=== PATIENT | female | born 1970 | race African-American/Black ===

== ENCOUNTER 2017-06-16 12:21 | Inpatient (IN) | payer BC, OTHER ==
[2017-06-16 12:31] VITALS: BMI 35.4
[2017-06-16] MEDS ORDERED: ALBUTEROL SO4 2.5/IPRATROPIUM 0.5 INH SOL 3 ML VIAL.NEB. NEB ONE ×4 (12:36→15:18)
[2017-06-16] MEDS ORDERED: ALBUTEROL SO4 0.083% IH SOL 2.5 MG/3 ML VIAL.NEB. NEB ONE (12:45)
--- NOTE | 2017-06-16 12:54 | PDOC ---
Attending Attestation - Resident Resident Name: Smooth Jurado - HPI HPI: 06/16/17 13:26 Pt presents to the ED complaining of severe shortness of breath for two weeks that has become acutely worse over the past week. On arrival patient was acutely short of breath and speaking in 1 word sentences. She was not tachycardic and was only moderately tachypneic. Patient improved after extensive verbal reassurance and duonebs. Seen in Dr. Nuno's office, given solumedrol IM and sent for CXR which reportedly showed RLL PNA. Sent to ED for further evaluation. - Physicial Exam PE: 06/16/17 13:36 Pt was tachypneic on my initial exam. Lungs have diffuse wheezing, but with good air entry. + drooling without stridor. + minimal uvular swelling on ENT exam. - Medical Decision Making 06/16/17 13:41 Pt presents to the ED complaining of wheezing and shortness of breath that have been persistent for two weeks but became acutely worse today. initially tachypneic, now is speaking in 3-4 word sentences after duonebs. Will treat for PNA with rocephin, check labs and CXR and likely admit to medicine for PNA.
[2017-06-16 13:43] LABS: BASO % 0.4 % (0-2.0); EOS % 6.1 % (0-4.5); HEMATOCRIT 42.7 % (32.4-45.2); HEMOGLOBIN 14.4 GM/dL (10.7-15.3); LYMPH % 26.4 % (8-40); MCH 29.6 pg (25.7-33.7); MCHC 33.8 g/dl (32.0-36.0); MEAN CELL VOLUME 87.6 fl (80-96); MEAN PLT VOLUME 8.4 fl (7.5-11.1); MONO % 3.2 % (3.8-10.2); NEUT % 63.9 % (42.8-82.8); PLATELET COUNT 305 K/MM3 (134-434); RBC 4.88 M/mm3 (3.60-5.2); RDW 12.9 % (11.6-15.6)
--- NOTE | 2017-06-16 13:59 | PDOC ---
History of Present Illness - General Chief Complaint: Shortness of Breath Stated Complaint: CHEST PAIN, RESPIRATORY Time Seen by Provider: 06/16/17 12:53 History Source: Patient Exam Limitations: No Limitations - History of Present Illness Initial Comments: 06/16/17 13:57 The patient is a 47F with a PMH of seizures who presents to the ER with cough, fever, sore throat, and shortness of breath. History is limited by clinical presentation. The patient came with a note from clinic. The patient states that she's been sick for 2 weeks and it has been worsening over the past week. She states that she had a fever last night and has been losing her voice. She cannot provide any other history. Past History - Past Medical History Allergies/Adverse Reactions: Allergies Allergy/AdvReac Type Severity Reaction Status Date / Time prednisone Allergy Verified 06/16/17 12:25 Home Medications: Ambulatory Orders NK [No Known Home Medication] 07/13/15 COPD: No Seizures: Yes - Surgical History Appendectomy: Yes - Suicide/Smoking/Psychosocial Hx Smoking History: Never smoked Have you smoked in the past 12 months: No Information on smoking cessation initiated: No Hx Alcohol Use: No Drug/Substance Use Hx: No Substance Use Type: None Hx Substance Use Treatment: No Review of Systems - Review of Systems Able to Perform ROS?: No (Clinical condition) Is the patient limited Bhutanese proficient: No *Physical Exam - Vital Signs Last Vital Signs Temp Pulse Resp BP Pulse Ox 98 F 89 20 135/90 98 06/16/17 13:45 06/16/17 12:26 06/16/17 12:26 06/16/17 12:26 06/16/17 13:37 - Physical Exam Comments: 06/16/17 14:01 GENERAL: Well developed, well nourished. Awake and alert. No acute distress. HEENT: Normocephalic, atraumatic. Hearing grossly normal. Moist mucous membranes. PERRLA, EOMI. No conjunctival pallor. Sclera are non-icteric. Oropharynx is erythematous without exudates. Pt is drooling profusely. NECK: Supple, but tender to palpation. Full ROM. No JVD. No lymphadenopathy. CARDIOVASCULAR: Regular rate and rhythm. No murmurs, rubs, or gallops. Distal pulses are 2+ and symmetric. PULMONARY: Diffuse end expiratory wheezing without stridor. No intercostal or abdominal retractions noted. ABDOMINAL: Soft. Non-tender. Non-distended. No rebound or guarding. No organomegaly. Normoactive bowel sounds. MUSCULOSKELETAL: Normal range of motion at all joints. No bony deformities or tenderness. EXTREMITIES: No cyanosis. No clubbing. No edema. No calf tenderness. SKIN: Warm and dry. Normal capillary refill. No rashes. No jaundice. NEUROLOGICAL: Alert, awake, appropriate. Cranial nerves 2-12 intact. PSYCHIATRIC: Cooperative. Good eye contact. Appropriate mood and affect. ED Treatment Course - LABORATORY CBC & Chemistry Diagram: 06/16/17 13:30 06/16/17 13:30 - ADDITIONAL ORDERS Additional order review: 06/16/17 13:30 RBC 4.88 MCV 87.6 MCHC 33.8 RDW 12.9 MPV 8.4 Neutrophils % 63.9 Lymphocytes % 26.4 Monocytes % 3.2 L Eosinophils % 6.1 H Basophils % 0.4 - RADIOLOGY Radiology Studies Ordered: Category Date Time Status CHEST X-RAY PORTABLE* [RAD] Stat Radiology 06/16/17 13:24 Ordered - Medications Given in the ED: ED Medications Discontinued Medications Generic Name Dose Route Start Last Admin Trade Name Freq PRN Reason Stop Dose Admin Albuterol/Ipratropium 1 amp 06/16/17 12:36 06/16/17 12:36 Duoneb - NEB 06/16/17 12:37 1 amp NOW ONE Administration Medical Decision Making - Medical Decision Making 06/16/17 14:02 The patient is a 47F with a PMH of seizures, not taking daily medications, who presents to the ER from a clinic in respiratory distress. The patient was not able to provide much history or ROS. Pt is afebrile, moving adequate air, and has end expiratory wheezing. Her paperwork from the clinic noted a RLL PNA where she was given albuterol, solumedrol, and 1g rocephin. CBC shows no white count. Pending other labs. 06/16/17 15:17 I have endorsed the patient to Dr. Chacko for obs admission. *DC/Admit/Observation/Transfer Diagnosis at time of Disposition: Pneumonia Qualifiers: Pneumonia type: due to unspecified organism Laterality: right Lung location: lower lobe of lung Qualified Code(s): J18.1 - Lobar pneumonia, unspecified organism - Discharge Dispostion Disposition: HOME Condition at time of disposition: Stable Decision to Admit order: Yes - Referrals Referrals: Wood Orantes MD [Primary Care Provider] - - Patient Instructions - Post Discharge Activity
[2017-06-16 14:07] LABS: CHLORIDE 105 mmol/L (98-107); POTASSIUM 4.6 mmol/L (3.5-5.1); SODIUM 138 mmol/L (136-145)
[2017-06-16 14:18] LABS: ALBUMIN 3.9 g/dl (3.4-5.0); ALK PHOS 130 U/L (45-117); ANION GAP 9 (8-16); BILIRUBIN,TOTAL 0.4 mg/dL (0.2-1.0); BLOOD UREA NITROGEN 11 mg/dL (7-18); CALCIUM 9.5 mg/dL (8.5-10.1); CO2 24 mmol/L (21-32); CREATININE 0.7 mg/dL (0.55-1.02); GLUCOSE,RANDOM 94 mg/dL (74-106); SGOT/AST 19 U/L (15-37); SGPT/ALT 22 U/L (12-78); TOT PROT 8.7 g/dl (6.4-8.2)
[2017-06-16] MEDS ORDERED: ONDANSETRON 4 MG/2 ML VIAL ONE (14:48)
[2017-06-16] MEDS ORDERED: ONDANSETRON 4 MG/2 ML VIAL IVPUSH ONE (14:48)
--- NOTE | 2017-06-16 14:56 | EKG ---
Test Reason : Blood Pressure : / mmHG Vent. Rate : 075 BPM Atrial Rate : 075 BPM P-R Int : 158 ms QRS Dur : 074 ms QT Int : 388 ms P-R-T Axes : 054 025 010 degrees QTc Int : 433 ms NORMAL SINUS RHYTHM SEPTAL INFARCT (CITED ON OR BEFORE 13-JUL-2015) ABNORMAL ECG WHEN COMPARED WITH ECG OF 13-JUL-2015 15:57, NO SIGNIFICANT CHANGE WAS FOUND Confirmed by MD Marimar, Alan ([id number]) on 06/16/2017 2:55:40 PM Referred By: Confirmed By:Alan Minaya MD
[2017-06-16] MEDS ORDERED: AZITHROMYCIN 500 MG TABLET PO ONE (15:15)
[2017-06-16] MEDS ORDERED: AZITHROMYCIN 250 MG TABLET ONE (15:21)
[2017-06-16] MEDS ORDERED: ACETAMINOPHEN 1000 MG/100 ML VIAL (NON FORMULARY) IVPB ONE (16:17)
[2017-06-16] MEDS ORDERED: ACETAMINOPHEN INJECTION 100 ML IVPB ONE (16:21)
[2017-06-16] MEDS ORDERED: KETOROLAC TROMETHAMINE 30 MG/1 ML VIAL IVPUSH ONE (21:45)
[2017-06-16] MEDS: DEXTROSE 5%-0.45% SALINE 1,000 ML IV SCH (23:42)
[2017-06-17] MEDS: ALBUTEROL SO4 2.5/IPRATROPIUM 0.5 INH SOL 3 ML VIAL.NEB. NEB PRN ×3 (00:05→15:09)
--- NOTE | 2017-06-17 08:46 | CON.CARD ---
Cardiology Consult (text) - Consultation Consultation Note: Full Consult Dictated IMP: Probable URI triggered bronchospasm with pleurisy R/o Pericardial effusion, pericarditis Doubt pulmonary embolism or ACS-- low clinical suspicion REC: 1. Empiric Rx for PNA started, defer to Pulmonary 2. Nebs/ NSAIDS 3. Echo and D-dimer Will follow
[2017-06-17 09:00] LABS: BASO % 0.1 % (0-2.0); HEMATOCRIT 35.9 % (32.4-45.2); HEMOGLOBIN 12.2 GM/dL (10.7-15.3); LYMPH % 13.3 % (8-40); MCH 29.7 pg (25.7-33.7); MCHC 34.1 g/dl (32.0-36.0); MEAN CELL VOLUME 87.3 fl (80-96); MEAN PLT VOLUME 8.6 fl (7.5-11.1); MONO % 3.9 % (3.8-10.2); NEUT % 82.7 % (42.8-82.8); PLATELET COUNT 275 K/MM3 (134-434); RBC 4.11 M/mm3 (3.60-5.2); RDW 12.4 % (11.6-15.6); WHITE BLOOD COUNT 10.6 K/mm3 (4.0-10.0)
[2017-06-17] MEDS ORDERED: cefTRIAXone SODIUM 1 GM VIAL ONE (09:59)
[2017-06-17] MEDS ORDERED: DEXTROSE 5%-WATER - 50 ML IVPB ONE (09:59)
--- NOTE | 2017-06-17 10:15 | CONS ---
CARDIOLOGY CONSULTATION DATE OF CONSULTATION: 06/17/2017 The consultation was requested by Akilah Chacko MD, for shortness of breath. HISTORY OF PRESENT ILLNESS: The patient is a 47-year-old female with past medical history of seizure disorder who was admitted for evaluation of approximately 2 weeks of cough, mostly nonproductive associated with dyspnea and pleuritic-type chest discomfort. She describes the chest discomfort as sharp, across the entire precordium and worse with coughing and with positional change. She has felt intermittent chills and fevers at home, although here has been afebrile. Presented to her PMD's office yesterday, where she was noted to be wheezing, and sent to the ER for further evaluation. In the ER, it is documented that she was wheezing and was treated for empiric pneumonia with ceftriaxone after blood cultures were drawn. The patient denies any travel history. No sick contacts. She denies any lower extremity edema, palpitations. The chest pain she describes is described as sharp and occasional heaviness, worse when lying flat, worse with coughing, worse with positional change. Through her course here, she has not been tachycardic, oxygen saturation has been between 97% and 100% on room air. Her past medical history is as above. SHE HAS ALLERGIES TO PREDNISONE. MEDICATIONS: Her current medications include Tylenol p.r.n., albuterol nebulizers, azithromycin, ceftriaxone, subcutaneous heparin for DVT prophylaxis. FAMILY HISTORY: Noncontributory to this presentation. SOCIAL HISTORY: Denies alcohol, tobacco or illicit drugs. She lives alone. PHYSICAL EXAMINATION: Vital Signs: Afebrile, temperature 98.7, pulse 83, regular, blood pressure 106/60, O2 saturation 98 on room air. Eyes: She is anicteric. Neck: There is no JVD. Heart: Regular with no rubs. Chest: Clear. No active wheezing now. Abdomen: Obese. Nontender. Extremities: With no edema. EKG showed normal sinus rhythm; cannot rule out septal-infarct pattern, although this may be due to her body habitus. Blood cultures are pending. White count was 9, hematocrit 43, platelets 305. Sodium 138, potassium 4.6, creatinine was normal. LFTs were normal. CK and troponin negative x2 sets. Total protein was elevated at 8.7. Albumin was normal. test was negative. D-dimer is pending. Telemetry has shown normal sinus rhythm, thus far. IMPRESSION: 1. Probable upper respiratory infection, viral, triggering bronchospasm with pleurisy. 2. Rule out pericarditis/pericardial effusion. 3. Low clinical suspicion for pulmonary embolism or acute coronary syndrome. RECOMMENDATIONS: 1. Empiric treatment for pneumonia has been started. Will defer to Pulmonary as to the need to continue. Follow up blood cultures. 2. Continue nebulizers. Would give trial of NSAIDs. 3. Echo and D-dimer are pending. Thank you for the consultation. RENITA CAMACHO M.D. [id number]
[2017-06-17] MEDS: HEPARIN NA (PORCINE) 5,000 UNITS/ML 1ML VIAL SQ SCH ×2 (10:47→21:36)
[2017-06-17] MEDS: CEFTRIAXONE 1 GM in DEXTROSE 5%-WATER - 50 ML IVPB SCH (10:47)
[2017-06-17] MEDS: ACETAMINOPHEN 325 MG TABLET (FP) PO PRN (10:48)
[2017-06-17] MEDS: AZITHROMYCIN IVPB 250 MG in DEXTROSE 5%-WATER - 250 ML IVPB SCH (10:48)
[2017-06-17 11:16] LABS: CHLORIDE 107 mmol/L (98-107); POTASSIUM 4.2 mmol/L (3.5-5.1); SODIUM 139 mmol/L (136-145)
--- NOTE | 2017-06-17 11:26 | PN ---
Progress Note (short form) - Note Progress Note: PULMONARY CONSULTATION DICTATED 06/17/17 IMP ASTHMATIC BRONCHITIS CP LIKELY PLEURISY,? PERCARDITIS,?PE SEIZURE DISORDER MENINGIOMA PLAN CHEST CTA INHALED BRONCHODILATORS SOLUMEDROL ESR ECHO DR FOLEY Problem List - Problems (1) Chest pain Code(s): R07.9 - CHEST PAIN, UNSPECIFIED (2) Meningioma Code(s): D32.9 - BENIGN NEOPLASM OF MENINGES, UNSPECIFIED (3) Pleurisy Code(s): R09.1 - PLEURISY (4) Seizure Code(s): R56.9 - UNSPECIFIED CONVULSIONS (5) Asthmatic bronchitis Code(s): J45.909 - UNSPECIFIED ASTHMA, UNCOMPLICATED
[2017-06-17] MEDS: methylPREDNISolone NA SUCC 40 MG/1 ML VIAL IVPUSH SCH ×3 (11:30→21:37)
--- NOTE | 2017-06-17 12:08 | CONS ---
PULMONARY CONSULTATION DATE OF CONSULTATION: 06/17/2017 REFERRING PHYSICIAN: Mo Frank MD HISTORY OF PRESENT ILLNESS: The patient is a 47-year-old white female. Past medical history of seizure disorder and meningioma. Nonsmoker. Admitted to [facility] with a complaint of a 2-week history of increasing shortness of breath and intermittent pleuritic chest pain. The patient states that a couple of weeks ago, she started developing symptoms of chest pain associated with shortness of breath. Denied any fevers or chills. Denied any nausea, vomiting, or diaphoresis. Initially did not have fevers or chills. Eventually, she started developing a cough, intermittent fever, sore throat and shortness of breath. She apparently went to her PMD yesterday with the above complaints and was noted to be in moderate respiratory distress. She was started on inhaled bronchodilators, as well as given steroids, and Solu-Medrol, and transferred to the emergency room for further management. Apparently, she had a chest x-ray performed which revealed a right lower lobe infiltrate in primary MD's office. In the ER, she was treated with inhaled bronchodilators and supplemental O2. She was transferred up to medical-telemetry unit for further management. She was evaluated by Dr. Frank for Cardiology consultation who felt the patient was likely having a possible viral infection, possible pericarditis. Patient, as stated, is a nonsmoker. She denies any history of COPD or asthma. There is no history of DVT or PE in the past. There is no history of recent travel or a sedentary lifestyle. She denies any oral contraceptive use. She is currently employed in a [employer]. Denies any occupational exposures. She states that she has never had an episode similar to this. PAST MEDICAL HISTORY: Again includes history of seizure disorder, as well as meningioma. SOCIAL HISTORY: Nonsmoker. No occupational exposures. REVIEW OF SYSTEMS: Positive shortness of breath. Positive pleuritic chest pain. Positive intermittent cough. No chills, no hemoptysis at this time. No abdominal pain, lower extremity edema. CURRENT MEDICATIONS: Include Tylenol, Zithromax, ceftriaxone, heparin, DuoNeb, and D5-1/2 normal. PHYSICAL EXAMINATION: General: The patient is a well-developed, well-nourished female, awake, alert, in no acute distress. Vital signs: She is afebrile, blood pressure is 106/57, respiratory rate is 20, O2 saturation is 98% on room air. HEENT: Exam is normocephalic, atraumatic. Neck: Supple. Heart: Regular S1 and S2. Chest: Clear. Abdomen: Soft. Bowel sounds are positive. Extremities: No cyanosis, edema. LABORATORY: WBC is 10.6, hemoglobin 12.2, hematocrit 35.9 with a platelet count of 275,000. INR D-dimer is 571. BUN 11, creatinine 0.6. ESR is pending. Chest x-ray: No infiltrates and no effusions. IMPRESSION: 1. Chest pain syndrome. Possible new onset of viral pleuritis. Possible pericarditis. Cannot exclude possible pulmonary emboli with elevated D-dimer, although patient without any significant tachycardia or hypoxemia. 2. History of seizure disorder. 3. History of meningioma. PLAN: IV steroids. Inhaled bronchodilators. Chest CTA. Obtain sedimentation rate. Echocardiogram. GOPAL FOLEY M.D. [id number]
[2017-06-17 12:31] LABS: ALBUMIN 3.3 g/dl (3.4-5.0); ALK PHOS 99 U/L (45-117); ANION GAP 12 (8-16); BILIRUBIN,TOTAL 0.3 mg/dL (0.2-1.0); BLOOD UREA NITROGEN 16 mg/dL (7-18); CALCIUM 8.6 mg/dL (8.5-10.1); CO2 20 mmol/L (21-32); CREATININE 0.7 mg/dL (0.55-1.02); GLUCOSE,RANDOM 105 mg/dL (74-106); SGOT/AST 13 U/L (15-37); SGPT/ALT 15 U/L (12-78); TOT PROT 7.1 g/dl (6.4-8.2)
--- NOTE | 2017-06-17 13:23 | HP ---
Admitting History and Physical - Admission History of Present Illness: Pt is a 47y/o female with a PMH significant for seizuredz and meningioma. Pt had been having 2 weeks of intermittent cough wc is dry and nonproductive. However she has developed shortness of breath and chest pain. The chest pain is pleuritic at times and mostly left sided. Pt denies any palpitations. Pt also described fever/chills but was afebrile in the ER. In the ER pt had CXR wc was normal along w/ a normal WBC. Pt was given nebulizer treatments in the ER wc did help improve symptoms. 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, Other (Meningioma) ...: No - Smoking History Smoking history: Never smoked Have you smoked in the past 12 months: No - Alcohol/Substance Use Hx Alcohol Use: No Home Medications - Allergies Allergies/Adverse Reactions: Allergies Allergy/AdvReac Type Severity Reaction Status Date / Time prednisone Allergy Verified 06/16/17 12:25 - Home Medications Home Medications: Ambulatory Orders NK [No Known Home Medication] 07/13/15 Family Disease History - Family Disease History Family History: Unremarkable Review of Systems - Review of Systems Constitutional: reports: Chills, Fever, Malaise, Weakness Eyes: reports: No Symptoms HENT: reports: No Symptoms Neck: reports: No Symptoms Cardiovascular: reports: Chest Pain, Shortness of Breath Respiratory: reports: Cough, SOB Gastrointestinal: reports: No Symptoms Genitourinary: reports: No Symptoms Physical Examination Vital Signs: Vital Signs Temperature 98.7 F 06/17/17 05:39 Pulse Rate 83 06/17/17 05:39 Respiratory Rate 20 06/17/17 05:39 Blood Pressure 106/57 06/17/17 05:39 O2 Sat by Pulse Oximetry (%) 98 06/17/17 09:00 Constitutional: Yes: Well Nourished Eyes: Yes: WNL HENT: Yes: WNL Neck: Yes: WNL, Supple Cardiovascular: Yes: WNL, Regular Rate and Rhythm Respiratory: Yes: WNL, Regular, CTA Bilaterally Gastrointestinal: Yes: WNL, Normal Bowel Sounds, Soft, Abdomen, Obese Musculoskeletal: Yes: WNL Extremities: Yes: WNL Edema: No Neurological: Yes: WNL, Alert ...Motor Strength: WNL Labs: CBC, BMP 06/17/17 06:30 05/09/18 06:30 Problem List - Problems (1) Chest pain Assessment/Plan: Muscular skeletal in origin CPK/troponin remain negative ?Pleurisy Await echo Probable dc planning in am on NSAID Code(s): R07.9 - CHEST PAIN, UNSPECIFIED (2) Asthmatic bronchitis Assessment/Plan: Cont IV antibxs/nebulizers ?Change to po in am Code(s): J45.909 - UNSPECIFIED ASTHMA, UNCOMPLICATED (3) Pleurisy Assessment/Plan: Cont NSAID Code(s): R09.1 - PLEURISY (4) Seizure Code(s): R56.9 - UNSPECIFIED CONVULSIONS
[2017-06-17] MEDS ORDERED: KETOROLAC TROMETHAMINE 15 MG/ML VIAL IVPUSH PRN (16:44)
[2017-06-17] MEDS: DEXTROSE 5%-0.45% SALINE 1,000 ML IV SCH (21:37)
[2017-06-17] MEDS: MELATONIN 5 MG TABLETS PO PRN (23:04)
[2017-06-18] MEDS: methylPREDNISolone NA SUCC 40 MG/1 ML VIAL IVPUSH SCH ×4 (03:00→22:42)
[2017-06-18] MEDS ORDERED: DEXTROSE 5%-WATER - 50 ML IVPB ONE (08:56)
[2017-06-18] MEDS ORDERED: cefTRIAXone SODIUM 1 GM VIAL ONE (08:56)
[2017-06-18] MEDS ORDERED: PT OWN MED DRAWER 7, Y5N ONE ×3 (08:56→22:51)
[2017-06-18] MEDS: ACETAMINOPHEN 325 MG TABLET (FP) PO PRN (08:59)
--- NOTE | 2017-06-18 09:13 | PN ---
Progress Note, Physician Chief Complaint: CTA neg PE or PNA Echo normal TELE WNL - Current Medication List Current Medications: Active Medications Acetaminophen (Tylenol -) 650 mg PO Q4H PRN PRN Reason: PAIN LEVEL 1-3 Last Admin: 06/18/17 08:59 Dose: 650 mg Albuterol/Ipratropium (Duoneb -) 1 amp NEB Q6H PRN PRN Reason: SHORTNESS OF BREATH Last Admin: 06/17/17 15:09 Dose: 1 amp Heparin Sodium (Porcine) (Heparin -) 5,000 unit SQ BID ANKIT Last Admin: 06/17/17 21:36 Dose: 5,000 unit Azithromycin 250 mg/ Dextrose 250 mls @ 250 mls/hr IVPB DAILY [facility] Last Admin: 06/17/17 10:48 Dose: 250 mls/hr Ceftriaxone Sodium 1 gm/ (Dextrose) 50 mls @ 200 mls/hr IVPB DAILY ANKIT PRN Reason: Protocol Last Admin: 06/17/17 10:47 Dose: 200 mls/hr Dextrose/Sodium Chloride (D5-1/2ns -) 1,000 mls @ 75 mls/hr IV ASDIR ANK[facility] Last Admin: 06/17/17 21:37 Dose: 75 mls/hr Melatonin (Melatonin) 5 mg PO HS PRN PRN Reason: INSOMNIA Last Admin: 06/17/17 23:04 Dose: 5 mg Methylprednisolone Sodium Succinate (Solu-Medrol -) 40 mg IVPUSH Q6H-IV ANK[facility] Last Admin: 06/18/17 03:00 Dose: 40 mg Naproxen (Naprosyn -) 500 mg PO BID ANKIT Pantoprazole Sodium (Protonix -) 40 mg PO DAILY [facility] - Objective Vital Signs: Vital Signs Temperature 98.3 F 06/17/17 20:03 Pulse Rate 86 06/17/17 20:03 Respiratory Rate 20 06/17/17 20:03 Blood Pressure 99/55 06/17/17 20:03 O2 Sat by Pulse Oximetry (%) 98 06/17/17 20:01 Constitutional: Yes: No Distress Cardiovascular: Yes: Regular Rate and Rhythm Respiratory: Yes: CTA Bilaterally Gastrointestinal: Yes: Soft, Abdomen, Obese Edema: No Neurological: Yes: Alert, Oriented ...Motor Strength: WNL Labs: CBC, BMP 06/17/17 06:30 06/17/17 06:30 - ....Imaging Cat Scan: Report Reviewed EKG: Image Reviewed Assessment/Plan IMP: Probable URI triggered bronchospasm with pleurisy REC: Course of NSAIDS REst as per pulmonary No further CV work up planned. D/C tele
[2017-06-18] MEDS: NAPROXEN 500 MG TABLET (FP) PO SCH ×2 (09:53→22:42)
[2017-06-18] MEDS: AZITHROMYCIN IVPB 250 MG in DEXTROSE 5%-WATER - 250 ML IVPB SCH (09:53)
[2017-06-18] MEDS: HEPARIN NA (PORCINE) 5,000 UNITS/ML 1ML VIAL SQ SCH ×2 (09:54→22:42)
[2017-06-18] MEDS: CEFTRIAXONE 1 GM in DEXTROSE 5%-WATER - 50 ML IVPB SCH (09:54)
[2017-06-18] MEDS: PANTOPRAZOLE 40 MG TABLET (FP) PO SCH (09:54)
[2017-06-18] MEDS: ALBUTEROL SO4 2.5/IPRATROPIUM 0.5 INH SOL 3 ML VIAL.NEB. NEB PRN (10:50)
[2017-06-18] MEDS ORDERED: ALBUTEROL SO4 0.083% IH SOL 2.5 MG/3 ML VIAL.NEB. NEB PRN (11:15)
--- NOTE | 2017-06-18 11:15 | PN ---
Progress Note (short form) - Note Progress Note: PULMONARY Still with chest pain especially with deep inspiration and coughing. CTA negative for PE, echocardiogram unremarkable. Last Vital Signs Temp Pulse Resp BP Pulse Ox 98 F 78 18 106/60 98 06/18/17 10:00 06/18/17 10:00 06/18/17 10:00 06/18/17 10:00 06/17/17 20:01 Gen: tachypneic at rest Heart: RRR Lung: poor air movement Abd: soft, nontender Ext: no edema CBC, BMP 06/17/17 06:30 06/17/17 06:30 Active Medications Acetaminophen (Tylenol -) 650 mg PO Q4H PRN PRN Reason: PAIN LEVEL 1-3 Last Admin: 06/18/17 08:59 Dose: 650 mg Albuterol/Ipratropium (Duoneb -) 1 amp NEB Q6H PRN PRN Reason: SHORTNESS OF BREATH Last Admin: 06/17/17 15:09 Dose: 1 amp Heparin Sodium (Porcine) (Heparin -) 5,000 unit SQ BID [facility] Last Admin: 06/18/17 09:54 Dose: 5,000 unit Azithromycin 250 mg/ Dextrose 250 mls @ 250 mls/hr IVPB DAILY [facility] Last Admin: 06/18/17 09:53 Dose: 250 mls/hr Ceftriaxone Sodium 1 gm/ (Dextrose) 50 mls @ 200 mls/hr IVPB DAILY ANKIT PRN Reason: Protocol Last Admin: 06/18/17 09:54 Dose: 200 mls/hr Dextrose/Sodium Chloride (D5-1/2ns -) 1,000 mls @ 75 mls/hr IV ASDIR [facility] Last Admin: 06/17/17 21:37 Dose: 75 mls/hr Melatonin (Melatonin) 5 mg PO HS PRN PRN Reason: INSOMNIA Last Admin: 06/17/17 23:04 Dose: 5 mg Methylprednisolone Sodium Succinate (Solu-Medrol -) 40 mg IVPUSH Q6H-IV [facility] Last Admin: 06/18/17 09:54 Dose: 40 mg Naproxen (Naprosyn -) 500 mg PO BID [facility] Last Admin: 06/18/17 09:53 Dose: 500 mg Pantoprazole Sodium (Protonix -) 40 mg PO DAILY [facility] Last Admin: 06/18/17 09:54 Dose: 40 mg A/P Acute Asthma Exacerbation Seizure Disorder Meningioma - continue medrol at current dose - inhaled bronchodilators standing and PRN - cough suppressant - DVT prophylaxis
[2017-06-18] MEDS ORDERED: ALBUTEROL SO4 2.5/IPRATROPIUM 0.5 INH SOL 3 ML VIAL.NEB. NEB SCH (14:00)
[2017-06-18] MEDS: guaiFENesin/CODEINE 10 ML UNIT-DOSE CUPS PO PRN ×2 (14:55→22:43)
[2017-06-18] MEDS: DEXTROSE 5%-0.45% SALINE 1,000 ML IV SCH (16:12)
[2017-06-18] MEDS: ALBUTEROL SO4 2.5/IPRATROPIUM 0.5 INH SOL 3 ML VIAL.NEB. NEB SCH (20:00)
--- NOTE | 2017-06-18 22:17 | PN ---
Progress Note, Physician History of Present Illness: Chest pain improved but pt still feels SOB - Current Medication List Current Medications: Active Medications Acetaminophen (Tylenol -) 650 mg PO Q4H PRN PRN Reason: PAIN LEVEL 1-3 Last Admin: 06/18/17 08:59 Dose: 650 mg Albuterol Sulfate (Ventolin 0.083% Nebulizer Soln -) 1 amp NEB Q4H PRN PRN Reason: SHORT OF BREATH/WHEEZING Albuterol/Ipratropium (Duoneb -) 1 amp NEB QIDR [facility] Last Admin: 06/18/17 14:15 Dose: 1 amp Guaifenesin/Codeine Phosphate (Robitussin Ac -) 10 ml PO Q8H PRN PRN Reason: COUGH Last Admin: 06/18/17 14:55 Dose: 10 ml Heparin Sodium (Porcine) (Heparin -) 5,000 unit SQ BID [facility] Last Admin: 06/18/17 09:54 Dose: 5,000 unit Azithromycin 250 mg/ Dextrose 250 mls @ 250 mls/hr IVPB DAILY [facility] Last Admin: 06/18/17 09:53 Dose: 250 mls/hr Ceftriaxone Sodium 1 gm/ (Dextrose) 50 mls @ 200 mls/hr IVPB DAILY ANK[facility] PRN Reason: Protocol Last Admin: 06/18/17 09:54 Dose: 200 mls/hr Dextrose/Sodium Chloride (D5-1/2ns -) 1,000 mls @ 75 mls/hr IV ASDIR [facility] Last Admin: 06/18/17 16:12 Dose: Not Given Melatonin (Melatonin) 5 mg PO HS PRN PRN Reason: INSOMNIA Last Admin: 06/17/17 23:04 Dose: 5 mg Methylprednisolone Sodium Succinate (Solu-Medrol -) 40 mg IVPUSH Q6H-IV [facility] Last Admin: 06/18/17 14:49 Dose: 40 mg Naproxen (Naprosyn -) 500 mg PO BID [facility] Last Admin: 06/18/17 09:53 Dose: 500 mg Pantoprazole Sodium (Protonix -) 40 mg PO DAILY [facility] Last Admin: 06/18/17 09:54 Dose: 40 mg - Objective Vital Signs: Vital Signs Temperature 98.5 F 06/18/17 20:59 Pulse Rate 73 06/18/17 20:59 Respiratory Rate 18 06/18/17 20:59 Blood Pressure 100/65 06/18/17 20:59 O2 Sat by Pulse Oximetry (%) 96 06/18/17 20:59 Constitutional: Yes: Well Nourished Neck: Yes: WNL, Supple Cardiovascular: Yes: WNL, Regular Rate and Rhythm Respiratory: Yes: Wheezes Gastrointestinal: Yes: WNL, Normal Bowel Sounds, Soft Labs: CBC, BMP 06/17/17 06:30 06/17/17 06:30 Problem List - Problems (1) Asthmatic bronchitis Assessment/Plan: Pt still w/ bronchospasm and wheezing Cont IV streoids As per pulmonary Cont IV antibxs/nebulizers Code(s): J45.909 - UNSPECIFIED ASTHMA, UNCOMPLICATED (2) Chest pain Assessment/Plan: Muscular skeletal in origin CPK/troponin remain negative ?Pleurisy Cont naprosyn Code(s): R07.9 - CHEST PAIN, UNSPECIFIED (3) Pleurisy Assessment/Plan: Cont NSAID Code(s): R09.1 - PLEURISY (4) Seizure Code(s): R56.9 - UNSPECIFIED CONVULSIONS
[2017-06-18] MEDS: MELATONIN 5 MG TABLETS PO PRN (23:00)
[2017-06-19] MEDS: methylPREDNISolone NA SUCC 40 MG/1 ML VIAL IVPUSH SCH ×4 (03:16→21:30)
[2017-06-19] MEDS: DEXTROSE 5%-0.45% SALINE 1,000 ML IV SCH ×2 (06:08→23:00)
[2017-06-19] MEDS: ALBUTEROL SO4 2.5/IPRATROPIUM 0.5 INH SOL 3 ML VIAL.NEB. NEB SCH ×4 (07:25→20:45)
[2017-06-19] MEDS ORDERED: cefTRIAXone SODIUM 1 GM VIAL ONE (09:55)
[2017-06-19] MEDS ORDERED: DEXTROSE 5%-WATER - 50 ML IVPB ONE (09:56)
[2017-06-19] MEDS: HEPARIN NA (PORCINE) 5,000 UNITS/ML 1ML VIAL SQ SCH ×2 (10:10→21:30)
[2017-06-19] MEDS: NAPROXEN 500 MG TABLET (FP) PO SCH (10:10)
[2017-06-19] MEDS: PANTOPRAZOLE 40 MG TABLET (FP) PO SCH (10:10)
[2017-06-19] MEDS: CEFTRIAXONE 1 GM in DEXTROSE 5%-WATER - 50 ML IVPB SCH (10:15)
[2017-06-19] MEDS: AZITHROMYCIN IVPB 250 MG in DEXTROSE 5%-WATER - 250 ML IVPB SCH (11:00)
[2017-06-19] MEDS ORDERED: morphine CARPU-JECT 2 MG/1 ML DISP.SYRIN IVPUSH ONE (12:25)
[2017-06-19] MEDS ORDERED: KETOROLAC TROMETHAMINE 15 MG/ML VIAL IVPUSH ONE (12:29)
--- NOTE | 2017-06-19 12:29 | RAPID ---
Physical Examination Vital Signs: Vital Signs Temperature 98.0 F 06/19/17 05:58 Pulse Rate 63 06/19/17 05:58 Respiratory Rate 18 06/19/17 05:58 Blood Pressure 104/50 06/19/17 05:58 O2 Sat by Pulse Oximetry (%) 96 06/18/17 20:59 Findings/Remarks: UPDATE: Pt back in bed with no more episodes of vomiting. Pt feels better, but still complaining with pain with deep inspiration and coughing. Pt much more calm and breathing with a regular rhythm. Pt also notes this is her first time with pneumonia and experiencing pleurisy. Rapid response called overhead for patient. Upon entrance, pt being attended to by nursing staff. Reported that pt started to vomit nb/nb emesis and developed L anterior chest pain with pt hyperventilating. Pt is admitted for CAPna and has had pain with deep inspiration and coughing. CTA was performed 48hours ago which rule out any PE. Pt suffers from some anxiety. Denies any radiation of pain, diaphoresis, jaw claudication. Encounter VS and PE: BP: 137/88, Pulse 105bpm, SpO2 98% on 2L, Temp 99.7 oral Gen: Mild distress, hyperventilating, clear sputum/emesis HEENT: NC/AT, EOMI, MILLY, moist mucosa Neck: No JVD Lungs: CTA bilaterally, no wheezes rhonchi rales CHEST: Reproducible L anterior chest pain CARDIAC: Tachycardic with regular rhythm, no murmurs appreciated ABD: Soft, NT/ND, normoactive BS EXT: No edema noted, warm, 2+ DP pulses A/P Costochondritis Anxiety attack vs. hyperventilation Will r/o event even though low on differential --Toradol 15mg IVPush once --Discontinued naproxen due to contrast risk? --CXR portable stat --EKG stat --Revealed NSR @84bpm, normal axis, normal R wave progression, No ST abnormalities to suggest ischemia, TWI in noncontiguous Lead III noted, NV 150ms , QTc 423, UNCHANGED from previous EKG on 06/16/17 --Cardiac profile ==Will attempt to contact primary Case discussed with Dr. Joiner and Dr. Hinojosa. Jerad Diana, DO - PGY-1 Labs: CBC, BMP 06/17/17 06:30 06/17/17 06:30
--- NOTE | 2017-06-19 15:45 | CON.GI ---
Consult Consult Specialty:: GI Reason for Consultation:: atypical chest pain - History of Present Illness History of Present Illness: Chart review. Events noted. As per initial intake: Pt is a 47y/o female with a PMH significant for seizuredz and meningioma. Pt had been having 2 weeks of intermittent cough wc is dry and nonproductive. However she has developed shortness of breath and chest pain. The chest pain is pleuritic at times and mostly left sided. Pt denies any palpitations. Pt also described fever/chills but was afebrile in the ER. In the ER pt had CXR wc was normal along w/ a normal WBC. Pt was given nebulizer treatments in the ER wc did help improve symptoms. GI was asked to evaluate for atypical chest pain. At the time of this encounter the patient appears comfortable. Pain-free. Reports upper URI symptoms with onset 3 weeks ago progressing to bouts of cough and pleuritic chest pain that is mostly on the left side. CT/angiogram of the chest reveals no acute, or significant abnormalities. PE and cardiovascular etiologies ruled out. Patient reports no prior history of chronic GERD, peptic ulcerative disease, dyspepsia, reflux-like symptoms, or GI related issues in general. Has never been on chronic antiacid regimen. Denies dysphagia, odynophagia, nausea, vomiting, jaundice, chronic low-grade fever, chills. Reports no changes in bowel habits. Denies significant weight loss. 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) ...: No - Alcohol/Substance Use Hx Alcohol Use: No - Smoking History Smoking history: Never smoked Have you smoked in the past 12 months: No Home Medications - Allergies Allergies/Adverse Reactions: Allergies Allergy/AdvReac Type Severity Reaction Status Date / Time prednisone Allergy Verified 06/16/17 12:25 - Home Medications Home Medications: Ambulatory Orders NK [No Known Home Medication] 07/13/15 Family Disease History - Family Disease History Family History: Unremarkable (Noncontributory) Review of Systems Findings/Remarks: as per H&P and HPI Physical Exam-GI Vital Signs: Vital Signs Temperature 97.6 F 06/19/17 14:14 Pulse Rate 75 06/19/17 14:14 Respiratory Rate 20 06/19/17 14:14 Blood Pressure 125/73 06/19/17 14:14 O2 Sat by Pulse Oximetry (%) 97 06/19/17 09:00 Constitutional: Yes: Well Nourished, No Distress, Calm Eyes: Yes: Conjunctiva Clear HENT: Yes: Atraumatic Neck: Yes: Supple Cardiovascular: Yes: Regular Rate and Rhythm Respiratory: Yes: Regular Gastrointestinal Inspection: No: Ascites, Distention ...Auscultate: Yes: Normoactive Bowel Sounds ...Palpate: Yes: Soft. No: Tenderness, Tenderness, Epigastium, Tenderness, Rebound Neurological: Yes: Alert, Oriented Labs: CBC, BMP 06/17/17 06:30 06/17/17 06:30 Laboratory Last Values WBC 10.6 K/mm3 (4.0-10.0) H 06/17/17 06:30 RBC 4.11 M/mm3 (3.60-5.2) 06/17/17 06:30 Hgb 12.2 GM/dL (10.7-15.3) D 06/17/17 06:30 Hct 35.9 % (32.4-45.2) D 06/17/17 06:30 MCV 87.3 fl (80-96) 06/17/17 06:30 MCH 29.7 pg (25.7-33.7) 06/17/17 06:30 MCHC 34.1 g/dl (32.0-36.0) 06/17/17 06:30 RDW 12.4 % (11.6-15.6) 06/17/17 06:30 Plt Count 275 K/MM3 (134-434) 06/17/17 06:30 MPV 8.6 fl (7.5-11.1) 06/17/17 06:30 Neutrophils % 82.7 % (42.8-82.8) D 06/17/17 06:30 Lymphocytes % 13.3 % (8-40) D 06/17/17 06:30 Monocytes % 3.9 % (3.8-10.2) 06/17/17 06:30 Eosinophils % 0.0 % (0-4.5) D 06/17/17 06:30 Basophils % 0.1 % (0-2.0) 06/17/17 06:30 ESR 32 mm/hr (0-20) H 06/17/17 06:30 D-Dimer 571 ng/ml (0-500) H 06/17/17 09:40 Sodium 139 mmol/L (136-145) 06/17/17 06:30 Potassium 4.2 mmol/L (3.5-5.1) 06/17/17 06:30 Chloride 107 mmol/L (98-107) 06/17/17 06:30 Carbon Dioxide 20 mmol/L (21-32) L 06/17/17 06:30 Anion Gap 12 (8-16) 06/17/17 06:30 BUN 16 mg/dL (7-18) 06/17/17 06:30 Creatinine 0.7 mg/dL (0.55-1.02) 06/17/17 06:30 Creat Clearance w eGFR > 60 (>60) 06/17/17 06:30 POC Glucometer 170 UNITS (80-120) 06/19/17 12:22 Random Glucose 105 mg/dL (74-106) 06/17/17 06:30 Lactic Acid 1.2 mmol/L (0.0-2.0) 06/16/17 13:30 Calcium 8.6 mg/dL (8.5-10.1) 06/17/17 06:30 Total Bilirubin 0.3 mg/dL (0.2-1.0) D 06/17/17 06:30 AST 13 U/L (15-37) L 06/17/17 06:30 ALT 15 U/L (12-78) 06/17/17 06:30 Alkaline Phosphatase 99 U/L (45-117) 06/17/17 06:30 Creatine Kinase 31 IU/L (26-192) 06/19/17 13:10 Troponin I < 0.02 ng/ml (0.00-0.05) 06/19/17 13:10 Total Protein 7.1 g/dl (6.4-8.2) 06/17/17 06:30 Albumin 3.3 g/dl (3.4-5.0) L 06/17/17 06:30 Serum , Qual Negative 06/16/17 13:30 Imaging - Results Cat Scan: Report Reviewed Problem List - Problems (1) Pleuritic chest pain Code(s): R07.81 - PLEURODYNIA Assessment/Plan A 47-year-old female with no prior history of gastrointestinal issues admitted with pleuritic-type chest pain in settings of acute onset, persistent cough. Doubt the reflux/GI related chest pain at this time. Treat respiratory symptoms as her primary care/pulmonary team. Follow-up with GI as outpatient in 1-2 weeks if the chest pain does not improve with resolution of pulmonary symptoms. We will monitor patient while she is hospitalized.
--- NOTE | 2017-06-19 15:53 | PN ---
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
[2017-06-19] MEDS: ACETAMINOPHEN 325 MG TABLET (FP) PO PRN (21:29)
[2017-06-19] MEDS ORDERED: PT OWN MED DRAWER 7, Y5N ONE (21:29)
[2017-06-19] MEDS: MELATONIN 5 MG TABLETS PO PRN (21:30)
--- NOTE | 2017-06-19 23:52 | PN ---
Progress Note, Physician - Current Medication List Current Medications: Active Medications Acetaminophen (Tylenol -) 650 mg PO Q4H PRN PRN Reason: PAIN LEVEL 1-3 Last Admin: 06/19/17 21:29 Dose: 650 mg Albuterol Sulfate (Ventolin 0.083% Nebulizer Soln -) 1 amp NEB Q4H PRN PRN Reason: SHORT OF BREATH/WHEEZING Albuterol/Ipratropium (Duoneb -) 1 amp NEB RQID [facility] Last Admin: 06/19/17 20:45 Dose: 1 amp Guaifenesin/Codeine Phosphate (Robitussin Ac -) 10 ml PO Q8H PRN PRN Reason: COUGH Last Admin: 06/18/17 22:43 Dose: 10 ml Heparin Sodium (Porcine) (Heparin -) 5,000 unit SQ BID [facility] Last Admin: 06/19/17 21:30 Dose: 5,000 unit Azithromycin 250 mg/ Dextrose 250 mls @ 250 mls/hr IVPB DAILY [facility] Last Admin: 06/19/17 11:00 Dose: 250 mls/hr Ceftriaxone Sodium 1 gm/ (Dextrose) 50 mls @ 200 mls/hr IVPB DAILY [facility] PRN Reason: Protocol Last Admin: 06/19/17 10:15 Dose: 200 mls/hr Dextrose/Sodium Chloride (D5-1/2ns -) 1,000 mls @ 75 mls/hr IV ASDIR [facility] Last Admin: 06/19/17 06:08 Dose: 75 mls/hr Melatonin (Melatonin) 5 mg PO HS PRN PRN Reason: INSOMNIA Last Admin: 06/19/17 21:30 Dose: 5 mg Methylprednisolone Sodium Succinate (Solu-Medrol -) 40 mg IVPUSH Q6H-IV [facility] Last Admin: 06/19/17 21:30 Dose: 40 mg Pantoprazole Sodium (Protonix -) 40 mg PO DAILY [facility] Last Admin: 06/19/17 10:10 Dose: 40 mg - Objective Vital Signs: Vital Signs Temperature 98.1 F 06/19/17 18:33 Pulse Rate 80 06/19/17 18:33 Respiratory Rate 18 06/19/17 18:33 Blood Pressure 104/64 06/19/17 18:33 O2 Sat by Pulse Oximetry (%) 97 06/19/17 09:00 Constitutional: Yes: No Distress Cardiovascular: Yes: Regular Rate and Rhythm Respiratory: Yes: Diminished Gastrointestinal: Yes: Normal Bowel Sounds, Soft Labs: CBC, BMP 06/17/17 06:30 06/17/17 06:30 Problem List - Problems (1) Asthmatic bronchitis Code(s): J45.909 - UNSPECIFIED ASTHMA, UNCOMPLICATED (2) Chest pain Code(s): R07.9 - CHEST PAIN, UNSPECIFIED (3) Pleurisy Code(s): R09.1 - PLEURISY (4) Seizure Code(s): R56.9 - UNSPECIFIED CONVULSIONS Assessment/Plan (1) Asthmatic bronchitis/ Pleurisy -URI induced -cont meds/steroids/inh/abx
[2017-06-20] MEDS: methylPREDNISolone NA SUCC 40 MG/1 ML VIAL IVPUSH SCH ×2 (03:12→10:19)
[2017-06-20] MEDS: ALBUTEROL SO4 2.5/IPRATROPIUM 0.5 INH SOL 3 ML VIAL.NEB. NEB SCH ×3 (07:30→16:24)
--- NOTE | 2017-06-20 08:21 | EKG ---
Test Reason : Blood Pressure : / mmHG Vent. Rate : 084 BPM Atrial Rate : 084 BPM P-R Int : 150 ms QRS Dur : 088 ms QT Int : 358 ms P-R-T Axes : -08 043 023 degrees QTc Int : 423 ms NORMAL SINUS RHYTHM NORMAL ECG WHEN COMPARED WITH ECG OF 16-JUN-2017 13:20, NO SIGNIFICANT CHANGE WAS FOUND Confirmed by ROSEMARY ARREDONDO MD ([id number]) on 06/20/2017 8:20:41 AM Referred By: Confirmed By:ROSEMARY ARREDONDO MD
--- NOTE | 2017-06-20 09:03 | PN ---
Progress Note, Physician - Current Medication List Current Medications: Active Medications Acetaminophen (Tylenol -) 650 mg PO Q4H PRN PRN Reason: PAIN LEVEL 1-3 Last Admin: 06/19/17 21:29 Dose: 650 mg Albuterol Sulfate (Ventolin 0.083% Nebulizer Soln -) 1 amp NEB Q4H PRN PRN Reason: SHORT OF BREATH/WHEEZING Albuterol/Ipratropium (Duoneb -) 1 amp NEB RQID [facility] Last Admin: 06/19/17 20:45 Dose: 1 amp Guaifenesin/Codeine Phosphate (Robitussin Ac -) 10 ml PO Q8H PRN PRN Reason: COUGH Last Admin: 06/18/17 22:43 Dose: 10 ml Heparin Sodium (Porcine) (Heparin -) 5,000 unit SQ BID [facility] Last Admin: 06/19/17 21:30 Dose: 5,000 unit Azithromycin 250 mg/ Dextrose 250 mls @ 250 mls/hr IVPB DAILY [facility] Last Admin: 06/19/17 11:00 Dose: 250 mls/hr Ceftriaxone Sodium 1 gm/ (Dextrose) 50 mls @ 200 mls/hr IVPB DAILY [facility] PRN Reason: Protocol Last Admin: 06/19/17 10:15 Dose: 200 mls/hr Dextrose/Sodium Chloride (D5-1/2ns -) 1,000 mls @ 75 mls/hr IV ASDIR [facility] Last Admin: 06/19/17 23:00 Dose: Not Given Melatonin (Melatonin) 5 mg PO HS PRN PRN Reason: INSOMNIA Last Admin: 06/19/17 21:30 Dose: 5 mg Methylprednisolone Sodium Succinate (Solu-Medrol -) 40 mg IVPUSH Q6H-IV [facility] Last Admin: 06/20/17 03:12 Dose: 40 mg Pantoprazole Sodium (Protonix -) 40 mg PO DAILY [facility] Last Admin: 06/19/17 10:10 Dose: 40 mg - Objective Vital Signs: Vital Signs Temperature 98.0 F 06/20/17 07:00 Pulse Rate 63 06/20/17 07:00 Respiratory Rate 20 06/20/17 07:00 Blood Pressure 114/52 06/20/17 07:00 O2 Sat by Pulse Oximetry (%) 95 06/19/17 21:00 Eyes: Yes: WNL, Conjunctiva Clear, EOM Intact HENT: Yes: WNL, Atraumatic, Normocephalic Neck: Yes: WNL, Supple, Trachea Midline Cardiovascular: Yes: WNL, Regular Rate and Rhythm Respiratory: Yes: WNL, Regular, CTA Bilaterally Gastrointestinal: Yes: WNL, Normal Bowel Sounds Genitourinary: Yes: WNL Musculoskeletal: Yes: WNL Extremities: Yes: WNL Edema: No Integumentary: Yes: WNL Neurological: Yes: WNL, Alert, Oriented ...Motor Strength: WNL Psychiatric: Yes: WNL Labs: CBC, BMP 06/17/17 06:30 06/17/17 06:30 Assessment/Plan IMP: Probable URI triggered bronchospasm with pleurisy REC: Course of NSAIDS REst as per pulmonary No further CV work up planned. cardiac hair stable coverage for dr. Frank
[2017-06-20] MEDS ORDERED: DEXTROSE 5%-WATER - 50 ML IVPB ONE (10:05)
[2017-06-20] MEDS ORDERED: cefTRIAXone SODIUM 1 GM VIAL ONE (10:05)
[2017-06-20] MEDS ORDERED: PT OWN MED DRAWER 7, Y5N ONE (10:05)
[2017-06-20] MEDS: CEFTRIAXONE 1 GM in DEXTROSE 5%-WATER - 50 ML IVPB SCH (10:17)
[2017-06-20] MEDS: AZITHROMYCIN IVPB 250 MG in DEXTROSE 5%-WATER - 250 ML IVPB SCH (10:17)
[2017-06-20] MEDS: HEPARIN NA (PORCINE) 5,000 UNITS/ML 1ML VIAL SQ SCH (10:19)
[2017-06-20] MEDS: PANTOPRAZOLE 40 MG TABLET (FP) PO SCH (10:19)
[2017-06-20] MEDS: guaiFENesin/CODEINE 10 ML UNIT-DOSE CUPS PO PRN (10:30)
--- NOTE | 2017-06-20 11:33 | PN ---
Progress Note (short form) - Note Progress Note: In the atrium off O2 and comfortable. Left CP is better. Breathing feels overall better. CTA: received, no PE/infiltrates Intake & Output 06/17/17 06/18/17 06/19/17 06/20/17 23:59 23:59 23:59 23:59 Intake Total 2225 525 3850 525 Balance 2225 525 3850 525 Weight 240 lb Last Vital Signs Temp Pulse Resp BP Pulse Ox 98 F 78 18 123/87 95 06/20/17 10:32 06/20/17 10:32 06/20/17 10:32 06/20/17 10:32 06/19/17 21:00 Active Medications Acetaminophen (Tylenol -) 650 mg PO Q4H PRN PRN Reason: PAIN LEVEL 1-3 Last Admin: 06/19/17 21:29 Dose: 650 mg Albuterol Sulfate (Ventolin 0.083% Nebulizer Soln -) 1 amp NEB Q4H PRN PRN Reason: SHORT OF BREATH/WHEEZING Albuterol/Ipratropium (Duoneb -) 1 amp NEB RQID [facility] Last Admin: 06/20/17 10:30 Dose: 1 amp Guaifenesin/Codeine Phosphate (Robitussin Ac -) 10 ml PO Q8H PRN PRN Reason: COUGH Last Admin: 06/20/17 10:30 Dose: 10 ml Heparin Sodium (Porcine) (Heparin -) 5,000 unit SQ BID [facility] Last Admin: 06/20/17 10:19 Dose: 5,000 unit Azithromycin 250 mg/ Dextrose 250 mls @ 250 mls/hr IVPB DAILY [facility] Last Admin: 06/20/17 10:17 Dose: 250 mls/hr Ceftriaxone Sodium 1 gm/ (Dextrose) 50 mls @ 200 mls/hr IVPB DAILY [facility] PRN Reason: Protocol Last Admin: 06/20/17 10:17 Dose: 200 mls/hr Dextrose/Sodium Chloride (D5-1/2ns -) 1,000 mls @ 75 mls/hr IV ASDIR [facility] Last Admin: 06/19/17 23:00 Dose: Not Given Melatonin (Melatonin) 5 mg PO HS PRN PRN Reason: INSOMNIA Last Admin: 06/19/17 21:30 Dose: 5 mg Methylprednisolone Sodium Succinate (Solu-Medrol -) 40 mg IVPUSH Q6H-IV [facility] Last Admin: 06/20/17 10:19 Dose: 40 mg Pantoprazole Sodium (Protonix -) 40 mg PO DAILY [facility] Last Admin: 06/20/17 10:19 Dose: 40 mg Gen: NAD Heart: RRR Lung: Clear, no wheezing Abd: soft, nontender Ext: no edema A/P Acute Asthma Exacerbation: resolved No PE No radiographic evidence of PNA Seizure Disorder Meningioma No Pulmonary contraindication for D/C home Change to Prednisone 40mg OD x 5 days then D/C D/C ABX and no need for additional ABX after D/C Can D/C home on Symbicort (or equivalent) 160/4.5: 2 inhalations BID and ProAir [id number] Singh
[2017-06-20] MEDS: ACETAMINOPHEN 325 MG TABLET (FP) PO PRN (15:33)
[2017-06-20 18:17] VITALS: BP 114/64; PULSE 72; TEMP 98
== END 2017-06-20 18:20 | disposition home or self-care (01) | DRG 202 ==
LOC: JER 12:21 → JERBED 15:22 → J4W 21:05 → OBSVTOIN 06-18 12:27 → J7W 06-18 16:09
PROVIDERS: ADMIT Internal Medicine; ATTEND Internal Medicine
DX: J45.901 Unspecified asthma with (acute) exacerbation (principal); G40.89 Other seizures; D32.9 Benign neoplasm of meninges, unspecified; R09.1 Pleurisy; E66.9 Obesity, unspecified; Z68.35 Body mass index [BMI] 35.0-35.9, adult; M94.0 Chondrocostal junction syndrome [Tietze]
CPT/HCPCS: 36415; 71045-TC-FY; 71275-TC; 80053; 82550; 82962; 83605; 84484; 84703; 85025; 85379; 85651; 87040; 93005; 93010; 93306-TC; 94640; 99284-25; G0378; J0131; J1644; J7620

== ENCOUNTER 2018-07-05 22:22 | Inpatient (IN) | payer OTHER ==
[2018-07-05] MEDS ORDERED: ALBUTEROL SO4 2.5/IPRATROPIUM 0.5 INH SOL 3 ML VIAL.NEB. NEB ONE (22:52)
[2018-07-05] MEDS ORDERED: SODIUM CHLORIDE 1,000 ML IV STA (22:53)
--- NOTE | 2018-07-05 22:56 | PDOC ---
History of Present Illness - General Chief Complaint: Tachycardia Stated Complaint: VOMITING/NAUSEA/PAIN Time Seen by Provider: 07/05/18 22:53 History Source: Patient Exam Limitations: No Limitations - History of Present Illness Initial Comments: 07/05/18 22:54 [id number] with h/o seizures, meningioma, and prior report of heart arrhythmia ( states resolved in a prior ED visit after she was given a medication that made her feel very sick for several seconds, but cannot remember the diagnosis or the medication given) who p/w rapid palpitations and sharp fleeting left chest pain for the past day, intermittently. She additionally notes increased SOB. This is all in the setting of recent PNA, diagnosed on 06/18/18, for which she was treated with antibiotics and albuterol nebs, and which has been accompanied by cough and SOB intermittently for the past two weeks. She tried her albuterol neb at home just [employer] but only had taken two treatments. She additionally notes diaphoresis, f/c/n/v (NBNB and only today). Denies long trips, immobilization, extremity pain/swelling, hormone use, OCPs, clotting disorders, etc. She has had this exact same thing happen before per her own report, last year around this time. She was admitted here and per [facility] records she had d-dimer at that time which was slightly above range and thus she needed chest CTA which was negative for PE. She says this feels the same. Past History - Past Medical History Allergies/Adverse Reactions: Allergies Allergy/AdvReac Type Severity Reaction Status Date / Time prednisone Allergy Verified 06/16/17 12:25 Home Medications: Ambulatory Orders Albuterol Sulfate Inhaler - [Ventolin Hfa Inhaler -] 1 puff IH Q6H PRN 07/06/18 Anemia: No Asthma: No COPD: No Seizures: Yes (NO MEDS) - Surgical History Appendectomy: Yes - Suicide/Smoking/Psychosocial Hx Smoking History: Never smoked Have you smoked in the past 12 months: No Information on smoking cessation initiated: No Hx Alcohol Use: No Drug/Substance Use Hx: No Substance Use Type: None Hx Substance Use Treatment: No Review of Systems - Review of Systems Able to Perform ROS?: Yes Comments:: 07/05/18 23:46 GEN: fever, chills, malaise, generalized weakness, or weight change HEENT: no ear pain, sore throat, vision change, or eye pain CV: chest pain, palpitations, lightheadedness, syncope, or edema RESP: cough, wheezing, SOB GI: nausea, vomiting, no abdominal pain, diarrhea, constipation, or white/black/ bloody stool : no dysuria, hematuria, incontinence, retention, bleeding, or discharge MSK: back pain, left calf pain, no neck pain, muscle weakness/pain, or joint swelling/pain NEURO: no headache, seizure, vertigo, numbness, tingling, or focal weakness PSYCH: no substance use, no behavior change SKIN: no jaundice, no rash ROS otherwise negative except as noted in HPI *Physical Exam - Vital Signs Last Vital Signs Temp Pulse Resp BP Pulse Ox 102.1 F H 149 H 22 H 148/86 99 07/05/18 23:58 07/05/18 23:25 07/05/18 22:45 07/05/18 23:25 07/05/18 23:25 - Physical Exam Comments: 07/05/18 23:52 GENERAL: a bit ill and uncomfortable-appearing, a bit diaphoretic, A/Ox4, mild- moderate distress, answers questions appropriately, significant other at bedside , obese HEENT: PERRLA, EOMI, moist mucous membranes NECK/BACK: no midline ttp, no spinal stepoff or deformity, no hematoma, full ROM , neck supple CARDIOVASCULAR: rapid regular rate, normal S1S2, no MGR, strong peripheral pulses, capillary refill <2 seconds, extremities wwp, no edema CHEST WALL: no tenderness to compression, no rash LUNGS/RESPIRATORY: b/l expiratory wheezes and rhonchi, occasional cough, no diminished breath sounds GI/ABDOMEN: symmetric [id number], normoactive BS, soft, no ttp, no midline pulsatile masses : no CVA tenderness EXTREMITIES: no calf tenderness or swelling or palpable cord, no muscle atrophy , no acute deformity SKIN: diaphoretic, warm, no pallor, no jaundice, no rash, no bruising, no skin breakdown, no cuts, no lesions NEUROLOGICAL: GCS 15, CN II-XII grossly intact, 5/5 strength proximally and distally, no facial droop ED Treatment Course - LABORATORY CBC & Chemistry Diagram: 07/05/18 23:45 07/05/18 23:45 - ADDITIONAL ORDERS Additional order review: Laboratory Results 07/06/18 07/05/18 07/05/18 01:42 23:45 23:45 PT with INR INR VBG pH 7.39 POC VBG pCO2 36.8 L POC VBG pO2 39.1 VBG HCO3 22.0 L VBG O2 Sat (Jed) 70.0 VBG Base Excess -1.9 Sodium Potassium Chloride Carbon Dioxide Anion Gap BUN Creatinine Est GFR (CKD-EPI)AfAm Est GFR (CKD-EPI)NonAf Random Glucose Lactic Acid Calcium Magnesium Total Bilirubin AST ALT Alkaline Phosphatase Creatine Kinase Troponin I B-Natriuretic Peptide 42.7 Total Protein Albumin Serum , Qual Urine Color Yellow Urine Appearance Clear Urine pH 6.5 Ur Specific [place] 1.011 Urine Protein Negative Urine Glucose (UA) Negative Urine Ketones Negative Urine Blood Negative Urine Nitrite Negative Urine Bilirubin Negative Urine Urobilinogen 0.2 Ur Leukocyte Esterase Negative 07/05/18 07/05/18 07/05/18 23:45 23:45 23:45 PT with INR 12.60 INR 1.07 VBG pH POC VBG pCO2 POC VBG pO2 VBG HCO3 VBG O2 Sat (Jed) VBG Base Excess Sodium 138 Potassium 3.8 Chloride 108 H Carbon Dioxide 22 Anion Gap 8 BUN 8 Creatinine 0.8 Est GFR (CKD-EPI)AfAm 102.47 Est GFR (CKD-EPI)NonAf 88.41 Random Glucose 139 H Lactic Acid Calcium 9.1 Magnesium 2.1 Total Bilirubin 0.2 AST 15 ALT 18 Alkaline Phosphatase 121 H Creatine Kinase 67 Troponin I < 0.02 B-Natriuretic Peptide Total Protein 8.1 Albumin 3.8 Serum , Qual Negative Urine Color Urine Appearance Urine pH Ur Specific [place] Urine Protein Urine Glucose (UA) Urine Ketones Urine Blood Urine Nitrite Urine Bilirubin Urine Urobilinogen Ur Leukocyte Esterase 07/05/18 23:35 PT with INR INR VBG pH POC VBG pCO2 POC VBG pO2 VBG HCO3 VBG O2 Sat (Jed) VBG Base Excess Sodium Potassium Chloride Carbon Dioxide Anion Gap BUN Creatinine Est GFR (CKD-EPI)AfAm Est GFR (CKD-EPI)NonAf Random Glucose Lactic Acid 2.7 H* Calcium Magnesium Total Bilirubin AST ALT Alkaline Phosphatase Creatine Kinase Troponin I B-Natriuretic Peptide Total Protein Albumin Serum , Qual Urine Color Urine Appearance Urine pH Ur Specific [place] Urine Protein Urine Glucose (UA) Urine Ketones Urine Blood Urine Nitrite Urine Bilirubin Urine Urobilinogen Ur Leukocyte Esterase 07/05/18 23:45 RBC 4.63 MCV 88.3 MCHC 32.5 RDW 13.1 MPV 8.2 Neutrophils % 90.0 H Lymphocytes % 5.3 L D Monocytes % 4.1 Eosinophils % 0.4 D Basophils % 0.2 - RADIOLOGY Radiology Studies Ordered: Category Date Time Status CHEST CT LOW DOSE [CT] Stat CT Scan 07/06/18 00:30 Taken - Medications Given in the ED: ED Medications Discontinued Medications Generic Name Dose Route Start Last Admin Trade Name Freq PRN Reason Stop Dose Admin Acetaminophen 1,000 mg 07/05/18 23:05 07/05/18 23:42 Ofirmev Injection - IVPB 07/05/18 23:06 1,000 mg ONCE ONE Administration Aspirin 324 mg 07/05/18 23:57 07/06/18 00:05 Asa - PO 07/05/18 23:58 324 mg ONCE ONE Administration Sodium Chloride 1,000 mls @ 1,000 mls/hr 07/05/18 22:53 07/05/18 23:42 Normal Saline - IV 07/05/18 23:52 1,000 mls/hr ASDIR STA Administration Piperacillin Sod/Tazobactam 100 mls @ 200 mls/hr 07/06/18 00:24 07/06/18 02: 03 Sod 4.5 gm/ Dextrose IVPB 07/06/18 00:53 200 mls/hr ONCE ONE Administration Protocol Vancomycin HCl 1,500 mg/ 500 mls @ 250 mls/hr 07/06/18 00:25 07/06/18 02:40 Dextrose IVPB 07/06/18 02:24 250 mls/hr ONCE ONE Administration Ibuprofen 800 mg 07/06/18 01:29 07/06/18 02:56 Motrin - PO 07/06/18 01:30 800 mg ONCE ONE Administration Methylprednisolone Sodium Succinate 125 mg 07/06/18 00:06 07/06/18 00:20 Solu-Medrol - IVPB 07/06/18 00:07 125 mg ONCE ONE Administration Morphine Sulfate 4 mg 07/06/18 00:06 07/06/18 00:20 Morphine Injection - IVPUSH 07/06/18 00:07 4 mg ONCE ONE Administration Sodium Chloride 1,000 ml 07/06/18 00:09 07/06/18 02:03 Normal Saline - IV 07/06/18 00:10 1,000 ml ONCE ONE Administration Medical Decision Making - Medical Decision Making 07/05/18 23:56 Adult female Pt p/w tachycardia in the setting of PNA, also has left chest pain , SOB, cough. Initial Vital Signs Temp Pulse Resp BP Pulse Ox 99.2 F 145 H 22 H 144/61 94 L 07/05/18 22:45 07/05/18 22:45 07/05/18 22:45 07/05/18 22:45 07/05/18 22:45 Exam: As noted in Physical Exam section. DDX IBNLT: sepsis/shock (e.g. PNA, less likely UTI or cellulitis, etc), PE (darleen given left calf pain), ischemia (ACS), tachyarrhythmia (e.g. VT, pSVT, re- entrant tachycardia, AF w/ RVR, AFL, MAT, VF), less likely anxiety/panic, hypoxia, hemorrhage/anemia (e.g. ectopic, heavy menstruation, GIB, hematuria), tamponade, etc. W/U ordered: EKG, CBCD CMP Mg Phos Trop CK CKMB BNP D-dimer UA UCx hCG CXR TX ordered: IV, O2, IVF, DuoNebs, Ofirmev, ASA, solumedrol The Pt is stable currently (no AMS, pulmonary edema, chest pain, or sBP<90). Therefore they do not require defibrillation or electrical cardioversion at this time. EKG: Reviewed; results as noted in ECG Review section. Rectal temperature measured at 102.1 just after [employer] finished running. Patient placed on RA and after 15 minutes was 91% so placed back on 2 LPM O2 which brought her to 94%. Then placed on 3 LPM and up to 96%. 07/06/18 00:25 Placed orders for vancomycin and Zosyn for presumed HCAP given sepsis picture. Chest CT low dose: Duplex LLE: Laboratory Tests 07/05/18 07/05/18 07/05/18 23:35 23:45 23:45 WBC 9.2 RBC 4.63 Hgb 13.3 Hct 40.9 MCV 88.3 MCH 28.7 MCHC 32.5 RDW 13.1 Plt Count 282 MPV 8.2 Absolute Neuts (auto) 8.3 H Neutrophils % 90.0 H Lymphocytes % 5.3 L D Monocytes % 4.1 Eosinophils % 0.4 D Basophils % 0.2 Nucleated RBC % 0 PT with INR 12.60 INR 1.07 VBG pH POC VBG pCO2 POC VBG pO2 VBG HCO3 VBG O2 Sat (Jed) VBG Base Excess Sodium Potassium Chloride Carbon Dioxide Anion Gap BUN Creatinine Est GFR (CKD-EPI)AfAm Est GFR (CKD-EPI)NonAf Random Glucose Lactic Acid 2.7 H* Calcium Magnesium Total Bilirubin AST ALT Alkaline Phosphatase Creatine Kinase Troponin I B-Natriuretic Peptide Total Protein Albumin Serum , Qual 07/05/18 07/05/18 07/05/18 23:45 23:45 23:45 WBC RBC Hgb Hct MCV MCH MCHC RDW Plt Count MPV Absolute Neuts (auto) Neutrophils % Lymphocytes % Monocytes % Eosinophils % Basophils % Nucleated RBC % PT with INR INR VBG pH POC VBG pCO2 POC VBG pO2 VBG HCO3 VBG O2 Sat (Jed) VBG Base Excess Sodium 138 Potassium 3.8 Chloride 108 H Carbon Dioxide 22 Anion Gap 8 BUN 8 Creatinine 0.8 Est GFR (CKD-EPI)AfAm 102.47 Est GFR (CKD-EPI)NonAf 88.41 Random Glucose 139 H Lactic Acid Calcium 9.1 Magnesium 2.1 Total Bilirubin 0.2 AST 15 ALT 18 Alkaline Phosphatase 121 H Creatine Kinase 67 Troponin I < 0.02 B-Natriuretic Peptide 42.7 Total Protein 8.1 Albumin 3.8 Serum , Qual Negative 07/05/18 23:45 WBC RBC Hgb Hct MCV MCH MCHC RDW Plt Count MPV Absolute Neuts (auto) Neutrophils % Lymphocytes % Monocytes % Eosinophils % Basophils % Nucleated RBC % PT with INR INR VBG pH 7.39 POC VBG pCO2 36.8 L POC VBG pO2 39.1 VBG HCO3 22.0 L VBG O2 Sat (Jed) 70.0 VBG Base Excess -1.9 Sodium Potassium Chloride Carbon Dioxide Anion Gap BUN Creatinine Est GFR (CKD-EPI)AfAm Est GFR (CKD-EPI)NonAf Random Glucose Lactic Acid Calcium Magnesium Total Bilirubin AST ALT Alkaline Phosphatase Creatine Kinase Troponin I B-Natriuretic Peptide Total Protein Albumin Serum , Qual Reassessment: Patient appears much better, SpO2 97% on 2 LPM, HR is 117, still feels warm, Motrin 800 mg ordered. PE suspicion is very low as tachycardia is now mild, likely can be explained by residual fever and Albuterol use. She is satting well on minimal O2, low risk on Well's PE score. Vital Signs Temperature 102.1 F H 07/05/18 23:58 Pulse Rate 149 H 07/05/18 23:25 Respiratory Rate 22 H 07/05/18 22:45 Blood Pressure 148/86 07/05/18 23:25 O2 Sat by Pulse Oximetry (%) 99 07/05/18 23:25 The Pt is unsafe for discharge at this time. She requires further hospital observation, workup, and treatment. Call placed to Dr. Chacko for admission, spoke with Dr. Chacko who agrees with plan for Tele. Decision to Admit order is placed per ED protocol. *DC/Admit/Observation/Transfer Diagnosis at time of Disposition: Prolonged QT interval, Bronchospasm URI (upper respiratory infection) Qualifiers: URI type: unspecified URI Qualified Code(s): J06.9 - Acute upper respiratory infection, unspecified Chest pain Qualifiers: Chest pain type: unspecified Qualified Code(s): R07.9 - Chest pain, unspecified - Discharge Dispostion Condition at time of disposition: Guarded Decision to Admit order: Yes - Referrals - Patient Instructions - Post Discharge Activity
[2018-07-05 22:57] VITALS: BMI 38.4
[2018-07-05] MEDS ORDERED: ACETAMINOPHEN 1000 MG/100 ML VIAL (NON FORMULARY) IVPB ONE (23:05)
--- NOTE | 2018-07-05 23:07 | PDOC ---
Attending Attestation - Resident Resident Name: Serene Santos - ED Attending Attestation I have performed the following: I have examined & evaluated the patient, The case was reviewed & discussed with the resident, I agree w/resident's findings & plan, Exceptions are as noted - HPI HPI: 07/05/18 23:06 48 Female brought in by ambulance for cough, shortness of breath and tachycardia. She was recently diagnosed with a pneumonia on June 18 and given antibiotics. She said she had not felt well since that time. She had taken her inhaler at home twice without improvement and received albuterol treatment en route by the paramedics.
[2018-07-05] MEDS ORDERED: ACETAMINOPHEN INJECTION 100 ML IVPB ONE (23:34)
[2018-07-05 23:56] LABS: VENOUS PC02 36.8 mmHg (41-51); VENOUS PH 7.39 (7.31-7.41); VENOUS PO2 39.1 mmHg (30-40)
[2018-07-05 23:57] LABS: BASO % 0.2 % (0-2.0); EOS % 0.4 % (0-4.5); HEMATOCRIT 40.9 % (32.4-45.2); HEMOGLOBIN 13.3 GM/dL (10.7-15.3); LYMPH % 5.3 % (8-40); MCH 28.7 pg (25.7-33.7); MCHC 32.5 g/dl (32.0-36.0); MEAN CELL VOLUME 88.3 fl (80-96); MEAN PLT VOLUME 8.2 fl (7.5-11.1); MONO % 4.1 % (3.8-10.2); PLATELET COUNT 282 K/MM3 (134-434); RBC 4.63 M/mm3 (3.60-5.2); RDW 13.1 % (11.6-15.6); WHITE BLOOD COUNT 9.2 K/mm3 (4.0-10.0)
[2018-07-05] MEDS ORDERED: ASPIRIN 81 MG CHEWABLE TABLETS PO ONE (23:57)
[2018-07-06] MEDS ORDERED: ASPIRIN 81 MG CHEWABLE TABLETS ONE (00:03)
[2018-07-06] MEDS ORDERED: morphine CARPU-JECT 4 MG/1 ML DISP.SYRIN IVPUSH ONE (00:06)
[2018-07-06] MEDS ORDERED: methylPREDNISolone NA SUCC 125 MG/2 ML VIAL IVPB ONE (00:06)
[2018-07-06 00:08] LABS: INR 1.07 (0.83-1.09); PROTHROMBIN TIME (PATIENT) 12.6 SEC (9.7-13.0)
[2018-07-06] MEDS ORDERED: SODIUM CHLORIDE 0.9% 500 ML INFUS.BAG IV ONE (00:09)
[2018-07-06] MEDS ORDERED: morphine SULFATE 4 MG/ML VIAL ONE (00:18)
[2018-07-06] MEDS ORDERED: methylPREDNISolone NA SUCC 125 MG/2 ML VIAL ONE (00:18)
[2018-07-06] MEDS ORDERED: PIPERACILLIN/TAZOB 4.5 GM 4.5 GM in DEXTROSE 5%-WATER 100 ML IVPB ONE (00:24)
[2018-07-06] MEDS ORDERED: VANCOMYCIN HCL 1,500 MG in DEXTROSE 5%-WATER - 500 ML IVPB ONE (00:25)
[2018-07-06] MEDS ORDERED: MAGNESIUM SULF 50% (8.12 MEQ/2 ML-1 GM VIAL) IVPB ONE (00:27)
[2018-07-06 00:28] LABS: ALBUMIN 3.8 g/dl (3.4-5.0); ALK PHOS 121 U/L (45-117); ANION GAP 8 MMOL/L (8-16); BILIRUBIN,TOTAL 0.2 mg/dL (0.2-1); BLOOD UREA NITROGEN 8 mg/dL (7-18); CALCIUM 9.1 mg/dL (8.5-10.1); CHLORIDE 108 mmol/L (98-107); CO2 22 mmol/L (21-32); CREATININE 0.8 mg/dL (0.55-1.3); GLUCOSE,RANDOM 139 mg/dL (74-106); MAGNESIUM 2.1 mg/dL (1.8-2.4); POTASSIUM 3.8 mmol/L (3.5-5.1); SGOT/AST 15 U/L (15-37); SGPT/ALT 18 U/L (13-61); SODIUM 138 mmol/L (136-145); TOT PROT 8.1 g/dl (6.4-8.2)
--- NOTE | 2018-07-06 00:58 | PDOC ---
Documentation entered by Navdeep Sheehan SCRIBE, acting as scribe for Gloria Mark MD. Gloria Mark MD: This documentation has been prepared by the Aguila stone Matthew, SCRIBE, under my direction and personally reviewed by me in its entirety. I confirm that the documentation accurately reflects all work, treatment, procedures, and medical decision making performed by me. Attending Attestation - Resident Resident Name: Serene Santos - ED Attending Attestation I have performed the following: I have examined & evaluated the patient, The case was reviewed & discussed with the resident, I agree w/resident's findings & plan, Exceptions are as noted - HPI HPI: 07/05/18 23:08 48-year-old female brought in by ambulance for cough and shortness of breath. She was diagnosed with pneumonia on June 18 and had been prescribed antibiotics but has not improved since that time. She did take her albuterol inhalers twice today but still had persistent cough. She arrives having an albuterol treatment that was started en route by the paramedics 07/05/18 23:26 Patient is a 48 year old female with a significant past medical history of seizures, meningioma, and prior report of heart arrhythmia who presents to the ED with complaints of chest pain that began earlier today. Patient reports experiencing sudden episode of chest pain with associated symptoms of chest palpitations, shortness of breath with non productive coughing and back pain secondary to coughing, prompting her to come into the ED for further evaluation. She reports taking her albuterol nebulizer while at home with minimal relief after two treatments. Crescencio nausea, vomiting. Denies contact with sick individuals, out of state travelling. Denies dysuria, hematuria. Denies dysuria, hematuria. Denies any other symptoms. Allergies: prednisone Social history: No smoking. No alcohol. No illicit drugs. Surgical history: None PMD: Dr. Wood payne - Physicial Exam PE: 07/05/18 23:09 48-year-old female presents with a heart rate of 146 and a persistent cough. 07/05/18 23:14 GENERAL: Well developed, well nourished. Awake and alert. In no acute distress. HEENT: Normocephalic, atraumatic. PERRLA, EOMI. No conjunctival pallor. Sclerae are non -icteric. Moist mucous membranes. Oropharynx is clear. NECK: Supple. Full ROM. No JVD. Carotid pulses 2+ and symmetric, without bruits. No thyromegaly. No lymphadenopathy. CARDIOVASCULAR: +tachycardic Regular rate and rhythm. No murmurs, rubs, or gallops. Distal pulses are 2+ and symmetric. PULMONARY: No evidence of respiratory distress. Lungs clear to auscultation bilaterally. No wheezing, rales or rhonchi. ABDOMINAL: Soft. Non-tender. Non-distended. No rebound or guarding. No organomegaly. Normoactive bowel sounds. MUSCULOSKELETAL Normal range of motion at all joints. No bony deformities or tenderness. No CVA tenderness. EXTREMITIES: +Left calf tenderness. No cyanosis. No clubbing. No edema. SKIN: Warm and dry. Normal capillary refill. No rashes. No jaundice. NEUROLOGICAL: Alert, awake, appropriate. Cranial nerves 2-12 intact. No deficits to light touch and temperature in face, upper extremities and lower extremities. No motor deficits in the in face, upper extremities and lower extremities. Normoreflexic in the upper and lower extremities. Normal speech. Toes are downgoing bilaterally. Gait is normal without ataxia. PSYCHIATRIC: Cooperative. Good eye contact. Appropriate mood and affect. - Medical Decision Making 07/05/18 23:27 Echo done in June of last year showed a normal LV function, normal ejection fraction. CT of the chest in June 2017. It was negative for any PE, infiltrates , effusions. She also had a GI consult on June 2017. Because of her atypical pleuritic type chest pain a Gi consult was obtained and that they felt was not related to reflux 07/06/18 00:00 Tonight this pt has a temperature of 102 and sepsis work up ordered. Diff diag included pneumonia,UTI,pe,URI,influenza 07/06/18 00:01 07/06/18 00:04 07/06/18 00:58 plan admit for IV antibiotics
[2018-07-06] MEDS ORDERED: IBUPROFEN 400 MG TABLET (FP) PO ONE ×2 (01:29→02:54)
[2018-07-06] MEDS ORDERED: PIPERACILLIN/TAZOB 4.5 GM 4.5 GM/100 ML BAG IVPB ONE (01:41)
[2018-07-06] MEDS ORDERED: MAGNESIUM 1GM/D5W - 2 GM/200 ML IVPB IVPB ONE (01:53)
[2018-07-06 02:00] LABS: PH,URINE 6.5 (5.0-8.0); URINE APPEARANCE CLEAR; URINE BILIRUBIN NEGATIVE (NEGATIVE); URINE COLOR YELLOW; URINE GLUCOSE (UA) NEGATIVE (NEGATIVE); URINE KETONE NEGATIVE (NEGATIVE); URINE LEUK ESTERASE NEGATIVE (NEGATIVE); URINE NITRITE NEGATIVE (NEGATIVE); URINE PROTEIN NEGATIVE (NEGATIVE); URINE UROBILINOGEN 0.2 mg/dL (0.2-1.0)
[2018-07-06] MEDS ORDERED: ALBUTEROL SO4 2.5/IPRATROPIUM 0.5 INH SOL 3 ML VIAL.NEB. NEB PRN (03:41)
[2018-07-06 06:53] LABS: BASO % 0.1 % (0-2.0); HEMATOCRIT 35.5 % (32.4-45.2); HEMOGLOBIN 11.9 GM/dL (10.7-15.3); LYMPH % 2.8 % (8-40); MCH 29.2 pg (25.7-33.7); MCHC 33.6 g/dl (32.0-36.0); MEAN CELL VOLUME 86.9 fl (80-96); MEAN PLT VOLUME 7.9 fl (7.5-11.1); NEUT % 96.1 % (42.8-82.8); PLATELET COUNT 266 K/MM3 (134-434); RBC 4.08 M/mm3 (3.60-5.2); RDW 13.5 % (11.6-15.6); WHITE BLOOD COUNT 7.2 K/mm3 (4.0-10.0)
[2018-07-06] MEDS ORDERED: ALBUTEROL SO4 2.5/IPRATROPIUM 0.5 INH SOL 3 ML VIAL.NEB. NEB ONE ×3 (07:16→19:44)
[2018-07-06 07:23] LABS: ALBUMIN 3.4 g/dl (3.4-5.0); BILIRUBIN,TOTAL 0.2 mg/dL (0.2-1); CALCIUM 8.7 mg/dL (8.5-10.1); CREATININE 0.8 mg/dL (0.55-1.3); POTASSIUM 4.2 mmol/L (3.5-5.1); TOT PROT 7.1 g/dl (6.4-8.2)
[2018-07-06] MEDS ORDERED: HEPARIN NA (PORCINE) 5,000 UNITS/ML 1ML VIAL ONE (08:39)
[2018-07-06] MEDS ORDERED: PIPERACILLIN/TAZOB 3.375 GM 3.375 GM in DEXTROSE 5%-WATER - 50 ML IVPB ONE (08:59)
[2018-07-06] MEDS ORDERED: SODIUM CHLORIDE 1,000 ML IV STA (09:00)
[2018-07-06] MEDS ORDERED: PIPERACILLIN/TAZOB 3.375 GM 3.375 GM/50 ML BAG IVPB ONE (09:15)
[2018-07-06] MEDS: HEPARIN NA (PORCINE) 5,000 UNITS/ML 1ML VIAL SQ SCH ×2 (10:24→23:01)
[2018-07-06 10:37] LABS: ANISOCYTOSIS 2+; MACROCYTOSIS 0; OVALOCYTE 1+; PLATELET ESTIMATE NORMAL; TEAR DROP CELLS 1+
--- NOTE | 2018-07-06 11:27 | EKG ---
Test Reason : Blood Pressure : / mmHG Vent. Rate : 116 BPM Atrial Rate : 116 BPM P-R Int : 154 ms QRS Dur : 068 ms QT Int : 316 ms P-R-T Axes : 070 059 015 degrees QTc Int : 439 ms SINUS TACHYCARDIA POSSIBLE LEFT ATRIAL ENLARGEMENT SEPTAL INFARCT (CITED ON OR BEFORE 05-JUL-2018) ABNORMAL ECG Confirmed by Ramsey Sharma MD ([id number]) on 07/06/2018 11:26:49 AM Referred By: Confirmed By:Ramsey Sharma MD
--- NOTE | 2018-07-06 11:27 | EKG ---
Test Reason : Blood Pressure : / mmHG Vent. Rate : 151 BPM Atrial Rate : 151 BPM P-R Int : 134 ms QRS Dur : 066 ms QT Int : 324 ms P-R-T Axes : 074 052 052 degrees QTc Int : 513 ms SINUS TACHYCARDIA SEPTAL INFARCT , AGE UNDETERMINED ABNORMAL ECG WHEN COMPARED WITH ECG OF 19-JUN-2017 12:32, VENT. RATE HAS INCREASED BY 67 BPM NONSPECIFIC T WAVE ABNORMALITY NOW EVIDENT IN LATERAL LEADS Confirmed by Ramsey Sharma MD ([id number]) on 07/06/2018 11:27:37 AM Referred By: Confirmed By:Ramsey Sharma MD
[2018-07-06] MEDS ORDERED: traMADol HCL 50 MG TABLET PO ONE (12:45)
[2018-07-06] MEDS ORDERED: traMADol HCL 50 MG TABLET ONE (12:58)
--- NOTE | 2018-07-06 14:10 | EKG ---
Test Reason : Blood Pressure : / mmHG Vent. Rate : 114 BPM Atrial Rate : 114 BPM P-R Int : 154 ms QRS Dur : 070 ms QT Int : 328 ms P-R-T Axes : 066 042 021 degrees QTc Int : 452 ms SINUS TACHYCARDIA SEPTAL INFARCT (CITED ON OR BEFORE 05-JUL-2018) ABNORMAL ECG WHEN COMPARED WITH ECG OF 06-JUL-2018 01:33, NO SIGNIFICANT CHANGE WAS FOUND Confirmed by Ramsey Sharma MD ([id number]) on 07/06/2018 2:09:49 PM Referred By: Confirmed By:Ramsey Sharma MD
--- NOTE | 2018-07-06 14:12 | CON.PULM ---
Consult Consult Specialty:: PULM/CCM Referred by:: THEODORA Reason for Consultation:: SOB - History of Present Illness Chief Complaint: SOB & CP History of Present Illness: 48 F, with a significant past medical history of seizures, meningioma, "heart arrhythmia." No specific history of asthma. Denies smoking history. Admitted via the ER due to Shortness of Breath and chest pain that has worsened since Thursday. She reports that she was shopping at [employer] in and may have come in to contact with "sick people". No travel history. No specific history of fever or chills. No hemoptysis or night sweats. She does report some mild improvement in her symptoms from BD TX given here in the ER. 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 No: Asthma, COPD, O2 Dependent, Pneumonia, Previously Intubated, Pulmonary Embolus, Pulmonary Fibrosis, Sleep Apnea - Alcohol/Substance Use Hx Alcohol Use: No - Smoking History Smoking history: Never smoked Have you smoked in the past 12 months: No Home Medications - Allergies Allergies/Adverse Reactions: Allergies Allergy/AdvReac Type Severity Reaction Status Date / Time prednisone Allergy Verified 06/16/17 12:25 - Home Medications Home Medications: Ambulatory Orders Albuterol Sulfate Inhaler - [Ventolin Hfa Inhaler -] 1 puff IH Q6H PRN 07/06/18 Review of Systems - Review of Systems Constitutional: reports: Lethargy, Malaise. denies: Chills, Fever, Night Sweats , Unintentional Wgt. Loss Eyes: reports: No Symptoms HENT: reports: No Symptoms Neck: reports: No Symptoms Cardiovascular: reports: Chest Pain, Edema, Shortness of Breath. denies: Palpitations Respiratory: reports: Cough, Snoring, SOB, SOB on Exertion, Wheezing. denies: Hemoptysis, Orthopnea Gastrointestinal: reports: No Symptoms Genitourinary: reports: No Symptoms Breasts: reports: No Symptoms Reported Musculoskeletal: reports: No Symptoms Integumentary: reports: No Symptoms Neurological: reports: No Symptoms Endocrine: reports: No Symptoms Hematology/Lymphatic: reports: No Symptoms Psychiatric: reports: No Symptoms Physical Exam Vital Sings: Vital Signs Temperature 97.5 F L 07/06/18 06:01 Pulse Rate 95 H 07/06/18 06:01 Respiratory Rate 22 H 07/06/18 06:01 Blood Pressure 112/69 07/06/18 06:01 O2 Sat by Pulse Oximetry (%) 95 07/06/18 06:01 Constitutional: Yes: No Distress, Anxious, Obese Eyes: Yes: Conjunctiva Clear, EOM Intact HENT: Yes: Atraumatic, Normocephalic Neck: Yes: Supple, Trachea Midline Cardiovascular: Yes: Regular Rate and Rhythm Respiratory: Yes: Cough, Diminished, On Nasal O2, Rhonchi, SOB, SOB on Exertion , Wheezes. No: Accessory Muscle Use, Rales, Stridor, Tachypnea ...Inspection: Yes: WNL ...Clubbing: No Gastrointestinal: Yes: Normal Bowel Sounds, Soft, Abdomen, Obese Renal/: Yes: WNL Musculoskeletal: Yes: WNL Extremities: Yes: WNL Edema: Yes Edema: LLE: Trace, RLE: Trace Peripheral Pulses WNL: Yes Integumentary: Yes: WNL Neurological: Yes: WNL, Alert, Oriented ...Motor Strength: WNL Psychiatric: Yes: WNL, Alert, Oriented Labs: CBC, BMP 07/06/18 06:20 07/06/18 06:20 Imaging - Results Chest X-ray: Report Reviewed, Image Reviewed Cat Scan: Report Reviewed, Image Reviewed Problem List - Problems (1) Bronchospasm Code(s): J98.01 - ACUTE BRONCHOSPASM (2) Chest pain Code(s): R07.9 - CHEST PAIN, UNSPECIFIED Qualifiers: Chest pain type: unspecified Qualified Code(s): R07.9 - Chest pain, unspecified (3) URI (upper respiratory infection) Code(s): J06.9 - ACUTE UPPER RESPIRATORY INFECTION, UNSPECIFIED Qualifiers: URI type: unspecified URI Qualified Code(s): J06.9 - Acute upper respiratory infection, unspecified (4) Pleuritic chest pain Code(s): R07.81 - PLEURODYNIA (5) Seizure Code(s): R56.9 - UNSPECIFIED CONVULSIONS Assessment/Plan Do not suspect PNA. Minimal atalectatic areas in the LLL on CT imaging Medrol BD TX O2 as needed Would monitor off ABX for now IVF No smoking PFTs once stable after discharge VTE prophylaxis Will follow Thank you. Dr Singh
[2018-07-06] MEDS: SODIUM CHLORIDE 1,000 ML IV SCH (14:42)
--- NOTE | 2018-07-06 17:51 | CON.CARD ---
Consult Consult Specialty:: cardiology Reason for Consultation:: shortness of breath; chest discomfort; EKG changes - History of Present Illness History of Present Illness: Patient is a 48 year old black female with a significant past medical history of seizures, meningioma, prior report of heart arrhythmia, HTN (?not on medication), obesity, who presents to the ED with complaints of chest pain that began earlier today. Patient reports experiencing sudden episode of chest pain with associated symptoms of chest palpitations, shortness of breath with non productive coughing and back pain secondary to coughing, prompting her to come into the ED for further evaluation. The dyspnea and chest discomfort began two days ago, with frequent forceful cough now with whitish phlegm. She reports taking her albuterol nebulizer while at home with minimal relief after two treatments. She had an episode of vomiting, and says she had high fever ("102 F ") last night. Denies contact with sick individuals, out of state travelling. Denies dysuria, hematuria. Denies dysuria, hematuria. Denies any other symptoms. Pt required 5 days hospitalization for a similar episode of bronchitis/URI a year ago. 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 Allergies: prednisone Social history: No smoking. No alcohol. No illicit drugs. Surgical history: None PMD: Dr. 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 No: Asthma, COPD, O2 Dependent, Pneumonia, Previously Intubated, Pulmonary Embolus, Pulmonary Fibrosis, Sleep Apnea Reproductive: Yes: Other (regular menses) Heme/Onc: No: Anemia Psych: Yes: Anxiety - Alcohol/Substance Use Hx Alcohol Use: No - Smoking History Smoking history: Never smoked Have you smoked in the past 12 months: No Home Medications - Allergies Allergies/Adverse Reactions: Allergies Allergy/AdvReac Type Severity Reaction Status Date / Time prednisone Allergy Verified 06/16/17 12:25 - Home Medications Home Medications: Ambulatory Orders Albuterol Sulfate Inhaler - [Ventolin Hfa Inhaler -] 1 puff IH Q6H PRN 07/06/18 Family Disease History - Family Disease History Family History: Denies Family Disease History: Heart Disease: Grandparent (heart disease in 60s; in her 80s) Review of Systems - Review of Systems Constitutional: reports: Fever Eyes: reports: No Symptoms HENT: reports: No Symptoms Neck: reports: No Symptoms Cardiovascular: reports: Chest Pain (atypical; related to forceful cough) Gastrointestinal: reports: No Symptoms Genitourinary: reports: No Symptoms - Risk Factors Known Risk Factors: Yes: Age, Hypertension, Physical Inactivity, Race Vital Signs: Vital Signs Temperature 97.5 F L 07/06/18 06:01 Pulse Rate 95 H 07/06/18 06:01 Respiratory Rate 22 H 07/06/18 06:01 Blood Pressure 112/69 07/06/18 06:01 O2 Sat by Pulse Oximetry (%) 95 07/06/18 06:01 Constitutional: Yes: Anxious, Moderate Distress, Obese Eyes: Yes: WNL HENT: Yes: WNL Neck: Yes: WNL Respiratory: Yes: SOB, Tachypnea Gastrointestinal: Yes: WNL Renal/: No: Anuria Cardiovascular: Yes: Tachycardia JVD: No Carotid Bruit: No PMI: Non-Displaced Heart Sounds: Yes: S1, S2 Murmur: Yes: Systolic Murmur, Grade 1 Musculoskeletal: Yes: WNL Extremities: Yes: Cool Edema: Yes Edema: LLE: Trace, RLE: Trace Peripheral Pulses WNL: Yes Integumentary: Yes: WNL Neurological: Yes: WNL Psychiatric: Yes: WNL - Other Data Labs, Other Data: CBC, BMP 07/06/18 06:20 07/06/18 06:20 INR, PTT INR 1.07 (0.83-1.09) 07/05/18 23:45 Troponin, BNP 07/05/18 07/05/18 07/06/18 23:45 23:45 04:36 Troponin I < 0.02 < 0.02 B-Natriuretic Peptide 42.7 Troponin, BNP 07/05/18 07/05/18 07/06/18 23:45 23:45 04:36 Troponin I < 0.02 < 0.02 B-Natriuretic Peptide 42.7 Abnormal Lab Results 07/05/18 07/05/18 07/05/18 23:35 23:45 23:45 Absolute Neuts (auto) 8.3 H Neutrophils % 90.0 H Neutrophils % (Manual) Lymphocytes % 5.3 L D Lymphocytes % (Manual) Monocytes % Monocytes % (Manual) POC VBG pCO2 VBG HCO3 Chloride 108 H Random Glucose 139 H Lactic Acid 2.7 H* AST Alkaline Phosphatase 121 H 07/05/18 07/06/18 07/06/18 23:45 03:28 06:20 Absolute Neuts (auto) Neutrophils % 96.1 H Neutrophils % (Manual) 96.0 H Lymphocytes % 2.8 L D Lymphocytes % (Manual) 4.0 L Monocytes % 1.0 L Monocytes % (Manual) 0 L POC VBG pCO2 36.8 L VBG HCO3 22.0 L Chloride Random Glucose Lactic Acid 3.0 H* AST Alkaline Phosphatase 07/06/18 07/06/18 06:20 08:02 Absolute Neuts (auto) Neutrophils % Neutrophils % (Manual) Lymphocytes % Lymphocytes % (Manual) Monocytes % Monocytes % (Manual) POC VBG pCO2 VBG HCO3 Chloride 110 H Random Glucose 151 H Lactic Acid 3.2 H* AST 11 L Alkaline Phosphatase Imaging - Results Chest X-ray: Image Reviewed EKG: Image Reviewed (sinus tachycardia) Problem List - Problems (1) HTN (hypertension) Assessment/Plan: f/u seerial BPs; ?not on medication. F/u ECHO for LVEF, wall thickness and motion. Code(s): I10 - ESSENTIAL (PRIMARY) HYPERTENSION (2) Obesity Assessment/Plan: Pt [id number] a nutrition consult; she does not eat meat, but tends to "drink" her protein in the form of shakes, and craves sugary foods. She weighed 180 llbs at 27 yrs old; now 260 lbs. Code(s): E66.9 - OBESITY, UNSPECIFIED (3) Sinus tachycardia Assessment/Plan: Multiple contributing factors, incluidng fever, dehydration, anxiety, pain. TNI < 0.02 x 3. Maintain hydration (for IVF; encourage PO intake). Antipyretics. Pain management (pt's primary concern in ER is for relief of splinting chest pain each time she tries to take a breath). Pt today has much less pleuritic pain; HR now WNL. F/u Free T4 and T3 (mildly decreased TSH). Code(s): R00.0 - TACHYCARDIA, UNSPECIFIED (4) Bronchospasm Code(s): J98.01 - ACUTE BRONCHOSPASM (5) Meningioma Code(s): D32.9 - BENIGN NEOPLASM OF MENINGES, UNSPECIFIED (6) Seizure Code(s): R56.9 - UNSPECIFIED CONVULSIONS (7) Atypical chest pain Assessment/Plan: TNI < 0.02 x 2. EKG: sinus tachycardia; no acute ST-T changes. No hx crdiac disease. F/u ECHO for LVEF, wall motion Pt says she had a stres tet within the past year at PMDs office that was normal. Code(s): R07.89 - OTHER CHEST PAIN (8) Bronchitis Assessment/Plan: Steriods, O2, bronchodilators per cheese cutter. Off antibiotics; now afebrile. Code(s): J40 - BRONCHITIS, NOT SPECIFIED ACUTE OR CHRONIC (9) Sleep apnea Assessment/Plan: r/o with sleep studies per cheese cutter. Code(s): G47.30 - SLEEP APNEA, UNSPECIFIED (10) Hypothyroid Assessment/Plan: low TSH; f/u free T4 and T3. Code(s): E03.9 - HYPOTHYROIDISM, UNSPECIFIED
[2018-07-06] MEDS ORDERED: ALBUTEROL SO4 0.083% IH SOL 2.5 MG/3 ML VIAL.NEB. NEB ONE (18:40)
[2018-07-06] MEDS: methylPREDNISolone NA SUCC 40 MG/1 ML VIAL IVPUSH SCH (18:50)
[2018-07-06] MEDS ORDERED: ALBUTEROL SO4 0.083% IH SOL 2.5 MG/3 ML VIAL.NEB. NEB SCH (20:00)
--- NOTE | 2018-07-06 21:40 | HP ---
Admitting History and Physical - Admission History of Present Illness: Pt is a 48 y/o female w/ PMH significant for seizures, meningioma, and prior report of heart arrhythmia (states resolved in a prior ED visit after she was given a medication that made her feel very sick for several seconds, but cannot remember the diagnosis or the medication given). Pt states that she was recently treated for a pneumonia w/ antibiotics/nebulizers. Pt now presents to the ER bc of palpitations and sharp fleeting left chest pain for the past day. She additionally notes increased SOB and productive cough. 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 In the ER pt had CT scan chest wc did not show an infiltrate. 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, Other (Meningioma) Pulmonary: Yes: Bronchitis ...LMP: 06/15/18 ...: No - Past Surgical History Past Surgical History: Yes: None - Smoking History Smoking history: Never smoked Have you smoked in the past 12 months: No - Alcohol/Substance Use Hx Alcohol Use: No Home Medications - Allergies Allergies/Adverse Reactions: Allergies Allergy/AdvReac Type Severity Reaction Status Date / Time prednisone Allergy Verified 06/16/17 12:25 - Home Medications Home Medications: Ambulatory Orders Albuterol Sulfate Inhaler - [Ventolin Hfa Inhaler -] 1 puff IH Q6H PRN 07/06/18 Family Disease History - Family Disease History Family History: Unremarkable Review of Systems - Review of Systems Constitutional: reports: Loss of Appetite, Weakness Eyes: reports: No Symptoms HENT: reports: No Symptoms Neck: reports: No Symptoms Cardiovascular: reports: Palpitations, Shortness of Breath Respiratory: reports: Cough, SOB Gastrointestinal: reports: No Symptoms Genitourinary: reports: No Symptoms Physical Examination Vital Signs: Vital Signs Temperature 99.7 F H 07/06/18 20:30 Pulse Rate 92 H 07/06/18 20:30 Respiratory Rate 20 07/06/18 20:30 Blood Pressure 128/73 07/06/18 20:30 O2 Sat by Pulse Oximetry (%) 98 07/06/18 19:30 Constitutional: Yes: Well Nourished, Obese HENT: Yes: WNL Neck: Yes: WNL, Supple Cardiovascular: Yes: Tachycardia Respiratory: Yes: Diminished Gastrointestinal: Yes: WNL, Normal Bowel Sounds, Soft, Abdomen, Obese Extremities: Yes: WNL Edema: No Neurological: Yes: WNL, Alert, Oriented ...Motor Strength: WNL Labs: CBC, BMP 07/06/18 06:20 07/06/18 06:20 Problem List - Problems (1) Tachycardia Code(s): R00.0 - TACHYCARDIA, UNSPECIFIED
[2018-07-06] MEDS: ACETAMINOPHEN 325 MG TABLET (FP) PO PRN (22:58)
[2018-07-06] MEDS: MELATONIN 5 MG TABLETS PO SCH (23:00)
[2018-07-07] MEDS: methylPREDNISolone NA SUCC 40 MG/1 ML VIAL IVPUSH SCH ×3 (03:20→17:06)
--- NOTE | 2018-07-07 09:39 | PN ---
Progress Note, Physician Chief Complaint: Pt A&Ox3; feeling substantially better than yesterday; able to take a deep breath without severe splinting pain. History of Present Illness: Patient is a 48 year old black female with a significant past medical history of seizures, meningioma, prior report of heart arrhythmia, HTN (?not on medication), obesity, who presents to the ED with complaints of chest pain that began earlier today. Patient reports experiencing sudden episode of chest pain with associated symptoms of chest palpitations, shortness of breath with non productive coughing and back pain secondary to coughing, prompting her to come into the ED for further evaluation. The dyspnea and chest discomfort began two days ago, with frequent forceful cough now with whitish phlegm. She reports taking her albuterol nebulizer while at home with minimal relief after two treatments. She had an episode of vomiting, and says she had high fever ("102 F ") last night. Denies contact with sick individuals, out of state travelling. Denies dysuria, hematuria. Denies dysuria, hematuria. Denies any other symptoms. Pt required 5 days hospitalization for a similar episode of bronchitis/URI a year ago. 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 Allergies: prednisone Social history: No smoking. No alcohol. No illicit drugs. Surgical history: None PMD: Dr. Wood Orantes - Current Medication List Current Medications: Active Medications Acetaminophen (Tylenol -) 650 mg PO Q6H PRN PRN Reason: FEVER Last Admin: 07/06/18 22:58 Dose: 650 mg Albuterol Sulfate (Ventolin 0.083% Nebulizer Soln -) 1 amp NEB RTID [facility] Heparin Sodium (Porcine) (Heparin -) 5,000 unit SQ BID [facility] Last Admin: 07/06/18 23:01 Dose: 5,000 unit Sodium Chloride (Normal Saline -) 1,000 mls @ 75 mls/hr IV ASDIR [facility] Last Admin: 07/06/18 14:42 Dose: 75 mls/hr Melatonin (Melatonin) 10 mg PO HS [facility] Last Admin: 07/06/18 23:00 Dose: 10 mg Methylprednisolone Sodium Succinate (Solu-Medrol -) 40 mg IVPUSH Q8H-IV [facility] Last Admin: 07/07/18 03:20 Dose: 40 mg - Objective Vital Signs: Vital Signs Temperature 97.9 F 07/07/18 06:00 Pulse Rate 68 07/07/18 06:00 Respiratory Rate 20 07/07/18 06:00 Blood Pressure 128/76 07/07/18 06:00 O2 Sat by Pulse Oximetry (%) 97 07/06/18 20:30 Constitutional: Yes: Obese Eyes: Yes: WNL HENT: Yes: WNL Neck: Yes: WNL Cardiovascular: Yes: S1, S2 Respiratory: Yes: Regular, Wheezes (less diffuse than on initial presentation in ER) Gastrointestinal: Yes: Soft, Abdomen, Obese ...Rectal Exam: Yes: Deferred Genitourinary: No: Anuria Breast(s): Yes: WNL Musculoskeletal: Yes: WNL Extremities: Yes: WNL Edema: No Peripheral Pulses WNL: Yes Integumentary: Yes: WNL Neurological: Yes: WNL ...Motor Strength: WNL Psychiatric: Yes: WNL Labs: CBC, BMP 07/06/18 06:20 07/06/18 06:20 INR, PTT INR 1.07 (0.83-1.09) 07/05/18 23:45 Abnormal Lab Results 07/06/18 07/06/18 06:20 06:20 Neutrophils % (Manual) 96.0 H Lymphocytes % (Manual) 4.0 L Monocytes % (Manual) 0 L Chloride 110 H Random Glucose 151 H AST 11 L TSH 0.29 L - ....Imaging Other: Image Reviewed (telemetry: NSR) Problem List - Problems (1) HTN (hypertension) Assessment/Plan: Initialy elevated (when pt is great pain and respiratory distress); now low to normal. F/u ECHO for LVEF, wall thickness and motion. Code(s): I10 - ESSENTIAL (PRIMARY) HYPERTENSION (2) Obesity Assessment/Plan: Pt [id number] a nutrition consult; she does not eat meat, but tends to "drink" her protein in the form of shakes, and craves sugary foods. She weighed 180 llbs at 27 yrs old; now 260 lbs. Code(s): E66.9 - OBESITY, UNSPECIFIED (3) Sinus tachycardia Assessment/Plan: Multiple contributing factors, incluidng fever, dehydration, anxiety, pain. TNI < 0.02 x 3.(Pt gives hx of stress test as outpt n the past year that was normal). Maintain hydration (for IVF; encourage PO intake). Antipyretics. Pain management (pt's primary concern in ER is for relief of splinting chest pain each time she tries to take a breath). Pt today has much less pleuritic pain; HR now WNL. F/u Free T4 and T3 (mildly decreased TSH). Code(s): R00.0 - TACHYCARDIA, UNSPECIFIED (4) Bronchospasm Code(s): J98.01 - ACUTE BRONCHOSPASM (5) Meningioma Code(s): D32.9 - BENIGN NEOPLASM OF MENINGES, UNSPECIFIED (6) Seizure Code(s): R56.9 - UNSPECIFIED CONVULSIONS (7) Atypical chest pain Assessment/Plan: TNI < 0.02 x 2. EKG: sinus tachycardia; no acute ST-T changes. No hx crdiac disease. F/u ECHO for LVEF, wall motion Pt says she had a stres tet within the past year at PMDs office that was normal. Code(s): R07.89 - OTHER CHEST PAIN (8) Bronchitis Assessment/Plan: Steriods, O2, bronchodilators per branch customer service representative. Off antibiotics; now afebrile. Pt has had several episodes of respiratory distress in the past 12 months; she has agreed to f/u with branch customer service representative as outpatient. Code(s): J40 - BRONCHITIS, NOT SPECIFIED ACUTE OR CHRONIC (9) Sleep apnea Assessment/Plan: r/o with sleep studies per branch customer service representative. Code(s): G47.30 - SLEEP APNEA, UNSPECIFIED (10) Hypothyroid Assessment/Plan: low TSH; f/u free T4 and T3. Code(s): E03.9 - HYPOTHYROIDISM, UNSPECIFIED
[2018-07-07] MEDS: HEPARIN NA (PORCINE) 5,000 UNITS/ML 1ML VIAL SQ SCH ×2 (10:11→21:10)
[2018-07-07] MEDS: ACETAMINOPHEN 325 MG TABLET (FP) PO PRN (10:12)
--- NOTE | 2018-07-07 11:42 | PN ---
Progress Note, Physician History of Present Illness: PULMONARY ALERT,LESS CONGESTED ,LESS DYSPNEIC - Current Medication List Current Medications: Active Medications Acetaminophen (Tylenol -) 650 mg PO Q6H PRN PRN Reason: FEVER Last Admin: 07/07/18 10:12 Dose: 650 mg Albuterol Sulfate (Ventolin 0.083% Nebulizer Soln -) 1 amp NEB RTID [facility] Last Admin: 07/07/18 08:00 Dose: 1 amp Heparin Sodium (Porcine) (Heparin -) 5,000 unit SQ BID [facility] Last Admin: 07/07/18 10:11 Dose: 5,000 unit Sodium Chloride (Normal Saline -) 1,000 mls @ 75 mls/hr IV ASDIR [facility] Last Admin: 07/06/18 14:42 Dose: 75 mls/hr Melatonin (Melatonin) 10 mg PO HS [facility] Last Admin: 07/06/18 23:00 Dose: 10 mg Methylprednisolone Sodium Succinate (Solu-Medrol -) 40 mg IVPUSH Q8H-IV [facility] Last Admin: 07/07/18 10:10 Dose: 40 mg - Objective Vital Signs: Vital Signs Temperature 97.9 F 07/07/18 06:00 Pulse Rate 68 07/07/18 06:00 Respiratory Rate 20 07/07/18 06:00 Blood Pressure 128/76 07/07/18 06:00 O2 Sat by Pulse Oximetry (%) 97 07/06/18 20:30 Constitutional: Yes: Well Nourished, Calm Eyes: Yes: WNL HENT: Yes: WNL Neck: Yes: WNL Cardiovascular: Yes: Regular Rate and Rhythm, S1, S2 Respiratory: Yes: Wheezes (BILATERAL WHEEZES) Gastrointestinal: Yes: Normal Bowel Sounds, Soft Extremities: Yes: WNL Edema: No Labs: CBC, BMP Assessment/Plan Problem List - Problems (1) Bronchospasm Code(s): J98.01 - ACUTE BRONCHOSPASM (2) Chest pain Code(s): R07.9 - CHEST PAIN, UNSPECIFIED Qualifiers: Chest pain type: unspecified Qualified Code(s): R07.9 - Chest pain, unspecified (3) URI (upper respiratory infection) Code(s): J06.9 - ACUTE UPPER RESPIRATORY INFECTION, UNSPECIFIED Qualifiers: URI type: unspecified URI Qualified Code(s): J06.9 - Acute upper respiratory infection, unspecified (4) Pleuritic chest pain Code(s): R07.81 - PLEURODYNIA (5) Seizure Code(s): R56.9 - UNSPECIFIED CONVULSIONS Assessment/Plan Do not suspect PNA. Minimal atalectatic areas in the LLL on CT imaging Medrol same dose Symbicort 160/4.5 BD TX O2 as needed PFTs once stable after discharge VTE prophylaxis DR FOLEY
--- NOTE | 2018-07-07 12:18 | ECHO ---
Name: ANDI WYATT Exam:Adult Echocardiogram Study Date: 07/07/2018 09:55 AM Age: 48 yrs Reason For Study: Tachycardia Height: 69 in Weight: 260 lb BSA: 2.3 m2 MMode/2D Measurements & Calculations RVDd: 2.8 cm Ao root diam: 2.9 cm IVSd: 0.65 cm LA dimension: 3.4 cm LVIDd: 4.8 cm ACS: 1.6 cm LVIDs: 2.7 cm LVPWd: 0.80 cm IVSs: 1.0 cm LVPWs: 1.3 cm EDV(Teich): 107.7 ml ESV(Teich): 26.6 ml Doppler Measurements & Calculations MV E max senthil: 122.2 cm/sec Ao V2 max: 134.4 cm/sec MV A max senthil: 71.2 cm/sec Ao max P.2 mmHg MV E/A: 1.7 Ao V2 mean: 93.8 cm/sec Ao mean P.9 mmHg Ao V2 VTI: 23.8 cm PI end-d senthil: 109.9 cm/sec Med Peak E' Senthil: 9.1 cm/sec Med E/e': 13.4 Lat Peak E' Senthil: 10.5 cm/sec Lat E/e': 11.6 Left Ventricle The left ventricular size, thickness and function are normal. Ejection Fraction = 60%. Left Ventricul ar Filling pattern is normal for age. The left ventricular wall motion is normal. Right Ventricle The right ventricular systolic function is grossly normal. Atria Normal left and right atrial size and function. Mitral Valve There is mild mitral annular calcification. There is trace mitral regurgitation. Aortic Valve There is trivial aortic valve thickening. Pulmonic Valve There is mild pulmonic valve thickening. Trace to mild pulmonic valvular regurgitation. Great Vessels The aortic root is normal size. Pericardium/Pleura Trivial pericardial effusion not hemodynamically significant. Interpretation Summary The left ventricular size, thickness and function are normal Ejection Fraction = 60%. The left ventricular wall motion is normal. The right ventricular systolic function is grossly normal. Normal left and right atrial size and function. There is mild mitral annular calcification. There is trace mitral regurgitation. There is trivial aortic valve thickening. There is mild pulmonic valve thickening. Trace to mild pulmonic valvular regurgitation. The aortic root is normal size. Trivial pericardial effusion not hemodynamically significant Marshall Sharif MD 07/07/2018 12:18 PM
[2018-07-07] MEDS: BUDESONIDE/FORMETEROL FUMARATE 160/4.5 mcg INHALER IH SCH ×2 (13:00→21:13)
[2018-07-07] MEDS: SODIUM CHLORIDE 1,000 ML IV SCH (14:00)
[2018-07-07] MEDS: ONDANSETRON 4 MG/2 ML VIAL IVPUSH PRN (17:06)
[2018-07-07] MEDS: ALBUTEROL SO4 2.5/IPRATROPIUM 0.5 INH SOL 3 ML VIAL.NEB. NEB PRN (20:15)
[2018-07-07] MEDS: guaiFENesin 200 MG/10 ML 10 ML UNIT-DOSE CUPS PO PRN (20:40)
[2018-07-07] MEDS: MELATONIN 5 MG TABLETS PO SCH (21:10)
--- NOTE | 2018-07-07 21:51 | PN ---
Progress Note, Physician - Current Medication List Current Medications: Active Medications Acetaminophen (Tylenol -) 650 mg PO Q6H PRN PRN Reason: FEVER Last Admin: 07/07/18 10:12 Dose: 650 mg Albuterol/Ipratropium (Duoneb -) 1 amp NEB Q4H PRN PRN Reason: SHORTNESS OF BREATH Last Admin: 07/07/18 20:15 Dose: 1 amp Budesonide/Formoterol Fumarate (Symbicort 160/4.5mcg -) 2 puff IH BID [facility] Last Admin: 07/07/18 21:13 Dose: 2 puff Guaifenesin (Robitussin -) 5 ml PO Q6H PRN PRN Reason: COUGH Last Admin: 07/07/18 20:40 Dose: 5 ml Heparin Sodium (Porcine) (Heparin -) 5,000 unit SQ BID [facility] Last Admin: 07/07/18 21:10 Dose: 5,000 unit Sodium Chloride (Normal Saline -) 1,000 mls @ 75 mls/hr IV ASDIR [facility] Last Admin: 07/07/18 14:00 Dose: 75 mls/hr Melatonin (Melatonin) 10 mg PO HS [facility] Last Admin: 07/07/18 21:10 Dose: 10 mg Methylprednisolone Sodium Succinate (Solu-Medrol -) 40 mg IVPUSH Q8H-IV [facility] Last Admin: 07/07/18 17:06 Dose: 40 mg Ondansetron HCl (Zofran Injection) 4 mg IVPUSH Q6H PRN PRN Reason: NAUSEA AND/OR VOMITING Last Admin: 07/07/18 17:06 Dose: 4 mg - Objective Vital Signs: Vital Signs Temperature 98.8 F 07/07/18 18:45 Pulse Rate 84 07/07/18 18:45 Respiratory Rate 20 07/07/18 18:45 Blood Pressure 107/49 L 07/07/18 18:45 O2 Sat by Pulse Oximetry (%) 100 07/07/18 10:00 Constitutional: Yes: Well Nourished Cardiovascular: Yes: WNL, Regular Rate and Rhythm Respiratory: Yes: Wheezes Gastrointestinal: Yes: WNL, Normal Bowel Sounds, Soft, Abdomen, Obese Edema: No Labs: CBC, BMP 07/06/18 06:20 07/06/18 06:20 INR, PTT INR 1.07 (0.83-1.09) 05/27/19 23:45 Problem List - Problems (1) Elevated lactic acid level Assessment/Plan: Repeat lactic acid levels WBC is normal ID consult Cont IVF Code(s): R79.89 - OTHER SPECIFIED ABNORMAL FINDINGS OF BLOOD CHEMISTRY (2) Bronchospasm Assessment/Plan: Cont IV steroids Cont nebulizers Code(s): J98.01 - ACUTE BRONCHOSPASM (3) Tachycardia Code(s): R00.0 - TACHYCARDIA, UNSPECIFIED (4) HTN (hypertension) Assessment/Plan: BP stable Not on any meds Code(s): I10 - ESSENTIAL (PRIMARY) HYPERTENSION (5) Hypothyroid Assessment/Plan: TSH is elevated ?Hyperthyroidism Endo consult Code(s): E03.9 - HYPOTHYROIDISM, UNSPECIFIED (6) Obesity Code(s): E66.9 - OBESITY, UNSPECIFIED (7) Pleuritic chest pain Assessment/Plan: Due to atelectasis Code(s): R07.81 - PLEURODYNIA
[2018-07-08] MEDS: methylPREDNISolone NA SUCC 40 MG/1 ML VIAL IVPUSH SCH ×3 (01:15→21:21)
[2018-07-08] MEDS: guaiFENesin 200 MG/10 ML 10 ML UNIT-DOSE CUPS PO PRN ×5 (03:26→21:40)
[2018-07-08 07:30] LABS: HEMATOCRIT 34.8 % (32.4-45.2); HEMOGLOBIN 11.6 GM/dL (10.7-15.3); LYMPH % 12.2 % (8-40); MCH 29.2 pg (25.7-33.7); MCHC 33.2 g/dl (32.0-36.0); MEAN CELL VOLUME 87.8 fl (80-96); MEAN PLT VOLUME 7.9 fl (7.5-11.1); MONO % 2.5 % (3.8-10.2); NEUT % 85.3 % (42.8-82.8); PLATELET COUNT 272 K/MM3 (134-434); RBC 3.96 M/mm3 (3.60-5.2); RDW 13.5 % (11.6-15.6); WHITE BLOOD COUNT 8.5 K/mm3 (4.0-10.0)
[2018-07-08] MEDS: ALBUTEROL SO4 2.5/IPRATROPIUM 0.5 INH SOL 3 ML VIAL.NEB. NEB PRN ×3 (07:35→20:53)
[2018-07-08 08:30] LABS: ALBUMIN 3.2 g/dl (3.4-5.0); ALK PHOS 91 U/L (45-117); ANION GAP 9 MMOL/L (8-16); BILIRUBIN,TOTAL 0.1 mg/dL (0.2-1); BLOOD UREA NITROGEN 10 mg/dL (7-18); CALCIUM 8.9 mg/dL (8.5-10.1); CHLORIDE 109 mmol/L (98-107); CO2 22 mmol/L (21-32); CREATININE 0.7 mg/dL (0.55-1.3); GLUCOSE,RANDOM 112 mg/dL (74-106); POTASSIUM 4.5 mmol/L (3.5-5.1); SGOT/AST 21 U/L (15-37); SGPT/ALT 27 U/L (13-61); SODIUM 140 mmol/L (136-145)
[2018-07-08] MEDS: BUDESONIDE/FORMETEROL FUMARATE 160/4.5 mcg INHALER IH SCH ×2 (10:28→21:23)
[2018-07-08] MEDS: HEPARIN NA (PORCINE) 5,000 UNITS/ML 1ML VIAL SQ SCH ×2 (10:28→21:22)
--- NOTE | 2018-07-08 12:18 | CON.ID ---
Consult Consult Specialty:: infectious diseases Referred by:: Reason for Consultation:: fever,cough,weakness,r/o pneumonia - History of Present Illness Chief Complaint: fever,cough History of Present Illness: 48 y/o female w/ PMH significant for seizures, meningioma, and prior report of heart arrhythmia (states resolved in a prior ED visit after she was given a medication that made her feel very sick for several seconds, but cannot remember the diagnosis or the medication given). Pt states that she was recently treated for a pneumonia w/ antibiotics/nebulizers. Pt now admitted because of palpitations and sharp fleeting left chest pain for the past day. She additionally notes increased SOB and productive cough. She tried her albuterol neb at home just [employer] but only had taken two treatments. In the ER pt had CT scan chest wc did not show an infiltrate. currently she still has a raspy voice and says now she has started to produce whitish sputum breathing a bit better - History Source History Provided By: Patient Limitations to Obtaining History: No Limitations - Past Medical History [employer]: Yes: Seizure, Other (Meningioma) Cardio/Vascular: Yes: HTN Pulmonary: Yes: Bronchitis. No: Asthma, COPD, O2 Dependent, Pneumonia, Previously Intubated, Pulmonary Embolus, Pulmonary Fibrosis, Sleep Apnea ...LMP: 06/15/18 ...: No Psych: Yes: Anxiety - Past Surgical History Past Surgical History: Yes: None - Alcohol/Substance Use Hx Alcohol Use: No - Smoking History Smoking history: Never smoked Have you smoked in the past 12 months: No Home Medications - Allergies Allergies/Adverse Reactions: Allergies Allergy/AdvReac Type Severity Reaction Status Date / Time prednisone Allergy Verified 06/16/17 12:25 - Home Medications Home Medications: Ambulatory Orders Albuterol Sulfate Inhaler - [Ventolin Hfa Inhaler -] 1 puff IH Q6H PRN 07/06/18 Family Disease History - Family Disease History Family Disease History: Heart Disease: Grandparent (heart disease in 60s; in her 80s) Review of Systems - Review of Systems Constitutional: reports: Fever Eyes: reports: No Symptoms HENT: reports: No Symptoms Neck: reports: No Symptoms Cardiovascular: reports: No Symptoms Respiratory: reports: Cough, SOB, Other Gastrointestinal: reports: No Symptoms Genitourinary: reports: No Symptoms Musculoskeletal: reports: No Symptoms Integumentary: reports: No Symptoms Neurological: reports: No Symptoms Endocrine: reports: No Symptoms Hematology/Lymphatic: reports: No Symptoms Psychiatric: reports: No Symptoms Physical Exam Vital Signs: Vital Signs Temperature 98.4 F 07/08/18 09:00 Pulse Rate 100 H 07/08/18 09:00 Respiratory Rate 20 07/08/18 09:00 Blood Pressure 130/66 07/08/18 09:00 O2 Sat by Pulse Oximetry (%) 100 07/08/18 10:00 Constitutional: Yes: Well Nourished, Calm, Mild Distress Cardiovascular: Yes: Regular Rate and Rhythm Respiratory: Yes: Regular, On Nasal O2, Poor Air Entry, Rhonchi Gastrointestinal: Yes: Normal Bowel Sounds, Soft Musculoskeletal: Yes: WNL Extremities: Yes: WNL Neurological: Yes: Alert, Oriented Psychiatric: Yes: Alert, Oriented Labs: CBC, BMP 07/08/18 06:50 07/08/18 06:50 Assessment/Plan Problem List - Problems (1) Bronchospasm Code(s): J98.01 - ACUTE BRONCHOSPASM (2) Chest pain Code(s): R07.9 - CHEST PAIN, UNSPECIFIED Qualifiers: Chest pain type: unspecified Qualified Code(s): R07.9 - Chest pain, unspecified (3) URI (upper respiratory infection) Code(s): J06.9 - ACUTE UPPER RESPIRATORY INFECTION, UNSPECIFIED Qualifiers: URI type: unspecified URI Qualified Code(s): J06.9 - Acute upper respiratory infection, unspecified (4) Pleuritic chest pain Code(s): R07.81 - PLEURODYNIA (5) Seizure Code(s): R56.9 - UNSPECIFIED CONVULSIONS patient has not had fever since thursday imaging studies and labs looked at will not start any abx monitor her sputum incentive carmela rest as per the tem will see if patient spikes any fever
--- NOTE | 2018-07-08 12:55 | PN ---
Progress Note (short form) - Note Progress Note: Breathing feels better. Less congested cough and SOB. No CP. Intake & Output 07/05/18 07/06/18 07/07/18 07/08/18 23:59 23:59 23:59 23:59 Intake Total 4150 765 1140 Output Total 375 1350 Balance 3775 -585 1140 Weight 260 lb 260 lb 3.2 oz Last Vital Signs Temp Pulse Resp BP Pulse Ox 98.4 F 100 H 20 130/66 100 07/08/18 09:00 07/08/18 09:00 07/08/18 09:00 07/08/18 09:00 07/08/18 10:00 Active Medications Acetaminophen (Tylenol -) 650 mg PO Q6H PRN PRN Reason: FEVER Last Admin: 07/07/18 10:12 Dose: 650 mg Albuterol/Ipratropium (Duoneb -) 1 amp NEB Q4H PRN PRN Reason: SHORTNESS OF BREATH Last Admin: 07/08/18 07:35 Dose: 1 amp Budesonide/Formoterol Fumarate (Symbicort 160/4.5mcg -) 2 puff IH BID [facility] Last Admin: 07/08/18 10:28 Dose: 2 puff Docusate Sodium (Colace -) 100 mg PO TID [facility] Guaifenesin (Robitussin -) 5 ml PO Q6H PRN PRN Reason: COUGH Last Admin: 07/08/18 10:28 Dose: 5 ml Heparin Sodium (Porcine) (Heparin -) 5,000 unit SQ BID [facility] Last Admin: 07/08/18 10:28 Dose: 5,000 unit Melatonin (Melatonin) 10 mg PO HS [facility] Last Admin: 07/07/18 21:10 Dose: 10 mg Methylprednisolone Sodium Succinate (Solu-Medrol -) 30 mg IVPUSH Q12H [facility] Ondansetron HCl (Zofran Injection) 4 mg IVPUSH Q6H PRN PRN Reason: NAUSEA AND/OR VOMITING Last Admin: 07/07/18 17:06 Dose: 4 mg Polyethylene Glycol (Miralax (For Daily Use) -) 17 gm PO DAILY [facility] Constitutional: Yes: NAD Eyes: Yes: WNL HENT: Yes: WNL Neck: Yes: WNL Cardiovascular: Yes: Regular Rate and Rhythm, S1, S2 Respiratory: Yes: Bilateral scattered rhonchi, No wheezes appreciated Gastrointestinal: Yes: Normal Bowel Sounds, Soft Extremities: Yes: WNL Edema: No Labs: Laboratory Results - last 24 hr 07/07/18 07/07/18 07/08/18 06:39 06:39 06:50 WBC 8.5 RBC 3.96 Hgb 11.6 Hct 34.8 MCV 87.8 MCH 29.2 MCHC 33.2 RDW 13.5 Plt Count 272 MPV 7.9 Absolute Neuts (auto) 7.2 Neutrophils % 85.3 H Lymphocytes % 12.2 D Monocytes % 2.5 L D Eosinophils % 0.0 Basophils % 0.0 Nucleated RBC % 0 Sodium Potassium Chloride Carbon Dioxide Anion Gap BUN Creatinine Est GFR (CKD-EPI)AfAm Est GFR (CKD-EPI)NonAf Random Glucose Hemoglobin A1c % 5.4 Lactic Acid Calcium Total Bilirubin AST ALT Alkaline Phosphatase Creatine Kinase Troponin I Total Protein Albumin Free T4 0.82 07/08/18 07/08/18 06:50 06:50 WBC RBC Hgb Hct MCV MCH MCHC RDW Plt Count MPV Absolute Neuts (auto) Neutrophils % Lymphocytes % Monocytes % Eosinophils % Basophils % Nucleated RBC % Sodium 140 Potassium 4.5 Chloride 109 H Carbon Dioxide 22 Anion Gap 9 BUN 10 Creatinine 0.7 Est GFR (CKD-EPI)AfAm 120.43 Est GFR (CKD-EPI)NonAf 103.90 Random Glucose 112 H Hemoglobin A1c % Lactic Acid 1.4 Calcium 8.9 Total Bilirubin 0.1 L AST 21 ALT 27 Alkaline Phosphatase 91 Creatine Kinase 54 Troponin I < 0.02 Total Protein 7.0 Albumin 3.2 L Free T4 Assessment/Plan Problem List - Problems (1) Bronchospasm Code(s): J98.01 - ACUTE BRONCHOSPASM (2) Chest pain Code(s): R07.9 - CHEST PAIN, UNSPECIFIED Qualifiers: Chest pain type: unspecified Qualified Code(s): R07.9 - Chest pain, unspecified (3) URI (upper respiratory infection) Code(s): J06.9 - ACUTE UPPER RESPIRATORY INFECTION, UNSPECIFIED Qualifiers: URI type: unspecified URI Qualified Code(s): J06.9 - Acute upper respiratory infection, unspecified (4) Pleuritic chest pain Code(s): R07.81 - PLEURODYNIA (5) Seizure Code(s): R56.9 - UNSPECIFIED CONVULSIONS Assessment/Plan Do not suspect PNA. Minimal atalectatic areas in the LLL on CT imaging Wean Medrol Symbicort 160/4.5 BD TX O2 as needed PFTs once stable after discharge VTE prophylaxis No smoking Dr Singh Problem List - Problems (1) Bronchospasm Code(s): J98.01 - ACUTE BRONCHOSPASM (2) Chest pain Code(s): R07.9 - CHEST PAIN, UNSPECIFIED Qualifiers: Chest pain type: unspecified Qualified Code(s): R07.9 - Chest pain, unspecified (3) URI (upper respiratory infection) Code(s): J06.9 - ACUTE UPPER RESPIRATORY INFECTION, UNSPECIFIED Qualifiers: URI type: unspecified URI Qualified Code(s): J06.9 - Acute upper respiratory infection, unspecified (4) Pleuritic chest pain Code(s): R07.81 - PLEURODYNIA (5) Seizure Code(s): R56.9 - UNSPECIFIED CONVULSIONS
[2018-07-08] MEDS: POLYETHYLENE GLYCOL 3350 119 GM BTL PO SCH (12:57)
[2018-07-08] MEDS: DOCUSATE SODIUM 100 MG CAPSULE (FP) PO SCH ×3 (12:57→21:22)
[2018-07-08] MEDS: ONDANSETRON 4 MG/2 ML VIAL IVPUSH PRN (19:41)
--- NOTE | 2018-07-08 20:27 | PN ---
Progress Note, Physician History of Present Illness: No new complaint - Current Medication List Current Medications: Active Medications Acetaminophen (Tylenol -) 650 mg PO Q6H PRN PRN Reason: FEVER Last Admin: 07/07/18 10:12 Dose: 650 mg Albuterol/Ipratropium (Duoneb -) 1 amp NEB Q4H PRN PRN Reason: SHORTNESS OF BREATH Last Admin: 07/08/18 07:35 Dose: 1 amp Budesonide/Formoterol Fumarate (Symbicort 160/4.5mcg -) 2 puff IH BID [facility] Last Admin: 07/08/18 10:28 Dose: 2 puff Docusate Sodium (Colace -) 100 mg PO TID [facility] Last Admin: 07/08/18 14:09 Dose: Not Given Guaifenesin (Robitussin -) 5 ml PO Q6H PRN PRN Reason: COUGH Last Admin: 07/08/18 16:39 Dose: 5 ml Heparin Sodium (Porcine) (Heparin -) 5,000 unit SQ BID [facility] Last Admin: 07/08/18 10:28 Dose: 5,000 unit Melatonin (Melatonin) 10 mg PO HS [facility] Last Admin: 07/07/18 21:10 Dose: 10 mg Methylprednisolone Sodium Succinate (Solu-Medrol -) 30 mg IVPUSH BID [facility] Ondansetron HCl (Zofran Injection) 4 mg IVPUSH Q6H PRN PRN Reason: NAUSEA AND/OR VOMITING Last Admin: 07/08/18 19:41 Dose: 4 mg Polyethylene Glycol (Miralax (For Daily Use) -) 17 gm PO DAILY [facility] Last Admin: 07/08/18 12:57 Dose: 17 gm - Objective Vital Signs: Vital Signs Temperature 99.1 F 07/08/18 18:48 Pulse Rate 72 07/08/18 18:48 Respiratory Rate 20 07/08/18 18:48 Blood Pressure 122/63 07/08/18 18:48 O2 Sat by Pulse Oximetry (%) 100 07/08/18 10:00 Constitutional: Yes: Obese Neck: Yes: WNL, Supple Cardiovascular: Yes: WNL, Regular Rate and Rhythm Respiratory: Yes: Wheezes Gastrointestinal: Yes: WNL, Normal Bowel Sounds, Soft, Abdomen, Obese Edema: No Labs: CBC, BMP 07/08/18 06:50 07/08/18 06:50 INR, PTT INR 1.07 (0.83-1.09) 07/05/18 23:45 Problem List - Problems (1) Elevated lactic acid level Assessment/Plan: Repeat lactic acid now normal DC IVF Code(s): R79.89 - OTHER SPECIFIED ABNORMAL FINDINGS OF BLOOD CHEMISTRY (2) Bronchospasm Assessment/Plan: Cont IV steroids Cont nebulizers Code(s): J98.01 - ACUTE BRONCHOSPASM (3) Tachycardia Code(s): R00.0 - TACHYCARDIA, UNSPECIFIED (4) HTN (hypertension) Assessment/Plan: BP stable Not on any meds Code(s): I10 - ESSENTIAL (PRIMARY) HYPERTENSION (5) Hypothyroid Assessment/Plan: TSH is elevated ?Hyperthyroidism Endo consult Code(s): E03.9 - HYPOTHYROIDISM, UNSPECIFIED (6) Obesity Code(s): E66.9 - OBESITY, UNSPECIFIED (7) Pleuritic chest pain Assessment/Plan: Due to atelectasis Code(s): R07.81 - PLEURODYNIA
[2018-07-08] MEDS: MELATONIN 5 MG TABLETS PO SCH (21:22)
[2018-07-09] MEDS: ALBUTEROL SO4 2.5/IPRATROPIUM 0.5 INH SOL 3 ML VIAL.NEB. NEB PRN ×2 (06:20→20:55)
[2018-07-09] MEDS: guaiFENesin 200 MG/10 ML 10 ML UNIT-DOSE CUPS PO PRN (06:28)
[2018-07-09] MEDS: DOCUSATE SODIUM 100 MG CAPSULE (FP) PO SCH ×3 (06:29→22:00)
--- NOTE | 2018-07-09 09:26 | PN ---
Progress Note, Physician Chief Complaint: Pt A&Ox3; still with cough, occasional phlegm; less chest pain. History of Present Illness: Patient is a 48 year old black female with a significant past medical history of seizures, meningioma, prior report of heart arrhythmia, HTN (?not on medication), obesity, who presents to the ED with complaints of chest pain that began earlier today. Patient reports experiencing sudden episode of chest pain with associated symptoms of chest palpitations, shortness of breath with non productive coughing and back pain secondary to coughing, prompting her to come into the ED for further evaluation. The dyspnea and chest discomfort began two days ago, with frequent forceful cough now with whitish phlegm. She reports taking her albuterol nebulizer while at home with minimal relief after two treatments. She had an episode of vomiting, and says she had high fever ("102 F ") last night. Denies contact with sick individuals, out of state travelling. Denies dysuria, hematuria. Denies dysuria, hematuria. Denies any other symptoms. Pt required 5 days hospitalization for a similar episode of bronchitis/URI a year ago. 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 Allergies: prednisone Social history: No smoking. No alcohol. No illicit drugs. Surgical history: None PMD: Dr. Wood Orantes - Current Medication List Current Medications: Active Medications Acetaminophen (Tylenol -) 650 mg PO Q6H PRN PRN Reason: FEVER Last Admin: 07/07/18 10:12 Dose: 650 mg Albuterol/Ipratropium (Duoneb -) 1 amp NEB Q4H PRN PRN Reason: SHORTNESS OF BREATH Last Admin: 07/09/18 06:20 Dose: 1 amp Budesonide/Formoterol Fumarate (Symbicort 160/4.5mcg -) 2 puff IH BID [facility] Last Admin: 07/08/18 21:23 Dose: 2 puff Docusate Sodium (Colace -) 100 mg PO TID [facility] Last Admin: 07/09/18 06:29 Dose: 100 mg Guaifenesin (Robitussin -) 5 ml PO Q6H PRN PRN Reason: COUGH Last Admin: 07/09/18 06:28 Dose: 5 ml Heparin Sodium (Porcine) (Heparin -) 5,000 unit SQ BID [facility] Last Admin: 07/08/18 21:22 Dose: 5,000 unit Melatonin (Melatonin) 10 mg PO HS [facility] Last Admin: 07/08/18 21:22 Dose: 10 mg Methylprednisolone Sodium Succinate (Solu-Medrol -) 30 mg IVPUSH BID [facility] Last Admin: 07/08/18 21:21 Dose: 30 mg Ondansetron HCl (Zofran Injection) 4 mg IVPUSH Q6H PRN PRN Reason: NAUSEA AND/OR VOMITING Last Admin: 07/08/18 19:41 Dose: 4 mg Polyethylene Glycol (Miralax (For Daily Use) -) 17 gm PO DAILY [facility] Last Admin: 07/08/18 12:57 Dose: 17 gm - Objective Vital Signs: Vital Signs Temperature 98.8 F 07/09/18 01:00 Pulse Rate 68 07/09/18 01:00 Respiratory Rate 20 07/09/18 01:00 Blood Pressure 106/65 07/09/18 01:00 O2 Sat by Pulse Oximetry (%) 100 07/08/18 21:00 Constitutional: Yes: Calm, Obese Eyes: Yes: WNL HENT: Yes: WNL Neck: Yes: WNL Cardiovascular: Yes: Regular Rate and Rhythm Respiratory: Yes: WNL Gastrointestinal: Yes: Soft ...Rectal Exam: Yes: Deferred Genitourinary: No: Anuria Breast(s): Yes: WNL Musculoskeletal: Yes: WNL Extremities: Yes: WNL Edema: No Peripheral Pulses WNL: Yes Integumentary: Yes: WNL Neurological: Yes: WNL Psychiatric: Yes: WNL Labs: CBC, BMP 07/08/18 06:50 07/08/18 06:50 INR, PTT INR 1.07 (0.83-1.09) 07/05/18 23:45 - ....Imaging Other: Image Reviewed (telemetry: NSR; no arrhythmias) Problem List - Problems (1) HTN (hypertension) Assessment/Plan: Initialy elevated (when pt is great pain and respiratory distress); now low to normal. ECHO: normal LVEF; no significant pulmonary HTN noted. Code(s): I10 - ESSENTIAL (PRIMARY) HYPERTENSION (2) Obesity Assessment/Plan: Pt seen by cutter tender; pt is trying to understand what changes she will have to make to reach her goal of losing a substantial amount of weight. Code(s): E66.9 - OBESITY, UNSPECIFIED (3) Sinus tachycardia Assessment/Plan: Heart rate has now improved substantially. Multiple contributing factors, including fever, dehydration, anxiety, pain. TNI < 0.02 x 3.(Pt gives hx of stress test as outpt in the past year that was normal). Maintain hydration (for IVF; encourage PO intake). Antipyretics. Pain management (pt's primary concern in ER was for relief of splinting chest pain each time she tries to take a breath). Pt today has much less pleuritic pain; HR now WNL. Normal Free T4. Code(s): R00.0 - TACHYCARDIA, UNSPECIFIED (4) Bronchospasm Code(s): J98.01 - ACUTE BRONCHOSPASM (5) Meningioma Code(s): D32.9 - BENIGN NEOPLASM OF MENINGES, UNSPECIFIED (6) Seizure Code(s): R56.9 - UNSPECIFIED CONVULSIONS (7) Atypical chest pain Assessment/Plan: TNI < 0.02 x 2. EKG: sinus tachycardia; no acute ST-T changes. No hx cardiac disease. ECHO: normal LVEF; no regional wall motion abnormalities mentioned. Pt says she had a stress tet within the past year at PMDs office that was normal. Code(s): R07.89 - OTHER CHEST PAIN (8) Bronchitis Assessment/Plan: Steriods, O2, bronchodilators per forestry crew chief. Off antibiotics; now afebrile. Pt has had several episodes of respiratory distress in the past 12 months; she has agreed to f/u with forestry crew chief as outpatient. Code(s): J40 - BRONCHITIS, NOT SPECIFIED ACUTE OR CHRONIC (9) Sleep apnea Assessment/Plan: r/o with sleep studies per forestry crew chief. Code(s): G47.30 - SLEEP APNEA, UNSPECIFIED (10) Hypothyroid Assessment/Plan: low TSH; normal Free T4. Code(s): E03.9 - HYPOTHYROIDISM, UNSPECIFIED
[2018-07-09] MEDS: POLYETHYLENE GLYCOL 3350 119 GM BTL PO SCH (11:00)
[2018-07-09] MEDS: HEPARIN NA (PORCINE) 5,000 UNITS/ML 1ML VIAL SQ SCH ×2 (11:00→21:52)
[2018-07-09] MEDS: methylPREDNISolone NA SUCC 40 MG/1 ML VIAL IVPUSH SCH ×2 (11:03→21:52)
[2018-07-09] MEDS: BUDESONIDE/FORMETEROL FUMARATE 160/4.5 mcg INHALER IH SCH ×2 (11:03→21:51)
--- NOTE | 2018-07-09 11:10 | PN ---
Progress Note, Physician History of Present Illness: pulmonary alert,feeling better,less dyspneic,+ cough - Current Medication List Current Medications: Active Medications Acetaminophen (Tylenol -) 650 mg PO Q6H PRN PRN Reason: FEVER Last Admin: 07/07/18 10:12 Dose: 650 mg Albuterol/Ipratropium (Duoneb -) 1 amp NEB Q4H PRN PRN Reason: SHORTNESS OF BREATH Last Admin: 07/09/18 06:20 Dose: 1 amp Budesonide/Formoterol Fumarate (Symbicort 160/4.5mcg -) 2 puff IH BID [facility] Last Admin: 07/09/18 11:03 Dose: 2 puff Docusate Sodium (Colace -) 100 mg PO TID [facility] Last Admin: 07/09/18 06:29 Dose: 100 mg Guaifenesin (Robitussin -) 5 ml PO Q6H PRN PRN Reason: COUGH Last Admin: 07/09/18 06:28 Dose: 5 ml Heparin Sodium (Porcine) (Heparin -) 5,000 unit SQ BID [facility] Last Admin: 07/08/18 21:22 Dose: 5,000 unit Melatonin (Melatonin) 10 mg PO HS [facility] Last Admin: 07/08/18 21:22 Dose: 10 mg Methylprednisolone Sodium Succinate (Solu-Medrol -) 30 mg IVPUSH BID [facility] Last Admin: 07/09/18 11:03 Dose: 30 mg Ondansetron HCl (Zofran Injection) 4 mg IVPUSH Q6H PRN PRN Reason: NAUSEA AND/OR VOMITING Last Admin: 07/08/18 19:41 Dose: 4 mg Polyethylene Glycol (Miralax (For Daily Use) -) 17 gm PO DAILY [facility] Last Admin: 07/08/18 12:57 Dose: 17 gm - Objective Vital Signs: Vital Signs Temperature 98.8 F 07/09/18 01:00 Pulse Rate 68 07/09/18 01:00 Respiratory Rate 20 07/09/18 01:00 Blood Pressure 106/65 07/09/18 01:00 O2 Sat by Pulse Oximetry (%) 100 07/08/18 21:00 Constitutional: Yes: Well Nourished, Calm Eyes: Yes: WNL HENT: Yes: WNL Neck: Yes: WNL Cardiovascular: Yes: Regular Rate and Rhythm, S1, S2 Respiratory: Yes: Wheezes (few scattered wheezes) Gastrointestinal: Yes: Normal Bowel Sounds, Soft Extremities: Yes: WNL Edema: No Labs: CBC, BMP 07/08/18 06:50 Assessment/Plan Problem List - Problems (1) Bronchospasm Code(s): J98.01 - ACUTE BRONCHOSPASM (2) Chest pain Code(s): R07.9 - CHEST PAIN, UNSPECIFIED Qualifiers: Chest pain type: unspecified Qualified Code(s): R07.9 - Chest pain, unspecified (3) URI (upper respiratory infection) Code(s): J06.9 - ACUTE UPPER RESPIRATORY INFECTION, UNSPECIFIED Qualifiers: URI type: unspecified URI Qualified Code(s): J06.9 - Acute upper respiratory infection, unspecified (4) Pleuritic chest pain Code(s): R07.81 - PLEURODYNIA (5) Seizure Code(s): R56.9 - UNSPECIFIED CONVULSIONS Assessment/Plan Do not suspect PNA. Minimal atalectatic areas in the LLL on CT imaging Medrol same dose Symbicort 160/4.5 BD TX O2 as needed PFTs after discharge VTE prophylaxis DR FOLEY
[2018-07-09] MEDS ORDERED: guaiFENesin 600 MG TABLET.ER (FP) PO SCH (11:30)
--- NOTE | 2018-07-09 20:36 | PN ---
Progress Note, Physician History of Present Illness: No new complaint - Current Medication List Current Medications: Active Medications Acetaminophen (Tylenol -) 650 mg PO Q6H PRN PRN Reason: FEVER Last Admin: 07/07/18 10:12 Dose: 650 mg Albuterol/Ipratropium (Duoneb -) 1 amp NEB Q4H PRN PRN Reason: SHORTNESS OF BREATH Last Admin: 07/09/18 06:20 Dose: 1 amp Budesonide/Formoterol Fumarate (Symbicort 160/4.5mcg -) 2 puff IH BID [facility] Last Admin: 07/09/18 11:03 Dose: 2 puff Docusate Sodium (Colace -) 100 mg PO TID [facility] Last Admin: 07/09/18 13:35 Dose: Not Given Guaifenesin (Mucinex -) 1,200 mg PO BID [facility] Last Admin: 07/09/18 12:12 Dose: 1,200 mg Heparin Sodium (Porcine) (Heparin -) 5,000 unit SQ BID [facility] Last Admin: 07/09/18 11:00 Dose: Not Given Melatonin (Melatonin) 10 mg PO HS [facility] Last Admin: 07/08/18 21:22 Dose: 10 mg Methylprednisolone Sodium Succinate (Solu-Medrol -) 30 mg IVPUSH BID [facility] Last Admin: 07/09/18 11:03 Dose: 30 mg Ondansetron HCl (Zofran Injection) 4 mg IVPUSH Q6H PRN PRN Reason: NAUSEA AND/OR VOMITING Last Admin: 07/08/18 19:41 Dose: 4 mg Polyethylene Glycol (Miralax (For Daily Use) -) 17 gm PO DAILY [facility] Last Admin: 07/09/18 11:00 Dose: Not Given - Objective Vital Signs: Vital Signs Temperature 99.0 F 07/09/18 18:13 Pulse Rate 72 07/09/18 18:13 Respiratory Rate 20 07/09/18 18:13 Blood Pressure 108/64 07/09/18 18:13 O2 Sat by Pulse Oximetry (%) 97 07/09/18 09:00 Constitutional: Yes: Well Nourished, Obese Neck: Yes: WNL Cardiovascular: Yes: WNL, Regular Rate and Rhythm Respiratory: Yes: Wheezes Gastrointestinal: Yes: WNL, Normal Bowel Sounds, Soft, Abdomen, Obese Edema: No Labs: CBC, BMP 07/08/18 06:50 07/08/18 06:50 INR, PTT INR 1.07 (0.83-1.09) 07/05/18 23:45 Problem List - Problems (1) Elevated lactic acid level Assessment/Plan: Repeat lactic acid now normal DC IVF Code(s): R79.89 - OTHER SPECIFIED ABNORMAL FINDINGS OF BLOOD CHEMISTRY (2) Bronchospasm Assessment/Plan: Cont IV steroids Cont nebulizers Code(s): J98.01 - ACUTE BRONCHOSPASM (3) Tachycardia Code(s): R00.0 - TACHYCARDIA, UNSPECIFIED (4) HTN (hypertension) Assessment/Plan: BP stable Not on any meds Code(s): I10 - ESSENTIAL (PRIMARY) HYPERTENSION (5) Hypothyroid Assessment/Plan: TSH is elevated ?Hyperthyroidism Endo consult Code(s): E03.9 - HYPOTHYROIDISM, UNSPECIFIED (6) Obesity Code(s): E66.9 - OBESITY, UNSPECIFIED (7) Pleuritic chest pain Assessment/Plan: Due to atelectasis Code(s): R07.81 - PLEURODYNIA
[2018-07-09] MEDS: MELATONIN 5 MG TABLETS PO SCH (21:52)
--- NOTE | 2018-07-10 02:17 | PN ---
Progress Note, Physician Chief Complaint: Pt A&Ox3; coughing less often; it still causes chest pain. History of Present Illness: Patient is a 48 year old black female with a significant past medical history of seizures, meningioma, prior report of "heart arrhythmia", HTN (?not on medication), obesity, who presents to the ED with complaints of chest pain that began earlier today. Patient reports experiencing sudden episode of chest pain with associated symptoms of chest palpitations, shortness of breath with non productive coughing and back pain secondary to coughing, prompting her to come into the ED for further evaluation. The dyspnea and chest discomfort began two days ago, with frequent forceful cough now with whitish phlegm. She reports taking her albuterol nebulizer while at home with minimal relief after two treatments. She had an episode of vomiting, and says she had high fever ("102 F ") last night. Denies contact with sick individuals, out of state travelling. Denies dysuria, hematuria. Denies dysuria, hematuria. Denies any other symptoms. Pt required 5 days hospitalization for a similar episode of bronchitis/URI a year ago. 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 Allergies: prednisone Social history: No smoking. No alcohol. No illicit drugs. Surgical history: None PMD: Dr. Wood Orantes - Current Medication List Current Medications: Active Medications Acetaminophen (Tylenol -) 650 mg PO Q6H PRN PRN Reason: FEVER Last Admin: 07/07/18 10:12 Dose: 650 mg Albuterol/Ipratropium (Duoneb -) 1 amp NEB Q4H PRN PRN Reason: SHORTNESS OF BREATH Last Admin: 07/09/18 20:55 Dose: 1 amp Budesonide/Formoterol Fumarate (Symbicort 160/4.5mcg -) 2 puff IH BID [facility] Last Admin: 07/09/18 21:51 Dose: 2 puff Docusate Sodium (Colace -) 100 mg PO TID [facility] Last Admin: 07/09/18 22:00 Dose: Not Given Guaifenesin (Mucinex -) 1,200 mg PO BID [facility] Last Admin: 07/09/18 12:12 Dose: 1,200 mg Heparin Sodium (Porcine) (Heparin -) 5,000 unit SQ BID [facility] Last Admin: 07/09/18 21:52 Dose: Not Given Melatonin (Melatonin) 10 mg PO HS [facility] Last Admin: 07/09/18 21:52 Dose: 10 mg Methylprednisolone Sodium Succinate (Solu-Medrol -) 30 mg IVPUSH BID [facility] Last Admin: 07/09/18 21:52 Dose: 30 mg Ondansetron HCl (Zofran Injection) 4 mg IVPUSH Q6H PRN PRN Reason: NAUSEA AND/OR VOMITING Last Admin: 07/08/18 19:41 Dose: 4 mg Polyethylene Glycol (Miralax (For Daily Use) -) 17 gm PO DAILY [facility] Last Admin: 07/09/18 11:00 Dose: Not Given - Objective Vital Signs: Vital Signs Temperature 99.0 F 07/09/18 18:13 Pulse Rate 72 07/09/18 18:13 Respiratory Rate 20 07/09/18 18:13 Blood Pressure 108/64 07/09/18 18:13 O2 Sat by Pulse Oximetry (%) 97 07/09/18 20:44 Constitutional: Yes: No Distress Eyes: Yes: WNL HENT: Yes: WNL Neck: Yes: WNL Cardiovascular: Yes: Regular Rate and Rhythm, S1, S2 Respiratory: Yes: Regular, Wheezes (expiratory; audible without using stethoscope) Gastrointestinal: Yes: Soft, Abdomen, Obese ...Rectal Exam: Yes: Deferred Genitourinary: No: Anuria Breast(s): Yes: WNL Musculoskeletal: Yes: WNL Extremities: Yes: WNL Edema: No Peripheral Pulses WNL: Yes Integumentary: Yes: WNL Neurological: Yes: WNL Psychiatric: Yes: WNL Labs: CBC, BMP 07/08/18 06:50 07/08/18 06:50 INR, PTT INR 1.07 (0.83-1.09) 07/05/18 23:45 Problem List - Problems (1) HTN (hypertension) Assessment/Plan: Initially elevated (when pt is great pain and respiratory distress); now low to normal. ECHO: normal LVEF; no significant pulmonary HTN noted. Code(s): I10 - ESSENTIAL (PRIMARY) HYPERTENSION (2) Obesity Assessment/Plan: Pt seen by litigation attorney associate; pt is trying to understand what changes she will have to make to reach her goal of losing a substantial amount of weight. Code(s): E66.9 - OBESITY, UNSPECIFIED (3) Sinus tachycardia Assessment/Plan: Heart rate has now improved substantially. Multiple contributing factors, including fever, dehydration, anxiety, pain. TNI < 0.02 x 3.(Pt gives hx of stress test as outpt in the past year that was normal). Maintain hydration (for IVF; encourage PO intake). Antipyretics. Pain management (pt's primary concern in ER was for relief of splinting chest pain each time she tries to take a breath). Pt has much less pleuritic pain; HR now WNL. Still with audible wheezing. Normal Free T4. Code(s): R00.0 - TACHYCARDIA, UNSPECIFIED (4) Bronchospasm Code(s): J98.01 - ACUTE BRONCHOSPASM (5) Meningioma Code(s): D32.9 - BENIGN NEOPLASM OF MENINGES, UNSPECIFIED (6) Seizure Code(s): R56.9 - UNSPECIFIED CONVULSIONS (7) Atypical chest pain Assessment/Plan: TNI < 0.02 x 2. EKG: sinus tachycardia; no acute ST-T changes. No hx cardiac disease. ECHO: normal LVEF; no regional wall motion abnormalities mentioned. Pt says she had a stress test within the past year at PMDs office that was normal; f/u results. Code(s): R07.89 - OTHER CHEST PAIN (8) Bronchitis Assessment/Plan: Steriods, O2, bronchodilators per nursing unit coordinator. Off antibiotics; now afebrile. Pt has had several episodes of respiratory distress in the past 12 months; she has agreed to f/u with nursing unit coordinator as outpatient. Code(s): J40 - BRONCHITIS, NOT SPECIFIED ACUTE OR CHRONIC (9) Sleep apnea Code(s): G47.30 - SLEEP APNEA, UNSPECIFIED (10) Hypothyroid Code(s): E03.9 - HYPOTHYROIDISM, UNSPECIFIED
[2018-07-10] MEDS: DOCUSATE SODIUM 100 MG CAPSULE (FP) PO SCH ×3 (05:21→21:51)
[2018-07-10] MEDS: ALBUTEROL SO4 2.5/IPRATROPIUM 0.5 INH SOL 3 ML VIAL.NEB. NEB PRN ×3 (07:15→16:02)
[2018-07-10] MEDS ORDERED: guaiFENesin/CODEINE 10 ML UNIT-DOSE CUPS PO PRN (08:31)
--- NOTE | 2018-07-10 08:31 | PN ---
Progress Note, Physician History of Present Illness: pulmonary alert,still c/o cough,congestion - Current Medication List Current Medications: Active Medications Acetaminophen (Tylenol -) 650 mg PO Q6H PRN PRN Reason: FEVER Last Admin: 07/07/18 10:12 Dose: 650 mg Albuterol/Ipratropium (Duoneb -) 1 amp NEB Q4H PRN PRN Reason: SHORTNESS OF BREATH Last Admin: 07/10/18 07:15 Dose: 1 amp Budesonide/Formoterol Fumarate (Symbicort 160/4.5mcg -) 2 puff IH BID [facility] Last Admin: 07/09/18 21:51 Dose: 2 puff Docusate Sodium (Colace -) 100 mg PO TID [facility] Last Admin: 07/10/18 05:21 Dose: Not Given Guaifenesin (Mucinex -) 1,200 mg PO BID [facility] Last Admin: 07/09/18 12:12 Dose: 1,200 mg Heparin Sodium (Porcine) (Heparin -) 5,000 unit SQ BID [facility] Last Admin: 07/09/18 21:52 Dose: Not Given Melatonin (Melatonin) 10 mg PO HS [facility] Last Admin: 07/09/18 21:52 Dose: 10 mg Methylprednisolone Sodium Succinate (Solu-Medrol -) 30 mg IVPUSH BID [facility] Last Admin: 07/09/18 21:52 Dose: 30 mg Ondansetron HCl (Zofran Injection) 4 mg IVPUSH Q6H PRN PRN Reason: NAUSEA AND/OR VOMITING Last Admin: 07/08/18 19:41 Dose: 4 mg Polyethylene Glycol (Miralax (For Daily Use) -) 17 gm PO DAILY [facility] Last Admin: 07/09/18 11:00 Dose: Not Given - Objective Vital Signs: Vital Signs Temperature 99.0 F 07/09/18 18:13 Pulse Rate 72 07/09/18 18:13 Respiratory Rate 20 07/09/18 18:13 Blood Pressure 108/64 07/09/18 18:13 O2 Sat by Pulse Oximetry (%) 97 07/09/18 20:44 Constitutional: Yes: Well Nourished, Calm Eyes: Yes: WNL HENT: Yes: WNL Neck: Yes: WNL Cardiovascular: Yes: Regular Rate and Rhythm, S1, S2 Respiratory: Yes: Wheezes (increased terese wheezes) Gastrointestinal: Yes: Normal Bowel Sounds, Soft Extremities: Yes: WNL Edema: No Labs: CBC, BMP 07/08/18 06:50 Assessment/Plan Problem List - Problems (1) Bronchospasm Code(s): J98.01 - ACUTE BRONCHOSPASM (2) Chest pain Code(s): R07.9 - CHEST PAIN, UNSPECIFIED Qualifiers: Chest pain type: unspecified Qualified Code(s): R07.9 - Chest pain, unspecified (3) URI (upper respiratory infection) Code(s): J06.9 - ACUTE UPPER RESPIRATORY INFECTION, UNSPECIFIED Qualifiers: URI type: unspecified URI Qualified Code(s): J06.9 - Acute upper respiratory infection, unspecified (4) Pleuritic chest pain Code(s): R07.81 - PLEURODYNIA (5) Seizure Code(s): R56.9 - UNSPECIFIED CONVULSIONS Assessment/Plan Do not suspect PNA. Minimal atalectatic areas in the LLL on CT imaging Increase Medrol 40 q8 Symbicort 160/4.5 BD TX O2 as needed PFTs after discharge VTE prophylaxis DR FOLEY
[2018-07-10] MEDS: HEPARIN NA (PORCINE) 5,000 UNITS/ML 1ML VIAL SQ SCH ×3 (09:09→21:51)
[2018-07-10] MEDS: POLYETHYLENE GLYCOL 3350 119 GM BTL PO SCH (09:09)
[2018-07-10] MEDS: BUDESONIDE/FORMETEROL FUMARATE 160/4.5 mcg INHALER IH SCH ×2 (09:09→21:50)
[2018-07-10] MEDS: methylPREDNISolone NA SUCC 40 MG/1 ML VIAL IVPUSH SCH ×2 (09:09→18:07)
[2018-07-10] MEDS: guaiFENesin/CODEINE 5 ML UNIT-DOSE CUPS PO PRN ×2 (09:10→22:38)
--- NOTE | 2018-07-10 09:56 | PN ---
Progress Note, Physician History of Present Illness: sob all cx noted needs oxygen still desating - Current Medication List Current Medications: Active Medications Acetaminophen (Tylenol -) 650 mg PO Q6H PRN PRN Reason: FEVER Last Admin: 07/07/18 10:12 Dose: 650 mg Albuterol/Ipratropium (Duoneb -) 1 amp NEB Q4H PRN PRN Reason: SHORTNESS OF BREATH Last Admin: 07/10/18 07:15 Dose: 1 amp Budesonide/Formoterol Fumarate (Symbicort 160/4.5mcg -) 2 puff IH BID [facility] Last Admin: 07/10/18 09:09 Dose: 2 puff Docusate Sodium (Colace -) 100 mg PO TID [facility] Last Admin: 07/10/18 05:21 Dose: Not Given Guaifenesin/Codeine Phosphate (Robitussin Ac -) 10 ml PO Q8H PRN PRN Reason: COUGH Last Admin: 07/10/18 09:10 Dose: 10 ml Heparin Sodium (Porcine) (Heparin -) 5,000 unit SQ BID [facility] Last Admin: 07/10/18 09:24 Dose: Not Given Melatonin (Melatonin) 10 mg PO HS [facility] Last Admin: 07/09/18 21:52 Dose: 10 mg Methylprednisolone Sodium Succinate (Solu-Medrol -) 40 mg IVPUSH Q8H-IV [facility] Last Admin: 07/10/18 09:09 Dose: 40 mg Ondansetron HCl (Zofran Injection) 4 mg IVPUSH Q6H PRN PRN Reason: NAUSEA AND/OR VOMITING Last Admin: 07/08/18 19:41 Dose: 4 mg Polyethylene Glycol (Miralax (For Daily Use) -) 17 gm PO DAILY [facility] Last Admin: 07/10/18 09:09 Dose: 17 gm - Objective Vital Signs: Vital Signs Temperature 99.0 F 07/09/18 18:13 Pulse Rate 72 07/09/18 18:13 Respiratory Rate 20 07/09/18 18:13 Blood Pressure 108/64 07/09/18 18:13 O2 Sat by Pulse Oximetry (%) 97 07/09/18 20:44 Constitutional: Yes: Calm, Mild Distress Cardiovascular: Yes: Regular Rate and Rhythm Respiratory: Yes: Regular, On Nasal O2, Poor Air Entry Gastrointestinal: Yes: Normal Bowel Sounds, Soft Musculoskeletal: Yes: WNL Extremities: Yes: WNL Neurological: Yes: Alert, Oriented Psychiatric: Yes: Alert, Oriented Labs: CBC, BMP 07/08/18 06:50 07/08/18 06:50 INR, PTT INR 1.07 (0.83-1.09) 07/05/18 23:45 Assessment/Plan Problem List - Problems (1) Bronchospasm Code(s): J98.01 - ACUTE BRONCHOSPASM (2) Chest pain Code(s): R07.9 - CHEST PAIN, UNSPECIFIED Qualifiers: Chest pain type: unspecified Qualified Code(s): R07.9 - Chest pain, unspecified (3) URI (upper respiratory infection) Code(s): J06.9 - ACUTE UPPER RESPIRATORY INFECTION, UNSPECIFIED Qualifiers: URI type: unspecified URI Qualified Code(s): J06.9 - Acute upper respiratory infection, unspecified (4) Pleuritic chest pain Code(s): R07.81 - PLEURODYNIA (5) Seizure Code(s): R56.9 - UNSPECIFIED CONVULSIONS plan continue current mgmt resp support pul on board rest as per the team
--- NOTE | 2018-07-10 13:15 | PN ---
Physical Exam: SUBJECTIVE: Patient seen and examined at bedside. Has not slept well. Feels more SOB today. OBJECTIVE: Vital Signs Period Temp Pulse Resp BP Sys/Krishnamurthy Pulse Ox Last 24 Hr 98 F-99.0 F 72-95 20-20 108-119/58-75 95-97 GENERAL: The patient is awake, alert, and fully oriented, in no acute distress. LUNGS: Trachael breath sounds, no stridor, no adventitious bronchovesicular sounds HEART: Regular rate and rhythm, S1, S2 ABDOMEN: Soft, nontender, nondistended EXTREMITIES: 2+ pulses, warm, well-perfused, no edema. NEUROLOGICAL: Cranial nerves II through XII grossly intact. Normal speech, steady gait Active Medications Generic Name Dose Route Start Last Admin Trade Name Freq PRN Reason Stop Dose Admin Acetaminophen 650 mg 07/06/18 22:30 07/07/18 10:12 Tylenol - PO 650 mg Q6H PRN Administration FEVER Albuterol/Ipratropium 1 amp 07/07/18 11:47 07/10/18 11:52 Duoneb - NEB 1 amp Q4H PRN Administration SHORTNESS OF BREATH Budesonide/Formoterol Fumarate 2 puff 07/07/18 12:00 07/10/18 09:09 Symbicort 160/4.5mcg - IH 2 puff BID [facility] Administration Docusate Sodium 100 mg 07/08/18 14:00 07/10/18 05:21 Colace - PO Not Given TID [facility] Guaifenesin/Codeine Phosphate 10 ml 07/10/18 08:36 07/10/18 09:10 Robitussin Ac - PO 10 ml Q8H PRN Administration COUGH Heparin Sodium (Porcine) 5,000 unit 07/06/18 10:00 07/10/18 09:24 Heparin - SQ Not Given BID [facility] Melatonin 10 mg 07/06/18 22:30 07/09/18 21:52 Melatonin PO 10 mg HS [facility] Administration Methylprednisolone Sodium Succinate 40 mg 07/10/18 10:00 07/10/18 09:09 Solu-Medrol - IVPUSH 40 mg Q8H-IV [facility] Administration Ondansetron HCl 4 mg 07/07/18 16:58 07/08/18 19:41 Zofran Injection IVPUSH 4 mg Q6H PRN Administration NAUSEA AND/OR VOMITING Polyethylene Glycol 17 gm 07/09/18 10:00 07/10/18 09:09 Miralax (For Daily Use) - PO 17 gm DAILY [facility] Administration ASSESSMENT/PLAN 48 year-old female with a PMH significant for HTN, meningioma, seizure disorder , and recent pneumonia. Admitted for chest pain. Bronchitis --CT: minimal atelectasis LLL --no bronchovesicular wheezing on today's exam --febrile on admission, defervesced on 07/06 --no leukocytosis during hospitalization --continue Symbicort, solumedrol, duonebs --continue to observe off antibiotics --pre post for discharge Lactic acidosis --resolved Chest pain --troponins negative x 3 --Echo: LV normal, EF 60%; RV normal; trace MR; trace to mild PI; trivial pericardial effusion --Serial ECGs without signs of acute ischemic event --stress test in past year reportedly normal Sinus tachycardia --initial ECG rate @ 151 probably multifactorial: fever, dehydration, pain --has improved substantially as clinical symptoms have improved Hypertension --BP stable --not on anti-hypertensives Meningioma --stable Seizure disorder --not on anti-seizure meds FEN Fluids: PO intake adequate Electrolytes: replete as indicated Nutrition: regular diet DVT prophylaxis: subq heparin Dispo: continues to require inpatient care. Full code. Visit type - Emergency Visit Emergency Visit: Yes ED Registration Date: 07/06/18 Care time: The patient presented to the Emergency Department on the above date and was hospitalized for further evaluation of their emergent condition. - New Patient This patient is new to me today: Yes Date on this admission: 07/10/18 - Critical Care Critical Care patient: No
[2018-07-10] MEDS: ONDANSETRON 4 MG/2 ML VIAL IVPUSH PRN (16:04)
[2018-07-10] MEDS ORDERED: methylPREDNISolone NA SUCC 40 MG/1 ML VIAL IVPUSH ONE (16:23)
[2018-07-10] MEDS ORDERED: BUDESONIDE 0.5 MG/2 ML INH SUSP VIAL NEB ONE (16:23)
[2018-07-10] MEDS ORDERED: ALBUTEROL SO4 2.5/IPRATROPIUM 0.5 INH SOL 3 ML VIAL.NEB. NEB ONE (16:23)
--- NOTE | 2018-07-10 16:26 | RAPID ---
Physical Examination Vital Signs: Vital Signs Temperature 98.5 F 07/10/18 10:00 Pulse Rate 141 H 07/10/18 16:00 Respiratory Rate 20 07/10/18 10:00 Blood Pressure 119/75 07/10/18 10:00 O2 Sat by Pulse Oximetry (%) 98 07/10/18 16:00 Labs: CBC, BMP 07/08/18 06:50 07/08/18 06:50 Rapid Response - Rapid Response Assessment: rapid response called overhead pt was sob nausea and tachycardic sinus tach 130s on monitor while ambulating now pt feel better. denies cp, fever AOX3 RRR wheezing b/l solumedrol 40 budesonide neb and duoneb x1 cbc cmp mg phosph ekg cxr
--- NOTE | 2018-07-10 16:34 | HP ---
CHIEF COMPLAINT: PCP: HISTORY OF PRESENT ILLNESS: ER course was notable for: (1) (2) (3) Recent Travel: PAST MEDICAL HISTORY: PAST SURGICAL HISTORY: Social History: Smoking: Alcohol: Drugs: Family History: Allergies prednisone Allergy (Verified 06/16/17 12:25) HOME MEDICATIONS: Home Medications Medication Instructions Recorded Albuterol Sulfate Inhaler - 1 puff IH Q6H PRN 07/06/18 [Ventolin Hfa Inhaler -] REVIEW OF SYSTEMS CONSTITUTIONAL: Absent: fever, chills, diaphoresis, generalized weakness, malaise, loss of appetite, weight change HEENT: Absent: rhinorrhea, nasal congestion, throat pain, throat swelling, difficulty swallowing, mouth swelling, ear pain, eye pain, visual changes CARDIOVASCULAR: Absent: chest pain, syncope, palpitations, irregular heart rate, lightheadedness , peripheral edema RESPIRATORY: Absent: cough, shortness of breath, dyspnea with exertion, orthopnea, wheezing, stridor, hemoptysis GASTROINTESTINAL: Absent: abdominal pain, abdominal distension, nausea, vomiting, diarrhea, constipation, melena, hematochezia GENITOURINARY: Absent: dysuria, frequency, urgency, hesitancy, hematuria, flank pain, genital pain MUSCULOSKELETAL: Absent: myalgia, arthralgia, joint swelling, back pain, neck pain SKIN: Absent: rash, itching, pallor HEMATOLOGIC/IMMUNOLOGIC: Absent: easy bleeding, easy bruising, lymphadenopathy, frequent infections ENDOCRINE: Absent: unexplained weight gain, unexplained weight loss, heat intolerance, cold intolerance NEUROLOGIC: Absent: headache, focal weakness or paresthesias, dizziness, unsteady gait, seizure, mental status changes, bladder or bowel incontinence PSYCHIATRIC: Absent: anxiety, depression, suicidal or homicidal ideation, hallucinations. PHYSICAL EXAMINATION Vital Signs - 24 hr 07/09/18 07/09/18 07/10/18 18:13 20:44 09:00 Temperature 99.0 F Pulse Rate 72 Respiratory 20 Rate Blood Pressure 108/64 O2 Sat by Pulse 97 95 Oximetry (%) 07/10/18 07/10/18 10:00 16:00 Temperature 98.5 F Pulse Rate 81 141 H Respiratory 20 Rate Blood Pressure 119/75 O2 Sat by Pulse 98 Oximetry (%) GENERAL: Awake, alert, and fully oriented, in no acute distress. HEAD: Normal with no signs of trauma. EYES: Pupils equal, round and reactive to light, extraocular movements intact, sclera anicteric, conjunctiva clear. No lid lag. EARS, NOSE, THROAT: Ears normal, nares patent, oropharynx clear without exudates. Moist mucous membranes. NECK: Normal range of motion, supple without lymphadenopathy, JVD, or masses. LUNGS: Breath sounds equal, clear to auscultation bilaterally. No wheezes, and no crackles. No accessory muscle use. HEART: Regular rate and rhythm, normal S1 and S2 without murmur, rub or gallop. ABDOMEN: Soft, nontender, not distended, normoactive bowel sounds, no guarding, no rebound, no masses. No hepatomegaly or splenomegaly. MUSCULOSKELETAL: Normal range of motion at all joints. No bony deformities or tenderness. No CVA tenderness. UPPER EXTREMITIES: 2+ pulses, warm, well-perfused. No cyanosis. No clubbing. No peripheral edema. LOWER EXTREMITIES: 2+ pulses, warm, well-perfused. No calf tenderness. No peripheral edema. NEUROLOGICAL: Cranial nerves II-XII intact. Normal speech. Normal gait. PSYCHIATRIC: Cooperative. Good eye contact. Appropriate mood and affect. SKIN: Warm, dry, normal turgor, no rashes or lesions noted, normal capillary refill. ASSESSMENT/PLAN:
--- NOTE | 2018-07-10 16:37 | RAPID ---
Addendum entered and electronically signed by Terry Roy RESIDENT 07/10/18 18:23: re- evaluation pt feels better pr decreased to 104 ekg sinus tachy labs pending Original Note: <Terry Roy - Last Filed: 07/10/18 18:22> Physical Examination Vital Signs: Rapid response was call by RN. Pt was walking and felt light hedaed and after trhat she vomited. pt seen and examined sitting comfortably in bed, denies chest pain, palpitations, dizziness or lightheadedness. reports wheezing. Pt reports she was felt lightheade while she walking and vomited once she sat in bed. BP 147/80 IN 130 RR 20 on exam pt anxious chest b/l air entry present, b/l wheezing, no crackels, no acessory muscle use cvs s1s normal, tachy abd: soft Plan likely have bronchospasm from cough. Iv steroid solumedrol 40mg push duoneb neb stat and standing cbc, cmp, mg, phos, cxr , ekg budesonide neb monitor vitals monitior saturation o2 to keep spo2> 90 Labs: TEJAS MULLIGAN 07/08/18 06:50 07/08/18 06:50 <Filomena Steel - Last Filed: 07/13/18 19:15> Physical Examination Vital Signs: Labs: TEJAS MULLIGAN 07/11/18 05:30 07/11/18 05:30 Critical Care Total Critical Care Time (in minutes): 30 Critical Care Statement: The care of this patient involved high complexity decision making to prevent further life threatening deterioration of the patient 's condition and/or to evaluate & treat vital organ system(s) failure or risk of failure.
[2018-07-10] MEDS: ALBUTEROL SO4 2.5/IPRATROPIUM 0.5 INH SOL 3 ML VIAL.NEB. NEB SCH ×2 (17:00→19:56)
--- NOTE | 2018-07-10 18:32 | CONSULT ---
Consult Consult Specialty:: endocrine Referred by:: dr.elizabeth zavala Reason for Consultation:: hyperthyroid - History of Present Illness Chief Complaint: weakness and shortness of breath History of Present Illness: Pt is a 48 y/o female w/ PMH significant for seizures, meningioma, Pt states that she was recent admission for pneumonia, treated with antibiotics, yet still feeling weak and short of breath.she denies weight loss,palpitation,chest pain,difficulty swallowing.recent blood work shows abnormal thyroid function. - Past Medical History OB SCRUB TECH: Yes: Seizure, Other (Meningioma) Cardio/Vascular: Yes: HTN Pulmonary: Yes: Bronchitis. No: Asthma, COPD, O2 Dependent, Pneumonia, Previously Intubated, Pulmonary Embolus, Pulmonary Fibrosis, Sleep Apnea ...LMP: 06/15/18 ...: No Psych: Yes: Anxiety - Past Surgical History Past Surgical History: Yes: None - Alcohol/Substance Use Hx Alcohol Use: No - Smoking History Smoking history: Never smoked Have you smoked in the past 12 months: No Home Medications - Allergies Allergies/Adverse Reactions: Allergies Allergy/AdvReac Type Severity Reaction Status Date / Time prednisone Allergy Verified 06/16/17 12:25 - Home Medications Home Medications: Ambulatory Orders Albuterol Sulfate Inhaler - [Ventolin Hfa Inhaler -] 1 puff IH Q6H PRN 07/06/18 Family Disease History - Family Disease History Family Disease History: Heart Disease: Grandparent (heart disease in 60s; in her 80s) Review of Systems - Review of Systems Constitutional: reports: Loss of Appetite, Weakness Eyes: reports: No Symptoms HENT: reports: No Symptoms Neck: reports: No Symptoms Cardiovascular: reports: Shortness of Breath Respiratory: reports: Exercise Intolerance, SOB, SOB on Exertion Gastrointestinal: reports: Constipation Genitourinary: reports: No Symptoms Breasts: reports: No Symptoms Reported Musculoskeletal: reports: Joint Swelling, Muscle Weakness Endocrine: reports: No Symptoms Hematology/Lymphatic: reports: No Symptoms Physical Exam Vital Signs: Vital Signs Temperature 98.5 F 07/10/18 10:00 Pulse Rate 141 H 07/10/18 16:00 Respiratory Rate 20 07/10/18 10:00 Blood Pressure 119/75 07/10/18 10:00 O2 Sat by Pulse Oximetry (%) 98 07/10/18 16:00 Constitutional: Yes: Calm Eyes: Yes: EOM Intact HENT: Yes: Normocephalic Neck: Yes: Trachea Midline Cardiovascular: Yes: Tachycardia Respiratory: Yes: CTA Bilaterally Gastrointestinal: Yes: Normal Bowel Sounds ...Rectal Exam: Yes: Deferred Renal/: Yes: WNL Musculoskeletal: Yes: WNL Extremities: Yes: WNL Edema: No Neurological: Yes: Alert, Oriented Labs: CBC, BMP 07/08/18 06:50 07/08/18 06:50 Problem List - Problems (1) Bronchitis Code(s): J40 - BRONCHITIS, NOT SPECIFIED ACUTE OR CHRONIC (2) Bronchospasm Code(s): J98.01 - ACUTE BRONCHOSPASM (3) HTN (hypertension) Code(s): I10 - ESSENTIAL (PRIMARY) HYPERTENSION Assessment/Plan Current Active Problems euthyroid sick syndrome Atypical chest pain (Acute) Bronchitis (Acute) Bronchospasm (Acute) Chest pain (Acute) Elevated lactic acid level (Acute) HTN (hypertension) (Acute) Obesity (Acute) Prolonged QT interval (Acute) Sinus tachycardia (Acute) Sleep apnea (Acute) Tachycardia (Acute) URI (upper respiratory infection) (Acute) Laboratory Tests 07/06/18 07/07/18 06:20 06:39 TSH 0.29 L Free T4 0.82 plan: neurology consult repeat tsh free t4 free t3
[2018-07-10 18:37] LABS: BASO % 0.3 % (0-2.0); HEMATOCRIT 38.5 % (32.4-45.2); HEMOGLOBIN 12.4 GM/dL (10.7-15.3); LYMPH % 10.1 % (8-40); MCH 28.7 pg (25.7-33.7); MCHC 32.3 g/dl (32.0-36.0); MEAN CELL VOLUME 88.8 fl (80-96); MONO % 4.1 % (3.8-10.2); NEUT % 85.5 % (42.8-82.8); PLATELET COUNT 249 K/MM3 (134-434); RBC 4.33 M/mm3 (3.60-5.2); RDW 13.6 % (11.6-15.6); WHITE BLOOD COUNT 10.3 K/mm3 (4.0-10.0)
[2018-07-10 19:04] LABS: ALBUMIN 3.4 g/dl (3.4-5.0); ALK PHOS 102 U/L (45-117); ANION GAP 10 MMOL/L (8-16); BILIRUBIN,TOTAL 0.1 mg/dL (0.2-1); BLOOD UREA NITROGEN 15 mg/dL (7-18); CHLORIDE 107 mmol/L (98-107); CO2 23 mmol/L (21-32); CREATININE 0.7 mg/dL (0.55-1.3); GLUCOSE,RANDOM 140 mg/dL (74-106); MAGNESIUM 2.4 mg/dL (1.8-2.4); PHOSPHOROUS 3.3 mg/dL (2.5-4.9); SGOT/AST 38 U/L (15-37); SGPT/ALT 82 U/L (13-61); SODIUM 140 mmol/L (136-145); TOT PROT 7.3 g/dl (6.4-8.2)
[2018-07-10] MEDS: MELATONIN 5 MG TABLETS PO SCH (21:51)
[2018-07-11] MEDS: methylPREDNISolone NA SUCC 40 MG/1 ML VIAL IVPUSH SCH ×3 (01:05→18:15)
[2018-07-11 06:21] LABS: BASO % 0.2 % (0-2.0); HEMOGLOBIN 12.2 GM/dL (10.7-15.3); LYMPH % 10.7 % (8-40); MCH 28.9 pg (25.7-33.7); MEAN CELL VOLUME 87.6 fl (80-96); MEAN PLT VOLUME 7.8 fl (7.5-11.1); MONO % 3.8 % (3.8-10.2); NEUT % 85.3 % (42.8-82.8); PLATELET COUNT 281 K/MM3 (134-434); RBC 4.23 M/mm3 (3.60-5.2); RDW 13.1 % (11.6-15.6)
[2018-07-11] MEDS: DOCUSATE SODIUM 100 MG CAPSULE (FP) PO SCH ×3 (06:38→21:20)
[2018-07-11] MEDS: guaiFENesin/CODEINE 5 ML UNIT-DOSE CUPS PO PRN ×3 (06:53→22:52)
[2018-07-11 08:16] LABS: CREATININE 0.7 mg/dL (0.55-1.3); POTASSIUM 4.3 mmol/L (3.5-5.1)
[2018-07-11 08:17] LABS: ALBUMIN 3.2 g/dl (3.4-5.0); BILIRUBIN,TOTAL 0.2 mg/dL (0.2-1); MAGNESIUM 2.1 mg/dL (1.8-2.4); TOT PROT 7.2 g/dl (6.4-8.2)
[2018-07-11] MEDS: ALBUTEROL SO4 2.5/IPRATROPIUM 0.5 INH SOL 3 ML VIAL.NEB. NEB SCH ×4 (08:55→20:35)
[2018-07-11] MEDS: POLYETHYLENE GLYCOL 3350 119 GM BTL PO SCH (09:57)
[2018-07-11] MEDS: HEPARIN NA (PORCINE) 5,000 UNITS/ML 1ML VIAL SQ SCH ×3 (09:57→21:21)
[2018-07-11] MEDS: BUDESONIDE/FORMETEROL FUMARATE 160/4.5 mcg INHALER IH SCH ×2 (09:57→21:23)
--- NOTE | 2018-07-11 10:27 | PN ---
Progress Note, Physician History of Present Illness: pulmonary alert,feeling better,less congested,slept better last night - Current Medication List Current Medications: Active Medications Acetaminophen (Tylenol -) 650 mg PO Q6H PRN PRN Reason: FEVER Last Admin: 07/07/18 10:12 Dose: 650 mg Albuterol Sulfate (Ventolin 0.083% Nebulizer Soln -) 1 amp NEB Q4H PRN PRN Reason: SHORT OF BREATH/WHEEZING Albuterol/Ipratropium (Duoneb -) 1 amp NEB RQID [facility] Last Admin: 07/11/18 08:55 Dose: 1 amp Budesonide/Formoterol Fumarate (Symbicort 160/4.5mcg -) 2 puff IH BID [facility] Last Admin: 07/11/18 09:57 Dose: 2 puff Docusate Sodium (Colace -) 100 mg PO TID [facility] Last Admin: 07/11/18 06:38 Dose: 100 mg Guaifenesin/Codeine Phosphate (Robitussin Ac -) 10 ml PO Q8H PRN PRN Reason: COUGH Last Admin: 07/11/18 06:53 Dose: 10 ml Heparin Sodium (Porcine) (Heparin -) 5,000 unit SQ BID [facility] Last Admin: 07/11/18 10:17 Dose: Not Given Melatonin (Melatonin) 10 mg PO HS [facility] Last Admin: 07/10/18 21:51 Dose: 10 mg Methylprednisolone Sodium Succinate (Solu-Medrol -) 40 mg IVPUSH Q8H-IV [facility] Last Admin: 07/11/18 09:57 Dose: 40 mg Ondansetron HCl (Zofran Injection) 4 mg IVPUSH Q6H PRN PRN Reason: NAUSEA AND/OR VOMITING Last Admin: 07/10/18 16:04 Dose: 4 mg Polyethylene Glycol (Miralax (For Daily Use) -) 17 gm PO DAILY [facility] Last Admin: 07/11/18 09:57 Dose: 17 gm - Objective Vital Signs: Vital Signs Temperature 98 F 07/11/18 09:00 Pulse Rate 82 07/11/18 09:00 Respiratory Rate 20 07/11/18 09:00 Blood Pressure 126/78 07/11/18 09:00 O2 Sat by Pulse Oximetry (%) 98 07/11/18 09:00 Constitutional: Yes: Well Nourished, Calm Eyes: Yes: WNL HENT: Yes: WNL Neck: Yes: WNL Cardiovascular: Yes: Regular Rate and Rhythm, S1, S2 Respiratory: Yes: Wheezes (few scattered wheezes) Gastrointestinal: Yes: Normal Bowel Sounds, Soft Extremities: Yes: WNL Edema: No Labs: CBC, BMP 07/11/18 05:30 07/11/18 05:30 INR, PTT INR 1.07 (0.83-1.09) 07/05/18 23:45 - ....Imaging Chest X-ray: Report Reviewed, Image Reviewed Assessment/Plan Problem List - Problems (1) Bronchospasm Code(s): J98.01 - ACUTE BRONCHOSPASM (2) Chest pain Code(s): R07.9 - CHEST PAIN, UNSPECIFIED Qualifiers: Chest pain type: unspecified Qualified Code(s): R07.9 - Chest pain, unspecified (3) URI (upper respiratory infection) Code(s): J06.9 - ACUTE UPPER RESPIRATORY INFECTION, UNSPECIFIED Qualifiers: URI type: unspecified URI Qualified Code(s): J06.9 - Acute upper respiratory infection, unspecified (4) Pleuritic chest pain Code(s): R07.81 - PLEURODYNIA (5) Seizure Code(s): R56.9 - UNSPECIFIED CONVULSIONS Assessment/Plan Do not suspect PNA. Minimal atalectatic areas in the LLL on CT imaging Increase Medrol 40 q8 Symbicort 160/4.5 BD TX O2 as needed PFTs after discharge VTE prophylaxis ABX SPUTUM C+S DR FOLEY
--- NOTE | 2018-07-11 12:49 | EKG ---
Test Reason : Blood Pressure : / mmHG Vent. Rate : 112 BPM Atrial Rate : 112 BPM P-R Int : 148 ms QRS Dur : 074 ms QT Int : 332 ms P-R-T Axes : 060 031 007 degrees QTc Int : 453 ms POOR DATA QUALITY, INTERPRETATION MAY BE ADVERSELY AFFECTED SINUS TACHYCARDIA SEPTAL INFARCT (CITED ON OR BEFORE 05-JUL-2018) ABNORMAL ECG WHEN COMPARED WITH ECG OF 06-JUL-2018 08:28, NO SIGNIFICANT CHANGE WAS FOUND Confirmed by PRETTY MIRANDA MD ([id number]) on 07/11/2018 12:49:09 PM Referred By: Confirmed By:PRETTY MIRANDA MD
[2018-07-11] MEDS: CEFUROXIME AXETIL 500 MG TABLET PO SCH ×2 (13:11→21:20)
--- NOTE | 2018-07-11 14:35 | PN ---
Progress Note, Physician History of Present Illness: still with sob needing oxygen - Current Medication List Current Medications: Active Medications Acetaminophen (Tylenol -) 650 mg PO Q6H PRN PRN Reason: FEVER Last Admin: 07/07/18 10:12 Dose: 650 mg Albuterol Sulfate (Ventolin 0.083% Nebulizer Soln -) 1 amp NEB Q4H PRN PRN Reason: SHORT OF BREATH/WHEEZING Albuterol/Ipratropium (Duoneb -) 1 amp NEB RQID [facility] Last Admin: 07/11/18 11:27 Dose: 1 amp Budesonide/Formoterol Fumarate (Symbicort 160/4.5mcg -) 2 puff IH BID [facility] Last Admin: 07/11/18 09:57 Dose: 2 puff Cefuroxime Axetil (Ceftin -) 500 mg PO BID [facility] Last Admin: 07/11/18 13:11 Dose: 500 mg Docusate Sodium (Colace -) 100 mg PO TID [facility] Last Admin: 07/11/18 13:11 Dose: 100 mg Guaifenesin/Codeine Phosphate (Robitussin Ac -) 10 ml PO Q8H PRN PRN Reason: COUGH Last Admin: 07/11/18 14:19 Dose: 10 ml Heparin Sodium (Porcine) (Heparin -) 5,000 unit SQ BID [facility] Last Admin: 07/11/18 10:17 Dose: Not Given Melatonin (Melatonin) 10 mg PO HS [facility] Last Admin: 07/10/18 21:51 Dose: 10 mg Methylprednisolone Sodium Succinate (Solu-Medrol -) 40 mg IVPUSH Q8H-IV [facility] Last Admin: 07/11/18 09:57 Dose: 40 mg Ondansetron HCl (Zofran Injection) 4 mg IVPUSH Q6H PRN PRN Reason: NAUSEA AND/OR VOMITING Last Admin: 07/10/18 16:04 Dose: 4 mg Polyethylene Glycol (Miralax (For Daily Use) -) 17 gm PO DAILY [facility] Last Admin: 07/11/18 09:57 Dose: 17 gm - Objective Vital Signs: Vital Signs Temperature 98 F 07/11/18 09:00 Pulse Rate 82 07/11/18 09:00 Respiratory Rate 20 07/11/18 09:00 Blood Pressure 126/78 07/11/18 09:00 O2 Sat by Pulse Oximetry (%) 98 07/11/18 09:00 Constitutional: Yes: Calm, Mild Distress Cardiovascular: Yes: Regular Rate and Rhythm Respiratory: Yes: Regular, On Nasal O2, Poor Air Entry Gastrointestinal: Yes: Normal Bowel Sounds, Soft Musculoskeletal: Yes: WNL Extremities: Yes: WNL Neurological: Yes: Alert, Oriented Psychiatric: Yes: Alert, Oriented Labs: CBC, BMP 07/11/18 05:30 07/11/18 05:30 INR, PTT INR 1.07 (0.83-1.09) 07/05/18 23:45 Assessment/Plan Problem List - Problems (1) Bronchospasm Code(s): J98.01 - ACUTE BRONCHOSPASM (2) Chest pain Code(s): R07.9 - CHEST PAIN, UNSPECIFIED Qualifiers: Chest pain type: unspecified Qualified Code(s): R07.9 - Chest pain, unspecified (3) URI (upper respiratory infection) Code(s): J06.9 - ACUTE UPPER RESPIRATORY INFECTION, UNSPECIFIED Qualifiers: URI type: unspecified URI Qualified Code(s): J06.9 - Acute upper respiratory infection, unspecified (4) Pleuritic chest pain Code(s): R07.81 - PLEURODYNIA (5) Seizure Code(s): R56.9 - UNSPECIFIED CONVULSIONS plan continue current mgmt patient not getting better should send sputim rest as per the team
--- NOTE | 2018-07-11 15:13 | EKG ---
Test Reason : Blood Pressure : / mmHG Vent. Rate : 096 BPM Atrial Rate : 096 BPM P-R Int : 144 ms QRS Dur : 074 ms QT Int : 354 ms P-R-T Axes : 062 048 020 degrees QTc Int : 447 ms NORMAL SINUS RHYTHM NORMAL ECG WHEN COMPARED WITH ECG OF 10-JUL-2018 16:41, NO SIGNIFICANT CHANGE WAS FOUND Confirmed by PRETTY MIRANDA MD ([id number]) on 07/11/2018 3:13:15 PM Referred By: Catherine ARITA Confirmed By:PRETTY MIRANDA MD
--- NOTE | 2018-07-11 22:45 | PN ---
Progress Note, Physician History of Present Illness: Pt complains of SOB w/ ambulating Pt also states that she has not had a BM in 14 days? - Current Medication List Current Medications: Active Medications Acetaminophen (Tylenol -) 650 mg PO Q6H PRN PRN Reason: FEVER Last Admin: 07/07/18 10:12 Dose: 650 mg Albuterol Sulfate (Ventolin 0.083% Nebulizer Soln -) 1 amp NEB Q4H PRN PRN Reason: SHORT OF BREATH/WHEEZING Albuterol/Ipratropium (Duoneb -) 1 amp NEB RQID [facility] Last Admin: 07/11/18 20:35 Dose: 1 amp Budesonide/Formoterol Fumarate (Symbicort 160/4.5mcg -) 2 puff IH BID [facility] Last Admin: 07/11/18 21:23 Dose: 2 puff Cefuroxime Axetil (Ceftin -) 500 mg PO BID [facility] Last Admin: 07/11/18 21:20 Dose: 500 mg Docusate Sodium (Colace -) 100 mg PO TID [facility] Last Admin: 07/11/18 21:20 Dose: 100 mg Guaifenesin/Codeine Phosphate (Robitussin Ac -) 10 ml PO Q8H PRN PRN Reason: COUGH Last Admin: 07/11/18 14:19 Dose: 10 ml Heparin Sodium (Porcine) (Heparin -) 5,000 unit SQ BID [facility] Last Admin: 07/11/18 21:21 Dose: Not Given Melatonin (Melatonin) 10 mg PO HS [facility] Last Admin: 07/10/18 21:51 Dose: 10 mg Methylprednisolone Sodium Succinate (Solu-Medrol -) 40 mg IVPUSH Q8H-IV [facility] Last Admin: 07/11/18 18:15 Dose: 40 mg Ondansetron HCl (Zofran Injection) 4 mg IVPUSH Q6H PRN PRN Reason: NAUSEA AND/OR VOMITING Last Admin: 07/10/18 16:04 Dose: 4 mg Polyethylene Glycol (Miralax (For Daily Use) -) 17 gm PO DAILY [facility] Last Admin: 07/11/18 09:57 Dose: 17 gm - Objective Vital Signs: Vital Signs Temperature 98.3 F 07/11/18 18:00 Pulse Rate 89 07/11/18 18:00 Respiratory Rate 20 07/11/18 18:00 Blood Pressure 122/75 06/02/19 18:00 O2 Sat by Pulse Oximetry (%) 98 07/11/18 09:00 Constitutional: Yes: Well Nourished Neck: Yes: WNL, Supple Cardiovascular: Yes: WNL, Regular Rate and Rhythm, Bradycardia Respiratory: Yes: Wheezes Gastrointestinal: Yes: WNL, Normal Bowel Sounds, Soft Labs: CBC, BMP 07/11/18 05:30 07/11/18 05:30 INR, PTT INR 1.07 (0.83-1.09) 07/05/18 23:45 Problem List - Problems (1) Constipation Assessment/Plan: Check abdominal XRAY Cont colace/miralax Code(s): K59.00 - CONSTIPATION, UNSPECIFIED (2) Bronchospasm Assessment/Plan: Cont IV steroids Cont nebulizers Pt on antibxs Code(s): J98.01 - ACUTE BRONCHOSPASM (3) Tachycardia Code(s): R00.0 - TACHYCARDIA, UNSPECIFIED (4) HTN (hypertension) Assessment/Plan: BP stable Not on any meds Code(s): I10 - ESSENTIAL (PRIMARY) HYPERTENSION (5) Hypothyroid Assessment/Plan: TSH is elevated ?Hyperthyroidism Endo consult Code(s): E03.9 - HYPOTHYROIDISM, UNSPECIFIED (6) Obesity Code(s): E66.9 - OBESITY, UNSPECIFIED (7) Pleuritic chest pain Assessment/Plan: Due to atelectasis Code(s): R07.81 - PLEURODYNIA (8) Elevated lactic acid level Assessment/Plan: Repeat lactic acid now normal DC IVF Code(s): R79.89 - OTHER SPECIFIED ABNORMAL FINDINGS OF BLOOD CHEMISTRY
[2018-07-11] MEDS: MELATONIN 5 MG TABLETS PO SCH (22:52)
[2018-07-12] MEDS: methylPREDNISolone NA SUCC 40 MG/1 ML VIAL IVPUSH SCH ×3 (01:37→18:29)
[2018-07-12] MEDS: DOCUSATE SODIUM 100 MG CAPSULE (FP) PO SCH ×3 (06:55→22:02)
[2018-07-12] MEDS: ALBUTEROL SO4 2.5/IPRATROPIUM 0.5 INH SOL 3 ML VIAL.NEB. NEB SCH ×4 (07:15→21:05)
--- NOTE | 2018-07-12 09:53 | PN ---
Progress Note, Physician History of Present Illness: PULMONARY AWAKE HYPOXIC ON RA SATS70%,MILDLY DYSPNEIC - Current Medication List Current Medications: Active Medications Acetaminophen (Tylenol -) 650 mg PO Q6H PRN PRN Reason: FEVER Last Admin: 07/07/18 10:12 Dose: 650 mg Albuterol Sulfate (Ventolin 0.083% Nebulizer Soln -) 1 amp NEB Q4H PRN PRN Reason: SHORT OF BREATH/WHEEZING Albuterol/Ipratropium (Duoneb -) 1 amp NEB RQID [facility] Last Admin: 07/12/18 07:15 Dose: 1 amp Budesonide/Formoterol Fumarate (Symbicort 160/4.5mcg -) 2 puff IH BID [facility] Last Admin: 07/11/18 21:23 Dose: 2 puff Cefuroxime Axetil (Ceftin -) 500 mg PO BID [facility] Last Admin: 07/11/18 21:20 Dose: 500 mg Docusate Sodium (Colace -) 100 mg PO TID [facility] Last Admin: 07/12/18 06:55 Dose: 100 mg Guaifenesin/Codeine Phosphate (Robitussin Ac -) 10 ml PO Q8H PRN PRN Reason: COUGH Last Admin: 07/11/18 22:52 Dose: 10 ml Heparin Sodium (Porcine) (Heparin -) 5,000 unit SQ BID [facility] Last Admin: 07/11/18 21:21 Dose: Not Given Melatonin (Melatonin) 10 mg PO HS [facility] Last Admin: 07/11/18 22:52 Dose: 10 mg Methylprednisolone Sodium Succinate (Solu-Medrol -) 40 mg IVPUSH Q8H-IV [facility] Last Admin: 07/12/18 01:37 Dose: 40 mg Ondansetron HCl (Zofran Injection) 4 mg IVPUSH Q6H PRN PRN Reason: NAUSEA AND/OR VOMITING Last Admin: 07/10/18 16:04 Dose: 4 mg Polyethylene Glycol (Miralax (For Daily Use) -) 17 gm PO DAILY [facility] Last Admin: 07/11/18 09:57 Dose: 17 gm - Objective Vital Signs: Vital Signs Temperature 98.7 F 07/12/18 06:00 Pulse Rate 78 07/12/18 06:00 Respiratory Rate 20 07/12/18 06:00 Blood Pressure 113/66 07/12/18 06:00 O2 Sat by Pulse Oximetry (%) 98 07/11/18 21:00 Constitutional: Yes: Well Nourished, Calm Eyes: Yes: WNL HENT: Yes: WNL Neck: Yes: WNL Cardiovascular: Yes: Regular Rate and Rhythm, S1, S2 Respiratory: Yes: Rhonchi (FEW SCTTERED RHONCHI) Gastrointestinal: Yes: Normal Bowel Sounds, Soft Extremities: Yes: WNL Edema: Yes Labs: CBC, BMP Assessment/Plan Problem List - Problems (1) Bronchospasm Code(s): J98.01 - ACUTE BRONCHOSPASM (2) Chest pain Code(s): R07.9 - CHEST PAIN, UNSPECIFIED Qualifiers: Chest pain type: unspecified Qualified Code(s): R07.9 - Chest pain, unspecified (3) URI (upper respiratory infection) Code(s): J06.9 - ACUTE UPPER RESPIRATORY INFECTION, UNSPECIFIED Qualifiers: URI type: unspecified URI Qualified Code(s): J06.9 - Acute upper respiratory infection, unspecified (4) Pleuritic chest pain Code(s): R07.81 - PLEURODYNIA (5) Seizure Code(s): R56.9 - UNSPECIFIED CONVULSIONS Assessment/Plan Do not suspect PNA. Minimal atalectatic areas in the LLL on CT imaging Increase Medrol 40 q8 Symbicort 160/4.5 BD TX O2 as needed PFTs after discharge VTE prophylaxis ABX SPUTUM C+S CHEST X-RAY ABG DR FOLEY
[2018-07-12] MEDS: HEPARIN NA (PORCINE) 5,000 UNITS/ML 1ML VIAL SQ SCH ×2 (10:28→22:03)
[2018-07-12] MEDS: CEFUROXIME AXETIL 500 MG TABLET PO SCH ×2 (10:30→22:02)
[2018-07-12] MEDS: POLYETHYLENE GLYCOL 3350 119 GM BTL PO SCH (10:30)
[2018-07-12] MEDS: BUDESONIDE/FORMETEROL FUMARATE 160/4.5 mcg INHALER IH SCH ×2 (10:30→22:03)
--- NOTE | 2018-07-12 11:08 | PN ---
Progress Note, Physician History of Present Illness: stable still not maintaining oxygen on room air - Current Medication List Current Medications: Active Medications Acetaminophen (Tylenol -) 650 mg PO Q6H PRN PRN Reason: FEVER Last Admin: 07/07/18 10:12 Dose: 650 mg Albuterol Sulfate (Ventolin 0.083% Nebulizer Soln -) 1 amp NEB Q4H PRN PRN Reason: SHORT OF BREATH/WHEEZING Albuterol/Ipratropium (Duoneb -) 1 amp NEB RQID [facility] Last Admin: 07/12/18 07:15 Dose: 1 amp Budesonide/Formoterol Fumarate (Symbicort 160/4.5mcg -) 2 puff IH BID [facility] Last Admin: 07/12/18 10:30 Dose: 2 puff Cefuroxime Axetil (Ceftin -) 500 mg PO BID [facility] Last Admin: 07/12/18 10:30 Dose: 500 mg Docusate Sodium (Colace -) 100 mg PO TID [facility] Last Admin: 07/12/18 06:55 Dose: 100 mg Guaifenesin/Codeine Phosphate (Robitussin Ac -) 10 ml PO Q8H PRN PRN Reason: COUGH Last Admin: 07/11/18 22:52 Dose: 10 ml Heparin Sodium (Porcine) (Heparin -) 5,000 unit SQ BID [facility] Last Admin: 07/12/18 10:28 Dose: Not Given Melatonin (Melatonin) 10 mg PO HS [facility] Last Admin: 07/11/18 22:52 Dose: 10 mg Methylprednisolone Sodium Succinate (Solu-Medrol -) 40 mg IVPUSH Q8H-IV [facility] Last Admin: 07/12/18 10:33 Dose: 40 mg Ondansetron HCl (Zofran Injection) 4 mg IVPUSH Q6H PRN PRN Reason: NAUSEA AND/OR VOMITING Last Admin: 07/10/18 16:04 Dose: 4 mg Polyethylene Glycol (Miralax (For Daily Use) -) 17 gm PO DAILY [facility] Last Admin: 07/12/18 10:30 Dose: 17 gm - Objective Vital Signs: Vital Signs Temperature 98.7 F 07/12/18 06:00 Pulse Rate 78 07/12/18 06:00 Respiratory Rate 20 07/12/18 06:00 Blood Pressure 113/66 07/12/18 06:00 O2 Sat by Pulse Oximetry (%) 98 07/11/18 21:00 Constitutional: Yes: Calm, Mild Distress Cardiovascular: Yes: Regular Rate and Rhythm Respiratory: Yes: Regular, On Nasal O2, Poor Air Entry Gastrointestinal: Yes: Normal Bowel Sounds, Soft Musculoskeletal: Yes: WNL Extremities: Yes: WNL Neurological: Yes: Alert, Oriented Psychiatric: Yes: Alert, Oriented Labs: CBC, BMP 07/11/18 05:30 07/11/18 05:30 INR, PTT INR 1.07 (0.83-1.09) 07/05/18 23:45 Assessment/Plan Problem List - Problems (1) Bronchospasm Code(s): J98.01 - ACUTE BRONCHOSPASM (2) Chest pain Code(s): R07.9 - CHEST PAIN, UNSPECIFIED Qualifiers: Chest pain type: unspecified Qualified Code(s): R07.9 - Chest pain, unspecified (3) URI (upper respiratory infection) Code(s): J06.9 - ACUTE UPPER RESPIRATORY INFECTION, UNSPECIFIED Qualifiers: URI type: unspecified URI Qualified Code(s): J06.9 - Acute upper respiratory infection, unspecified (4) Pleuritic chest pain Code(s): R07.81 - PLEURODYNIA (5) Seizure Code(s): R56.9 - UNSPECIFIED CONVULSIONS patient has not had fever since thursday imaging studies and labs looked at continue current mgmt patient still needing resp support
[2018-07-12] MEDS ORDERED: SODIUM PHOSPHATE/NA BIPHOS 133 ML ENEMA RC ONE (12:30)
[2018-07-12 12:46] LABS: ARTERIAL BLD GAS O2 SATURATION 98.7 % (95-98); ARTERIAL BLOOD GAS BASE EXCESS 0.9 meq/l (-2-2); ARTERIAL BLOOD GAS PCO2 36.7 mmHg (35-45); ARTERIAL BLOOD GAS PO2 117 mmHg (80-105); ARTERIAL BLOOD GAS pH 7.44 (7.35-7.45)
[2018-07-12 12:48] LABS: ALLENS TEST POSITIVE
--- NOTE | 2018-07-12 12:51 | PN ---
Progress Note, Physician History of Present Illness: Patient is a 48 year old black female with a significant past medical history of seizures, meningioma, prior report of heart arrhythmia, HTN (?not on medication), obesity, who presents to the ED with complaints of chest pain that began earlier today. Patient reports experiencing sudden episode of chest pain with associated symptoms of chest palpitations, shortness of breath with non productive coughing and back pain secondary to coughing, prompting her to come into the ED for further evaluation. The dyspnea and chest discomfort began two days ago, with frequent forceful cough now with whitish phlegm. She reports taking her albuterol nebulizer while at home with minimal relief after two treatments. She had an episode of vomiting, and says she had high fever ("102 F ") last night. Denies contact with sick individuals, out of state travelling. Denies dysuria, hematuria. Denies dysuria, hematuria. Denies any other symptoms. Pt required 5 days hospitalization for a similar episode of bronchitis/URI a year ago. 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 Allergies: prednisone Social history: No smoking. No alcohol. No illicit drugs. Surgical history: None PMD: Dr. Wood Orantes - Current Medication List Current Medications: Active Medications Acetaminophen (Tylenol -) 650 mg PO Q6H PRN PRN Reason: FEVER Last Admin: 07/07/18 10:12 Dose: 650 mg Albuterol Sulfate (Ventolin 0.083% Nebulizer Soln -) 1 amp NEB Q4H PRN PRN Reason: SHORT OF BREATH/WHEEZING Albuterol/Ipratropium (Duoneb -) 1 amp NEB RQID [facility] Last Admin: 07/12/18 11:16 Dose: 1 amp Budesonide/Formoterol Fumarate (Symbicort 160/4.5mcg -) 2 puff IH BID [facility] Last Admin: 07/12/18 10:30 Dose: 2 puff Cefuroxime Axetil (Ceftin -) 500 mg PO BID [facility] Last Admin: 07/12/18 10:30 Dose: 500 mg Docusate Sodium (Colace -) 100 mg PO TID [facility] Last Admin: 07/12/18 06:55 Dose: 100 mg Guaifenesin/Codeine Phosphate (Robitussin Ac -) 10 ml PO Q8H PRN PRN Reason: COUGH Last Admin: 07/11/18 22:52 Dose: 10 ml Heparin Sodium (Porcine) (Heparin -) 5,000 unit SQ BID [facility] Last Admin: 07/12/18 10:28 Dose: Not Given Melatonin (Melatonin) 10 mg PO HS [facility] Last Admin: 07/11/18 22:52 Dose: 10 mg Methylprednisolone Sodium Succinate (Solu-Medrol -) 40 mg IVPUSH Q8H-IV [facility] Last Admin: 07/12/18 10:33 Dose: 40 mg Ondansetron HCl (Zofran Injection) 4 mg IVPUSH Q6H PRN PRN Reason: NAUSEA AND/OR VOMITING Last Admin: 07/10/18 16:04 Dose: 4 mg Polyethylene Glycol (Miralax (For Daily Use) -) 17 gm PO DAILY [facility] Last Admin: 07/12/18 10:30 Dose: 17 gm - Objective Vital Signs: Vital Signs Temperature 98.7 F 07/12/18 06:00 Pulse Rate 78 07/12/18 06:00 Respiratory Rate 20 07/12/18 06:00 Blood Pressure 113/66 07/12/18 06:00 O2 Sat by Pulse Oximetry (%) 95 07/12/18 09:00 Labs: CBC, BMP 07/11/18 05:30 07/11/18 05:30 INR, PTT INR 1.07 (0.83-1.09) 07/05/18 23:45 Assessment/Plan - Problems (1) HTN (hypertension) Assessment/Plan: Initially elevated (when pt is great pain and respiratory distress); now low to normal. ECHO: normal LVEF; no significant pulmonary HTN noted. Code(s): I10 - ESSENTIAL (PRIMARY) HYPERTENSION (2) Obesity Assessment/Plan: Pt seen by funeral director/embalmer; pt is trying to understand what changes she will have to make to reach her goal of losing a substantial amount of weight. Code(s): E66.9 - OBESITY, UNSPECIFIED (3) Sinus tachycardia Assessment/Plan: Heart rate has now improved substantially. Multiple contributing factors, including fever, dehydration, anxiety, pain. TNI < 0.02 x 3.(Pt gives hx of stress test as outpt in the past year that was normal). Maintain hydration (for IVF; encourage PO intake). Antipyretics. Pain management (pt's primary concern in ER was for relief of splinting chest pain each time she tries to take a breath). Pt has much less pleuritic pain; HR now WNL. Still with audible wheezing. Normal Free T4. Code(s): R00.0 - TACHYCARDIA, UNSPECIFIED (4) Bronchospasm Code(s): J98.01 - ACUTE BRONCHOSPASM (5) Meningioma Code(s): D32.9 - BENIGN NEOPLASM OF MENINGES, UNSPECIFIED (6) Seizure Code(s): R56.9 - UNSPECIFIED CONVULSIONS (7) Atypical chest pain Assessment/Plan: TNI < 0.02 x 2. EKG: sinus tachycardia; no acute ST-T changes. No hx cardiac disease. ECHO: normal LVEF; no regional wall motion abnormalities mentioned. Pt says she had a stress test within the past year at Ds office that was normal; f/u results. Will d/c telemetry. Code(s): R07.89 - OTHER CHEST PAIN (8) Bronchitis Assessment/Plan: Steriods, O2, bronchodilators per conservation scientist. Off antibiotics; now afebrile. Pt has had several episodes of respiratory distress in the past 12 months; she has agreed to f/u with conservation scientist as outpatient. Code(s): J40 - BRONCHITIS, NOT SPECIFIED ACUTE OR CHRONIC (9) Sleep apnea Code(s): G47.30 - SLEEP APNEA, UNSPECIFIED (10) Hypothyroid Code(s): E03.9 - HYPOTHYROIDISM, UNSPECIFIED
[2018-07-12] MEDS: guaiFENesin/CODEINE 5 ML UNIT-DOSE CUPS PO PRN ×2 (13:30→23:08)
[2018-07-12] MEDS ORDERED: PT OWN MED DRAWER 7, Y5N ONE (21:47)
[2018-07-12] MEDS: MELATONIN 5 MG TABLETS PO SCH (22:02)
[2018-07-12] MEDS: diphenhydrAMINE HCL 25 MG CAPSULE (FP) PO PRN (23:08)
--- NOTE | 2018-07-12 23:41 | PN ---
Progress Note, Physician History of Present Illness: No new complaints - Current Medication List Current Medications: Active Medications Acetaminophen (Tylenol -) 650 mg PO Q6H PRN PRN Reason: FEVER Last Admin: 07/07/18 10:12 Dose: 650 mg Albuterol Sulfate (Ventolin 0.083% Nebulizer Soln -) 1 amp NEB Q4H PRN PRN Reason: SHORT OF BREATH/WHEEZING Albuterol/Ipratropium (Duoneb -) 1 amp NEB RQID [facility] Last Admin: 07/12/18 21:05 Dose: 1 amp Budesonide/Formoterol Fumarate (Symbicort 160/4.5mcg -) 2 puff IH BID [facility] Last Admin: 07/12/18 22:03 Dose: 2 puff Cefuroxime Axetil (Ceftin -) 500 mg PO BID [facility] Last Admin: 07/12/18 22:02 Dose: 500 mg Diphenhydramine HCl (Benadryl -) 25 mg PO HS PRN PRN Reason: INSOMNIA Last Admin: 07/12/18 23:08 Dose: 25 mg Docusate Sodium (Colace -) 100 mg PO TID [facility] Last Admin: 07/12/18 22:02 Dose: 100 mg Guaifenesin/Codeine Phosphate (Robitussin Ac -) 10 ml PO Q8H PRN PRN Reason: COUGH Last Admin: 07/12/18 23:08 Dose: 10 ml Heparin Sodium (Porcine) (Heparin -) 5,000 unit SQ BID [facility] Last Admin: 07/12/18 22:03 Dose: Not Given Melatonin (Melatonin) 10 mg PO HS [facility] Last Admin: 07/12/18 22:02 Dose: 10 mg Methylprednisolone Sodium Succinate (Solu-Medrol -) 40 mg IVPUSH Q8H-IV [facility] Last Admin: 07/12/18 18:29 Dose: 40 mg Ondansetron HCl (Zofran Injection) 4 mg IVPUSH Q6H PRN PRN Reason: NAUSEA AND/OR VOMITING Last Admin: 07/10/18 16:04 Dose: 4 mg Polyethylene Glycol (Miralax (For Daily Use) -) 17 gm PO DAILY [facility] Last Admin: 07/12/18 10:30 Dose: 17 gm - Objective Vital Signs: Vital Signs Temperature 97.8 F 07/12/18 17:00 Pulse Rate 103 H 07/12/18 17:00 Respiratory Rate 20 07/12/18 17:00 Blood Pressure 122/56 L 07/12/18 17:00 O2 Sat by Pulse Oximetry (%) 95 07/12/18 09:00 Constitutional: Yes: Well Nourished, Obese Neck: Yes: WNL, Supple Cardiovascular: Yes: WNL, Regular Rate and Rhythm Respiratory: Yes: Wheezes Gastrointestinal: Yes: WNL, Normal Bowel Sounds, Soft, Abdomen, Obese Edema: No Labs: CBC, BMP 07/11/18 05:30 07/11/18 05:30 INR, PTT INR 1.07 (0.83-1.09) 07/05/18 23:45 Problem List - Problems (1) Constipation Assessment/Plan: Xray showed retained stool Cont colace/miralax Code(s): K59.00 - CONSTIPATION, UNSPECIFIED (2) Bronchospasm Assessment/Plan: Cont IV steroids/po ceftin Cont nebulizers Repeat CXR showed new atelectatic changes Code(s): J98.01 - ACUTE BRONCHOSPASM (3) Tachycardia Code(s): R00.0 - TACHYCARDIA, UNSPECIFIED (4) HTN (hypertension) Assessment/Plan: BP stable Not on any meds Code(s): I10 - ESSENTIAL (PRIMARY) HYPERTENSION (5) Hypothyroid Assessment/Plan: TSH is elevated ?Hyperthyroidism Endo consult Code(s): E03.9 - HYPOTHYROIDISM, UNSPECIFIED (6) Obesity Code(s): E66.9 - OBESITY, UNSPECIFIED (7) Pleuritic chest pain Assessment/Plan: Due to atelectasis Code(s): R07.81 - PLEURODYNIA (8) Elevated lactic acid level Assessment/Plan: Repeat lactic acid now normal DC IVF Code(s): R79.89 - OTHER SPECIFIED ABNORMAL FINDINGS OF BLOOD CHEMISTRY
[2018-07-13] MEDS: methylPREDNISolone NA SUCC 40 MG/1 ML VIAL IVPUSH SCH ×3 (02:49→17:52)
[2018-07-13] MEDS: DOCUSATE SODIUM 100 MG CAPSULE (FP) PO SCH ×3 (05:55→21:33)
[2018-07-13] MEDS: ALBUTEROL SO4 2.5/IPRATROPIUM 0.5 INH SOL 3 ML VIAL.NEB. NEB SCH (07:41)
--- NOTE | 2018-07-13 10:12 | PN ---
Progress Note, Physician History of Present Illness: pulmonary alert,less dyspneic,+cough - Current Medication List Current Medications: Active Medications Acetaminophen (Tylenol -) 650 mg PO Q6H PRN PRN Reason: FEVER Last Admin: 07/07/18 10:12 Dose: 650 mg Albuterol Sulfate (Ventolin 0.083% Nebulizer Soln -) 1 amp NEB Q4H PRN PRN Reason: SHORT OF BREATH/WHEEZING Albuterol/Ipratropium (Duoneb -) 1 amp NEB RQID [facility] Last Admin: 07/13/18 07:41 Dose: 1 amp Budesonide/Formoterol Fumarate (Symbicort 160/4.5mcg -) 2 puff IH BID [facility] Last Admin: 07/12/18 22:03 Dose: 2 puff Cefuroxime Axetil (Ceftin -) 500 mg PO BID [facility] Last Admin: 07/12/18 22:02 Dose: 500 mg Diphenhydramine HCl (Benadryl -) 25 mg PO HS PRN PRN Reason: INSOMNIA Last Admin: 07/12/18 23:08 Dose: 25 mg Docusate Sodium (Colace -) 100 mg PO TID [facility] Last Admin: 07/13/18 05:55 Dose: Not Given Melatonin (Melatonin) 10 mg PO HS [facility] Last Admin: 07/12/18 22:02 Dose: 10 mg Methylprednisolone Sodium Succinate (Solu-Medrol -) 40 mg IVPUSH Q8H-IV [facility] Last Admin: 07/13/18 02:49 Dose: 40 mg Ondansetron HCl (Zofran Injection) 4 mg IVPUSH Q6H PRN PRN Reason: NAUSEA AND/OR VOMITING Last Admin: 07/10/18 16:04 Dose: 4 mg Polyethylene Glycol (Miralax (For Daily Use) -) 17 gm PO DAILY [facility] Last Admin: 07/12/18 10:30 Dose: 17 gm - Objective Vital Signs: Vital Signs Temperature 98.5 F 07/13/18 06:00 Pulse Rate 74 07/13/18 06:00 Respiratory Rate 20 07/13/18 06:00 Blood Pressure 132/62 07/13/18 06:00 O2 Sat by Pulse Oximetry (%) 96 07/13/18 08:50 Constitutional: Yes: Well Nourished, Calm Eyes: Yes: WNL HENT: Yes: WNL Neck: Yes: WNL Cardiovascular: Yes: Regular Rate and Rhythm, S1, S2 Respiratory: Yes: Wheezes (scattered terese wheezes) Gastrointestinal: Yes: Normal Bowel Sounds, Soft Extremities: Yes: WNL Edema: No Labs: Assessment/Plan Problem List - Problems (1) Bronchospasm Code(s): J98.01 - ACUTE BRONCHOSPASM (2) Chest pain Code(s): R07.9 - CHEST PAIN, UNSPECIFIED Qualifiers: Chest pain type: unspecified Qualified Code(s): R07.9 - Chest pain, unspecified (3) URI (upper respiratory infection) Code(s): J06.9 - ACUTE UPPER RESPIRATORY INFECTION, UNSPECIFIED Qualifiers: URI type: unspecified URI Qualified Code(s): J06.9 - Acute upper respiratory infection, unspecified (4) Pleuritic chest pain Code(s): R07.81 - PLEURODYNIA (5) Seizure Code(s): R56.9 - UNSPECIFIED CONVULSIONS Assessment/Plan Do not suspect PNA. Minimal atalectatic areas in the LLL on CT imaging Medrol 40 q8 Symbicort 160/4.5 BD TX O2 as needed PFTs after discharge VTE prophylaxis FLAKITO FOLEY
[2018-07-13] MEDS ORDERED: PT OWN MED DRAWER 7, Y5N ONE ×2 (10:41→21:30)
[2018-07-13] MEDS: CEFUROXIME AXETIL 500 MG TABLET PO SCH ×2 (10:44→21:34)
[2018-07-13] MEDS: POLYETHYLENE GLYCOL 3350 119 GM BTL PO SCH (10:44)
[2018-07-13] MEDS: BUDESONIDE/FORMETEROL FUMARATE 160/4.5 mcg INHALER IH SCH ×2 (10:46→21:38)
[2018-07-13] MEDS: ALBUTEROL SO4 0.083% IH SOL 2.5 MG/3 ML VIAL.NEB. NEB PRN ×3 (11:29→19:35)
[2018-07-13] MEDS: TIOTROPIUM BROMIDE 2.5 MCG (SPIRIVA) RESPIMAT INHALER IH SCH (11:39)
--- NOTE | 2018-07-13 11:59 | PN ---
Progress Note, Physician History of Present Illness: stable still sob - Current Medication List Current Medications: Active Medications Acetaminophen (Tylenol -) 650 mg PO Q6H PRN PRN Reason: FEVER Last Admin: 07/07/18 10:12 Dose: 650 mg Albuterol Sulfate (Ventolin 0.083% Nebulizer Soln -) 1 amp NEB Q4H PRN PRN Reason: SHORT OF BREATH/WHEEZING Last Admin: 07/13/18 11:29 Dose: 1 amp Budesonide/Formoterol Fumarate (Symbicort 160/4.5mcg -) 2 puff IH BID [facility] Last Admin: 07/13/18 10:46 Dose: 2 puff Cefuroxime Axetil (Ceftin -) 500 mg PO BID [facility] Last Admin: 07/13/18 10:44 Dose: 500 mg Diphenhydramine HCl (Benadryl -) 25 mg PO HS PRN PRN Reason: INSOMNIA Last Admin: 07/12/18 23:08 Dose: 25 mg Docusate Sodium (Colace -) 100 mg PO TID [facility] Last Admin: 07/13/18 05:55 Dose: Not Given Melatonin (Melatonin) 10 mg PO HS [facility] Last Admin: 07/12/18 22:02 Dose: 10 mg Methylprednisolone Sodium Succinate (Solu-Medrol -) 40 mg IVPUSH Q8H-IV [facility] Last Admin: 07/13/18 11:39 Dose: 40 mg Ondansetron HCl (Zofran Injection) 4 mg IVPUSH Q6H PRN PRN Reason: NAUSEA AND/OR VOMITING Last Admin: 07/10/18 16:04 Dose: 4 mg Polyethylene Glycol (Miralax (For Daily Use) -) 17 gm PO DAILY [facility] Last Admin: 07/13/18 10:44 Dose: 17 gm Tiotropium [place] (Spiriva Respimat) 2 puff IH DAILY [facility] Last Admin: 07/13/18 11:39 Dose: 2 puff - Objective Vital Signs: Vital Signs Temperature 98.5 F 07/13/18 06:00 Pulse Rate 74 07/13/18 06:00 Respiratory Rate 20 07/13/18 06:00 Blood Pressure 132/62 07/13/18 06:00 O2 Sat by Pulse Oximetry (%) 96 07/13/18 08:50 Constitutional: Yes: No Distress, Calm Respiratory: Yes: Regular, On Nasal O2, Poor Air Entry Gastrointestinal: Yes: Normal Bowel Sounds, Soft Musculoskeletal: Yes: WNL Extremities: Yes: WNL Neurological: Yes: Alert, Oriented Psychiatric: Yes: Alert, Oriented Labs: CBC, BMP 07/11/18 05:30 07/11/18 05:30 INR, PTT INR 1.07 (0.83-1.09) 07/05/18 23:45 Assessment/Plan Problem List - Problems (1) Bronchospasm Code(s): J98.01 - ACUTE BRONCHOSPASM (2) Chest pain Code(s): R07.9 - CHEST PAIN, UNSPECIFIED Qualifiers: Chest pain type: unspecified Qualified Code(s): R07.9 - Chest pain, unspecified (3) URI (upper respiratory infection) Code(s): J06.9 - ACUTE UPPER RESPIRATORY INFECTION, UNSPECIFIED Qualifiers: URI type: unspecified URI Qualified Code(s): J06.9 - Acute upper respiratory infection, unspecified (4) Pleuritic chest pain Code(s): R07.81 - PLEURODYNIA (5) Seizure Code(s): R56.9 - UNSPECIFIED CONVULSIONS 6 mrsa pneumonia plan will start patient on vanco continue current mgmt sensitivities awaited rest as per the team
--- NOTE | 2018-07-13 13:10 | PN ---
Progress Note, Physician Chief Complaint: Pt A&Ox3; had episode of "feeling woozy" after standing for about 5 minutes in bathroom and washing herself (says this is by far the longest she had been standing since admission). History of Present Illness: Patient is a 48 year old black female with a significant past medical history of seizures, meningioma, prior report of "heart arrhythmia", HTN (?not on medication), obesity, who presents to the ED with complaints of chest pain that began earlier today. Patient reports experiencing sudden episode of chest pain with associated symptoms of chest palpitations, shortness of breath with non productive coughing and back pain secondary to coughing, prompting her to come into the ED for further evaluation. The dyspnea and chest discomfort began two days ago, with frequent forceful cough now with whitish phlegm. She reports taking her albuterol nebulizer while at home with minimal relief after two treatments. She had an episode of vomiting, and says she had high fever ("102 F ") last night. Denies contact with sick individuals, out of state travelling. Denies dysuria, hematuria. Denies dysuria, hematuria. Denies any other symptoms. Pt required 5 days hospitalization for a similar episode of bronchitis/URI a year ago. 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 Allergies: prednisone Social history: No smoking. No alcohol. No illicit drugs. Surgical history: None PMD: Dr. Wood Orantes - Current Medication List Current Medications: Active Medications Acetaminophen (Tylenol -) 650 mg PO Q6H PRN PRN Reason: FEVER Last Admin: 07/07/18 10:12 Dose: 650 mg Albuterol Sulfate (Ventolin 0.083% Nebulizer Soln -) 1 amp NEB Q4H PRN PRN Reason: SHORT OF BREATH/WHEEZING Last Admin: 07/13/18 11:29 Dose: 1 amp Budesonide/Formoterol Fumarate (Symbicort 160/4.5mcg -) 2 puff IH BID [facility] Last Admin: 07/13/18 10:46 Dose: 2 puff Cefuroxime Axetil (Ceftin -) 500 mg PO BID [facility] Last Admin: 07/13/18 10:44 Dose: 500 mg Diphenhydramine HCl (Benadryl -) 25 mg PO HS PRN PRN Reason: INSOMNIA Last Admin: 07/12/18 23:08 Dose: 25 mg Docusate Sodium (Colace -) 100 mg PO TID [facility] Last Admin: 07/13/18 05:55 Dose: Not Given Melatonin (Melatonin) 10 mg PO HS [facility] Last Admin: 07/12/18 22:02 Dose: 10 mg Methylprednisolone Sodium Succinate (Solu-Medrol -) 40 mg IVPUSH Q8H-IV [facility] Last Admin: 07/13/18 11:39 Dose: 40 mg Ondansetron HCl (Zofran Injection) 4 mg IVPUSH Q6H PRN PRN Reason: NAUSEA AND/OR VOMITING Last Admin: 07/10/18 16:04 Dose: 4 mg Polyethylene Glycol (Miralax (For Daily Use) -) 17 gm PO DAILY [facility] Last Admin: 07/13/18 10:44 Dose: 17 gm Tiotropium [place] (Spiriva Respimat) 2 puff IH DAILY [facility] Last Admin: 07/13/18 11:39 Dose: 2 puff - Objective Vital Signs: Vital Signs Temperature 98.5 F 07/13/18 06:00 Pulse Rate 74 07/13/18 06:00 Respiratory Rate 20 07/13/18 06:00 Blood Pressure 132/62 07/13/18 06:00 O2 Sat by Pulse Oximetry (%) 96 07/13/18 08:50 Constitutional: Yes: Obese Eyes: Yes: WNL HENT: Yes: WNL Neck: Yes: WNL Cardiovascular: Yes: S1, S2, S4 Respiratory: Yes: Regular, Wheezes (only when has prolonged cough; lungs clear; audible wheezes URTract) Gastrointestinal: Yes: Soft, Abdomen, Obese ...Rectal Exam: Yes: Deferred Genitourinary: No: Anuria Breast(s): Yes: WNL Musculoskeletal: Yes: Muscle Weakness Extremities: Yes: WNL Edema: No Peripheral Pulses WNL: Yes Integumentary: Yes: WNL Neurological: Yes: WNL Psychiatric: Yes: Other (anxiety/?Panic/?depression) Labs: CBC, BMP 07/11/18 05:30 07/11/18 05:30 INR, PTT INR 1.07 (0.83-1.09) 07/05/18 23:45 Problem List - Problems (1) HTN (hypertension) Assessment/Plan: Initially elevated (when pt is great pain and respiratory distress); now low to normal. ECHO: normal LVEF; no significant pulmonary HTN noted. Code(s): I10 - ESSENTIAL (PRIMARY) HYPERTENSION (2) Obesity Assessment/Plan: Pt seen by mayonnaise mixer; pt is trying to understand what changes she will have to make to reach her goal of losing a substantial amount of weight. Code(s): E66.9 - OBESITY, UNSPECIFIED (3) Sinus tachycardia Assessment/Plan: Heart rate has now improved substantially. Multiple contributing factors, including fever, dehydration, anxiety, pain. TNI < 0.02 x 3.(Pt gives hx of stress test as outpt in the past year that was normal). Maintain hydration (for IVF; encourage PO intake). Antipyretics. Pain management (pt's primary concern in ER was for relief of splinting chest pain each time she tries to take a breath). Pt has much less pleuritic pain; HR now WNL. Still with audible wheezing. Normal Free T4. Code(s): R00.0 - TACHYCARDIA, UNSPECIFIED (4) Bronchospasm Assessment/Plan: Pt with episode of repeated forceful coughing while be wlaked across the room for physical therapy; she then felt weak, was seated, and vomited partially digested food. Sinus tachycardia. Discussed with Dr. Hennessy: peak flow and incentive spirometry ordeed. Continue steroids and bronchodilators. Pt becomes highly anxious just prior to and during episodes. Code(s): J98.01 - ACUTE BRONCHOSPASM (5) Meningioma Code(s): D32.9 - BENIGN NEOPLASM OF MENINGES, UNSPECIFIED (6) Seizure Code(s): R56.9 - UNSPECIFIED CONVULSIONS (7) Atypical chest pain Assessment/Plan: TNI < 0.02 x 2. EKG: sinus tachycardia; no acute ST-T changes. No hx cardiac disease. ECHO: normal LVEF; no regional wall motion abnormalities mentioned. Pt says she had a stress test within the past year at PMDs office that was normal; f/u results. Code(s): R07.89 - OTHER CHEST PAIN (8) Bronchitis Assessment/Plan: Steriods, O2, bronchodilators per advertising intern. Off antibiotics; now afebrile. Pt has had several episodes of respiratory distress in the past 12 months; she has agreed to f/u with advertising intern as outpatient. ?psychological component to repeated bouts of prolonged cough, resulting at times in vagal reaction. Code(s): J40 - BRONCHITIS, NOT SPECIFIED ACUTE OR CHRONIC (9) Sleep apnea Assessment/Plan: r/o with sleep studies per advertising intern. Code(s): G47.30 - SLEEP APNEA, UNSPECIFIED (10) Hypothyroid Assessment/Plan: low TSH; normal Free T4. Code(s): E03.9 - HYPOTHYROIDISM, UNSPECIFIED (11) Dizziness Assessment/Plan: episode today likely related to orthstatic dysfunction (pt has not had pysical therapy or been up much for the past 2 weeks). O2 sat WNL dueing episode; BP, initially hypotensive, returned to normal quickely. F?u orthostatic VS. Encourage PO fluids. Restart telemetry. Physical rehabilitaion. Code(s): R42 - DIZZINESS AND GIDDINESS (12) Anxiety about health Assessment/Plan: r/o depression (pt says "I don't have time for depression"; however nted with periods of sad facies, reluctance to converse). Code(s): F41.8 - OTHER SPECIFIED ANXIETY DISORDERS
[2018-07-13] MEDS: guaiFENesin/CODEINE 5 ML UNIT-DOSE CUPS PO PRN ×2 (18:12→21:33)
[2018-07-13] MEDS: diphenhydrAMINE HCL 25 MG CAPSULE (FP) PO PRN (21:33)
[2018-07-13] MEDS: MELATONIN 5 MG TABLETS PO SCH (21:34)
--- NOTE | 2018-07-13 22:29 | PN ---
Progress Note, Physician History of Present Illness: No new complaints - Current Medication List Current Medications: Active Medications Acetaminophen (Tylenol -) 650 mg PO Q6H PRN PRN Reason: FEVER Last Admin: 07/07/18 10:12 Dose: 650 mg Albuterol Sulfate (Ventolin 0.083% Nebulizer Soln -) 1 amp NEB Q4H PRN PRN Reason: SHORT OF BREATH/WHEEZING Last Admin: 07/13/18 19:35 Dose: 1 amp Budesonide/Formoterol Fumarate (Symbicort 160/4.5mcg -) 2 puff IH BID [facility] Last Admin: 07/13/18 21:38 Dose: 2 puff Cefuroxime Axetil (Ceftin -) 500 mg PO BID [facility] Last Admin: 07/13/18 21:34 Dose: 500 mg Diphenhydramine HCl (Benadryl -) 25 mg PO HS PRN PRN Reason: INSOMNIA Last Admin: 07/13/18 21:33 Dose: 25 mg Docusate Sodium (Colace -) 100 mg PO TID [facility] Last Admin: 07/13/18 21:33 Dose: 100 mg Guaifenesin/Codeine Phosphate (Robitussin Ac -) 10 ml PO Q8H PRN PRN Reason: COUGH Last Admin: 07/13/18 21:33 Dose: 10 ml Melatonin (Melatonin) 10 mg PO HS [facility] Last Admin: 07/13/18 21:34 Dose: 10 mg Methylprednisolone Sodium Succinate (Solu-Medrol -) 40 mg IVPUSH Q8H-IV [facility] Last Admin: 07/13/18 17:52 Dose: 40 mg Ondansetron HCl (Zofran Injection) 4 mg IVPUSH Q6H PRN PRN Reason: NAUSEA AND/OR VOMITING Last Admin: 07/10/18 16:04 Dose: 4 mg Polyethylene Glycol (Miralax (For Daily Use) -) 17 gm PO DAILY [facility] Last Admin: 07/13/18 10:44 Dose: 17 gm Tiotropium [place] (Spiriva Respimat) 2 puff IH DAILY [facility] Last Admin: 07/13/18 11:39 Dose: 2 puff - Objective Vital Signs: Vital Signs Temperature 98.6 F 07/13/18 17:00 Pulse Rate 90 07/13/18 17:00 Respiratory Rate 20 07/13/18 17:00 Blood Pressure 131/81 07/13/18 17:00 O2 Sat by Pulse Oximetry (%) 96 07/13/18 08:50 Cardiovascular: Yes: WNL, Regular Rate and Rhythm Respiratory: Yes: Wheezes Gastrointestinal: Yes: WNL, Normal Bowel Sounds, Soft, Abdomen, Obese Labs: CBC, BMP 07/11/18 05:30 07/11/18 05:30 INR, PTT INR 1.07 (0.83-1.09) 07/05/18 23:45 Problem List - Problems (1) Constipation Assessment/Plan: Xray showed retained stool Cont colace/miralax Pt given fleets enema with not much improvement Code(s): K59.00 - CONSTIPATION, UNSPECIFIED (2) Bronchospasm Assessment/Plan: Cont IV steroids/po ceftin Cont nebulizers Repeat CXR showed new atelectatic changes Code(s): J98.01 - ACUTE BRONCHOSPASM (3) Tachycardia Code(s): R00.0 - TACHYCARDIA, UNSPECIFIED (4) HTN (hypertension) Assessment/Plan: BP stable Not on any meds Code(s): I10 - ESSENTIAL (PRIMARY) HYPERTENSION (5) Hypothyroid Assessment/Plan: TSH is elevated ?Hyperthyroidism Endo consult Code(s): E03.9 - HYPOTHYROIDISM, UNSPECIFIED (6) Obesity Code(s): E66.9 - OBESITY, UNSPECIFIED (7) Pleuritic chest pain Assessment/Plan: Due to atelectasis Code(s): R07.81 - PLEURODYNIA (8) Elevated lactic acid level Assessment/Plan: Repeat lactic acid now normal DC IVF Code(s): R79.89 - OTHER SPECIFIED ABNORMAL FINDINGS OF BLOOD CHEMISTRY
[2018-07-14] MEDS: SENNOSIDES 8.6MG TABLET (FP) PO SCH ×3 (00:51→22:00)
[2018-07-14] MEDS: methylPREDNISolone NA SUCC 40 MG/1 ML VIAL IVPUSH SCH ×3 (02:06→17:44)
[2018-07-14] MEDS: DOCUSATE SODIUM 100 MG CAPSULE (FP) PO SCH ×3 (05:40→22:00)
[2018-07-14] MEDS: guaiFENesin/CODEINE 5 ML UNIT-DOSE CUPS PO PRN (05:40)
[2018-07-14] MEDS: CEFUROXIME AXETIL 500 MG TABLET PO SCH (10:05)
[2018-07-14] MEDS: POLYETHYLENE GLYCOL 3350 119 GM BTL PO SCH (10:06)
[2018-07-14] MEDS: TIOTROPIUM BROMIDE 2.5 MCG (SPIRIVA) RESPIMAT INHALER IH SCH (10:07)
[2018-07-14] MEDS: BUDESONIDE/FORMETEROL FUMARATE 160/4.5 mcg INHALER IH SCH ×2 (10:08→22:02)
--- NOTE | 2018-07-14 10:45 | PN ---
Progress Note, Physician History of Present Illness: PULMONARY ALERT COMFORTABLE AT REST C/O INCREASED COUGH WHEN AMBULATING - Current Medication List Current Medications: Active Medications Acetaminophen (Tylenol -) 650 mg PO Q6H PRN PRN Reason: FEVER Last Admin: 07/07/18 10:12 Dose: 650 mg Albuterol Sulfate (Ventolin 0.083% Nebulizer Soln -) 1 amp NEB Q4H PRN PRN Reason: SHORT OF BREATH/WHEEZING Last Admin: 07/13/18 19:35 Dose: 1 amp Budesonide/Formoterol Fumarate (Symbicort 160/4.5mcg -) 2 puff IH BID [facility] Last Admin: 07/14/18 10:08 Dose: 2 puff Cefuroxime Axetil (Ceftin -) 500 mg PO BID [facility] Last Admin: 07/14/18 10:05 Dose: 500 mg Diphenhydramine HCl (Benadryl -) 25 mg PO HS PRN PRN Reason: INSOMNIA Last Admin: 07/13/18 21:33 Dose: 25 mg Docusate Sodium (Colace -) 100 mg PO TID [facility] Last Admin: 07/14/18 05:40 Dose: 100 mg Guaifenesin/Codeine Phosphate (Robitussin Ac -) 10 ml PO Q8H PRN PRN Reason: COUGH Last Admin: 07/14/18 05:40 Dose: 10 ml Melatonin (Melatonin) 10 mg PO HS [facility] Last Admin: 07/13/18 21:34 Dose: 10 mg Methylprednisolone Sodium Succinate (Solu-Medrol -) 40 mg IVPUSH Q8H-IV [facility] Last Admin: 07/14/18 10:07 Dose: 40 mg Ondansetron HCl (Zofran Injection) 4 mg IVPUSH Q6H PRN PRN Reason: NAUSEA AND/OR VOMITING Last Admin: 07/10/18 16:04 Dose: 4 mg Polyethylene Glycol (Miralax (For Daily Use) -) 17 gm PO DAILY [facility] Last Admin: 07/14/18 10:06 Dose: Not Given Senna (Senna -) 1 tab PO BID [facility] Last Admin: 07/14/18 10:06 Dose: 1 tab Tiotropium [place] (Spiriva Respimat) 2 puff IH DAILY [facility] Last Admin: 07/14/18 10:07 Dose: 2 puff - Objective Vital Signs: Vital Signs Temperature 98.4 F 07/14/18 06:00 Pulse Rate 66 07/14/18 06:00 Respiratory Rate 19 07/14/18 06:00 Blood Pressure 107/39 L 07/14/18 06:00 O2 Sat by Pulse Oximetry (%) 99 07/13/18 21:00 Constitutional: Yes: Well Nourished, Calm Eyes: Yes: WNL HENT: Yes: WNL Neck: Yes: WNL Cardiovascular: Yes: Regular Rate and Rhythm, S1, S2 Respiratory: Yes: Wheezes (SCATTERED STEPHANIE WHEEZES) Gastrointestinal: Yes: Normal Bowel Sounds, Soft Extremities: Yes: WNL Edema: No Labs: CBC, BMP Assessment/Plan Problem List - Problems (1) Bronchospasm Code(s): J98.01 - ACUTE BRONCHOSPASM (2) Chest pain Code(s): R07.9 - CHEST PAIN, UNSPECIFIED Qualifiers: Chest pain type: unspecified Qualified Code(s): R07.9 - Chest pain, unspecified (3) URI (upper respiratory infection) Code(s): J06.9 - ACUTE UPPER RESPIRATORY INFECTION, UNSPECIFIED Qualifiers: URI type: unspecified URI Qualified Code(s): J06.9 - Acute upper respiratory infection, unspecified (4) Pleuritic chest pain Code(s): R07.81 - PLEURODYNIA (5) Seizure Code(s): R56.9 - UNSPECIFIED CONVULSIONS Assessment/Plan Do not suspect PNA. Minimal atalectatic areas in the LLL on CT imaging continue Medrol 40 q8 Symbicort 160/4.5 BD TX O2 as needed PFTs after discharge VTE prophylaxis SPIRIVA ambulate DR FOLEY
--- NOTE | 2018-07-14 11:55 | PN ---
Progress Note, Physician History of Present Illness: Patient is a 48 year old black female with a significant past medical history of seizures, meningioma, prior report of heart arrhythmia, HTN (?not on medication), obesity, who presents to the ED with complaints of chest pain that began earlier today. Patient reports experiencing sudden episode of chest pain with associated symptoms of chest palpitations, shortness of breath with non productive coughing and back pain secondary to coughing, prompting her to come into the ED for further evaluation. The dyspnea and chest discomfort began two days ago, with frequent forceful cough now with whitish phlegm. She reports taking her albuterol nebulizer while at home with minimal relief after two treatments. She had an episode of vomiting, and says she had high fever ("102 F ") last night. Denies contact with sick individuals, out of state travelling. Denies dysuria, hematuria. Denies dysuria, hematuria. Denies any other symptoms. Pt required 5 days hospitalization for a similar episode of bronchitis/URI a year ago. 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 Allergies: prednisone Social history: No smoking. No alcohol. No illicit drugs. Surgical history: None PMD: Dr. Wood Orantes - Current Medication List Current Medications: Active Medications Acetaminophen (Tylenol -) 650 mg PO Q6H PRN PRN Reason: FEVER Last Admin: 07/07/18 10:12 Dose: 650 mg Albuterol Sulfate (Ventolin 0.083% Nebulizer Soln -) 1 amp NEB Q4H PRN PRN Reason: SHORT OF BREATH/WHEEZING Last Admin: 07/13/18 19:35 Dose: 1 amp Budesonide/Formoterol Fumarate (Symbicort 160/4.5mcg -) 2 puff IH BID [facility] Last Admin: 07/14/18 10:08 Dose: 2 puff Cefuroxime Axetil (Ceftin -) 500 mg PO BID [facility] Last Admin: 07/14/18 10:05 Dose: 500 mg Diphenhydramine HCl (Benadryl -) 25 mg PO HS PRN PRN Reason: INSOMNIA Last Admin: 07/13/18 21:33 Dose: 25 mg Docusate Sodium (Colace -) 100 mg PO TID [facility] Last Admin: 07/14/18 05:40 Dose: 100 mg Guaifenesin/Codeine Phosphate (Robitussin Ac -) 10 ml PO Q8H PRN PRN Reason: COUGH Last Admin: 07/14/18 05:40 Dose: 10 ml Melatonin (Melatonin) 10 mg PO HS [facility] Last Admin: 07/13/18 21:34 Dose: 10 mg Methylprednisolone Sodium Succinate (Solu-Medrol -) 40 mg IVPUSH Q8H-IV [facility] Last Admin: 07/14/18 10:07 Dose: 40 mg Ondansetron HCl (Zofran Injection) 4 mg IVPUSH Q6H PRN PRN Reason: NAUSEA AND/OR VOMITING Last Admin: 07/10/18 16:04 Dose: 4 mg Polyethylene Glycol (Miralax (For Daily Use) -) 17 gm PO DAILY [facility] Last Admin: 07/14/18 10:06 Dose: Not Given Senna (Senna -) 1 tab PO BID [facility] Last Admin: 07/14/18 10:06 Dose: 1 tab Tiotropium [place] (Spiriva Respimat) 2 puff IH DAILY [facility] Last Admin: 07/14/18 10:07 Dose: 2 puff - Objective Vital Signs: Vital Signs Temperature 98.4 F 07/14/18 06:00 Pulse Rate 66 07/14/18 06:00 Respiratory Rate 19 07/14/18 06:00 Blood Pressure 107/39 L 07/14/18 06:00 O2 Sat by Pulse Oximetry (%) 99 07/13/18 21:00 Eyes: Yes: WNL, Conjunctiva Clear, EOM Intact HENT: Yes: WNL, Atraumatic, Normocephalic Neck: Yes: WNL, Supple, Trachea Midline Cardiovascular: Yes: WNL, Regular Rate and Rhythm Respiratory: Yes: WNL, Regular, CTA Bilaterally Gastrointestinal: Yes: WNL, Normal Bowel Sounds Genitourinary: Yes: WNL Musculoskeletal: Yes: WNL Extremities: Yes: WNL Edema: No Integumentary: Yes: WNL Neurological: Yes: WNL, Alert, Oriented ...Motor Strength: WNL Psychiatric: Yes: WNL Labs: CBC, BMP 07/11/18 05:30 07/11/18 05:30 INR, PTT INR 1.07 (0.83-1.09) 07/05/18 23:45 Assessment/Plan - Problems (1) HTN (hypertension) Assessment/Plan: Initially elevated (when pt is great pain and respiratory distress); now low to normal. ECHO: normal LVEF; no significant pulmonary HTN noted. Code(s): I10 - ESSENTIAL (PRIMARY) HYPERTENSION (2) Obesity Assessment/Plan: Pt seen by boiler washer; pt is trying to understand what changes she will have to make to reach her goal of losing a substantial amount of weight. Code(s): E66.9 - OBESITY, UNSPECIFIED (3) Sinus tachycardia Assessment/Plan: Heart rate has now improved substantially. Multiple contributing factors, including fever, dehydration, anxiety, pain. TNI < 0.02 x 3.(Pt gives hx of stress test as outpt in the past year that was normal). Maintain hydration (for IVF; encourage PO intake). Antipyretics. Pain management (pt's primary concern in ER was for relief of splinting chest pain each time she tries to take a breath). Pt has much less pleuritic pain; HR now WNL. Still with audible wheezing. Normal Free T4. Code(s): R00.0 - TACHYCARDIA, UNSPECIFIED (4) Bronchospasm Assessment/Plan: Pt with episode of repeated forceful coughing while be wlaked across the room for physical therapy; she then felt weak, was seated, and vomited partially digested food. Sinus tachycardia. Discussed with Dr. Hennessy: peak flow and incentive spirometry ordeed. Continue steroids and bronchodilators. Pt becomes highly anxious just prior to and during episodes. Code(s): J98.01 - ACUTE BRONCHOSPASM (5) Meningioma Code(s): D32.9 - BENIGN NEOPLASM OF MENINGES, UNSPECIFIED (6) Seizure Code(s): R56.9 - UNSPECIFIED CONVULSIONS (7) Atypical chest pain Assessment/Plan: TNI < 0.02 x 2. EKG: sinus tachycardia; no acute ST-T changes. No hx cardiac disease. ECHO: normal LVEF; no regional wall motion abnormalities mentioned. Pt says she had a stress test within the past year at PMDs office that was normal; f/u results. Code(s): R07.89 - OTHER CHEST PAIN (8) Bronchitis Assessment/Plan: Steriods, O2, bronchodilators per design coordinator. Off antibiotics; now afebrile. Pt has had several episodes of respiratory distress in the past 12 months; she has agreed to f/u with design coordinator as outpatient. ?psychological component to repeated bouts of prolonged cough, resulting at times in vagal reaction. Code(s): J40 - BRONCHITIS, NOT SPECIFIED ACUTE OR CHRONIC (9) Sleep apnea Assessment/Plan: r/o with sleep studies per design coordinator. Code(s): G47.30 - SLEEP APNEA, UNSPECIFIED (10) Hypothyroid Assessment/Plan: low TSH; normal Free T4. Code(s): E03.9 - HYPOTHYROIDISM, UNSPECIFIED (11) Dizziness Assessment/Plan: episode today likely related to orthstatic dysfunction (pt has not had pysical therapy or been up much for the past 2 weeks). O2 sat WNL dueing episode; BP, initially hypotensive, returned to normal quickely. F?u orthostatic VS. Encourage PO fluids. Restart telemetry. Physical rehabilitaion. Code(s): R42 - DIZZINESS AND GIDDINESS (12) Anxiety about health Assessment/Plan: r/o depression (pt says "I don't have time for depression"; however nted with periods of sad facies, reluctance to converse). Code(s): F41.8 - OTHER SPECIFIED ANXIETY DISORDERS
--- NOTE | 2018-07-14 12:18 | PN ---
Progress Note, Physician History of Present Illness: continues to have increased cough stable - Current Medication List Current Medications: Active Medications Acetaminophen (Tylenol -) 650 mg PO Q6H PRN PRN Reason: FEVER Last Admin: 07/07/18 10:12 Dose: 650 mg Albuterol Sulfate (Ventolin 0.083% Nebulizer Soln -) 1 amp NEB Q4H PRN PRN Reason: SHORT OF BREATH/WHEEZING Last Admin: 07/13/18 19:35 Dose: 1 amp Budesonide/Formoterol Fumarate (Symbicort 160/4.5mcg -) 2 puff IH BID [facility] Last Admin: 07/14/18 10:08 Dose: 2 puff Diphenhydramine HCl (Benadryl -) 25 mg PO HS PRN PRN Reason: INSOMNIA Last Admin: 07/13/18 21:33 Dose: 25 mg Docusate Sodium (Colace -) 100 mg PO TID [facility] Last Admin: 07/14/18 05:40 Dose: 100 mg Guaifenesin/Codeine Phosphate (Robitussin Ac -) 10 ml PO Q8H PRN PRN Reason: COUGH Last Admin: 07/14/18 05:40 Dose: 10 ml Melatonin (Melatonin) 10 mg PO HS [facility] Last Admin: 07/13/18 21:34 Dose: 10 mg Methylprednisolone Sodium Succinate (Solu-Medrol -) 40 mg IVPUSH Q8H-IV [facility] Last Admin: 07/14/18 10:07 Dose: 40 mg Ondansetron HCl (Zofran Injection) 4 mg IVPUSH Q6H PRN PRN Reason: NAUSEA AND/OR VOMITING Last Admin: 07/10/18 16:04 Dose: 4 mg Polyethylene Glycol (Miralax (For Daily Use) -) 17 gm PO DAILY [facility] Last Admin: 07/14/18 10:06 Dose: Not Given Senna (Senna -) 1 tab PO BID [facility] Last Admin: 07/14/18 10:06 Dose: 1 tab Tiotropium [place] (Spiriva Respimat) 2 puff IH DAILY [facility] Last Admin: 07/14/18 10:07 Dose: 2 puff - Objective Vital Signs: Vital Signs Temperature 98.4 F 07/14/18 06:00 Pulse Rate 66 07/14/18 06:00 Respiratory Rate 19 07/14/18 06:00 Blood Pressure 107/39 L 07/14/18 06:00 O2 Sat by Pulse Oximetry (%) 99 07/13/18 21:00 Constitutional: Yes: No Distress, Calm Respiratory: Yes: Poor Air Entry Gastrointestinal: Yes: Normal Bowel Sounds, Soft Musculoskeletal: Yes: WNL Extremities: Yes: WNL Neurological: Yes: Alert, Oriented Labs: CBC, BMP 07/11/18 05:30 07/11/18 05:30 INR, PTT INR 1.07 (0.83-1.09) 07/05/18 23:45 Assessment/Plan Problem List - Problems (1) Bronchospasm Code(s): J98.01 - ACUTE BRONCHOSPASM (2) Chest pain Code(s): R07.9 - CHEST PAIN, UNSPECIFIED Qualifiers: Chest pain type: unspecified Qualified Code(s): R07.9 - Chest pain, unspecified (3) URI (upper respiratory infection) Code(s): J06.9 - ACUTE UPPER RESPIRATORY INFECTION, UNSPECIFIED Qualifiers: URI type: unspecified URI Qualified Code(s): J06.9 - Acute upper respiratory infection, unspecified (4) Pleuritic chest pain Code(s): R07.81 - PLEURODYNIA (5) Seizure Code(s): R56.9 - UNSPECIFIED CONVULSIONS 6 mrsa pneumonia plan will start on vanco await for cx to be back resp support rest as per the team
[2018-07-14] MEDS ORDERED: PT OWN MED DRAWER 7, Y5N ONE ×3 (13:11→16:32)
[2018-07-14] MEDS: VANCOMYCIN HCL 1,250 MG in DEXTROSE 5%-WATER - 250 ML IVPB SCH (14:27)
[2018-07-14] MEDS: ALBUTEROL SO4 0.083% IH SOL 2.5 MG/3 ML VIAL.NEB. NEB PRN (18:15)
[2018-07-14] MEDS: MELATONIN 5 MG TABLETS PO SCH (22:00)
[2018-07-14] MEDS: diphenhydrAMINE HCL 25 MG CAPSULE (FP) PO PRN (22:08)
--- NOTE | 2018-07-14 22:41 | PN ---
Progress Note, Physician - Current Medication List Current Medications: Active Medications Acetaminophen (Tylenol -) 650 mg PO Q6H PRN PRN Reason: FEVER Last Admin: 07/07/18 10:12 Dose: 650 mg Albuterol Sulfate (Ventolin 0.083% Nebulizer Soln -) 1 amp NEB Q4H PRN PRN Reason: SHORT OF BREATH/WHEEZING Last Admin: 07/14/18 18:15 Dose: 1 amp Budesonide/Formoterol Fumarate (Symbicort 160/4.5mcg -) 2 puff IH BID [facility] Last Admin: 07/14/18 22:02 Dose: 2 puff Diphenhydramine HCl (Benadryl -) 25 mg PO HS PRN PRN Reason: INSOMNIA Last Admin: 07/14/18 22:08 Dose: 25 mg Docusate Sodium (Colace -) 100 mg PO TID [facility] Last Admin: 07/14/18 22:00 Dose: 100 mg Guaifenesin/Codeine Phosphate (Robitussin Ac -) 10 ml PO Q8H PRN PRN Reason: COUGH Last Admin: 07/14/18 05:40 Dose: 10 ml Vancomycin HCl 1,250 mg/ (Dextrose) 250 mls @ 166.667 mls/hr IVPB Q12H [facility]; Protocol Last Admin: 07/14/18 14:27 Dose: 166.667 mls/hr Melatonin (Melatonin) 10 mg PO HS [facility] Last Admin: 07/14/18 22:00 Dose: 10 mg Methylprednisolone Sodium Succinate (Solu-Medrol -) 40 mg IVPUSH Q8H-IV [facility] Last Admin: 07/14/18 17:44 Dose: 40 mg Ondansetron HCl (Zofran Injection) 4 mg IVPUSH Q6H PRN PRN Reason: NAUSEA AND/OR VOMITING Last Admin: 07/10/18 16:04 Dose: 4 mg Polyethylene Glycol (Miralax (For Daily Use) -) 17 gm PO DAILY [facility] Last Admin: 07/14/18 10:06 Dose: Not Given Senna (Senna -) 1 tab PO BID [facility] Last Admin: 07/14/18 22:00 Dose: 1 tab Tiotropium [place] (Spiriva Respimat) 2 puff IH DAILY [facility] Last Admin: 07/14/18 10:07 Dose: 2 puff - Objective Vital Signs: Vital Signs Temperature 98.2 F 07/14/18 18:00 Pulse Rate 91 H 07/14/18 18:00 Respiratory Rate 18 07/14/18 18:00 Blood Pressure 120/73 07/14/18 18:00 O2 Sat by Pulse Oximetry (%) 96 07/14/18 20:58 Labs: CBC, BMP 07/11/18 05:30 07/11/18 05:30 INR, PTT INR 1.07 (0.83-1.09) 07/05/18 23:45 Problem List - Problems (1) Constipation Code(s): K59.00 - CONSTIPATION, UNSPECIFIED (2) Bronchospasm Code(s): J98.01 - ACUTE BRONCHOSPASM (3) Tachycardia Code(s): R00.0 - TACHYCARDIA, UNSPECIFIED (4) HTN (hypertension) Code(s): I10 - ESSENTIAL (PRIMARY) HYPERTENSION (5) Hypothyroid Code(s): E03.9 - HYPOTHYROIDISM, UNSPECIFIED (6) Obesity Code(s): E66.9 - OBESITY, UNSPECIFIED (7) Pleuritic chest pain Code(s): R07.81 - PLEURODYNIA (8) Elevated lactic acid level Code(s): R79.89 - OTHER SPECIFIED ABNORMAL FINDINGS OF BLOOD CHEMISTRY
[2018-07-15] MEDS ORDERED: PT OWN MED DRAWER 7, Y5N ONE ×2 (02:26→09:06)
[2018-07-15] MEDS: VANCOMYCIN HCL 1,250 MG in DEXTROSE 5%-WATER - 250 ML IVPB SCH ×2 (03:00→14:07)
[2018-07-15] MEDS: methylPREDNISolone NA SUCC 40 MG/1 ML VIAL IVPUSH SCH ×3 (03:00→17:32)
[2018-07-15] MEDS: DOCUSATE SODIUM 100 MG CAPSULE (FP) PO SCH ×3 (05:07→22:40)
[2018-07-15] MEDS: SENNOSIDES 8.6MG TABLET (FP) PO SCH ×2 (10:01→22:40)
[2018-07-15] MEDS: POLYETHYLENE GLYCOL 3350 119 GM BTL PO SCH (10:01)
[2018-07-15] MEDS: BUDESONIDE/FORMETEROL FUMARATE 160/4.5 mcg INHALER IH SCH ×2 (10:04→22:41)
[2018-07-15] MEDS: TIOTROPIUM BROMIDE 2.5 MCG (SPIRIVA) RESPIMAT INHALER IH SCH (10:04)
[2018-07-15] MEDS: ALBUTEROL SO4 0.083% IH SOL 2.5 MG/3 ML VIAL.NEB. NEB PRN (11:19)
--- NOTE | 2018-07-15 13:10 | PN ---
Progress Note (short form) - Note Progress Note: PULMONARY Still with some shortness of breath and chest tightness. Occasional wheezing. Vital Signs Period Temp Pulse Resp BP Sys/Krishnamurthy Pulse Ox Last 24 Hr 98.2 F-98.4 F 80-98 18-20 120-130/64-78 96-96 Gen: NAD at rest Heart: RRR Lung: decreased breath sounds at the bases, no wheezes Abd: soft, nontender Ext: no edema CBC, BMP 07/11/18 05:30 07/11/18 05:30 Active Medications Acetaminophen (Tylenol -) 650 mg PO Q6H PRN PRN Reason: FEVER Last Admin: 07/07/18 10:12 Dose: 650 mg Albuterol Sulfate (Ventolin 0.083% Nebulizer Soln -) 1 amp NEB Q4H PRN PRN Reason: SHORT OF BREATH/WHEEZING Last Admin: 07/15/18 11:19 Dose: 1 amp Budesonide/Formoterol Fumarate (Symbicort 160/4.5mcg -) 2 puff IH BID [facility] Last Admin: 07/15/18 10:04 Dose: 2 puff Diphenhydramine HCl (Benadryl -) 25 mg PO HS PRN PRN Reason: INSOMNIA Last Admin: 07/14/18 22:08 Dose: 25 mg Docusate Sodium (Colace -) 100 mg PO TID [facility] Last Admin: 07/15/18 05:07 Dose: 100 mg Guaifenesin/Codeine Phosphate (Robitussin Ac -) 10 ml PO Q8H PRN PRN Reason: COUGH Last Admin: 07/14/18 05:40 Dose: 10 ml Vancomycin HCl 1,250 mg/ (Dextrose) 250 mls @ 166.667 mls/hr IVPB Q12H [facility]; Protocol Last Admin: 07/15/18 03:00 Dose: 166.667 mls/hr Melatonin (Melatonin) 10 mg PO HS [facility] Last Admin: 07/14/18 22:00 Dose: 10 mg Methylprednisolone Sodium Succinate (Solu-Medrol -) 40 mg IVPUSH Q8H-IV [facility] Last Admin: 07/15/18 10:02 Dose: 40 mg Ondansetron HCl (Zofran Injection) 4 mg IVPUSH Q6H PRN PRN Reason: NAUSEA AND/OR VOMITING Last Admin: 07/10/18 16:04 Dose: 4 mg Polyethylene Glycol (Miralax (For Daily Use) -) 17 gm PO DAILY [facility] Last Admin: 07/15/18 10:01 Dose: 17 gm Senna (Senna -) 1 tab PO BID [facility] Last Admin: 07/15/18 10:01 Dose: 1 tab Tiotropium [place] (Spiriva Respimat) 2 puff IH DAILY [facility] Last Admin: 07/15/18 10:04 Dose: 2 puff A/P URI/Acute Bronchitis Acute Bronchospasm - continue medrol - can likely change steroids to PO prednisone 40mg daily and taper as outpt - inhaled bronchodilators - outpt PFTs - DVT prophylaxis - can d/c home from pulmonary standpoint
--- NOTE | 2018-07-15 13:13 | PN ---
Progress Note, Physician Chief Complaint: Pt A&Ox3; OOB in chair; wonders why she gets dyspneic so easily lately, when a short time ago she was constantly walking at her job tirelessly. History of Present Illness: Patient is a 48 year old black female with a significant past medical history of seizures, meningioma, prior report of "heart arrhythmia", HTN (?not on medication), obesity, who presents to the ED with complaints of chest pain that began earlier today. Patient reports experiencing sudden episode of chest pain with associated symptoms of chest palpitations, shortness of breath with non productive coughing and back pain secondary to coughing, prompting her to come into the ED for further evaluation. The dyspnea and chest discomfort began two days ago, with frequent forceful cough now with whitish phlegm. She reports taking her albuterol nebulizer while at home with minimal relief after two treatments. She had an episode of vomiting, and says she had high fever ("102 F ") last night. Denies contact with sick individuals, out of state travelling. Denies dysuria, hematuria. Denies dysuria, hematuria. Denies any other symptoms. Pt required 5 days hospitalization for a similar episode of bronchitis/URI a year ago. 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 Allergies: prednisone Social history: No smoking. No alcohol. No illicit drugs. Surgical history: None PMD: Dr. Wood Orantes - Current Medication List Current Medications: Active Medications Acetaminophen (Tylenol -) 650 mg PO Q6H PRN PRN Reason: FEVER Last Admin: 07/07/18 10:12 Dose: 650 mg Albuterol Sulfate (Ventolin 0.083% Nebulizer Soln -) 1 amp NEB Q4H PRN PRN Reason: SHORT OF BREATH/WHEEZING Last Admin: 07/15/18 11:19 Dose: 1 amp Albuterol Sulfate (Ventolin 0.083% Nebulizer Soln -) 1 amp NEB RQID [facility] Budesonide/Formoterol Fumarate (Symbicort 160/4.5mcg -) 2 puff IH BID [facility] Last Admin: 07/15/18 10:04 Dose: 2 puff Diphenhydramine HCl (Benadryl -) 25 mg PO HS PRN PRN Reason: INSOMNIA Last Admin: 07/14/18 22:08 Dose: 25 mg Docusate Sodium (Colace -) 100 mg PO TID [facility] Last Admin: 07/15/18 05:07 Dose: 100 mg Guaifenesin/Codeine Phosphate (Robitussin Ac -) 10 ml PO Q8H PRN PRN Reason: COUGH Last Admin: 07/14/18 05:40 Dose: 10 ml Vancomycin HCl 1,250 mg/ (Dextrose) 250 mls @ 166.667 mls/hr IVPB Q12H [facility]; Protocol Last Admin: 07/15/18 03:00 Dose: 166.667 mls/hr Melatonin (Melatonin) 10 mg PO HS [facility] Last Admin: 07/14/18 22:00 Dose: 10 mg Methylprednisolone Sodium Succinate (Solu-Medrol -) 40 mg IVPUSH Q8H-IV [facility] Last Admin: 07/15/18 10:02 Dose: 40 mg Ondansetron HCl (Zofran Injection) 4 mg IVPUSH Q6H PRN PRN Reason: NAUSEA AND/OR VOMITING Last Admin: 07/10/18 16:04 Dose: 4 mg Polyethylene Glycol (Miralax (For Daily Use) -) 17 gm PO DAILY [facility] Last Admin: 07/15/18 10:01 Dose: 17 gm Senna (Senna -) 1 tab PO BID [facility] Last Admin: 07/15/18 10:01 Dose: 1 tab Tiotropium [place] (Spiriva Respimat) 2 puff IH DAILY [facility] Last Admin: 07/15/18 10:04 Dose: 2 puff - Objective Vital Signs: Vital Signs Temperature 98.2 F 07/15/18 09:00 Pulse Rate 80 07/15/18 09:00 Respiratory Rate 20 07/15/18 09:00 Blood Pressure 123/78 07/15/18 09:00 O2 Sat by Pulse Oximetry (%) 96 07/15/18 09:00 Constitutional: Yes: Anxious, Obese Eyes: Yes: WNL HENT: Yes: WNL Neck: Yes: WNL Cardiovascular: Yes: Regular Rate and Rhythm, S1, S2 Respiratory: Yes: WNL Gastrointestinal: Yes: Soft, Abdomen, Obese ...Rectal Exam: Yes: Deferred Genitourinary: No: Anuria Breast(s): Yes: WNL Musculoskeletal: Yes: WNL Extremities: Yes: WNL Edema: No Peripheral Pulses WNL: Yes Integumentary: Yes: WNL Neurological: Yes: WNL Psychiatric: Yes: Other (anxiety/?panic) Labs: CBC, BMP 07/11/18 05:30 07/11/18 05:30 INR, PTT INR 1.07 (0.83-1.09) 07/05/18 23:45 - ....Imaging Other: Image Reviewed (telemtry: NSR; no arrhythmias) Problem List - Problems (1) HTN (hypertension) Assessment/Plan: Initially elevated (when pt is great pain and respiratory distress); now low to normal. ECHO: normal LVEF; no significant pulmonary HTN noted. Code(s): I10 - ESSENTIAL (PRIMARY) HYPERTENSION (2) Obesity Assessment/Plan: Pt seen by emergency response coordinator; pt is trying to understand what changes she will have to make to reach her goal of losing a substantial amount of weight. She is reportedly resistant to making the changes that would be needed to lose weight; e.g. she says she needs to eat sweets because the medications she takes leave a bad taste in her mouth. Code(s): E66.9 - OBESITY, UNSPECIFIED (3) Sinus tachycardia Assessment/Plan: Largely resolved. Code(s): R00.0 - TACHYCARDIA, UNSPECIFIED (4) Bronchospasm Assessment/Plan: Pt with episode of repeated forceful coughing while be walked across the room for physical therapy; she then felt weak, was seated, and vomited partially digested food. Sinus tachycardia. Discussed with Dr. Hennessy: peak flow and incentive spirometry ordeed. Continue steroids and bronchodilators. Pt becomes highly anxious just prior to and during episodes. Code(s): J98.01 - ACUTE BRONCHOSPASM (5) Meningioma Code(s): D32.9 - BENIGN NEOPLASM OF MENINGES, UNSPECIFIED (6) Seizure Code(s): R56.9 - UNSPECIFIED CONVULSIONS (7) Atypical chest pain Code(s): R07.89 - OTHER CHEST PAIN (8) Bronchitis Code(s): J40 - BRONCHITIS, NOT SPECIFIED ACUTE OR CHRONIC (9) Sleep apnea Assessment/Plan: r/o with sleep studies per research program intern. Code(s): G47.30 - SLEEP APNEA, UNSPECIFIED (10) Hypothyroid Assessment/Plan: low TSH; normal Free T4. Code(s): E03.9 - HYPOTHYROIDISM, UNSPECIFIED (11) Dizziness Code(s): R42 - DIZZINESS AND GIDDINESS (12) Anxiety about health Assessment/Plan: r/o depression (pt says "I don't have time for depression"; however noted with periods of sad facies, reluctance to converse). Code(s): F41.8 - OTHER SPECIFIED ANXIETY DISORDERS
--- NOTE | 2018-07-15 14:28 | PN ---
Progress Note, Physician History of Present Illness: stable no new issues - Current Medication List Current Medications: Active Medications Acetaminophen (Tylenol -) 650 mg PO Q6H PRN PRN Reason: FEVER Last Admin: 07/07/18 10:12 Dose: 650 mg Albuterol Sulfate (Ventolin 0.083% Nebulizer Soln -) 1 amp NEB Q4H PRN PRN Reason: SHORT OF BREATH/WHEEZING Last Admin: 07/15/18 11:19 Dose: 1 amp Albuterol Sulfate (Ventolin 0.083% Nebulizer Soln -) 1 amp NEB RQID [facility] Budesonide/Formoterol Fumarate (Symbicort 160/4.5mcg -) 2 puff IH BID [facility] Last Admin: 07/15/18 10:04 Dose: 2 puff Diphenhydramine HCl (Benadryl -) 25 mg PO HS PRN PRN Reason: INSOMNIA Last Admin: 07/14/18 22:08 Dose: 25 mg Docusate Sodium (Colace -) 100 mg PO TID [facility] Last Admin: 07/15/18 14:07 Dose: 100 mg Guaifenesin/Codeine Phosphate (Robitussin Ac -) 10 ml PO Q8H PRN PRN Reason: COUGH Last Admin: 07/14/18 05:40 Dose: 10 ml Vancomycin HCl 1,250 mg/ (Dextrose) 250 mls @ 166.667 mls/hr IVPB Q12H [facility]; Protocol Last Admin: 07/15/18 14:07 Dose: 166.667 mls/hr Melatonin (Melatonin) 10 mg PO HS [facility] Last Admin: 07/14/18 22:00 Dose: 10 mg Methylprednisolone Sodium Succinate (Solu-Medrol -) 40 mg IVPUSH Q8H-IV [facility] Last Admin: 07/15/18 10:02 Dose: 40 mg Ondansetron HCl (Zofran Injection) 4 mg IVPUSH Q6H PRN PRN Reason: NAUSEA AND/OR VOMITING Last Admin: 07/10/18 16:04 Dose: 4 mg Polyethylene Glycol (Miralax (For Daily Use) -) 17 gm PO DAILY [facility] Last Admin: 07/15/18 10:01 Dose: 17 gm Senna (Senna -) 1 tab PO BID [facility] Last Admin: 07/15/18 10:01 Dose: 1 tab Tiotropium [place] (Spiriva Respimat) 2 puff IH DAILY [facility] Last Admin: 07/15/18 10:04 Dose: 2 puff - Objective Vital Signs: Vital Signs Temperature 98.3 F 07/15/18 14:09 Pulse Rate 91 H 07/15/18 14:09 Respiratory Rate 20 07/15/18 14:09 Blood Pressure 112/56 L 07/15/18 14:09 O2 Sat by Pulse Oximetry (%) 96 07/15/18 09:00 Constitutional: Yes: No Distress, Calm Cardiovascular: Yes: Regular Rate and Rhythm Respiratory: Yes: Regular, CTA Bilaterally Gastrointestinal: Yes: Normal Bowel Sounds, Soft Musculoskeletal: Yes: WNL Extremities: Yes: WNL Neurological: Yes: Alert, Oriented Psychiatric: Yes: Alert, Oriented Labs: CBC, BMP 07/11/18 05:30 07/11/18 05:30 INR, PTT INR 1.07 (0.83-1.09) 07/05/18 23:45 Assessment/Plan Problem List - Problems (1) Bronchospasm Code(s): J98.01 - ACUTE BRONCHOSPASM (2) Chest pain Code(s): R07.9 - CHEST PAIN, UNSPECIFIED Qualifiers: Chest pain type: unspecified Qualified Code(s): R07.9 - Chest pain, unspecified (3) URI (upper respiratory infection) Code(s): J06.9 - ACUTE UPPER RESPIRATORY INFECTION, UNSPECIFIED Qualifiers: URI type: unspecified URI Qualified Code(s): J06.9 - Acute upper respiratory infection, unspecified (4) Pleuritic chest pain Code(s): R07.81 - PLEURODYNIA (5) Seizure Code(s): R56.9 - UNSPECIFIED CONVULSIONS 6 mrsa pneumonia plan continue vanco continue current mgmt doing well rest as per the team
[2018-07-15] MEDS: ALBUTEROL SO4 0.083% IH SOL 2.5 MG/3 ML VIAL.NEB. NEB SCH ×2 (15:34→20:33)
[2018-07-15] MEDS: MELATONIN 5 MG TABLETS PO SCH (22:40)
--- NOTE | 2018-07-15 23:47 | PN ---
Progress Note, Physician History of Present Illness: No new complaints - Current Medication List Current Medications: Active Medications Acetaminophen (Tylenol -) 650 mg PO Q6H PRN PRN Reason: FEVER Last Admin: 07/07/18 10:12 Dose: 650 mg Albuterol Sulfate (Ventolin 0.083% Nebulizer Soln -) 1 amp NEB Q4H PRN PRN Reason: SHORT OF BREATH/WHEEZING Last Admin: 07/15/18 11:19 Dose: 1 amp Albuterol Sulfate (Ventolin 0.083% Nebulizer Soln -) 1 amp NEB RQID [facility] Last Admin: 07/15/18 20:33 Dose: 1 amp Budesonide/Formoterol Fumarate (Symbicort 160/4.5mcg -) 2 puff IH BID [facility] Last Admin: 07/15/18 22:41 Dose: 2 puff Diphenhydramine HCl (Benadryl -) 25 mg PO HS PRN PRN Reason: INSOMNIA Last Admin: 07/14/18 22:08 Dose: 25 mg Docusate Sodium (Colace -) 100 mg PO TID [facility] Last Admin: 07/15/18 22:40 Dose: 100 mg Guaifenesin/Codeine Phosphate (Robitussin Ac -) 10 ml PO Q8H PRN PRN Reason: COUGH Last Admin: 07/14/18 05:40 Dose: 10 ml Vancomycin HCl 1,250 mg/ (Dextrose) 250 mls @ 166.667 mls/hr IVPB Q12H [facility]; Protocol Last Admin: 07/15/18 14:07 Dose: 166.667 mls/hr Melatonin (Melatonin) 10 mg PO HS [facility] Last Admin: 07/15/18 22:40 Dose: 10 mg Methylprednisolone Sodium Succinate (Solu-Medrol -) 40 mg IVPUSH Q8H-IV [facility] Last Admin: 07/15/18 17:32 Dose: 40 mg Ondansetron HCl (Zofran Injection) 4 mg IVPUSH Q6H PRN PRN Reason: NAUSEA AND/OR VOMITING Last Admin: 07/10/18 16:04 Dose: 4 mg Polyethylene Glycol (Miralax (For Daily Use) -) 17 gm PO DAILY [facility] Last Admin: 07/15/18 10:01 Dose: 17 gm Senna (Senna -) 1 tab PO BID [facility] Last Admin: 07/15/18 22:40 Dose: 1 tab Tiotropium [place] (Spiriva Respimat) 2 puff IH DAILY [facility] Last Admin: 07/15/18 10:04 Dose: 2 puff - Objective Vital Signs: Vital Signs Temperature 98.1 F 07/15/18 22:00 Pulse Rate 90 07/15/18 22:00 Respiratory Rate 20 07/15/18 22:00 Blood Pressure 124/57 L 07/15/18 22:00 O2 Sat by Pulse Oximetry (%) 96 07/15/18 21:00 Cardiovascular: Yes: WNL, Regular Rate and Rhythm Respiratory: Yes: Diminished Gastrointestinal: Yes: WNL, Normal Bowel Sounds, Soft Labs: CBC, BMP 07/11/18 05:30 07/11/18 05:30 INR, PTT INR 1.07 (0.83-1.09) 07/05/18 23:45 Problem List - Problems (1) Bronchospasm Assessment/Plan: Sputum (+) for MRSACont IV vanco as per ID Cont IV steroids Cont nebulizers Code(s): J98.01 - ACUTE BRONCHOSPASM (2) Tachycardia Code(s): R00.0 - TACHYCARDIA, UNSPECIFIED (3) HTN (hypertension) Assessment/Plan: BP stable Not on any meds Code(s): I10 - ESSENTIAL (PRIMARY) HYPERTENSION (4) Hypothyroid Assessment/Plan: TSH is elevated ?Hyperthyroidism Endo consult Code(s): E03.9 - HYPOTHYROIDISM, UNSPECIFIED (5) Obesity Code(s): E66.9 - OBESITY, UNSPECIFIED (6) Pleuritic chest pain Assessment/Plan: Due to atelectasis Code(s): R07.81 - PLEURODYNIA (7) Elevated lactic acid level Assessment/Plan: Repeat lactic acid now normal DC IVF Code(s): R79.89 - OTHER SPECIFIED ABNORMAL FINDINGS OF BLOOD CHEMISTRY (8) Constipation Assessment/Plan: Xray showed retained stool Cont colace/miralax Code(s): K59.00 - CONSTIPATION, UNSPECIFIED
[2018-07-16] MEDS ORDERED: PT OWN MED DRAWER 7, Y5N ONE ×3 (02:06→21:15)
[2018-07-16] MEDS: methylPREDNISolone NA SUCC 40 MG/1 ML VIAL IVPUSH SCH ×3 (02:17→17:43)
[2018-07-16] MEDS: VANCOMYCIN HCL 1,250 MG in DEXTROSE 5%-WATER - 250 ML IVPB SCH ×2 (02:17→13:57)
[2018-07-16] MEDS: DOCUSATE SODIUM 100 MG CAPSULE (FP) PO SCH ×3 (06:21→21:18)
[2018-07-16] MEDS: ALBUTEROL SO4 0.083% IH SOL 2.5 MG/3 ML VIAL.NEB. NEB SCH ×4 (07:30→20:48)
[2018-07-16] MEDS: POLYETHYLENE GLYCOL 3350 119 GM BTL PO SCH (09:23)
[2018-07-16] MEDS: SENNOSIDES 8.6MG TABLET (FP) PO SCH ×2 (09:23→21:18)
[2018-07-16] MEDS: BUDESONIDE/FORMETEROL FUMARATE 160/4.5 mcg INHALER IH SCH ×2 (09:24→21:17)
[2018-07-16] MEDS: TIOTROPIUM BROMIDE 2.5 MCG (SPIRIVA) RESPIMAT INHALER IH SCH (09:25)
--- NOTE | 2018-07-16 10:12 | PN ---
Progress Note, Physician History of Present Illness: patient stable no new issues - Current Medication List Current Medications: Active Medications Acetaminophen (Tylenol -) 650 mg PO Q6H PRN PRN Reason: FEVER Last Admin: 07/07/18 10:12 Dose: 650 mg Albuterol Sulfate (Ventolin 0.083% Nebulizer Soln -) 1 amp NEB Q4H PRN PRN Reason: SHORT OF BREATH/WHEEZING Last Admin: 07/15/18 11:19 Dose: 1 amp Albuterol Sulfate (Ventolin 0.083% Nebulizer Soln -) 1 amp NEB RQID [facility] Last Admin: 07/16/18 07:30 Dose: 1 amp Budesonide/Formoterol Fumarate (Symbicort 160/4.5mcg -) 2 puff IH BID [facility] Last Admin: 07/16/18 09:24 Dose: 2 puff Diphenhydramine HCl (Benadryl -) 25 mg PO HS PRN PRN Reason: INSOMNIA Last Admin: 07/14/18 22:08 Dose: 25 mg Docusate Sodium (Colace -) 100 mg PO TID [facility] Last Admin: 07/16/18 06:21 Dose: 100 mg Guaifenesin/Codeine Phosphate (Robitussin Ac -) 10 ml PO Q8H PRN PRN Reason: COUGH Last Admin: 07/14/18 05:40 Dose: 10 ml Vancomycin HCl 1,250 mg/ (Dextrose) 250 mls @ 166.667 mls/hr IVPB Q12H [facility]; Protocol Last Admin: 07/16/18 02:17 Dose: 166.667 mls/hr Melatonin (Melatonin) 10 mg PO HS [facility] Last Admin: 07/15/18 22:40 Dose: 10 mg Methylprednisolone Sodium Succinate (Solu-Medrol -) 40 mg IVPUSH Q8H-IV [facility] Last Admin: 07/16/18 02:17 Dose: 40 mg Ondansetron HCl (Zofran Injection) 4 mg IVPUSH Q6H PRN PRN Reason: NAUSEA AND/OR VOMITING Last Admin: 07/10/18 16:04 Dose: 4 mg Polyethylene Glycol (Miralax (For Daily Use) -) 17 gm PO DAILY [facility] Last Admin: 07/16/18 09:23 Dose: 17 gm Senna (Senna -) 1 tab PO BID [facility] Last Admin: 07/16/18 09:23 Dose: 1 tab Tiotropium [place] (Spiriva Respimat) 2 puff IH DAILY [facility] Last Admin: 07/16/18 09:25 Dose: 2 puff - Objective Vital Signs: Vital Signs Temperature 97.9 F 07/16/18 05:48 Pulse Rate 81 07/16/18 05:48 Respiratory Rate 16 07/16/18 05:48 Blood Pressure 111/58 L 07/16/18 05:48 O2 Sat by Pulse Oximetry (%) 96 07/15/18 21:00 Constitutional: Yes: No Distress, Calm Cardiovascular: Yes: Regular Rate and Rhythm Respiratory: Yes: Regular, CTA Bilaterally Gastrointestinal: Yes: Normal Bowel Sounds, Soft Musculoskeletal: Yes: WNL Extremities: Yes: WNL Neurological: Yes: Alert, Oriented Psychiatric: Yes: Alert, Oriented Labs: CBC, BMP 07/11/18 05:30 07/11/18 05:30 INR, PTT INR 1.07 (0.83-1.09) 07/05/18 23:45 Assessment/Plan Problem List - Problems (1) Bronchospasm Code(s): J98.01 - ACUTE BRONCHOSPASM (2) Chest pain Code(s): R07.9 - CHEST PAIN, UNSPECIFIED Qualifiers: Chest pain type: unspecified Qualified Code(s): R07.9 - Chest pain, unspecified (3) URI (upper respiratory infection) Code(s): J06.9 - ACUTE UPPER RESPIRATORY INFECTION, UNSPECIFIED Qualifiers: URI type: unspecified URI Qualified Code(s): J06.9 - Acute upper respiratory infection, unspecified (4) Pleuritic chest pain Code(s): R07.81 - PLEURODYNIA (5) Seizure Code(s): R56.9 - UNSPECIFIED CONVULSIONS 6 mrsa pneumonia plan continue current mgmt resp support pul on board rest as per the team continue abx will d/w the team
--- NOTE | 2018-07-16 13:57 | PN ---
Progress Note, Physician History of Present Illness: pulmonary alert,comfortable,-resp distress,less wheezes - Current Medication List Current Medications: Active Medications Acetaminophen (Tylenol -) 650 mg PO Q6H PRN PRN Reason: FEVER Last Admin: 07/07/18 10:12 Dose: 650 mg Albuterol Sulfate (Ventolin 0.083% Nebulizer Soln -) 1 amp NEB Q4H PRN PRN Reason: SHORT OF BREATH/WHEEZING Last Admin: 07/15/18 11:19 Dose: 1 amp Albuterol Sulfate (Ventolin 0.083% Nebulizer Soln -) 1 amp NEB RQID [facility] Last Admin: 07/16/18 11:02 Dose: 1 amp Budesonide/Formoterol Fumarate (Symbicort 160/4.5mcg -) 2 puff IH BID [facility] Last Admin: 07/16/18 09:24 Dose: 2 puff Diphenhydramine HCl (Benadryl -) 25 mg PO HS PRN PRN Reason: INSOMNIA Last Admin: 07/14/18 22:08 Dose: 25 mg Docusate Sodium (Colace -) 100 mg PO TID [facility] Last Admin: 07/16/18 06:21 Dose: 100 mg Guaifenesin/Codeine Phosphate (Robitussin Ac -) 10 ml PO Q8H PRN PRN Reason: COUGH Last Admin: 07/14/18 05:40 Dose: 10 ml Vancomycin HCl 1,250 mg/ (Dextrose) 250 mls @ 166.667 mls/hr IVPB Q12H [facility]; Protocol Last Admin: 07/16/18 02:17 Dose: 166.667 mls/hr Melatonin (Melatonin) 10 mg PO HS [facility] Last Admin: 07/15/18 22:40 Dose: 10 mg Methylprednisolone Sodium Succinate (Solu-Medrol -) 40 mg IVPUSH Q8H-IV [facility] Last Admin: 07/16/18 11:54 Dose: 40 mg Ondansetron HCl (Zofran Injection) 4 mg IVPUSH Q6H PRN PRN Reason: NAUSEA AND/OR VOMITING Last Admin: 07/10/18 16:04 Dose: 4 mg Polyethylene Glycol (Miralax (For Daily Use) -) 17 gm PO DAILY [facility] Last Admin: 07/16/18 09:23 Dose: 17 gm Senna (Senna -) 1 tab PO BID [facility] Last Admin: 07/16/18 09:23 Dose: 1 tab Tiotropium [place] (Spiriva Respimat) 2 puff IH DAILY [facility] Last Admin: 07/16/18 09:25 Dose: 2 puff - Objective Vital Signs: Vital Signs Temperature 97.9 F 07/16/18 05:48 Pulse Rate 81 07/16/18 05:48 Respiratory Rate 18 07/16/18 09:00 Blood Pressure 111/58 L 07/16/18 05:48 O2 Sat by Pulse Oximetry (%) 97 07/16/18 09:00 Constitutional: Yes: Well Nourished, Calm Eyes: Yes: WNL HENT: Yes: WNL Neck: Yes: WNL Cardiovascular: Yes: Regular Rate and Rhythm, S1, S2 Respiratory: Yes: CTA Bilaterally Gastrointestinal: Yes: Normal Bowel Sounds, Soft Extremities: Yes: WNL Edema: No Labs: Assessment/Plan Problem List - Problems (1) Bronchospasm Code(s): J98.01 - ACUTE BRONCHOSPASM (2) Chest pain Code(s): R07.9 - CHEST PAIN, UNSPECIFIED Qualifiers: Chest pain type: unspecified Qualified Code(s): R07.9 - Chest pain, unspecified (3) URI (upper respiratory infection) Code(s): J06.9 - ACUTE UPPER RESPIRATORY INFECTION, UNSPECIFIED Qualifiers: URI type: unspecified URI Qualified Code(s): J06.9 - Acute upper respiratory infection, unspecified (4) Pleuritic chest pain Code(s): R07.81 - PLEURODYNIA (5) Seizure Code(s): R56.9 - UNSPECIFIED CONVULSIONS Assessment/Plan Do not suspect PNA. Minimal atalectatic areas in the LLL on CT imaging steroid taper Symbicort 160/4.5 BD TX O2 as needed PFTs after discharge VTE prophylaxis SPIRIVA ambulate can change to 60mg prednisone in am DR FOLEY
[2018-07-16] MEDS: MELATONIN 5 MG TABLETS PO SCH (21:18)
[2018-07-16] MEDS: diphenhydrAMINE HCL 25 MG CAPSULE (FP) PO PRN (21:21)
--- NOTE | 2018-07-16 22:23 | PN ---
Progress Note, Physician History of Present Illness: No new complaints - Current Medication List Current Medications: Active Medications Acetaminophen (Tylenol -) 650 mg PO Q6H PRN PRN Reason: FEVER Last Admin: 07/07/18 10:12 Dose: 650 mg Albuterol Sulfate (Ventolin 0.083% Nebulizer Soln -) 1 amp NEB Q4H PRN PRN Reason: SHORT OF BREATH/WHEEZING Last Admin: 07/15/18 11:19 Dose: 1 amp Albuterol Sulfate (Ventolin 0.083% Nebulizer Soln -) 1 amp NEB RQID [facility] Last Admin: 07/16/18 20:48 Dose: 1 amp Budesonide/Formoterol Fumarate (Symbicort 160/4.5mcg -) 2 puff IH BID [facility] Last Admin: 07/16/18 21:17 Dose: 2 puff Diphenhydramine HCl (Benadryl -) 25 mg PO HS PRN PRN Reason: INSOMNIA Last Admin: 07/16/18 21:21 Dose: 25 mg Docusate Sodium (Colace -) 100 mg PO TID [facility] Last Admin: 07/16/18 21:18 Dose: 100 mg Guaifenesin/Codeine Phosphate (Robitussin Ac -) 10 ml PO Q8H PRN PRN Reason: COUGH Last Admin: 07/14/18 05:40 Dose: 10 ml Vancomycin HCl 1,250 mg/ (Dextrose) 250 mls @ 166.667 mls/hr IVPB Q12H [facility]; Protocol Last Admin: 07/16/18 13:57 Dose: 166.667 mls/hr Melatonin (Melatonin) 10 mg PO HS [facility] Last Admin: 07/16/18 21:18 Dose: 10 mg Methylprednisolone (Medrol -) 8 mg PO DAILY [facility] Methylprednisolone Sodium Succinate (Solu-Medrol -) 40 mg IVPUSH Q8H-IV [facility] Stop: 07/16/18 23:00 Last Admin: 07/16/18 17:43 Dose: 40 mg Ondansetron HCl (Zofran Injection) 4 mg IVPUSH Q6H PRN PRN Reason: NAUSEA AND/OR VOMITING Last Admin: 07/10/18 16:04 Dose: 4 mg Polyethylene Glycol (Miralax (For Daily Use) -) 17 gm PO DAILY [facility] Last Admin: 07/16/18 09:23 Dose: 17 gm Senna (Senna -) 1 tab PO BID [facility] Last Admin: 07/16/18 21:18 Dose: 1 tab Tiotropium [place] (Spiriva Respimat) 2 puff IH DAILY [facility] Last Admin: 07/16/18 09:25 Dose: 2 puff - Objective Vital Signs: Vital Signs Temperature 98.0 F 07/16/18 19:58 Pulse Rate 97 H 07/16/18 19:58 Respiratory Rate 20 07/16/18 19:58 Blood Pressure 115/64 07/16/18 19:58 O2 Sat by Pulse Oximetry (%) 97 07/16/18 09:00 Neck: Yes: WNL, Supple Cardiovascular: Yes: WNL, Regular Rate and Rhythm Respiratory: Yes: WNL, Regular, CTA Bilaterally Gastrointestinal: Yes: WNL, Normal Bowel Sounds, Soft Labs: CBC, BMP 07/11/18 05:30 07/11/18 05:30 INR, PTT INR 1.07 (0.83-1.09) 07/05/18 23:45 Problem List - Problems (1) Bronchospasm Assessment/Plan: Sputum (+) for MRSA Cont IV vanco as per ID Cont IV steroids renato being decreased Cont nebulizers Code(s): J98.01 - ACUTE BRONCHOSPASM (2) Tachycardia Code(s): R00.0 - TACHYCARDIA, UNSPECIFIED (3) HTN (hypertension) Assessment/Plan: BP stable Not on any meds Code(s): I10 - ESSENTIAL (PRIMARY) HYPERTENSION (4) Hypothyroid Assessment/Plan: TSH is elevated ?Hyperthyroidism Endo consult Code(s): E03.9 - HYPOTHYROIDISM, UNSPECIFIED (5) Obesity Code(s): E66.9 - OBESITY, UNSPECIFIED (6) Pleuritic chest pain Assessment/Plan: Due to atelectasis Code(s): R07.81 - PLEURODYNIA (7) Elevated lactic acid level Assessment/Plan: Repeat lactic acid now normal DC IVF Code(s): R79.89 - OTHER SPECIFIED ABNORMAL FINDINGS OF BLOOD CHEMISTRY (8) Constipation Assessment/Plan: Xray showed retained stool Cont colace/miralax Code(s): K59.00 - CONSTIPATION, UNSPECIFIED
[2018-07-17] MEDS ORDERED: PT OWN MED DRAWER 7, Y5N ONE ×3 (01:32→18:03)
[2018-07-17] MEDS: VANCOMYCIN HCL 1,250 MG in DEXTROSE 5%-WATER - 250 ML IVPB SCH (01:38)
[2018-07-17] MEDS: DOCUSATE SODIUM 100 MG CAPSULE (FP) PO SCH ×3 (05:00→21:02)
--- NOTE | 2018-07-17 07:04 | PN ---
Progress Note, Physician Chief Complaint: Pt A&Ox3; OOB in chair; feels better (periods without dyspnea; less coughing/ wheezing). History of Present Illness: Patient is a 48 year old black female with a significant past medical history of seizures, meningioma, prior report of "heart arrhythmia", HTN (?not on medication), obesity, who presents to the ED with complaints of chest pain that began earlier today. Patient reports experiencing sudden episode of chest pain with associated symptoms of chest palpitations, shortness of breath with non productive coughing and back pain secondary to coughing, prompting her to come into the ED for further evaluation. The dyspnea and chest discomfort began two days ago, with frequent forceful cough now with whitish phlegm. She reports taking her albuterol nebulizer while at home with minimal relief after two treatments. She had an episode of vomiting, and says she had high fever ("102 F ") last night. Denies contact with sick individuals, out of state travelling. Denies dysuria, hematuria. Denies dysuria, hematuria. Denies any other symptoms. Pt required 5 days hospitalization for a similar episode of bronchitis/URI a year ago. 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 Allergies: prednisone Social history: No smoking. No alcohol. No illicit drugs. Surgical history: None PMD: Dr. Wood Orantes - Current Medication List Current Medications: Active Medications Acetaminophen (Tylenol -) 650 mg PO Q6H PRN PRN Reason: FEVER Last Admin: 07/07/18 10:12 Dose: 650 mg Albuterol Sulfate (Ventolin 0.083% Nebulizer Soln -) 1 amp NEB Q4H PRN PRN Reason: SHORT OF BREATH/WHEEZING Last Admin: 07/15/18 11:19 Dose: 1 amp Albuterol Sulfate (Ventolin 0.083% Nebulizer Soln -) 1 amp NEB RQID [facility] Last Admin: 07/16/18 20:48 Dose: 1 amp Budesonide/Formoterol Fumarate (Symbicort 160/4.5mcg -) 2 puff IH BID [facility] Last Admin: 07/16/18 21:17 Dose: 2 puff Diphenhydramine HCl (Benadryl -) 25 mg PO HS PRN PRN Reason: INSOMNIA Last Admin: 07/16/18 21:21 Dose: 25 mg Docusate Sodium (Colace -) 100 mg PO TID [facility] Last Admin: 07/17/18 05:00 Dose: 100 mg Guaifenesin/Codeine Phosphate (Robitussin Ac -) 10 ml PO Q8H PRN PRN Reason: COUGH Last Admin: 07/14/18 05:40 Dose: 10 ml Vancomycin HCl 1,250 mg/ (Dextrose) 250 mls @ 166.667 mls/hr IVPB Q12H [facility]; Protocol Last Admin: 07/17/18 01:38 Dose: 166.667 mls/hr Melatonin (Melatonin) 10 mg PO HS [facility] Last Admin: 07/16/18 21:18 Dose: 10 mg Methylprednisolone (Medrol -) 8 mg PO DAILY [facility] Ondansetron HCl (Zofran Injection) 4 mg IVPUSH Q6H PRN PRN Reason: NAUSEA AND/OR VOMITING Last Admin: 07/10/18 16:04 Dose: 4 mg Polyethylene Glycol (Miralax (For Daily Use) -) 17 gm PO DAILY [facility] Last Admin: 07/16/18 09:23 Dose: 17 gm Senna (Senna -) 1 tab PO BID [facility] Last Admin: 07/16/18 21:18 Dose: 1 tab Tiotropium [place] (Spiriva Respimat) 2 puff IH DAILY [facility] Last Admin: 07/16/18 09:25 Dose: 2 puff - Objective Vital Signs: Vital Signs Temperature 98.0 F 07/16/18 19:58 Pulse Rate 97 H 07/16/18 19:58 Respiratory Rate 20 07/16/18 19:58 Blood Pressure 115/64 07/16/18 19:58 O2 Sat by Pulse Oximetry (%) 97 07/16/18 09:00 Constitutional: Yes: Calm Eyes: Yes: WNL HENT: Yes: WNL Neck: Yes: WNL Cardiovascular: Yes: Regular Rate and Rhythm, S1, S2 Respiratory: Yes: WNL Gastrointestinal: Yes: Soft, Abdomen, Obese ...Rectal Exam: Yes: Deferred Genitourinary: No: Anuria Breast(s): Yes: WNL Musculoskeletal: Yes: Muscle Weakness Extremities: Yes: WNL Edema: No Peripheral Pulses WNL: Yes Integumentary: Yes: WNL Neurological: Yes: WNL ...Motor Strength: WNL Psychiatric: Yes: Alert, Oriented, Other (anxiety) Labs: CBC, BMP 07/11/18 05:30 07/11/18 05:30 INR, PTT INR 1.07 (0.83-1.09) 07/05/18 23:45 - ....Imaging Chest X-ray: Image Reviewed EKG: Image Reviewed (NSR; normal study) Problem List - Problems (1) HTN (hypertension) Assessment/Plan: Initially elevated (when pt is great pain and respiratory distress); now low to normal. ECHO: normal LVEF; no significant pulmonary HTN noted. Code(s): I10 - ESSENTIAL (PRIMARY) HYPERTENSION (2) Obesity Assessment/Plan: Pt seen by oxide furnace tender; pt is trying to understand what changes she will have to make to reach her goal of losing a substantial amount of weight. She is reportedly resistant to making the changes that would be needed to lose weight; e.g. she says she needs to eat sweets because the medications she takes leave a bad taste in her mouth. She has ideas of why she is overweight that primarily focus on other issues than food (she feels she does not eat very much ; wants to change to higher protein diet). Code(s): E66.9 - OBESITY, UNSPECIFIED (3) Sinus tachycardia Assessment/Plan: Largely resolved. Code(s): R00.0 - TACHYCARDIA, UNSPECIFIED (4) Bronchospasm Assessment/Plan: Pt with episode of repeated forceful coughing a few days ago while be walked across the room for physical therapy; she then felt weak, was seated, and vomited partially digested food. Sinus tachycardia. Discussed with Dr. Hennessy at the time: peak flow and incentive spirometry ordered. Continue steroids and bronchodilators. Pt becomes highly anxious just prior to and during episodes. No further major episodes. Code(s): J98.01 - ACUTE BRONCHOSPASM (5) Meningioma Code(s): D32.9 - BENIGN NEOPLASM OF MENINGES, UNSPECIFIED (6) Seizure Code(s): R56.9 - UNSPECIFIED CONVULSIONS (7) Atypical chest pain Assessment/Plan: TNI < 0.02 x 2. EKG: sinus tachycardia; no acute ST-T changes. No hx cardiac disease. ECHO: normal LVEF; no regional wall motion abnormalities mentioned. Pt says she had a stress test within the past year at Ds office that was normal; f/u results. Code(s): R07.89 - OTHER CHEST PAIN (8) Bronchitis Assessment/Plan: Steriods, O2, bronchodilators per ct scan special procedures technologist. Off antibiotics; now afebrile. Pt has had several episodes of respiratory distress in the past 12 months; she has agreed to f/u with ct scan special procedures technologist as outpatient. ?psychological component to repeated bouts of prolonged cough, resulting at times in vagal reaction. Code(s): J40 - BRONCHITIS, NOT SPECIFIED ACUTE OR CHRONIC (9) Sleep apnea Assessment/Plan: r/o with sleep studies per ct scan special procedures technologist. Code(s): G47.30 - SLEEP APNEA, UNSPECIFIED (10) Hypothyroid Assessment/Plan: low TSH; normal Free T4. Code(s): E03.9 - HYPOTHYROIDISM, UNSPECIFIED (11) Dizziness Assessment/Plan: episode earlier this week likely related to orthostatic dysfunction (pt has not had physical therapy or been up much for the past 2 weeks). O2 sat WNL duerng episode; BP, initially hypotensive, returned to normal quickly. F/u orthostatic VS. Encourage PO fluids. Telemetry: NSR; few periods of sinus tachycardia. Physical rehabilitation. Code(s): R42 - DIZZINESS AND GIDDINESS (12) Anxiety about health Assessment/Plan: r/o depression (pt says "I don't have time for depression"; however noted with periods of sad facies, reluctance to converse). Code(s): F41.8 - OTHER SPECIFIED ANXIETY DISORDERS
[2018-07-17] MEDS: ALBUTEROL SO4 0.083% IH SOL 2.5 MG/3 ML VIAL.NEB. NEB SCH ×3 (07:40→20:14)
--- NOTE | 2018-07-17 08:56 | PN ---
Progress Note, Physician History of Present Illness: Patient is a 48 year old black female with a significant past medical history of seizures, meningioma, prior report of heart arrhythmia, HTN (?not on medication), obesity, who presents to the ED with complaints of chest pain that began earlier today. Patient reports experiencing sudden episode of chest pain with associated symptoms of chest palpitations, shortness of breath with non productive coughing and back pain secondary to coughing, prompting her to come into the ED for further evaluation. The dyspnea and chest discomfort began two days ago, with frequent forceful cough now with whitish phlegm. She reports taking her albuterol nebulizer while at home with minimal relief after two treatments. She had an episode of vomiting, and says she had high fever ("102 F ") last night. Denies contact with sick individuals, out of state travelling. Denies dysuria, hematuria. Denies dysuria, hematuria. Denies any other symptoms. Pt required 5 days hospitalization for a similar episode of bronchitis/URI a year ago. 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 Allergies: prednisone Social history: No smoking. No alcohol. No illicit drugs. Surgical history: None PMD: Dr. Wood Orantes - Current Medication List Current Medications: Active Medications Acetaminophen (Tylenol -) 650 mg PO Q6H PRN PRN Reason: FEVER Last Admin: 07/07/18 10:12 Dose: 650 mg Albuterol Sulfate (Ventolin 0.083% Nebulizer Soln -) 1 amp NEB Q4H PRN PRN Reason: SHORT OF BREATH/WHEEZING Last Admin: 07/15/18 11:19 Dose: 1 amp Albuterol Sulfate (Ventolin 0.083% Nebulizer Soln -) 1 amp NEB RQID [facility] Last Admin: 07/17/18 07:40 Dose: 1 amp Budesonide/Formoterol Fumarate (Symbicort 160/4.5mcg -) 2 puff IH BID [facility] Last Admin: 07/16/18 21:17 Dose: 2 puff Diphenhydramine HCl (Benadryl -) 25 mg PO HS PRN PRN Reason: INSOMNIA Last Admin: 07/16/18 21:21 Dose: 25 mg Docusate Sodium (Colace -) 100 mg PO TID [facility] Last Admin: 07/17/18 05:00 Dose: 100 mg Guaifenesin/Codeine Phosphate (Robitussin Ac -) 10 ml PO Q8H PRN PRN Reason: COUGH Last Admin: 07/14/18 05:40 Dose: 10 ml Vancomycin HCl 1,250 mg/ (Dextrose) 250 mls @ 166.667 mls/hr IVPB Q12H [facility]; Protocol Last Admin: 07/17/18 01:38 Dose: 166.667 mls/hr Melatonin (Melatonin) 10 mg PO HS [facility] Last Admin: 07/16/18 21:18 Dose: 10 mg Methylprednisolone (Medrol -) 8 mg PO DAILY [facility] Ondansetron HCl (Zofran Injection) 4 mg IVPUSH Q6H PRN PRN Reason: NAUSEA AND/OR VOMITING Last Admin: 07/10/18 16:04 Dose: 4 mg Polyethylene Glycol (Miralax (For Daily Use) -) 17 gm PO DAILY [facility] Last Admin: 07/16/18 09:23 Dose: 17 gm Senna (Senna -) 1 tab PO BID [facility] Last Admin: 07/16/18 21:18 Dose: 1 tab Tiotropium [place] (Spiriva Respimat) 2 puff IH DAILY [facility] Last Admin: 07/16/18 09:25 Dose: 2 puff - Objective Vital Signs: Vital Signs Temperature 97.9 F 07/17/18 06:00 Pulse Rate 73 07/17/18 06:00 Respiratory Rate 18 07/17/18 06:00 Blood Pressure 102/55 L 07/17/18 06:00 O2 Sat by Pulse Oximetry (%) 97 07/16/18 09:00 Eyes: Yes: WNL, Conjunctiva Clear, EOM Intact HENT: Yes: WNL, Atraumatic, Normocephalic Neck: Yes: WNL, Supple, Trachea Midline Cardiovascular: Yes: WNL, Regular Rate and Rhythm Respiratory: Yes: WNL, Regular, CTA Bilaterally Gastrointestinal: Yes: WNL, Normal Bowel Sounds Genitourinary: Yes: WNL Musculoskeletal: Yes: WNL Extremities: Yes: WNL Edema: No Integumentary: Yes: WNL Neurological: Yes: WNL, Alert, Oriented ...Motor Strength: WNL Psychiatric: Yes: WNL Labs: CBC, BMP 07/11/18 05:30 07/11/18 05:30 INR, PTT INR 1.07 (0.83-1.09) 07/05/18 23:45 Assessment/Plan - Problems (1) HTN (hypertension) Assessment/Plan: Initially elevated (when pt is great pain and respiratory distress); now low to normal. ECHO: normal LVEF; no significant pulmonary HTN noted. Code(s): I10 - ESSENTIAL (PRIMARY) HYPERTENSION (2) Obesity Assessment/Plan: Pt seen by live truck technician; pt is trying to understand what changes she will have to make to reach her goal of losing a substantial amount of weight. She is reportedly resistant to making the changes that would be needed to lose weight; e.g. she says she needs to eat sweets because the medications she takes leave a bad taste in her mouth. She has ideas of why she is overweight that primarily focus on other issues than food (she feels she does not eat very much ; wants to change to higher protein diet). Code(s): E66.9 - OBESITY, UNSPECIFIED (3) Sinus tachycardia Assessment/Plan: Largely resolved. Code(s): R00.0 - TACHYCARDIA, UNSPECIFIED (4) Bronchospasm Assessment/Plan: Pt with episode of repeated forceful coughing a few days ago while be walked across the room for physical therapy; she then felt weak, was seated, and vomited partially digested food. Sinus tachycardia. Discussed with Dr. Hennessy at the time: peak flow and incentive spirometry ordered. Continue steroids and bronchodilators. Pt becomes highly anxious just prior to and during episodes. No further major episodes. Code(s): J98.01 - ACUTE BRONCHOSPASM (5) Meningioma Code(s): D32.9 - BENIGN NEOPLASM OF MENINGES, UNSPECIFIED (6) Seizure Code(s): R56.9 - UNSPECIFIED CONVULSIONS (7) Atypical chest pain Assessment/Plan: TNI < 0.02 x 2. EKG: sinus tachycardia; no acute ST-T changes. No hx cardiac disease. ECHO: normal LVEF; no regional wall motion abnormalities mentioned. Pt says she had a stress test within the past year at Ds office that was normal; f/u results. Code(s): R07.89 - OTHER CHEST PAIN (8) Bronchitis Assessment/Plan: Steriods, O2, bronchodilators per hr internship. Off antibiotics; now afebrile. Pt has had several episodes of respiratory distress in the past 12 months; she has agreed to f/u with hr internship as outpatient. ?psychological component to repeated bouts of prolonged cough, resulting at times in vagal reaction. Code(s): J40 - BRONCHITIS, NOT SPECIFIED ACUTE OR CHRONIC (9) Sleep apnea Assessment/Plan: r/o with sleep studies per hr internship. Code(s): G47.30 - SLEEP APNEA, UNSPECIFIED (10) Hypothyroid Assessment/Plan: low TSH; normal Free T4. Code(s): E03.9 - HYPOTHYROIDISM, UNSPECIFIED (11) Dizziness Assessment/Plan: episode earlier this week likely related to orthostatic dysfunction (pt has not had physical therapy or been up much for the past 2 weeks). O2 sat WNL duerng episode; BP, initially hypotensive, returned to normal quickly. F/u orthostatic VS. Encourage PO fluids. Telemetry: NSR; few periods of sinus tachycardia. Physical rehabilitation. Code(s): R42 - DIZZINESS AND GIDDINESS (12) Anxiety about health Assessment/Plan: r/o depression (pt says "I don't have time for depression"; however noted with periods of sad facies, reluctance to converse). Code(s): F41.8 - OTHER SPECIFIED ANXIETY DISORDERS
[2018-07-17] MEDS ORDERED: predniSONE 20 MG TABLET (UD) PO SCH (10:00)
[2018-07-17] MEDS ORDERED: methylPREDNISolone 4 MG TABLET PO SCH (10:00)
[2018-07-17] MEDS: SENNOSIDES 8.6MG TABLET (FP) PO SCH ×2 (10:25→21:03)
[2018-07-17] MEDS: POLYETHYLENE GLYCOL 3350 119 GM BTL PO SCH (10:27)
[2018-07-17] MEDS: BUDESONIDE/FORMETEROL FUMARATE 160/4.5 mcg INHALER IH SCH ×2 (10:28→21:04)
[2018-07-17] MEDS: TIOTROPIUM BROMIDE 2.5 MCG (SPIRIVA) RESPIMAT INHALER IH SCH (10:28)
[2018-07-17] MEDS ORDERED: ACETAMINOPHEN 325 MG TABLET (FP) PO PRN (11:54)
[2018-07-17] MEDS ORDERED: ALBUTEROL SO4 0.083% IH SOL 2.5 MG/3 ML VIAL.NEB. NEB PRN ×2 (11:54→12:16)
[2018-07-17] MEDS ORDERED: ONDANSETRON 4 MG/2 ML VIAL IVPUSH PRN ×2 (11:54→12:16)
[2018-07-17] MEDS ORDERED: diphenhydrAMINE HCL 25 MG CAPSULE (FP) PO PRN (11:54)
[2018-07-17] MEDS ORDERED: guaiFENesin/CODEINE 5 ML UNIT-DOSE CUPS PO PRN ×2 (11:54→12:16)
--- NOTE | 2018-07-17 11:56 | PN ---
Progress Note (short form) - Note Progress Note: covering for Dr Ricco velasquez seen and examined in room sitting in chair - c/o palpitation and chest tightness similar event this am about 8am -- not associated with nebulizer treatment no diaphoresis / no nausea Vital Signs Period Temp Pulse Resp BP Sys/Krishnamurthy Pulse Ox Last 24 Hr 97.6 F-98.3 F 73-106 16-20 102-125/55-69 neck supple heart S1/2 tachy (116hr ) lungs cler bilat good air movement abd obese ext FROM CBC, BMP 07/11/18 05:30 07/11/18 05:30 Microbiology 07/12/18 10:30 Sputum - Expectorated Gram Stain - Final 07/12/18 10:30 Sputum - Expectorated Sputum Culture - Final S Aureus 07/05/18 23:45 Blood - Peripheral Venous Blood Culture - Final NO GROWTH AFTER 5 DAYS INCUBATION 07/05/18 23:40 Blood - Peripheral Venous Blood Culture - Final NO GROWTH AFTER 5 DAYS INCUBATION 07/06/18 01:42 Urine - Urine Clean Catch Urine Culture - Final Contaminated: Please Repeat Active Medications Acetaminophen (Tylenol -) 650 mg PO Q6H PRN PRN Reason: FEVER Last Admin: 07/07/18 10:12 Dose: 650 mg Albuterol Sulfate (Ventolin 0.083% Nebulizer Soln -) 1 amp NEB Q4H PRN PRN Reason: SHORT OF BREATH/WHEEZING Last Admin: 07/15/18 11:19 Dose: 1 amp Albuterol Sulfate (Ventolin 0.083% Nebulizer Soln -) 1 amp NEB RQID [facility] Last Admin: 07/17/18 07:40 Dose: 1 amp Budesonide/Formoterol Fumarate (Symbicort 160/4.5mcg -) 2 puff IH BID [facility] Last Admin: 07/17/18 10:28 Dose: 2 puff Diphenhydramine HCl (Benadryl -) 25 mg PO HS PRN PRN Reason: INSOMNIA Last Admin: 07/16/18 21:21 Dose: 25 mg Docusate Sodium (Colace -) 100 mg PO TID [facility] Last Admin: 07/17/18 05:00 Dose: 100 mg Guaifenesin/Codeine Phosphate (Robitussin Ac -) 10 ml PO Q8H PRN PRN Reason: COUGH Last Admin: 07/14/18 05:40 Dose: 10 ml Vancomycin HCl 1,250 mg/ (Dextrose) 250 mls @ 166.667 mls/hr IVPB Q12H [facility]; Protocol Last Admin: 07/17/18 01:38 Dose: 166.667 mls/hr Melatonin (Melatonin) 10 mg PO HS [facility] Last Admin: 07/16/18 21:18 Dose: 10 mg Methylprednisolone (Medrol -) 8 mg PO DAILY [facility] Last Admin: 07/17/18 10:27 Dose: 8 mg Ondansetron HCl (Zofran Injection) 4 mg IVPUSH Q6H PRN PRN Reason: NAUSEA AND/OR VOMITING Last Admin: 07/10/18 16:04 Dose: 4 mg Polyethylene Glycol (Miralax (For Daily Use) -) 17 gm PO DAILY [facility] Last Admin: 07/17/18 10:27 Dose: 17 gm Senna (Senna -) 1 tab PO BID [facility] Last Admin: 07/17/18 10:25 Dose: 1 tab Tiotropium [place] (Spiriva Respimat) 2 puff IH DAILY [facility] Last Admin: 07/17/18 10:28 Dose: 2 puff # Asthma exacerbation neb / inh steroids on tapering steroids # Tachycardia symptomatic hx of cardiac arrhythmia ? associated with neb tx ? will resume telemetry review med - # Obesity discussed weight loss # HTN improved control contiue to monitor Problem List - Problems (1) Tachycardia Code(s): R00.0 - TACHYCARDIA, UNSPECIFIED (2) Atypical chest pain Code(s): R07.89 - OTHER CHEST PAIN (3) Chest pain Code(s): R07.9 - CHEST PAIN, UNSPECIFIED Qualifiers: Chest pain type: unspecified Qualified Code(s): R07.9 - Chest pain, unspecified (4) Asthmatic bronchitis Code(s): J45.909 - UNSPECIFIED ASTHMA, UNCOMPLICATED (5) HTN (hypertension) Code(s): I10 - ESSENTIAL (PRIMARY) HYPERTENSION (6) Obesity Code(s): E66.9 - OBESITY, UNSPECIFIED (7) Sinus tachycardia Code(s): R00.0 - TACHYCARDIA, UNSPECIFIED (8) DVT prophylaxis Code(s): MDA0285 - (9) Meningioma Code(s): D32.9 - BENIGN NEOPLASM OF MENINGES, UNSPECIFIED
[2018-07-17] MEDS ORDERED: ALBUTEROL SO4 0.083% IH SOL 2.5 MG/3 ML VIAL.NEB. NEB SCH (12:00)
--- NOTE | 2018-07-17 13:39 | PN ---
Progress Note (short form) - Note Progress Note: PULMONARY Still with some shortness of breath and chest tightness. Occasional wheezing. Vital Signs Period Temp Pulse Resp BP Sys/Krishnamurthy Pulse Ox Last 24 Hr 97.6 F-98.3 F 73-106 16-20 102-125/55-69 96 Gen: NAD at rest Heart: RRR Lung: decreased breath sounds at the bases, no wheezes Abd: soft, nontender Ext: no edema CBC, BMP 07/11/18 05:30 07/11/18 05:30 Active Medications Acetaminophen (Tylenol -) 650 mg PO Q6H PRN PRN Reason: FEVER Albuterol Sulfate (Ventolin 0.083% Nebulizer Soln -) 1 amp NEB Q4H PRN PRN Reason: SHORT OF BREATH/WHEEZING Last Admin: 07/17/18 11:15 Dose: 1 amp Albuterol Sulfate (Ventolin 0.083% Nebulizer Soln -) 1 amp NEB RQID [facility] Budesonide/Formoterol Fumarate (Symbicort 160/4.5mcg -) 2 puff IH BID [facility] Diphenhydramine HCl (Benadryl -) 25 mg PO HS PRN PRN Reason: INSOMNIA Docusate Sodium (Colace -) 100 mg PO TID [facility] Guaifenesin/Codeine Phosphate (Robitussin Ac -) 10 ml PO Q8H PRN PRN Reason: COUGH Vancomycin HCl 1,250 mg/ (Dextrose) 250 mls @ 166.667 mls/hr IVPB Q12H [facility]; Protocol Melatonin (Melatonin) 10 mg PO HS [facility] Methylprednisolone (Medrol -) 8 mg PO DAILY [facility] Ondansetron HCl (Zofran Injection) 4 mg IVPUSH Q6H PRN PRN Reason: NAUSEA AND/OR VOMITING Polyethylene Glycol (Miralax (For Daily Use) -) 17 gm PO DAILY [facility] Senna (Senna -) 1 tab PO BID [facility] Tiotropium [place] (Spiriva Respimat) 2 puff IH DAILY [facility] A/P URI/Acute Bronchitis Acute Bronchospasm - medrol taper - inhaled bronchodilators - outpt PFTs - DVT prophylaxis - can d/c home from pulmonary standpoint
[2018-07-17] MEDS ORDERED: VANCOMYCIN HCL 1,250 MG in DEXTROSE 5%-WATER - 250 ML IVPB SCH (14:00)
[2018-07-17] MEDS ORDERED: DOCUSATE SODIUM 100 MG CAPSULE (FP) PO SCH (14:00)
[2018-07-17] MEDS: diphenhydrAMINE HCL 25 MG CAPSULE (FP) PO PRN ×2 (14:11→21:02)
--- NOTE | 2018-07-17 14:52 | PN ---
Progress Note, Physician History of Present Illness: Pt seen and examined, events noted, labs/imaging results reviewed. She states she still feels unable to take deep breaths, has cough with clear sputum production and feels overall uncomfortable. Remains afebrile. - Current Medication List Current Medications: Active Medications Acetaminophen (Tylenol -) 650 mg PO Q6H PRN PRN Reason: FEVER Albuterol Sulfate (Ventolin 0.083% Nebulizer Soln -) 1 amp NEB Q4H PRN PRN Reason: SHORT OF BREATH/WHEEZING Last Admin: 07/17/18 11:15 Dose: 1 amp Albuterol Sulfate (Ventolin 0.083% Nebulizer Soln -) 1 amp NEB RQID [facility] Budesonide/Formoterol Fumarate (Symbicort 160/4.5mcg -) 2 puff IH BID [facility] Diphenhydramine HCl (Benadryl -) 25 mg PO HS PRN PRN Reason: INSOMNIA Last Admin: 07/17/18 14:11 Dose: 25 mg Docusate Sodium (Colace -) 100 mg PO TID [facility] Last Admin: 07/17/18 13:53 Dose: 100 mg Guaifenesin/Codeine Phosphate (Robitussin Ac -) 10 ml PO Q8H PRN PRN Reason: COUGH Vancomycin HCl 1,250 mg/ (Dextrose) 250 mls @ 166.667 mls/hr IVPB Q12H [facility]; Protocol Last Admin: 07/17/18 14:02 Dose: 166.667 mls/hr Melatonin (Melatonin) 10 mg PO HS [facility] Methylprednisolone (Medrol -) 8 mg PO DAILY [facility] Ondansetron HCl (Zofran Injection) 4 mg IVPUSH Q6H PRN PRN Reason: NAUSEA AND/OR VOMITING Polyethylene Glycol (Miralax (For Daily Use) -) 17 gm PO DAILY [facility] Senna (Senna -) 1 tab PO BID [facility] Tiotropium [place] (Spiriva Respimat) 2 puff IH DAILY [facility] - Objective Vital Signs: Vital Signs Temperature 97.6 F 07/17/18 10:38 Pulse Rate 106 H 07/17/18 10:38 Respiratory Rate 07/17/18 10:38 Blood Pressure 118/69 07/17/18 10:38 O2 Sat by Pulse Oximetry (%) 96 07/17/18 09:00 Constitutional: Yes: No Distress, Calm Cardiovascular: Yes: Regular Rate and Rhythm Respiratory: Yes: Wheezes (expiratory wheeze) Gastrointestinal: Yes: Normal Bowel Sounds, Soft Genitourinary: Yes: WNL Integumentary: Yes: WNL Neurological: Yes: Alert, Oriented Labs: CBC, BMP 07/11/18 05:30 07/11/18 05:30 INR, PTT INR 1.07 (0.83-1.09) 07/05/18 23:45 - ....Imaging Chest X-ray: Report Reviewed Problem List - Problems (1) Bronchitis Code(s): J40 - BRONCHITIS, NOT SPECIFIED ACUTE OR CHRONIC (2) Bronchospasm Code(s): J98.01 - ACUTE BRONCHOSPASM (3) HTN (hypertension) Code(s): I10 - ESSENTIAL (PRIMARY) HYPERTENSION (4) Hypothyroid Code(s): E03.9 - HYPOTHYROIDISM, UNSPECIFIED (5) Obesity Code(s): E66.9 - OBESITY, UNSPECIFIED (6) Seizure Code(s): R56.9 - UNSPECIFIED CONVULSIONS Assessment/Plan d/c Vancomycin, switch to Doxycycline po for now Will re-assess need for antibiotics, sputum Cx +MRSA with slow clinical improvement On steroids, O2 Continue monitor
--- NOTE | 2018-07-17 17:02 | EKG ---
Test Reason : Blood Pressure : / mmHG Vent. Rate : 106 BPM Atrial Rate : 106 BPM P-R Int : 154 ms QRS Dur : 078 ms QT Int : 320 ms P-R-T Axes : 067 050 003 degrees QTc Int : 425 ms SINUS TACHYCARDIA NONSPECIFIC ST AND T WAVE ABNORMALITY ABNORMAL ECG WHEN COMPARED WITH ECG OF 11-JUL-2018 13:44, NO SIGNIFICANT CHANGE WAS FOUND Confirmed by MARIA ELENA HASKINS, ROSEMARY ([id number]) on 07/17/2018 5:02:31 PM Referred By: Catherine ARITA Confirmed By:ROSEMARY ARREDONDO MD
[2018-07-17] MEDS: DOXYCYCLINE HYCLATE 100 MG CAPSULE PO SCH (18:08)
[2018-07-17] MEDS: MELATONIN 5 MG TABLETS PO SCH (21:02)
[2018-07-17] MEDS ORDERED: MELATONIN 5 MG TABLETS PO SCH (22:00)
[2018-07-17] MEDS ORDERED: SENNOSIDES 8.6MG TABLET (FP) PO SCH (22:00)
[2018-07-17] MEDS ORDERED: BUDESONIDE/FORMETEROL FUMARATE 160/4.5 mcg INHALER IH SCH (22:00)
[2018-07-18] MEDS: ACETAMINOPHEN 325 MG TABLET (FP) PO PRN ×2 (00:41→10:51)
[2018-07-18] MEDS: DOCUSATE SODIUM 100 MG CAPSULE (FP) PO SCH ×3 (05:30→21:11)
[2018-07-18] MEDS: ALBUTEROL SO4 0.083% IH SOL 2.5 MG/3 ML VIAL.NEB. NEB SCH ×4 (07:45→21:10)
--- NOTE | 2018-07-18 08:45 | PN ---
Progress Note, Physician History of Present Illness: Patient is a 48 year old black female with a significant past medical history of seizures, meningioma, prior report of heart arrhythmia, HTN (?not on medication), obesity, who presents to the ED with complaints of chest pain that began earlier today. Patient reports experiencing sudden episode of chest pain with associated symptoms of chest palpitations, shortness of breath with non productive coughing and back pain secondary to coughing, prompting her to come into the ED for further evaluation. The dyspnea and chest discomfort began two days ago, with frequent forceful cough now with whitish phlegm. She reports taking her albuterol nebulizer while at home with minimal relief after two treatments. She had an episode of vomiting, and says she had high fever ("102 F ") last night. Denies contact with sick individuals, out of state travelling. Denies dysuria, hematuria. Denies dysuria, hematuria. Denies any other symptoms. Pt required 5 days hospitalization for a similar episode of bronchitis/URI a year ago. 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 Allergies: prednisone Social history: No smoking. No alcohol. No illicit drugs. Surgical history: None PMD: Dr. Wood Orantes - Current Medication List Current Medications: Active Medications Acetaminophen (Tylenol -) 650 mg PO Q6H PRN PRN Reason: FEVER Last Admin: 07/18/18 00:41 Dose: 650 mg Albuterol Sulfate (Ventolin 0.083% Nebulizer Soln -) 1 amp NEB Q4H PRN PRN Reason: SHORT OF BREATH/WHEEZING Last Admin: 07/17/18 11:15 Dose: 1 amp Albuterol Sulfate (Ventolin 0.083% Nebulizer Soln -) 1 amp NEB RQID [facility] Last Admin: 07/18/18 07:45 Dose: 1 amp Budesonide/Formoterol Fumarate (Symbicort 160/4.5mcg -) 2 puff IH BID [facility] Last Admin: 07/17/18 21:04 Dose: 2 puff Diphenhydramine HCl (Benadryl -) 25 mg PO HS PRN PRN Reason: INSOMNIA Last Admin: 07/17/18 21:02 Dose: 25 mg Docusate Sodium (Colace -) 100 mg PO TID [facility] Last Admin: 07/18/18 05:30 Dose: 100 mg Doxycycline Hyclate (Vibramycin -) 100 mg PO BID@1000,1800 [facility] Last Admin: 07/17/18 18:08 Dose: 100 mg Guaifenesin/Codeine Phosphate (Robitussin Ac -) 10 ml PO Q8H PRN PRN Reason: COUGH Melatonin (Melatonin) 10 mg PO HS [facility] Last Admin: 07/17/18 21:02 Dose: 10 mg Methylprednisolone (Medrol -) 8 mg PO DAILY [facility] Ondansetron HCl (Zofran Injection) 4 mg IVPUSH Q6H PRN PRN Reason: NAUSEA AND/OR VOMITING Polyethylene Glycol (Miralax (For Daily Use) -) 17 gm PO DAILY [facility] Senna (Senna -) 1 tab PO BID [facility] Last Admin: 07/17/18 21:03 Dose: 1 tab Tiotropium [place] (Spiriva Respimat) 2 puff IH DAILY [facility] - Objective Vital Signs: Vital Signs Temperature 98.3 F 07/18/18 06:58 Pulse Rate 91 H 07/18/18 06:58 Respiratory Rate 20 07/18/18 06:58 Blood Pressure 116/54 L 07/18/18 06:58 O2 Sat by Pulse Oximetry (%) 96 07/17/18 20:26 Eyes: Yes: WNL, Conjunctiva Clear, EOM Intact HENT: Yes: WNL, Atraumatic, Normocephalic Neck: Yes: WNL, Supple, Trachea Midline Cardiovascular: Yes: Regular Rate and Rhythm, Tachycardia Respiratory: Yes: WNL, Regular, CTA Bilaterally Gastrointestinal: Yes: WNL, Normal Bowel Sounds Genitourinary: Yes: WNL Musculoskeletal: Yes: WNL Extremities: Yes: WNL Edema: No Integumentary: Yes: WNL Neurological: Yes: WNL, Alert, Oriented ...Motor Strength: WNL Psychiatric: Yes: WNL Labs: CBC, BMP 07/11/18 05:30 07/11/18 05:30 INR, PTT INR 1.07 (0.83-1.09) 07/05/18 23:45 Assessment/Plan - Problems (1) HTN (hypertension) Assessment/Plan: Initially elevated (when pt is great pain and respiratory distress); now low to normal. ECHO: normal LVEF; no significant pulmonary HTN noted. Code(s): I10 - ESSENTIAL (PRIMARY) HYPERTENSION (2) Obesity Assessment/Plan: Pt seen by car usher; pt is trying to understand what changes she will have to make to reach her goal of losing a substantial amount of weight. She is reportedly resistant to making the changes that would be needed to lose weight; e.g. she says she needs to eat sweets because the medications she takes leave a bad taste in her mouth. She has ideas of why she is overweight that primarily focus on other issues than food (she feels she does not eat very much ; wants to change to higher protein diet). Code(s): E66.9 - OBESITY, UNSPECIFIED (3) Sinus tachycardia Assessment/Plan: Largely resolved. Code(s): R00.0 - TACHYCARDIA, UNSPECIFIED (4) Bronchospasm Assessment/Plan: Pt with episode of repeated forceful coughing a few days ago while be walked across the room for physical therapy; she then felt weak, was seated, and vomited partially digested food. Sinus tachycardia. Discussed with Dr. Hennessy at the time: peak flow and incentive spirometry ordered. Continue steroids and bronchodilators. Pt becomes highly anxious just prior to and during episodes. No further major episodes. Code(s): J98.01 - ACUTE BRONCHOSPASM (5) Meningioma Code(s): D32.9 - BENIGN NEOPLASM OF MENINGES, UNSPECIFIED (6) Seizure Code(s): R56.9 - UNSPECIFIED CONVULSIONS (7) Atypical chest pain Assessment/Plan: TNI < 0.02 x 2. EKG: sinus tachycardia; no acute ST-T changes. No hx cardiac disease. ECHO: normal LVEF; no regional wall motion abnormalities mentioned. Pt says she had a stress test within the past year at Ds office that was normal; f/u results. Code(s): R07.89 - OTHER CHEST PAIN (8) Bronchitis Assessment/Plan: Steriods, O2, bronchodilators per head kiln operator. Off antibiotics; now afebrile. Pt has had several episodes of respiratory distress in the past 12 months; she has agreed to f/u with head kiln operator as outpatient. ?psychological component to repeated bouts of prolonged cough, resulting at times in vagal reaction. Code(s): J40 - BRONCHITIS, NOT SPECIFIED ACUTE OR CHRONIC (9) Sleep apnea Assessment/Plan: r/o with sleep studies per head kiln operator. Code(s): G47.30 - SLEEP APNEA, UNSPECIFIED (10) Hypothyroid Assessment/Plan: low TSH; normal Free T4. Code(s): E03.9 - HYPOTHYROIDISM, UNSPECIFIED (11) Dizziness Assessment/Plan: episode earlier this week likely related to orthostatic dysfunction (pt has not had physical therapy or been up much for the past 2 weeks). O2 sat WNL duerng episode; BP, initially hypotensive, returned to normal quickly. F/u orthostatic VS. Encourage PO fluids. Telemetry: NSR; few periods of sinus tachycardia. Physical rehabilitation. Code(s): R42 - DIZZINESS AND GIDDINESS (12) Anxiety about health Assessment/Plan: r/o depression (pt says "I don't have time for depression"; however noted with periods of sad facies, reluctance to converse). Sinus Tachycardia-most likely due to infection/bronchitis - telemetry - Sinus tachy, up yto 120, 24 holter pending
[2018-07-18] MEDS ORDERED: TIOTROPIUM BROMIDE 2.5 MCG (SPIRIVA) RESPIMAT INHALER IH SCH (10:00)
[2018-07-18] MEDS ORDERED: methylPREDNISolone 4 MG TABLET PO SCH (10:00)
[2018-07-18] MEDS ORDERED: POLYETHYLENE GLYCOL 3350 119 GM BTL PO SCH (10:00)
[2018-07-18] MEDS ORDERED: PT OWN MED DRAWER 7, Y5N ONE ×2 (10:25→18:21)
[2018-07-18] MEDS: POLYETHYLENE GLYCOL 3350 119 GM BTL PO SCH (10:33)
[2018-07-18] MEDS: BUDESONIDE/FORMETEROL FUMARATE 160/4.5 mcg INHALER IH SCH ×2 (10:34→21:11)
[2018-07-18] MEDS: TIOTROPIUM BROMIDE 2.5 MCG (SPIRIVA) RESPIMAT INHALER IH SCH (10:35)
[2018-07-18] MEDS: SENNOSIDES 8.6MG TABLET (FP) PO SCH ×2 (10:36→21:11)
[2018-07-18] MEDS: DOXYCYCLINE HYCLATE 100 MG CAPSULE PO SCH ×2 (10:36→18:27)
[2018-07-18] MEDS: methylPREDNISolone 4 MG TABLET PO SCH (10:36)
--- NOTE | 2018-07-18 13:50 | PN ---
Progress Note (short form) - Note Progress Note: PULMONARY Still with some shortness of breath and chest tightness but improving. Occasional wheezing. Vital Signs Period Temp Pulse Resp BP Sys/Krishnamurthy Pulse Ox Last 24 Hr 97.8 F-98.3 F 89-110 20-20 99-116/53-60 96 Gen: NAD at rest Heart: RRR Lung: decreased breath sounds at the bases, no wheezes Abd: soft, nontender Ext: no edema CBC, BMP 07/11/18 05:30 07/11/18 05:30 Active Medications Acetaminophen (Tylenol -) 650 mg PO Q6H PRN PRN Reason: FEVER Last Admin: 07/18/18 10:51 Dose: 650 mg Albuterol Sulfate (Ventolin 0.083% Nebulizer Soln -) 1 amp NEB Q4H PRN PRN Reason: SHORT OF BREATH/WHEEZING Last Admin: 07/17/18 11:15 Dose: 1 amp Albuterol Sulfate (Ventolin 0.083% Nebulizer Soln -) 1 amp NEB RQID [facility] Last Admin: 07/18/18 07:45 Dose: 1 amp Budesonide/Formoterol Fumarate (Symbicort 160/4.5mcg -) 2 puff IH BID [facility] Last Admin: 07/18/18 10:34 Dose: 2 puff Diphenhydramine HCl (Benadryl -) 25 mg PO HS PRN PRN Reason: INSOMNIA Last Admin: 07/17/18 21:02 Dose: 25 mg Docusate Sodium (Colace -) 100 mg PO TID [facility] Last Admin: 07/18/18 05:30 Dose: 100 mg Doxycycline Hyclate (Vibramycin -) 100 mg PO BID@1000,1800 [facility] Last Admin: 07/18/18 10:36 Dose: 100 mg Guaifenesin/Codeine Phosphate (Robitussin Ac -) 10 ml PO Q8H PRN PRN Reason: COUGH Melatonin (Melatonin) 10 mg PO HS [facility] Last Admin: 07/17/18 21:02 Dose: 10 mg Methylprednisolone (Medrol -) 8 mg PO DAILY [facility] Last Admin: 07/18/18 10:36 Dose: 8 mg Ondansetron HCl (Zofran Injection) 4 mg IVPUSH Q6H PRN PRN Reason: NAUSEA AND/OR VOMITING Polyethylene Glycol (Miralax (For Daily Use) -) 17 gm PO DAILY [facility] Last Admin: 07/18/18 10:33 Dose: Not Given Senna (Senna -) 1 tab PO BID [facility] Last Admin: 07/18/18 10:36 Dose: Not Given Tiotropium [place] (Spiriva Respimat) 2 puff IH DAILY [facility] Last Admin: 07/18/18 10:35 Dose: 2 puff A/P URI/Acute Bronchitis Acute Bronchospasm - medrol taper - inhaled bronchodilators - outpt PFTs - DVT prophylaxis - can d/c home from pulmonary standpoint
--- NOTE | 2018-07-18 15:01 | PN ---
Progress Note, Physician History of Present Illness: Pt is alert, less SOB/cough, ambulating to the bathroom. States she feels pain in b/l LEs, nonspecific. - Current Medication List Current Medications: Active Medications Acetaminophen (Tylenol -) 650 mg PO Q6H PRN PRN Reason: FEVER Last Admin: 07/18/18 10:51 Dose: 650 mg Albuterol Sulfate (Ventolin 0.083% Nebulizer Soln -) 1 amp NEB Q4H PRN PRN Reason: SHORT OF BREATH/WHEEZING Last Admin: 07/17/18 11:15 Dose: 1 amp Albuterol Sulfate (Ventolin 0.083% Nebulizer Soln -) 1 amp NEB RQID [facility] Last Admin: 07/18/18 07:45 Dose: 1 amp Budesonide/Formoterol Fumarate (Symbicort 160/4.5mcg -) 2 puff IH BID [facility] Last Admin: 07/18/18 10:34 Dose: 2 puff Diphenhydramine HCl (Benadryl -) 25 mg PO HS PRN PRN Reason: INSOMNIA Last Admin: 07/17/18 21:02 Dose: 25 mg Docusate Sodium (Colace -) 100 mg PO TID [facility] Last Admin: 07/18/18 14:46 Dose: 100 mg Doxycycline Hyclate (Vibramycin -) 100 mg PO BID@1000,1800 [facility] Last Admin: 07/18/18 10:36 Dose: 100 mg Guaifenesin/Codeine Phosphate (Robitussin Ac -) 10 ml PO Q8H PRN PRN Reason: COUGH Melatonin (Melatonin) 10 mg PO HS [facility] Last Admin: 07/17/18 21:02 Dose: 10 mg Methylprednisolone (Medrol -) 8 mg PO DAILY [facility] Last Admin: 07/18/18 10:36 Dose: 8 mg Ondansetron HCl (Zofran Injection) 4 mg IVPUSH Q6H PRN PRN Reason: NAUSEA AND/OR VOMITING Polyethylene Glycol (Miralax (For Daily Use) -) 17 gm PO DAILY [facility] Last Admin: 07/18/18 10:33 Dose: Not Given Senna (Senna -) 1 tab PO BID [facility] Last Admin: 07/18/18 10:36 Dose: Not Given Tiotropium [place] (Spiriva Respimat) 2 puff IH DAILY [facility] Last Admin: 07/18/18 10:35 Dose: 2 puff - Objective Vital Signs: Vital Signs Temperature 97.8 F 07/18/18 13:20 Pulse Rate 110 H 07/18/18 13:20 Respiratory Rate 20 07/18/18 13:20 Blood Pressure 100/55 L 07/18/18 13:20 O2 Sat by Pulse Oximetry (%) 96 07/17/18 20:26 Constitutional: Yes: No Distress, Calm Cardiovascular: Yes: Regular Rate and Rhythm Respiratory: Yes: Wheezes (minimal expiratory wheeze, good air entry b/l) Gastrointestinal: Yes: Normal Bowel Sounds, Soft, Abdomen, Obese Extremities: Yes: WNL Integumentary: Yes: WNL Neurological: Yes: Alert, Oriented Labs: CBC, BMP 07/11/18 05:30 07/11/18 05:30 INR, PTT INR 1.07 (0.83-1.09) 07/05/18 23:45 Problem List - Problems (1) Bronchitis Code(s): J40 - BRONCHITIS, NOT SPECIFIED ACUTE OR CHRONIC (2) Bronchospasm Code(s): J98.01 - ACUTE BRONCHOSPASM (3) HTN (hypertension) Code(s): I10 - ESSENTIAL (PRIMARY) HYPERTENSION (4) Hypothyroid Code(s): E03.9 - HYPOTHYROIDISM, UNSPECIFIED (5) Obesity Code(s): E66.9 - OBESITY, UNSPECIFIED (6) Seizure Code(s): R56.9 - UNSPECIFIED CONVULSIONS Assessment/Plan - continue doxycycline for now - clinically improving respiratory status - remains afebrile Continue monitor
--- NOTE | 2018-07-18 20:39 | PN ---
Progress Note, Physician History of Present Illness: No new complaints - Current Medication List Current Medications: Active Medications Acetaminophen (Tylenol -) 650 mg PO Q6H PRN PRN Reason: FEVER Last Admin: 07/18/18 10:51 Dose: 650 mg Albuterol Sulfate (Ventolin 0.083% Nebulizer Soln -) 1 amp NEB Q4H PRN PRN Reason: SHORT OF BREATH/WHEEZING Last Admin: 07/17/18 11:15 Dose: 1 amp Albuterol Sulfate (Ventolin 0.083% Nebulizer Soln -) 1 amp NEB RQID [facility] Last Admin: 07/18/18 16:15 Dose: 1 amp Budesonide/Formoterol Fumarate (Symbicort 160/4.5mcg -) 2 puff IH BID [facility] Last Admin: 07/18/18 10:34 Dose: 2 puff Diphenhydramine HCl (Benadryl -) 25 mg PO HS PRN PRN Reason: INSOMNIA Last Admin: 07/17/18 21:02 Dose: 25 mg Docusate Sodium (Colace -) 100 mg PO TID [facility] Last Admin: 07/18/18 14:46 Dose: 100 mg Doxycycline Hyclate (Vibramycin -) 100 mg PO BID@1000,1800 [facility] Last Admin: 07/18/18 18:27 Dose: 100 mg Guaifenesin/Codeine Phosphate (Robitussin Ac -) 10 ml PO Q8H PRN PRN Reason: COUGH Melatonin (Melatonin) 10 mg PO HS [facility] Last Admin: 07/17/18 21:02 Dose: 10 mg Methylprednisolone (Medrol -) 8 mg PO DAILY [facility] Last Admin: 07/18/18 10:36 Dose: 8 mg Ondansetron HCl (Zofran Injection) 4 mg IVPUSH Q6H PRN PRN Reason: NAUSEA AND/OR VOMITING Polyethylene Glycol (Miralax (For Daily Use) -) 17 gm PO DAILY [facility] Last Admin: 07/18/18 10:33 Dose: Not Given Senna (Senna -) 1 tab PO BID [facility] Last Admin: 07/18/18 10:36 Dose: Not Given Tiotropium [place] (Spiriva Respimat) 2 puff IH DAILY [facility] Last Admin: 07/18/18 10:35 Dose: 2 puff - Objective Vital Signs: Vital Signs Temperature 98.2 F 07/18/18 20:20 Pulse Rate 102 H 07/18/18 20:20 Respiratory Rate 20 07/18/18 20:20 Blood Pressure 115/69 07/18/18 20:20 O2 Sat by Pulse Oximetry (%) 95 07/18/18 20:20 Constitutional: Yes: Obese Neck: Yes: WNL, Supple Cardiovascular: Yes: WNL, Regular Rate and Rhythm Respiratory: Yes: WNL, Regular, CTA Bilaterally Gastrointestinal: Yes: WNL, Normal Bowel Sounds, Soft, Abdomen, Obese Labs: CBC, BMP 07/11/18 05:30 07/11/18 05:30 INR, PTT INR 1.07 (0.83-1.09) 07/05/18 23:45 Problem List - Problems (1) Bronchospasm Assessment/Plan: Sputum (+) for MRSA Cont doxy/steroids' DC planning in am Cont nebulizers Code(s): J98.01 - ACUTE BRONCHOSPASM (2) Tachycardia Code(s): R00.0 - TACHYCARDIA, UNSPECIFIED (3) HTN (hypertension) Assessment/Plan: BP stable Not on any meds Code(s): I10 - ESSENTIAL (PRIMARY) HYPERTENSION (4) Hypothyroid Assessment/Plan: TSH is elevated ?Hyperthyroidism Endo consult Code(s): E03.9 - HYPOTHYROIDISM, UNSPECIFIED (5) Obesity Code(s): E66.9 - OBESITY, UNSPECIFIED (6) Pleuritic chest pain Assessment/Plan: Due to atelectasis Code(s): R07.81 - PLEURODYNIA (7) Elevated lactic acid level Assessment/Plan: Repeat lactic acid now normal DC IVF Code(s): R79.89 - OTHER SPECIFIED ABNORMAL FINDINGS OF BLOOD CHEMISTRY (8) Constipation Assessment/Plan: Xray showed retained stool Cont colace/miralax Code(s): K59.00 - CONSTIPATION, UNSPECIFIED
[2018-07-18] MEDS: diphenhydrAMINE HCL 25 MG CAPSULE (FP) PO PRN (21:11)
[2018-07-18] MEDS: MELATONIN 5 MG TABLETS PO SCH (21:11)
[2018-07-19] MEDS: ACETAMINOPHEN 325 MG TABLET (FP) PO PRN ×2 (01:00→07:03)
[2018-07-19] MEDS: DOCUSATE SODIUM 100 MG CAPSULE (FP) PO SCH ×2 (06:03→14:13)
[2018-07-19] MEDS: ALBUTEROL SO4 0.083% IH SOL 2.5 MG/3 ML VIAL.NEB. NEB SCH ×2 (07:46→11:22)
--- NOTE | 2018-07-19 09:00 | PN ---
Progress Note, Physician History of Present Illness: Patient is a 48 year old black female with a significant past medical history of seizures, meningioma, prior report of heart arrhythmia, HTN (?not on medication), obesity, who presents to the ED with complaints of chest pain that began earlier today. Patient reports experiencing sudden episode of chest pain with associated symptoms of chest palpitations, shortness of breath with non productive coughing and back pain secondary to coughing, prompting her to come into the ED for further evaluation. The dyspnea and chest discomfort began two days ago, with frequent forceful cough now with whitish phlegm. She reports taking her albuterol nebulizer while at home with minimal relief after two treatments. She had an episode of vomiting, and says she had high fever ("102 F ") last night. Denies contact with sick individuals, out of state travelling. Denies dysuria, hematuria. Denies dysuria, hematuria. Denies any other symptoms. Pt required 5 days hospitalization for a similar episode of bronchitis/URI a year ago. 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 Allergies: prednisone Social history: No smoking. No alcohol. No illicit drugs. Surgical history: None PMD: Dr. Wood Orantes - Current Medication List Current Medications: Active Medications Acetaminophen (Tylenol -) 650 mg PO Q6H PRN PRN Reason: FEVER Last Admin: 07/19/18 07:03 Dose: 650 mg Albuterol Sulfate (Ventolin 0.083% Nebulizer Soln -) 1 amp NEB Q4H PRN PRN Reason: SHORT OF BREATH/WHEEZING Last Admin: 07/17/18 11:15 Dose: 1 amp Albuterol Sulfate (Ventolin 0.083% Nebulizer Soln -) 1 amp NEB RQID [facility] Last Admin: 07/19/18 07:46 Dose: 1 amp Budesonide/Formoterol Fumarate (Symbicort 160/4.5mcg -) 2 puff IH BID [facility] Last Admin: 07/18/18 21:11 Dose: 2 puff Diphenhydramine HCl (Benadryl -) 25 mg PO HS PRN PRN Reason: INSOMNIA Last Admin: 07/18/18 21:11 Dose: 25 mg Docusate Sodium (Colace -) 100 mg PO TID [facility] Last Admin: 07/19/18 06:03 Dose: Not Given Doxycycline Hyclate (Vibramycin -) 100 mg PO BID@1000,1800 [facility] Last Admin: 07/18/18 18:27 Dose: 100 mg Guaifenesin/Codeine Phosphate (Robitussin Ac -) 10 ml PO Q8H PRN PRN Reason: COUGH Melatonin (Melatonin) 10 mg PO HS [facility] Last Admin: 07/18/18 21:11 Dose: 10 mg Methylprednisolone (Medrol -) 8 mg PO DAILY [facility] Last Admin: 07/18/18 10:36 Dose: 8 mg Ondansetron HCl (Zofran Injection) 4 mg IVPUSH Q6H PRN PRN Reason: NAUSEA AND/OR VOMITING Polyethylene Glycol (Miralax (For Daily Use) -) 17 gm PO DAILY [facility] Last Admin: 07/18/18 10:33 Dose: Not Given Senna (Senna -) 1 tab PO BID [facility] Last Admin: 07/18/18 21:11 Dose: Not Given Tiotropium [place] (Spiriva Respimat) 2 puff IH DAILY [facility] Last Admin: 07/18/18 10:35 Dose: 2 puff - Objective Vital Signs: Vital Signs Temperature 98.2 F 07/19/18 06:07 Pulse Rate 87 07/19/18 06:07 Respiratory Rate 20 07/19/18 06:07 Blood Pressure 104/58 L 07/19/18 06:07 O2 Sat by Pulse Oximetry (%) 95 07/18/18 20:20 Eyes: Yes: WNL, Conjunctiva Clear, EOM Intact HENT: Yes: WNL, Atraumatic, Normocephalic Neck: Yes: WNL, Supple, Trachea Midline Cardiovascular: Yes: WNL, Regular Rate and Rhythm Respiratory: Yes: WNL, Regular, CTA Bilaterally Gastrointestinal: Yes: WNL, Normal Bowel Sounds Genitourinary: Yes: WNL Musculoskeletal: Yes: WNL Extremities: Yes: WNL Edema: No Integumentary: Yes: WNL Neurological: Yes: WNL, Alert, Oriented ...Motor Strength: WNL Psychiatric: Yes: WNL Labs: CBC, BMP 07/11/18 05:30 07/11/18 05:30 INR, PTT INR 1.07 (0.83-1.09) 07/05/18 23:45 Assessment/Plan - Problems (1) HTN (hypertension) Assessment/Plan: Initially elevated (when pt is great pain and respiratory distress); now low to normal. ECHO: normal LVEF; no significant pulmonary HTN noted. Code(s): I10 - ESSENTIAL (PRIMARY) HYPERTENSION (2) Obesity Assessment/Plan: Pt seen by dermatology physician assistant; pt is trying to understand what changes she will have to make to reach her goal of losing a substantial amount of weight. She is reportedly resistant to making the changes that would be needed to lose weight; e.g. she says she needs to eat sweets because the medications she takes leave a bad taste in her mouth. She has ideas of why she is overweight that primarily focus on other issues than food (she feels she does not eat very much ; wants to change to higher protein diet). Code(s): E66.9 - OBESITY, UNSPECIFIED (3) Sinus tachycardia Assessment/Plan: Largely resolved. Code(s): R00.0 - TACHYCARDIA, UNSPECIFIED (4) Bronchospasm Assessment/Plan: Pt with episode of repeated forceful coughing a few days ago while be walked across the room for physical therapy; she then felt weak, was seated, and vomited partially digested food. Sinus tachycardia. Discussed with Dr. Hennessy at the time: peak flow and incentive spirometry ordered. Continue steroids and bronchodilators. Pt becomes highly anxious just prior to and during episodes. No further major episodes. Code(s): J98.01 - ACUTE BRONCHOSPASM (5) Meningioma Code(s): D32.9 - BENIGN NEOPLASM OF MENINGES, UNSPECIFIED (6) Seizure Code(s): R56.9 - UNSPECIFIED CONVULSIONS (7) Atypical chest pain Assessment/Plan: TNI < 0.02 x 2. EKG: sinus tachycardia; no acute ST-T changes. No hx cardiac disease. ECHO: normal LVEF; no regional wall motion abnormalities mentioned. Pt says she had a stress test within the past year at Ds office that was normal; f/u results. Code(s): R07.89 - OTHER CHEST PAIN (8) Bronchitis Assessment/Plan: Steriods, O2, bronchodilators per data warehousing specialist. Off antibiotics; now afebrile. Pt has had several episodes of respiratory distress in the past 12 months; she has agreed to f/u with data warehousing specialist as outpatient. ?psychological component to repeated bouts of prolonged cough, resulting at times in vagal reaction. Code(s): J40 - BRONCHITIS, NOT SPECIFIED ACUTE OR CHRONIC (9) Sleep apnea Assessment/Plan: r/o with sleep studies per data warehousing specialist. Code(s): G47.30 - SLEEP APNEA, UNSPECIFIED (10) Hypothyroid Assessment/Plan: low TSH; normal Free T4. Code(s): E03.9 - HYPOTHYROIDISM, UNSPECIFIED (11) Dizziness Assessment/Plan: episode earlier this week likely related to orthostatic dysfunction (pt has not had physical therapy or been up much for the past 2 weeks). O2 sat WNL duerng episode; BP, initially hypotensive, returned to normal quickly. F/u orthostatic VS. Encourage PO fluids. Telemetry: NSR; few periods of sinus tachycardia. Physical rehabilitation. Code(s): R42 - DIZZINESS AND GIDDINESS (12) Anxiety about health Assessment/Plan: r/o depression (pt says "I don't have time for depression"; however noted with periods of sad facies, reluctance to converse). Sinus Tachycardia-most likely due to infection/bronchitis - telemetry - Sinus tachy, up yto 120, 24 holter pending
[2018-07-19] MEDS ORDERED: PT OWN MED DRAWER 7, Y5N ONE (09:56)
[2018-07-19] MEDS: BUDESONIDE/FORMETEROL FUMARATE 160/4.5 mcg INHALER IH SCH (10:08)
[2018-07-19] MEDS: TIOTROPIUM BROMIDE 2.5 MCG (SPIRIVA) RESPIMAT INHALER IH SCH (10:08)
[2018-07-19] MEDS: POLYETHYLENE GLYCOL 3350 119 GM BTL PO SCH (10:09)
[2018-07-19] MEDS: SENNOSIDES 8.6MG TABLET (FP) PO SCH (10:09)
[2018-07-19] MEDS: DOXYCYCLINE HYCLATE 100 MG CAPSULE PO SCH (10:10)
[2018-07-19] MEDS: methylPREDNISolone 4 MG TABLET PO SCH (10:10)
[2018-07-19 10:15] VITALS: BP 100/54; PULSE 91; TEMP 97.9
--- NOTE | 2018-07-19 11:07 | PN ---
Progress Note, Physician History of Present Illness: pulmonary alert,comfortable,-sob,-cough - Current Medication List Current Medications: Active Medications Acetaminophen (Tylenol -) 650 mg PO Q6H PRN PRN Reason: FEVER Last Admin: 07/19/18 07:03 Dose: 650 mg Albuterol Sulfate (Ventolin 0.083% Nebulizer Soln -) 1 amp NEB Q4H PRN PRN Reason: SHORT OF BREATH/WHEEZING Last Admin: 07/17/18 11:15 Dose: 1 amp Albuterol Sulfate (Ventolin 0.083% Nebulizer Soln -) 1 amp NEB RQID [facility] Last Admin: 07/19/18 07:46 Dose: 1 amp Budesonide/Formoterol Fumarate (Symbicort 160/4.5mcg -) 2 puff IH BID [facility] Last Admin: 07/19/18 10:08 Dose: 2 puff Diphenhydramine HCl (Benadryl -) 25 mg PO HS PRN PRN Reason: INSOMNIA Last Admin: 07/18/18 21:11 Dose: 25 mg Docusate Sodium (Colace -) 100 mg PO TID [facility] Last Admin: 07/19/18 06:03 Dose: Not Given Doxycycline Hyclate (Vibramycin -) 100 mg PO BID@1000,1800 [facility] Last Admin: 07/19/18 10:10 Dose: 100 mg Guaifenesin/Codeine Phosphate (Robitussin Ac -) 10 ml PO Q8H PRN PRN Reason: COUGH Melatonin (Melatonin) 10 mg PO HS [facility] Last Admin: 07/18/18 21:11 Dose: 10 mg Methylprednisolone (Medrol -) 8 mg PO DAILY [facility] Last Admin: 07/19/18 10:10 Dose: 8 mg Ondansetron HCl (Zofran Injection) 4 mg IVPUSH Q6H PRN PRN Reason: NAUSEA AND/OR VOMITING Polyethylene Glycol (Miralax (For Daily Use) -) 17 gm PO DAILY [facility] Last Admin: 07/19/18 10:09 Dose: Not Given Senna (Senna -) 1 tab PO BID [facility] Last Admin: 07/19/18 10:09 Dose: Not Given Tiotropium [place] (Spiriva Respimat) 2 puff IH DAILY [facility] Last Admin: 07/19/18 10:08 Dose: 2 puff - Objective Vital Signs: Vital Signs Temperature 97.9 F 06/10/19 10:14 Pulse Rate 91 H 07/19/18 10:14 Respiratory Rate 18 07/19/18 10:14 Blood Pressure 100/54 L 07/19/18 10:14 O2 Sat by Pulse Oximetry (%) 95 07/18/18 20:20 Constitutional: Yes: Well Nourished, Calm Eyes: Yes: WNL HENT: Yes: WNL Neck: Yes: WNL Cardiovascular: Yes: Regular Rate and Rhythm, S1, S2 Respiratory: Yes: CTA Bilaterally Gastrointestinal: Yes: Normal Bowel Sounds, Soft Extremities: Yes: WNL Edema: No Labs: CBC, BMP 07/11/18 05:30 Assessment/Plan Problem List - Problems (1) Bronchospasm Code(s): J98.01 - ACUTE BRONCHOSPASM (2) Chest pain Code(s): R07.9 - CHEST PAIN, UNSPECIFIED Qualifiers: Chest pain type: unspecified Qualified Code(s): R07.9 - Chest pain, unspecified (3) URI (upper respiratory infection) Code(s): J06.9 - ACUTE UPPER RESPIRATORY INFECTION, UNSPECIFIED Qualifiers: URI type: unspecified URI Qualified Code(s): J06.9 - Acute upper respiratory infection, unspecified (4) Pleuritic chest pain Code(s): R07.81 - PLEURODYNIA (5) Seizure Code(s): R56.9 - UNSPECIFIED CONVULSIONS Assessment/Plan Do not suspect PNA. Minimal atalectatic areas in the LLL on CT imaging steroid taper Symbicort 160/4.5 BD TX O2 as needed PFTs after discharge VTE prophylaxis FLAKITO FOLEY
--- NOTE | 2018-07-19 11:55 | HOL ---
Hook-up date: 2018-07-17 13:54:00 Duration: 23:29:00 Test Indications: PALPITATIONS; HX OF ARRHYTHMIA Medications: 581014 QRS complexes 1 Ventricular ectopics which represent <1 % of total QRS comp. 5 Supraventricular ectopics which represent <1 % of total QRS comp. * Paced QRS complexs which represent % of total QRS comp. * % of Time Classified as Noise VENTRICULAR ECTOPY 1 Isolated 0 Bigeminal Cycles 0 Couplets 0 Runs 0 Beats in Runs * Beats LONGEST at * BPM at :: -- * Beats FASTEST at * BPM at :: -- SUPRAVENTRICULAR ECTOPY 5 Isolated 0 Couplets 0 Runs 0 Beats in Runs * Beats LONGEST at * BPM at :: -- * Beats FASTEST at * BPM at :: -- HEART RATES 73 MIN at 05:51:04 2018-07-18 98 AVG 131 MAX at 21:20:28 2018-07-17 LONGEST RR 0.848 secs at 01:16:32 2018-07-18 SCANNED BY: TAVIA 07/18/18 1, BASELINE RHYTHM IS SINUS RHYTHM WITH AVERAGE HR OF 98 BPM. RATES VARIED FROM 73 TO 131 BPM. 2. RARE VENTRICULAR ECTOPIES 3. RARE ATRIAL ECTOPIES 4. NO SIGNIFICANT ST-T WAVE VARIATIONS 5. DIARY WAS NOT SUBMITTED Confirmed by ALEXANDRA ROSADO MD ([id number]) on 07/19/2018 11:54:24 AM Referred By: Catherine ADHIKARI Overread By: ALEXANDRA ROSADO MD
--- NOTE | 2018-07-19 14:45 | PN ---
Progress Note, Physician History of Present Illness: patient stable no new issues - Current Medication List Current Medications: Active Medications Acetaminophen (Tylenol -) 650 mg PO Q6H PRN PRN Reason: FEVER Last Admin: 07/19/18 07:03 Dose: 650 mg Albuterol Sulfate (Ventolin 0.083% Nebulizer Soln -) 1 amp NEB Q4H PRN PRN Reason: SHORT OF BREATH/WHEEZING Last Admin: 07/17/18 11:15 Dose: 1 amp Albuterol Sulfate (Ventolin 0.083% Nebulizer Soln -) 1 amp NEB RQID [facility] Last Admin: 07/19/18 11:22 Dose: 1 amp Budesonide/Formoterol Fumarate (Symbicort 160/4.5mcg -) 2 puff IH BID [facility] Last Admin: 07/19/18 10:08 Dose: 2 puff Diphenhydramine HCl (Benadryl -) 25 mg PO HS PRN PRN Reason: INSOMNIA Last Admin: 07/18/18 21:11 Dose: 25 mg Docusate Sodium (Colace -) 100 mg PO TID [facility] Last Admin: 07/19/18 14:13 Dose: Not Given Doxycycline Hyclate (Vibramycin -) 100 mg PO BID@1000,1800 [facility] Last Admin: 07/19/18 10:10 Dose: 100 mg Guaifenesin/Codeine Phosphate (Robitussin Ac -) 10 ml PO Q8H PRN PRN Reason: COUGH Melatonin (Melatonin) 10 mg PO HS [facility] Last Admin: 07/18/18 21:11 Dose: 10 mg Methylprednisolone (Medrol -) 8 mg PO DAILY [facility] Last Admin: 07/19/18 10:10 Dose: 8 mg Ondansetron HCl (Zofran Injection) 4 mg IVPUSH Q6H PRN PRN Reason: NAUSEA AND/OR VOMITING Polyethylene Glycol (Miralax (For Daily Use) -) 17 gm PO DAILY [facility] Last Admin: 07/19/18 10:09 Dose: Not Given Senna (Senna -) 1 tab PO BID [facility] Last Admin: 07/19/18 10:09 Dose: Not Given Tiotropium [place] (Spiriva Respimat) 2 puff IH DAILY [facility] Last Admin: 07/19/18 10:08 Dose: 2 puff - Objective Vital Signs: Vital Signs Temperature 97.9 F 07/19/18 10:14 Pulse Rate 91 H 07/19/18 10:14 Respiratory Rate 18 07/19/18 10:14 Blood Pressure 100/54 L 07/19/18 10:14 O2 Sat by Pulse Oximetry (%) 98 07/19/18 09:00 Constitutional: Yes: No Distress, Calm Cardiovascular: Yes: Regular Rate and Rhythm Respiratory: Yes: Regular, CTA Bilaterally Gastrointestinal: Yes: Normal Bowel Sounds, Soft Musculoskeletal: Yes: WNL Extremities: Yes: WNL Neurological: Yes: Alert, Oriented Psychiatric: Yes: Alert, Oriented Labs: CBC, BMP 07/11/18 05:30 07/11/18 05:30 INR, PTT INR 1.07 (0.83-1.09) 07/05/18 23:45 Assessment/Plan Problem List - Problems (1) Bronchospasm Code(s): J98.01 - ACUTE BRONCHOSPASM (2) Chest pain Code(s): R07.9 - CHEST PAIN, UNSPECIFIED Qualifiers: Chest pain type: unspecified Qualified Code(s): R07.9 - Chest pain, unspecified (3) URI (upper respiratory infection) Code(s): J06.9 - ACUTE UPPER RESPIRATORY INFECTION, UNSPECIFIED Qualifiers: URI type: unspecified URI Qualified Code(s): J06.9 - Acute upper respiratory infection, unspecified (4) Pleuritic chest pain Code(s): R07.81 - PLEURODYNIA (5) Seizure Code(s): R56.9 - UNSPECIFIED CONVULSIONS 6 mrsa pneumonia plan continue current mgmt resp support pul on board rest as per the team continue abx will d/w the team
== END 2018-07-19 15:13 | disposition home or self-care (01) | DRG 202 ==
LOC: JER 22:22 → JERBED 07-06 02:28 → J4W 07-06 20:33 → J4S 07-14 17:15
PROVIDERS: ADMIT Internal Medicine; ATTEND Internal Medicine
DX: J98.01 Acute bronchospasm (principal); J15.212 Pneumonia due to Methicillin resistant Staphylococcus aureus; E87.2 Acidosis; J98.11 Atelectasis; I45.81 Long QT syndrome; E66.9 Obesity, unspecified; R00.0 Tachycardia, unspecified; E03.9 Hypothyroidism, unspecified; D32.9 Benign neoplasm of meninges, unspecified; J06.9 Acute upper respiratory infection, unspecified; Z68.38 Body mass index [BMI] 38.0-38.9, adult; G47.30 Sleep apnea, unspecified; G40.909 Epilepsy, unspecified, not intractable, without status epilepticus; K59.00 Constipation, unspecified; F41.9 Anxiety disorder, unspecified; R42 Dizziness and giddiness
CPT/HCPCS: 36415; 36600; 71045-TC-FY; 71250-TC; 74021-TC-FY; 80053; 80061; 81003; 82550; 82803; 83036; 83605; 83721; 83735; 83880; 84100; 84439; 84443; 84480; 84484; 84703; 85025; 85610; 87040; 87070; 87086; 87186; 87205; 93005; 93010; 93225; 93226; 93306-TC; 94010; 94150; 94640; 94761; 97116-GP; 97161-GP; 99285-25; J0131; J1644; J7030

== ENCOUNTER 2018-12-23 17:20 | Inpatient (IN) | payer OTHER ==
[2018-12-23] MEDS ORDERED: METOCLOPRAMIDE HCL INJECTION 10 MG/2 ML VIAL ONE (17:23)
[2018-12-23] MEDS ORDERED: methylPREDNISolone NA SUCC 125 MG/2 ML VIAL ONE (17:27)
[2018-12-23] MEDS ORDERED: SODIUM CHLORIDE 1,000 ML IV SCH (17:30)
[2018-12-23] MEDS ORDERED: METOCLOPRAMIDE HCL INJECTION 10 MG/2 ML VIAL IVPUSH ONE ×2 (17:32→22:34)
[2018-12-23] MEDS ORDERED: methylPREDNISolone NA SUCC 125 MG/2 ML VIAL IVPB ONE (17:32)
[2018-12-23] MEDS ORDERED: ALBUTEROL SO4 2.5/IPRATROPIUM 0.5 INH SOL 3 ML VIAL.NEB. NEB ONE (17:39)
[2018-12-23 17:44] VITALS: BMI 36.9
[2018-12-23] MEDS: ALBUTEROL SO4 2.5/IPRATROPIUM 0.5 INH SOL 3 ML VIAL.NEB. NEB SCH ×2 (17:50→18:25)
[2018-12-23] MEDS ORDERED: RAPID SEQUENCE INTUBATION KIT NR ONE ×2 (17:54→17:57)
[2018-12-23 18:15] LABS: BASO % 0.5 % (0-2.0); EOS % 5.8 % (0-4.5); HEMATOCRIT 39.2 % (32.4-45.2); HEMOGLOBIN 13.1 GM/dL (10.7-15.3); LYMPH % 39.2 % (8-40); MCH 28.8 pg (25.7-33.7); MCHC 33.3 g/dl (32.0-36.0); MEAN CELL VOLUME 86.4 fl (80-96); MEAN PLT VOLUME 8.6 fl (7.5-11.1); MONO % 7.5 % (3.8-10.2); PLATELET COUNT 318 K/MM3 (134-434); RBC 4.53 M/mm3 (3.60-5.2); RDW 13.5 % (11.6-15.6); WHITE BLOOD COUNT 9.5 K/mm3 (4.0-10.0)
[2018-12-23 18:23] LABS: VENOUS PH 7.33 (7.31-7.41)
[2018-12-23 18:23] LABS: INR 0.97 (0.83-1.09); PROTHROMBIN TIME (PATIENT) 11.4 SEC (9.7-13.0)
[2018-12-23 18:24] LABS: URINE APPEARANCE CLEAR; URINE BILIRUBIN NEGATIVE (NEGATIVE); URINE COLOR YELLOW; URINE GLUCOSE (UA) NEGATIVE (NEGATIVE); URINE KETONE NEGATIVE (NEGATIVE); URINE LEUK ESTERASE NEGATIVE (NEGATIVE); URINE NITRITE NEGATIVE (NEGATIVE); URINE PROTEIN NEGATIVE (NEGATIVE); URINE UROBILINOGEN 0.2 mg/dL (0.2-1.0); VENOUS PO2 < 49 mmHg (28-48)
[2018-12-23 18:26] LABS: ACTIVATED PTT 39.7 SECONDS (25.2-36.5)
[2018-12-23 18:38] LABS: CHOLESTEROL 198 mg/dL (50-200)
[2018-12-23 18:40] LABS: COCAINE, UR NEGATIVE ng/ml (CUTOFF=300); METHADONE, UR NEGATIVE ng/ml (CUTOFF=300); OPIATES, URI NEGATIVE ng/ml (CUTOFF=300); PHENCYCLIDINE,URINE NEGATIVE ng/ml (CUTOFF=25); URINE AMPHETAMINES NEGATIVE ng/ml (CUTOFF=500); URINE BARBITURATES NEGATIVE ng/ml (CUTOFF=200); URINE BENZODIAZEPINES NEGATIVE ng/ml (CUTOFF=200)
[2018-12-23] MEDS ORDERED: ACETAMINOPHEN 1000 MG/100 ML VIAL (NON FORMULARY) IVPB ONE (18:41)
[2018-12-23] MEDS ORDERED: ACETAMINOPHEN INJECTION 100 ML IVPB ONE (18:47)
[2018-12-23 19:09] LABS: BLOOD UREA NITROGEN 13.3 mg/dL (7-18); CALCIUM 9.5 mg/dL (8.5-10.1); CREATININE 0.7 mg/dL (0.55-1.3); POTASSIUM 4.5 mmol/L (3.5-5.1)
[2018-12-23 19:10] LABS: ALBUMIN 3.8 g/dl (3.4-5.0); BILIRUBIN,TOTAL 0.2 mg/dL (0.2-1); TOT PROT 7.8 g/dl (6.4-8.2)
--- NOTE | 2018-12-23 19:10 | PDOC ---
History of Present Illness - General Chief Complaint: Nausea/Vomiting Stated Complaint: SHORTNESS OF BREATH Time Seen by Provider: 12/23/18 17:51 History Source: Patient Exam Limitations: Clinical Condition - History of Present Illness Initial Comments: 12/23/18 19:26 48 yo F with a hx of asthma and migraines presents to the emergency department with headache, N/V, and left sided weakness. Per the patient, she had a sudden onset of headache on the left side with concurrent left sided weakness at 3:00 pm today. Per the patient, she felt acutely SOB. She presented to her PMD and was sent via ambulance to our ED because of left sided weakness with projectile vomiting and SOB. The patient initially was unable to give a history due to medical condition. Per the daughter, she states her mother was in her usual state of health throughout the day. The patient was not asleep prior to the onset of the headache. Allergies: prednisone tPA Exclusion checklist 3-4.5h - Time Elapsed Date last known well: 12/23/18 Time last known well: 15:00 Elaspsed time: Day(s) and 20 Hour(s) and 54 Minutes - Thrombolytic Therapy Candidate Is patient eligible for thrombolytic therapy: No - Exclusion Criteria 3-4.5 hr SBP greater than 185 or DBP greater than 110mmHg despite tx: No Recent IC/spinal surgery,head trauma or stroke<3mos.: No Hx IC hemorrhage, IC neoplasm, AV malformation or aneurysm: No Active internal bleeding: No Blding diathesis(low plt ct, inc PTT,INR>1.7 or use of NOAC): No Symptoms suggest subarachnoid hemorrhage: Yes CT demonstrates multilobar infarct(>1/3 cerebral hemiphere): No Arterial puncture at noncompressible site in previous 7 days: No Blood glucose concentration less than 50mg/dL (2.7mmol/L): No - Relative Exclusion Criteria 3-4.5 hr Life expectancy <1 yr or severe co-morbid illness: No : No Patient/family refused: No Rapid improvement: Yes Stroke severity too mild: No Recent acute NH (w/in previous 3 months): No Seizure at onset with postictal residual neuro impairments: No Major surgery or serious trauma w/in previous 14 days: No Recent GI or hemorrhage (w/in previous 21 days): No - Add'l Relative Exclusion 3-4.5 hr Age > 80: No Hx of both diabetes AND prior ischemic stroke: No Taking an oral anticoagulant regardless of INR: No NIHSS >25: No - Ineligibility reason(s) Reasons No tPA given: See reason(s) noted above (Spoke to neurology. the patient has improvement in speech. ) NIH Stroke Scale - Last Known Well Date/Time & Onset Date Last Known Well: 12/23/18 Time Last Known Well: 15:00 - Initial Evaluation Level of consciousness: Alert Ask patient the month and their age: Answers both correctly Ask patient to open & close eyes; make fist and let go: Obeys both correctly Best gaze (horizontal eye movement): Normal Visual field testing: Partial hemianopia Facial paresis (Show teeth/raise eyebrows/close eyes tight): Partial paralysis ( total or near paralysis of lower face) Motor Function: Left Arm: Some effort against gravity Motor Function: Right Arm: Normal (extends arm 90 (or 45) degrees for 10 seconds without drift Motor Function: Left Leg: Some effort against gravity Motor Function: Right Leg: Normal (extends leg 30 degrees for 5 seconds without drift) Limb Ataxia: Present in two limbs Sensory(Use pinprick test arms,legs,trunk,face/side to side): Mild to moderate decrease in sensation Best language (Describe picture, name items, read sentences): No Aphasia Dysarthria (read several words): Mild to moderate slurring of words Extinction and Inattention: No abnormality - Total Score NIH Stroke Scale Score: 11 Past History - Past Medical History Allergies/Adverse Reactions: Allergies Allergy/AdvReac Type Severity Reaction Status Date / Time prednisone Allergy Verified 12/23/18 17:44 Home Medications: Ambulatory Orders Acetaminophen [Tylenol .Regular Strength -] 650 mg PO Q6H PRN #100 tablet Albuterol 0.083% Nebulizer Amaya [Ventolin 0.083% Nebulizer Soln -] 1 amp NEB RQID #120 amp 07/19/18 Budesonide/Formeterol Fumarate [SYMBICORT 160/4.5mcg -] 2 puff IH BID #1 inhaler 07/19/18 Docusate Sodium [Colace -] 100 mg PO TID #90 capsule 07/19/18 Doxycycline Hyclate [Vibramycin -] 100 mg PO BID@1000,1800 #20 capsule 07/19/18 Guaifenesin AC [Robitussin AC -] 10 ml PO Q8H PRN #1 bottle MDD 30 07/19/18 Melatonin 10 mg PO HS #30 tab 07/19/18 Methylprednisolone [Medrol Dose Gaetano] 4 mg PO ASDIR #21 tablet 07/19/18 Polyethylene Glycol 3350 [Miralax 119 gm Btl -] 17 gm PO DAILY #1 bottle Tiotropium [place] [Spiriva Respimat] 2 puff IH DAILY #1 inhaler 07/19/18 Anemia: No Asthma: Yes (pneumonia induced) COPD: No Seizures: Yes (NO MEDS) - Surgical History Appendectomy: Yes - Psycho Social/Smoking Cessation Hx Smoking History: Never smoked Have you smoked in the past 12 months: No Information on smoking cessation initiated: No Hx Alcohol Use: No Drug/Substance Use Hx: No Substance Use Type: None Hx Substance Use Treatment: No Review of Systems - Review of Systems Able to Perform ROS?: No (AMS) *Physical Exam - Vital Signs Last Vital Signs Temp Pulse Resp BP Pulse Ox 100.8 F H 92 H 18 145/95 100 12/23/18 17:24 12/23/18 18:00 12/23/18 18:00 12/23/18 18:00 12/23/18 18:34 - Physical Exam General Appearance: Yes: Nourished, Appropriately Dressed, Moderate Distress, Obese, Other (profuse vomiting, projectile. altered mental status. dysarthric speech. ) HEENT: positive: EOMI, FREDDY, Hearing Grossly Normal, Excessive drooling Neck: positive: Trachea midline, Supple. negative: Tender, Tender lateral, Tender midline Respiratory/Chest: positive: Respiratory Distress, Accessory Muscle Use, Rhonchi , Wheezing. negative: Chest Tender Cardiovascular: positive: Regular Rhythm, S1, S2, Tachycardia. negative: Systolic Murmur Gastrointestinal/Abdominal: positive: Normal Bowel Sounds, Flat. negative: Tender, Distended Lymphatic: negative: Adenopathy Musculoskeletal: positive: Normal Inspection. negative: CVA Tenderness, Vertebral Tenderness Extremity: positive: Normal Capillary Refill, Normal Inspection, Normal Range of Motion. negative: Tender, Swelling, Calf Tenderness Integumentary: positive: Normal Color, Dry, Warm. negative: Swelling, Ecchymosis Neurologic: positive: Sensory Deficit (left arm and leg), Confused, Disoriented. negative: typewriter operator automatic II-XII NML intact, Fully Oriented, Motor Strength 5/ 5 (refer to NIHSS) ED Treatment Course - LABORATORY CBC & Chemistry Diagram: 12/23/18 17:36 12/23/18 17:54 - ADDITIONAL ORDERS Additional order review: Laboratory Results 12/23/18 12/23/18 12/23/18 18:06 18:06 17:45 PT with INR INR PTT (Actin FS) VBG pH 7.33 POC VBG pCO2 45.0 POC VBG pO2 < 49 H VBG HCO3 23.0 VBG O2 Sat (Jed) 68.5 L VBG Base Excess -2.5 L Creatine Kinase Troponin I Cholesterol Urine Color Urine Appearance Urine pH Ur Specific [place] Urine Protein Urine Glucose (UA) Urine Ketones Urine Blood Urine Nitrite Urine Bilirubin Urine Urobilinogen Ur Leukocyte Esterase Urine HCG, Qual Negative Opiates Screen Negative Methadone Screen Negative Barbiturate Screen Negative Phencyclidine Screen Negative Ur Amphetamines Screen Negative MDMA (Ecstasy) Screen Negative Benzodiazepines Screen Negative Cocaine Screen Negative U Marijuana (THC) Screen Negative 12/23/18 12/23/18 12/23/18 17:45 17:36 17:36 PT with INR 11.40 INR 0.97 PTT (Actin FS) 39.7 H VBG pH POC VBG pCO2 POC VBG pO2 VBG HCO3 VBG O2 Sat (Jed) VBG Base Excess Creatine Kinase 82 Troponin I < 0.02 Cholesterol 198 Urine Color Yellow Urine Appearance Clear Urine pH 7.0 Ur Specific [place] 1.023 Urine Protein Negative Urine Glucose (UA) Negative Urine Ketones Negative Urine Blood Negative Urine Nitrite Negative Urine Bilirubin Negative Urine Urobilinogen 0.2 Ur Leukocyte Esterase Negative Urine HCG, Qual Opiates Screen Methadone Screen Barbiturate Screen Phencyclidine Screen Ur Amphetamines Screen MDMA (Ecstasy) Screen Benzodiazepines Screen Cocaine Screen U Marijuana (THC) Screen 12/23/18 17:36 RBC 4.53 MCV 86.4 MCHC 33.3 RDW 13.5 MPV 8.6 D Neutrophils % 47.0 D Lymphocytes % 39.2 D Monocytes % 7.5 D Eosinophils % 5.8 H D Basophils % 0.5 - RADIOLOGY Radiology Studies Ordered: Category Date Time Status BRAIN CTA (STROKE) [CT] Stat CT Scan 12/23/18 19:02 Ordered - Medications Given in the ED: ED Medications Discontinued Medications Generic Name Dose Route Start Last Admin Trade Name [place] PRN Reason Stop Dose Admin Acetaminophen 1,000 mg 12/23/18 18:41 12/23/18 19:00 Ofirmev Injection - IVPB 12/23/18 18:42 1,000 mg ONCE ONE Administration Albuterol/Ipratropium 1 amp 12/23/18 17:45 12/23/18 18:25 Duoneb - NEB 12/23/18 18:01 Not Given Q15M ANKIT Methylprednisolone Sodium Succinate 125 mg 12/23/18 17:32 12/23/18 17:50 Solu-Medrol - IVPB 12/23/18 17:33 125 mg ONCE ONE Administration Metoclopramide HCl 10 mg 12/23/18 17:32 12/23/18 17:45 Reglan Injection - IVPUSH 12/23/18 17:33 10 mg ONCE ONE Administration Medical Decision Making - Critical Care Time Total Critical Care Time (minutes): 60 Critical Care Statement: The care of this patient involved high complexity decision making to prevent further life threatening deterioration of the patient 's condition and/or to evaluate & treat vital organ system(s) failure or risk of failure. - Medical Decision Making 48 yo F with a hx of asthma and migraines presents to the emergency department with headache, N/V, and left sided weakness. initial vitals: Initial Vital Signs Temp Pulse Resp BP Pulse Ox 100.8 F H 128 H 24 H 130/90 100 12/23/18 17:20 12/23/18 17:20 12/23/18 17:20 12/23/18 17:20 12/23/18 17:20 Work up: Patient presents to the ED via EMS for altered mental status with left sided weakness with concurrent projectile vomit without blood. Physical examination of the patient initially in our resuscitation room. Duoneb and steroids were administered. placed on campus monitor, 2 IVs placed and the patient was given supplemental oxygen. -Responsive to physical and verbal stimuli. -EOM intact with 3 mm pupils PERRL. -Left lower facial paralysis with intact eye brow movements bilaterally -No nystagmus -Blinks in response to threatening visual stimuli -Severe dysarthria -Sensory deficit in the left arm -Of note, she had finger to nose intact on right arm and leg. However, on left arm, her hand was able to extend outward to reach my finger when she placed her elbow on her abdomen and was launched on its own to touch my finger. - blurry vision per the patient was noted on left lateral vision field. Patient had multiple profuse vomiting episodes non bloody non billious. Patient initially presented with left sided arm and leg near paralysis. A NG tube was placed unsuccessfully as the patient, with her left hand, forcibly grabbed the nG tube and pulled it out. The patient was taken to CT for head CT. The patient had little tolerance for tolerating laying flat as she would be gagging on mucuous secretions. Initial head CT was negative for intracranial hemorrhage, but noted a pituitary adenoma with optic chiasm impingement. The patient was brought back to the resus room for intubation for inability to protect airway. It was noted the patient has decerebrate posturing with her feet in dorsi-extension. I applied painful stimuli to all four extremities of which all four withdrew to pain with flexion. No extensor posturing with painful stimuli applied. The patient was transient in her consciousness but awakened to light touch stimuli. During the preparation for intubation, patient had spontaneous improvement in neuro status and was able communicate and recounted what happened earlier in the day. She states she was having a head ache on the left side of her head that was different in quality and severity to her usual migraines. It was sudden in onset and immediately caused left sided weakness and nausea and vomiting. I spoke to Dr. Berumen about the re-evaluation of the patient. initially, he spoke to Dr. Cabrera. At this time, it is agreed not to start tPA as she is having dynamic neurological changes with improvement in her symptoms. On reassessment prior to speaking to Dr. Berumen, the following were noted: -Dysarthria improved from severe to mild/trace. -Left arm weakness improved from inability to move to lifting against gravity -Left leg weakness improved from inability to move to drifting left leg and then hitting bed when placed in the air. -Persistence of left lower facial paralysis. -Sensory deficit still present in left arm Dr. Berumen recommended CTA brain to rule out aneurysm and intracranial hemorrhage. The patient denies any substance abuse. ICU was consulted for initially for admission for q1hr neurochecks. Due to rapid improvement, the patient will be downgraded to [facility] for further monitoring. CTA brain was negative for acute process. 2cm pituitary adenoma noted. A call was placed to Dr. Maria for management. He states will need pituitary studies and need elective removal of the adenoma. The patient was aware she had an adenoma and was told it was 2 cm per her PMD (Dr. Wood MCGEE). Updates of the patient were provided verbally to Dr. Chacko, who is the admitting physician. Patient to be admitted to [facility] for CVA/TIA. Patient was reassessed prior to transfer and had minor weakness in the left arm at the biceps, triceps, and hand casting operator helper with near resolution of her dysarthria and left leg weakness. Labs noted: Laboratory Tests 12/23/18 12/23/18 12/23/18 17:36 17:36 17:36 WBC 9.5 RBC 4.53 Hgb 13.1 Hct 39.2 MCV 86.4 MCH 28.8 MCHC 33.3 RDW 13.5 Plt Count 318 MPV 8.6 D Absolute Neuts (auto) 4.5 Neutrophils % 47.0 D Lymphocytes % 39.2 D Monocytes % 7.5 D Eosinophils % 5.8 H D Basophils % 0.5 Nucleated RBC % 0 PT with INR 11.40 INR 0.97 PTT (Actin FS) 39.7 H VBG pH POC VBG pCO2 POC VBG pO2 VBG HCO3 VBG O2 Sat (Jed) VBG Base Excess Sodium Potassium Chloride Carbon Dioxide Anion Gap BUN Creatinine Est GFR (CKD-EPI)AfAm Est GFR (CKD-EPI)NonAf Random Glucose Lactic Acid Calcium Total Bilirubin AST ALT Alkaline Phosphatase Creatine Kinase 82 Troponin I < 0.02 Total Protein Albumin Triglycerides Cholesterol 198 Total LDL Cholesterol HDL Cholesterol Urine Color Urine Appearance Urine pH Ur Specific [place] Urine Protein Urine Glucose (UA) Urine Ketones Urine Blood Urine Nitrite Urine Bilirubin Urine Urobilinogen Ur Leukocyte Esterase Urine HCG, Qual Opiates Screen Methadone Screen Barbiturate Screen Phencyclidine Screen Ur Amphetamines Screen MDMA (Ecstasy) Screen Benzodiazepines Screen Cocaine Screen U Marijuana (THC) Screen Blood Type Antibody Screen 12/23/18 12/23/18 12/23/18 17:36 17:45 17:45 WBC RBC Hgb Hct MCV MCH MCHC RDW Plt Count MPV Absolute Neuts (auto) Neutrophils % Lymphocytes % Monocytes % Eosinophils % Basophils % Nucleated RBC % PT with INR INR PTT (Actin FS) VBG pH 7.33 POC VBG pCO2 45.0 POC VBG pO2 < 49 H VBG HCO3 23.0 VBG O2 Sat (Jed) 68.5 L VBG Base Excess -2.5 L Sodium Potassium Chloride Carbon Dioxide Anion Gap BUN Creatinine Est GFR (CKD-EPI)AfAm Est GFR (CKD-EPI)NonAf Random Glucose Lactic Acid Calcium Total Bilirubin AST ALT Alkaline Phosphatase Creatine Kinase Troponin I Total Protein Albumin Triglycerides Cholesterol Total LDL Cholesterol HDL Cholesterol Urine Color Yellow Urine Appearance Clear Urine pH 7.0 Ur Specific [place] 1.023 Urine Protein Negative Urine Glucose (UA) Negative Urine Ketones Negative Urine Blood Negative Urine Nitrite Negative Urine Bilirubin Negative Urine Urobilinogen 0.2 Ur Leukocyte Esterase Negative Urine HCG, Qual Opiates Screen Methadone Screen Barbiturate Screen Phencyclidine Screen Ur Amphetamines Screen MDMA (Ecstasy) Screen Benzodiazepines Screen Cocaine Screen U Marijuana (THC) Screen Blood Type O NEGATIVE Antibody Screen Negative 12/23/18 12/23/18 12/23/18 17:54 18:06 18:06 WBC RBC Hgb Hct MCV MCH MCHC RDW Plt Count MPV Absolute Neuts (auto) Neutrophils % Lymphocytes % Monocytes % Eosinophils % Basophils % Nucleated RBC % PT with INR INR PTT (Actin FS) VBG pH POC VBG pCO2 POC VBG pO2 VBG HCO3 VBG O2 Sat (Jed) VBG Base Excess Sodium 138 Potassium 4.5 Chloride 109 H Carbon Dioxide 22 Anion Gap 7 L BUN 13.3 Creatinine 0.7 Est GFR (CKD-EPI)AfAm 120.43 Est GFR (CKD-EPI)NonAf 103.90 Random Glucose 84 Lactic Acid Calcium 9.5 Total Bilirubin 0.2 AST 26 ALT 17 Alkaline Phosphatase 126 H Creatine Kinase Troponin I Total Protein 7.8 Albumin 3.8 Triglycerides 106 Cholesterol Total LDL Cholesterol 127 H HDL Cholesterol 46 Urine Color Urine Appearance Urine pH Ur Specific [place] Urine Protein Urine Glucose (UA) Urine Ketones Urine Blood Urine Nitrite Urine Bilirubin Urine Urobilinogen Ur Leukocyte Esterase Urine HCG, Qual Negative Opiates Screen Negative Methadone Screen Negative Barbiturate Screen Negative Phencyclidine Screen Negative Ur Amphetamines Screen Negative MDMA (Ecstasy) Screen Negative Benzodiazepines Screen Negative Cocaine Screen Negative U Marijuana (THC) Screen Negative Blood Type Antibody Screen 12/23/18 19:18 WBC RBC Hgb Hct MCV MCH MCHC RDW Plt Count MPV Absolute Neuts (auto) Neutrophils % Lymphocytes % Monocytes % Eosinophils % Basophils % Nucleated RBC % PT with INR INR PTT (Actin FS) VBG pH POC VBG pCO2 POC VBG pO2 VBG HCO3 VBG O2 Sat (Jed) VBG Base Excess Sodium Potassium Chloride Carbon Dioxide Anion Gap BUN Creatinine Est GFR (CKD-EPI)AfAm Est GFR (CKD-EPI)NonAf Random Glucose Lactic Acid 1.7 Calcium Total Bilirubin AST ALT Alkaline Phosphatase Creatine Kinase Troponin I Total Protein Albumin Triglycerides Cholesterol Total LDL Cholesterol HDL Cholesterol Urine Color Urine Appearance Urine pH Ur Specific [place] Urine Protein Urine Glucose (UA) Urine Ketones Urine Blood Urine Nitrite Urine Bilirubin Urine Urobilinogen Ur Leukocyte Esterase Urine HCG, Qual Opiates Screen Methadone Screen Barbiturate Screen Phencyclidine Screen Ur Amphetamines Screen MDMA (Ecstasy) Screen Benzodiazepines Screen Cocaine Screen U Marijuana (THC) Screen Blood Type Antibody Screen labs within normal limits. UA negative Urine tox negative. EKG was initially sinus tachycardia rate of 130 bpm with normal axis without ST elevation or depressions. No TWI noted. The patient had normalization of heart rate prior to transfer. Dispo: Admit Discharge - Discharge Information Problems reviewed: Yes Clinical Impression/Diagnosis: Headache, Bronchospasm, Dysarthria Condition: Guarded - Follow up/Referral - Patient Discharge Instructions - Post Discharge Activity
[2018-12-23] MEDS ORDERED: ALBUTEROL SO4 0.083% IH SOL 2.5 MG/3 ML VIAL.NEB. NEB ONE ×2 (19:11→20:26)
--- NOTE | 2018-12-23 19:14 | PDOC ---
Documentation entered by Andreina Welch SCRIBE, acting as scribe for Gregoria Cabrera MD. Gregoria Cabrera MD: This documentation has been prepared by the Yuri stone Brenda, SCRIBE, under my direction and personally reviewed by me in its entirety. I confirm that the documentation accurately reflects all work, treatment, procedures, and medical decision making performed by me. Attending Attestation - Resident Resident Name: Matt Silveira - ED Attending Attestation I have performed the following: I have examined & evaluated the patient, The case was reviewed & discussed with the resident, I agree w/resident's findings & plan, Exceptions are as noted - HPI HPI: 12/23/18 17:52 Ms. Friedman presents emergency department via EMS due to severe asthma exacerbation and vomiting Patient was in her usual state of health, was at her primary care physician's office While there being evaluated, she apparently reported shortness of breath/asthma exacerbation. She was apparently laid flat and began vomiting according to EMS While in route to the hospital in the ambulance, patient began to start Prior to this patient was moving all extremities and speaking clearly Patient is largely unable to give any history initially - Physicial Exam PE: 12/23/18 17:53 On examination: Patient is actively vomiting Patient is seated up in stretcher Eyes spontaneously open Patient's extraocular movements are intact Pupils are 3 mm bilaterally and round, reactive to light I do not see nystagmus Heart is tachycardic, regular, no murmur Patient has expiratory wheezing throughout No abdominal distention or tenderness Neurologic examination reveals: -Blinks in response to threatening visual stimuli -No nystagmus -Lifting both eyebrows equally - ? Flattening of the left nasal labial fold Patient was able to pull an NG tube out of her nose using her left hand although demonstrates some weakness with holding her hand up against gravity Patient does move her left lower extremity, but is unable to hold up against gravity - Critical Care Time Total Critical Care Time: 120 Critical Care Statement: The care of this patient involved high complexity decision making to prevent further life threatening deterioration of the patient 's condition and/or to evaluate & treat vital organ system(s) failure or risk of failure. - Medical Decision Making 12/23/18 18:36 48-year-old female presenting to the emergency department due to shortness of breath, vomiting It is unclear to me if this patient's presentation is primarily a respiratory complaint or cerebral ischemia?? Respiratory: Asthma exacerbation, bronchitis, aspiration, chemical pneumonitis 2 /2 vomiting Vomiting: Increased intracranial pressure, posterior circulation ischemia/mass Neurologic dysfunction: TIA, CVA, 12/23/18 18:41 Laboratory Tests 12/23/18 12/23/18 12/23/18 17:36 17:36 17:45 WBC 9.5 Hgb 13.1 Hct 39.2 Plt Count 318 VBG pH POC VBG pCO2 POC VBG pO2 Creatine Kinase 82 Troponin I < 0.02 Urine Blood Negative Urine Nitrite Negative Ur Leukocyte Esterase Negative 12/23/18 17:45 WBC Hgb Hct Plt Count VBG pH 7.33 POC VBG pCO2 45.0 POC VBG pO2 < 49 H Creatine Kinase Troponin I Urine Blood Urine Nitrite Ur Leukocyte Esterase EKG: Sinus tachycardia rate of 130 bpm axis is normal, no st elevation, no t wave inversions 12/23/18 18:42 Tylenol IV ordered Patient is awake, answering all questions Patient still stuttering, speech is intermittently slurred Patient tells me that she has had an upper respiratory infection for several days, with intermittent fevers. She was seen in her primary care physician's office today. While in the waiting room she reported to the receptionist/telephone operator that she felt short of breath, and had wheezing. She was asked to weights. Patient states she waited for an hour and a half Patient states she was " going in and out" She is able to give me her entire history, tells me exactly what happened earlier today. She was able to tell me that over the course of the day she has had an upper respiratory infection, 12/23/18 18:42 12/23/18 19:[address] Murcia Would not recommend TPA at this time as patient's examination is rapidly changing Patient's examination continues to wax and wane 12/23/18 19:12 She is able to read the name on an ID 8 feet from her with no difficulty when it is to the right side of her visual field. She notes some blurriness of her vision on the left side of her visual field Will send for CTA Patient is requesting an nebulizer treatment now 12/23/18 19:35 Urine toxicology negative 12/23/18 21:09 CTa head - pituitary adenoma measuring 2 cm, impinging on optic chiasm 12/23/18 21:[address] Maria 12/23/18 21:59 Discharge - Discharge Information Problems reviewed: Yes Clinical Impression/Diagnosis: Headache, Bronchospasm, Dysarthria Condition: Guarded - Admission Yes - Follow up/Referral - Patient Discharge Instructions - Post Discharge Activity
[2018-12-23] MEDS ORDERED: morphine CARPU-JECT 2 MG/1 ML DISP.SYRIN IVPUSH ONE (21:51)
[2018-12-23] MEDS ORDERED: MORPHINE SULFATE 2 MG/ML VIAL ONE (21:56)
[2018-12-23] MEDS ORDERED: ONDANSETRON 4 MG/2 ML VIAL IVPUSH ONE (22:35)
[2018-12-23] MEDS ORDERED: ONDANSETRON 4 MG/2 ML VIAL ONE (22:37)
[2018-12-23] MEDS: SODIUM CHLORIDE 1,000 ML IV SCH (23:07)
[2018-12-24] MEDS ORDERED: ACETAMINOPHEN 1000 MG/100 ML VIAL (NON FORMULARY) IVPB ONE (00:35)
--- NOTE | 2018-12-24 00:38 | RAPID ---
Physical Examination Vital Signs: Vital Signs Temperature 97.6 F 12/23/18 21:59 Pulse Rate 102 H 12/23/18 21:59 Respiratory Rate 20 12/23/18 21:59 Blood Pressure 121/70 12/23/18 21:59 O2 Sat by Pulse Oximetry (%) 97 12/23/18 21:59 Labs: CBC, BMP 12/23/18 17:36 12/23/18 17:54 Rapid Response - Rapid Response Assessment: Rapid response called at 23:47 because of worsening left sided weakness. On arrival, Pt was not able to follow command however was awake. Pt was found to be slurring her speech then later began to foam at the mouth and vomiting with gagging and choking sounds.pt was suctioned consistently to reduce aspiration risk. NIHSS score of 16 noted.10 minutes into the rapid, Pt developed seizure like activities for 2-3 minutes as we were applying the leads to take her down to CT scan to r/o Stroke. As pt continued to gag and vomit as she was seizing, We decided to transport patient to ICU for intubation to protect airway. In ICU , Pt had another episode of seizure for about 4-5 min with vomiting and gagging ( 2mg of ativan given). However, as ICU and anesthesia prepare to intubate pt suddenly stopped coughing, vomiting, seizing and spoke with clear but one worded answers. Physical exam prior to improvement of symptoms VS 165/97mmHg 134bpm 98% on RA General: Pt seemed distressed Lung: vesicular but Pt was SOB with difficulty breathing and gasping for air Abdomen: + BS, NTND Neuro: PERRLA, flaccid on Left upper and lower extremities, dysarthria, and what appeared to be flattening of nasolabial fold on the left. Motor function on the Right 5/5 with normal sensation Plan : Neuro recs (Dr Berumen): No TPA due to patient's rapidly changing exam findings , MRI ordered Neurosurgery consult placed (Dr. Mckinney) for Hx of pituitary adenoma CTA head: pituitary adenoma measuring 2 cm, impinging on optic chiasm, interval development in comparison to 08/01/18 CT Head: No hemorrhage -Headache, received Morphine 2mg and Tylenol IV UTox negative Neuro checks Q4 monitor Suspected CVA MD Exam Time (Code Ferreira Time): 11:50 CT Stroke ordered: No Stat "Code Ferreira" Consult to Neurology called & responded: Yes - NIH Stroke Scale/Score Level of consciousness: Alert Ask patient the month and their age: Both incorrect Ask patient to open & close eyes; make fist and let go: Obeys one correctly Best gaze (horizontal eye movement): Normal Visual field testing: No visual field loss Facial paresis (Show teeth/raise eyebrows/close eyes tight): Minor paralysis ( flattened nasolabial fold, asymmetry on smiling) Motor Function: Left Arm: No movement Motor Function: Right Arm: Normal (extends arm 90 (or 45) degrees for 10 seconds without drift Motor Function: Left Leg: No movement Motor Function: Right Leg: Normal (extends leg 30 degrees for 5 seconds without drift) Limb Ataxia: Untestable (Joint fused or limb amputated), explain: (pt would not follow command) Sensory(Use pinprick test arms,legs,trunk,face/side to side): Mild to moderate decrease in sensation Best language (Describe picture, name items, read sentences): Mild to moderate aphasia Dysarthria (read several words): Mild to moderate slurring of words Extinction and Inattention: Inattention or extinction bilaterally to one of the sensory modalities NIH Stroke Scale Score: 16
--- NOTE | 2018-12-24 01:00 | CONSULT ---
Consultation: REQUESTING PROVIDER: CONSULT REQUEST: We have been asked to medically evaluate this patient for critical care management. HISTORY OF PRESENT ILLNESS: This is a 48 year old female with PMH significant for asthma and migraines. She is responsive, but can only respond to questions with single word sentences. As per chart review, she was at her PCP's office around 3PM on 12/23, when she started complaining of difficulty breathing, and subsequently developed projectile vomiting and left sided weakness. She was brought to the ER by EMS. Her left sided weakness resolved in the ER, before re-appearing, and she was noted to be speaking clearly. She continued to display relapsing and resolving left sided weakness, with episodes of brief slurring. REVIEW OF SYSTEMS: CONSTITUTIONAL: generalized weakness Absent: fever, chills, diaphoresis, malaise, loss of appetite, weight change HEENT: visual changes Absent: rhinorrhea, nasal congestion, throat pain, throat swelling, difficulty swallowing, mouth swelling, ear pain, eye pain CARDIOVASCULAR: No chest pain, syncope, palpitations, irregular heart rate, lightheadedness, peripheral edema RESPIRATORY: shortness of breath Absent: cough, dyspnea with exertion, orthopnea, wheezing, stridor, hemoptysis GASTROINTESTINAL: No abdominal pain, abdominal distension, nausea, vomiting, diarrhea, constipation, melena, hematochezia GENITOURINARY: No dysuria, frequency, urgency, hesitancy, hematuria, flank pain , genital pain MUSCULOSKELETAL: No myalgia, arthralgia, joint swelling, back pain, neck pain SKIN: No rash, itching, pallor HEMATOLOGIC/IMMUNOLOGIC: No easy bleeding, easy bruising, lymphadenopathy, frequent infections ENDOCRINE:No unexplained weight gain, unexplained weight loss, heat intolerance , cold intolerance NEUROLOGIC: headache, Absent: focal weakness or paresthesias, dizziness, unsteady gait, seizure, mental status changes, bladder or bowel incontinence PSYCHIATRIC: No anxiety, depression, suicidal or homicidal ideation, hallucinations. PHYSICAL EXAMINATION Last Vital Signs Temp Pulse Resp BP Pulse Ox 97.8 F 84 14 112/64 100 12/24/18 02:00 12/24/18 04:00 12/24/18 04:00 12/24/18 04:00 12/24/18 00:15 GENERAL: AOx3, responds in single word sentences, drowsy but arousable HEAD: Normal with no signs of trauma. EYES: FRANCISCO, EOMI, complains of intermittent blurry vision in the left eye, no nystagmus EARS, NOSE, THROAT: Ears normal, nares patent, oropharynx clear without exudates. Moist mucous membranes. LUNGS: Clear B/L HEART: RRR, no murmurs ABDOMEN: Soft, nontender, not distended LOWER EXTREMITIES: 2+ pulses, warm, no edema NEUROLOGICAL: Motor 5/5 on right, left varies between 5/5 and 2/5 Sensations on the Rt are intact, vary from intact to diminished on the Lt Lifts eyebrows equally B/L, no flattening of nasolabial fold, is able to smile with no signs of facial droop Intermittent slurred speech SKIN: Warm, dry, normal turgor, no rashes or lesions noted. CBC, BMP 12/23/18 17:36 12/23/18 17:54 ASSESSMENT/PLAN: This is a 48 year old female with PMH significant for asthma and migraines. She was BIBEMS due to difficulty breathing, projectile vomiting, left sided weakness , and a frontal headache. # Neuro - Neuro recs (Dr Berumen): No TPA due to patient's rapidly changing exam findings, MRI ordered - Neurosurgery consult placed (Dr. Mckinney) for Hx of pituitary adenoma - CTA head: pituitary adenoma measuring 2 cm, impinging on optic chiasm, interval development in comparison to 08/01/18 - CT Head: No hemorrhage - Headache, received Morphine 2mg and Tylenol IV - UTox negative - Neuro checks Q4 #CVS - Initially complained of left sided chest pain - EKG: Sinus tachycardia rate of 130 bpm axis is normal, no st elevation, no t wave inversions - Cardiac enzymes Q6H x3 - Echo in AM ordered - Serial CPKs - Cardio consult placed with Dr. Sharif #Pulmonary - Asthma exacerbation, continue Duonebs Q6 - Was brought to ICU after she developed AMS, vomiting, seizure like activity for 5 minutes, which resolved spontaneously - No indication for intubation at this time - O2 97% on 2L O2 - Consult placed with Dr. Hennessy #ID - WBC normal, afebrile - Blood cx ordered #GI - ALP 126 - Nausea, Zofran 4mg Q6 PRN #Renal - UA unremarkable #FEN - N/S @ 100 - NPO due to risk of aspiration #DVT PE - Heparin 5000 SQ #Dispo - Discussed plan with Dr. Chacko - Currently Tele monitoring, we will continue to follow the patient - Thank you for this consultative opportunity. ATTENDING PHYSICIAN STATEMENT I saw and evaluated the patient. I reviewed the resident's note and discussed the case with the resident. I agree with the resident's findings and plan as documented. SUBJECTIVE: OBJECTIVE: ASSESSMENT AND PLAN:
--- NOTE | 2018-12-24 01:14 | HP ---
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, Other (Meningioma) Cardiovascular: Yes: HTN Pulmonary: Yes: Bronchitis ...LMP: 06/15/18 Psych: Yes: Anxiety - Past Surgical History Past Surgical History: Yes: None - Smoking History Smoking history: Never smoked Have you smoked in the past 12 months: No - Alcohol/Substance Use Hx Alcohol Use: No <Akilah Chacko - Last Filed: 12/24/18 01:14> Home Medications <Akilah Chacko - Last Filed: 12/24/18 01:14> <Baylee Mckeon - Last Filed: 12/24/18 02:33> - Allergies Allergies/Adverse Reactions: Allergies Allergy/AdvReac Type Severity Reaction Status Date / Time prednisone Allergy Verified 12/23/18 17:44 - Home Medications Home Medications: Ambulatory Orders Acetaminophen [Tylenol .Regular Strength -] 650 mg PO Q6H PRN #100 tablet Albuterol 0.083% Nebulizer Amaya [Ventolin 0.083% Nebulizer Soln -] 1 amp NEB RQID #120 amp 07/19/18 Budesonide/Formeterol Fumarate [SYMBICORT 160/4.5mcg -] 2 puff IH BID #1 inhaler 07/19/18 Docusate Sodium [Colace -] 100 mg PO TID #90 capsule 07/19/18 Doxycycline Hyclate [Vibramycin -] 100 mg PO BID@1000,1800 #20 capsule 07/19/18 Guaifenesin AC [Robitussin AC -] 10 ml PO Q8H PRN #1 bottle MDD 30 07/19/18 Melatonin 10 mg PO HS #30 tab 07/19/18 Methylprednisolone [Medrol Dose Gaetano] 4 mg PO ASDIR #21 tablet 07/19/18 Polyethylene Glycol 3350 [Miralax 119 gm Btl -] 17 gm PO DAILY #1 bottle Tiotropium [place] [Spiriva Respimat] 2 puff IH DAILY #1 inhaler 07/19/18 Physical Examination Vital Signs: Vital Signs Temperature 97.6 F 12/23/18 21:59 Pulse Rate 102 H 12/23/18 21:59 Respiratory Rate 20 12/23/18 21:59 Blood Pressure 121/70 12/23/18 21:59 O2 Sat by Pulse Oximetry (%) 97 12/23/18 21:59 Labs: CBC, BMP 12/23/18 17:36 12/23/18 17:54 <Akilah Chacko - Last Filed: 12/24/18 01:14> Vital Signs: Vital Signs Temperature 97.8 F 12/24/18 02:00 Pulse Rate 77 12/24/18 02:00 Respiratory Rate 13 12/24/18 02:00 Blood Pressure 123/65 12/24/18 02:00 O2 Sat by Pulse Oximetry (%) 97 12/23/18 21:59 Labs: CBC, BMP 12/23/18 17:36 12/23/18 17:54 <Baylee Mckeon - Last Filed: 12/24/18 02:33>
[2018-12-24] MEDS ORDERED: ONDANSETRON 4 MG/2 ML VIAL IVPUSH PRN (01:50)
--- NOTE | 2018-12-24 06:57 | CON.CARD ---
Consult Consult Specialty:: cardiology - History of Present Illness History of Present Illness: Ms. Friedman presents emergency department via EMS due to severe asthma exacerbation , sudden headache with left-sided weakness, and vomiting. Patient was in her usual state of health, was at her primary care physician's office While there being evaluated for a breast issue, she was noted to have an asthma exacerbation. 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, Other (Meningioma) Cardio/Vascular: Yes: HTN Pulmonary: Yes: Bronchitis ...LMP: 06/15/18 ...: No Psych: Yes: Anxiety - Past Surgical History Past Surgical History: Yes: None - Alcohol/Substance Use Hx Alcohol Use: No - Smoking History Smoking history: Never smoked Have you smoked in the past 12 months: No Home Medications - Allergies Allergies/Adverse Reactions: Allergies Allergy/AdvReac Type Severity Reaction Status Date / Time prednisone Allergy Verified 12/23/18 17:44 - Home Medications Home Medications: Ambulatory Orders Acetaminophen [Tylenol .Regular Strength -] 650 mg PO Q6H PRN #100 tablet Albuterol 0.083% Nebulizer Amaya [Ventolin 0.083% Nebulizer Soln -] 1 amp NEB RQID #120 amp 07/19/18 Budesonide/Formeterol Fumarate [SYMBICORT 160/4.5mcg -] 2 puff IH BID #1 inhaler 07/19/18 Docusate Sodium [Colace -] 100 mg PO TID #90 capsule 07/19/18 Doxycycline Hyclate [Vibramycin -] 100 mg PO BID@1000,1800 #20 capsule 07/19/18 Guaifenesin AC [Robitussin AC -] 10 ml PO Q8H PRN #1 bottle MDD 30 07/19/18 Melatonin 10 mg PO HS #30 tab 07/19/18 Methylprednisolone [Medrol Dose Gaetano] 4 mg PO ASDIR #21 tablet 07/19/18 Polyethylene Glycol 3350 [Miralax 119 gm Btl -] 17 gm PO DAILY #1 bottle Tiotropium [place] [Spiriva Respimat] 2 puff IH DAILY #1 inhaler 07/19/18 Vital Signs: Vital Signs Temperature 97.8 F 12/24/18 02:00 Pulse Rate 84 12/24/18 04:00 Respiratory Rate 14 12/24/18 04:00 Blood Pressure 112/64 12/24/18 04:00 O2 Sat by Pulse Oximetry (%) 100 12/24/18 00:15 - Other Data Labs, Other Data: CBC, BMP 12/23/18 17:36 12/23/18 17:54 INR, PTT INR 0.97 (0.83-1.09) 12/23/18 17:36 Troponin, BNP 12/23/18 12/24/18 17:36 06:00 Troponin I < 0.02 < 0.02 Troponin, BNP 12/23/18 12/24/18 17:36 06:00 Troponin I < 0.02 < 0.02 Problem List - Problems (1) Pituitary adenoma Assessment/Plan: ? MRA with gadolinium; hormone studies. Code(s): D35.2 - BENIGN NEOPLASM OF PITUITARY GLAND (2) Hyperlipidemia Code(s): E78.5 - HYPERLIPIDEMIA, UNSPECIFIED (3) Acute asthma Code(s): J45.909 - UNSPECIFIED ASTHMA, UNCOMPLICATED (4) Obesity Code(s): E66.9 - OBESITY, UNSPECIFIED (5) Palpitation Assessment/Plan: Holter monitor 07/2018: no arrhythmias; rare isolated APCs and PVCs. Code(s): R00.2 - PALPITATIONS
--- NOTE | 2018-12-24 08:52 | CONSULT ---
Consult - text type - Consultation Consultation Note: HISTORY OF PRESENT ILLNESS: This is a 48 year old female with PMH significant for asthma and migraines. She is responsive, but can only respond to questions with single word sentences. As per chart review, she was at her PCP's office around 3PM on day of admission (), when she started complaining of difficulty breathing, and subsequently developed projectile vomiting and left sided weakness. She was brought to the ER by EMS. Her left sided weakness resolved in the ER, before re-appearing, and she was noted to be speaking clearly. She continued to display relapsing and resolving left sided weakness, with episodes of brief slurring. Head CT completed on 12/23 - 2cm pituitary enlargement noted, mild to moderate bilateral ethmoid, left frontal and left maxillary sinus mucosal thickening. Head CTA completed, pituitary adenoma with resultant optic chiasm impingement noted but no large vessel occlusion or critical stenosis . LDL cholesterol 127, patient started on atorvastatin 40mg daily. This AM, awake and alert, having echo completed at bedside and is speaking but with hesitation. Indicates inability to raise left upper and lower extremities, ordered MRI of the brain with and without contrast to evaluate both pituitary adenoma as well as possible CVA. Neurosurgery, Dr. Suazo, consulted for neurosurgical evaluation. patient aware of pituitary adenoma. 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, Other (Meningioma) Cardiovascular: Yes: HTN Pulmonary: Yes: Bronchitis ...LMP: 06/15/18 Psych: Yes: Anxiety - Past Surgical History Past Surgical History: Yes: None - Smoking History Smoking history: Never smoked Have you smoked in the past 12 months: No - Alcohol/Substance Use Hx Alcohol Use: No Allergies Allergy/AdvReac Type Severity Reaction Status Date / Time prednisone Allergy Verified 12/23/18 17:44 Ambulatory Orders Acetaminophen [Tylenol .Regular Strength -] 650 mg PO Q6H PRN #100 tablet Albuterol 0.083% Nebulizer Amaya [Ventolin 0.083% Nebulizer Soln -] 1 amp NEB RQID #120 amp 07/19/18 Budesonide/Formeterol Fumarate [SYMBICORT 160/4.5mcg -] 2 puff IH BID #1 inhaler 07/19/18 Docusate Sodium [Colace -] 100 mg PO TID #90 capsule 07/19/18 Doxycycline Hyclate [Vibramycin -] 100 mg PO BID@1000,1800 #20 capsule 07/19/18 Guaifenesin AC [Robitussin AC -] 10 ml PO Q8H PRN #1 bottle MDD 30 07/19/18 Melatonin 10 mg PO HS #30 tab 07/19/18 Methylprednisolone [Medrol Dose Gaetano] 4 mg PO ASDIR #21 tablet 07/19/18 Polyethylene Glycol 3350 [Miralax 119 gm Btl -] 17 gm PO DAILY #1 bottle Tiotropium [place] [Spiriva Respimat] 2 puff IH DAILY #1 inhaler 07/19/18 Active Medications Albuterol/Ipratropium (Duoneb -) 1 amp NEB Q6H PRN PRN Reason: SHORTNESS OF BREATH Atorvastatin Calcium (Lipitor -) 40 mg PO HS [facility] Sodium Chloride (Normal Saline -) 1,000 mls @ 100 mls/hr IV ASDIR [facility] Last Admin: 12/23/18 23:07 Dose: 100 mls/hr Ondansetron HCl (Zofran Injection) 4 mg IVPUSH Q6H PRN PRN Reason: NAUSEA AND/OR VOMITING REVIEW OF SYSTEMS: CONSTITUTIONAL: generalized weakness Absent: fever, chills, diaphoresis, malaise, loss of appetite, weight change HEENT: visual changes Absent: rhinorrhea, nasal congestion, throat pain, throat swelling, difficulty swallowing, mouth swelling, ear pain, eye pain CARDIOVASCULAR: No chest pain, syncope, palpitations, irregular heart rate, lightheadedness, peripheral edema RESPIRATORY: shortness of breath Absent: cough, dyspnea with exertion, orthopnea, wheezing, stridor, hemoptysis GASTROINTESTINAL: No abdominal pain, abdominal distension, nausea, vomiting, diarrhea, constipation, melena, hematochezia GENITOURINARY: No dysuria, frequency, urgency, hesitancy, hematuria, flank pain , genital pain MUSCULOSKELETAL: No myalgia, arthralgia, joint swelling, back pain, neck pain SKIN: No rash, itching, pallor HEMATOLOGIC/IMMUNOLOGIC: No easy bleeding, easy bruising, lymphadenopathy, frequent infections ENDOCRINE:No unexplained weight gain, unexplained weight loss, heat intolerance , cold intolerance NEUROLOGIC: headache, Absent: focal weakness or paresthesias, dizziness, unsteady gait, seizure, mental status changes, bladder or bowel incontinence PSYCHIATRIC: No anxiety, depression, suicidal or homicidal ideation, hallucinations. PHYSICAL EXAMINATION Vital Signs Period Temp Pulse Resp BP Sys/Krishnamurthy Pulse Ox Last 24 Hr 97.6 F-100.8 F 77-140 13-32 102-178/62-95 97-100 GENERAL: AOx3, responds in single word sentences, drowsy but arousable HEAD: Normal with no signs of trauma. EYES: FRANCISCO, EOMI, complains of intermittent blurry vision in the left eye, no nystagmus EARS, NOSE, THROAT: Ears normal, nares patent, oropharynx clear without exudates. Moist mucous membranes. LUNGS: Clear B/L HEART: RRR, no murmurs ABDOMEN: Soft, nontender, not distended LOWER EXTREMITIES: 2+ pulses, warm, no edema NEUROLOGICAL: Motor 5/5 on right, left varies between 5/5 and 2/5 Sensations on the Rt are intact, vary from intact to diminished on the Lt Lifts eyebrows equally B/L, no flattening of nasolabial fold, is able to smile with no signs of facial droop Intermittent slurred speech SKIN: Warm, dry, normal turgor, no rashes or lesions noted. CBCD WBC 9.5 K/mm3 (4.0-10.0) 12/23/18 17:36 RBC 4.53 M/mm3 (3.60-5.2) 12/23/18 17:36 Hgb 13.1 GM/dL (10.7-15.3) 12/23/18 17:36 Hct 39.2 % (32.4-45.2) 12/23/18 17:36 MCV 86.4 fl (80-96) 12/23/18 17:36 MCHC 33.3 g/dl (32.0-36.0) 12/23/18 17:36 RDW 13.5 % (11.6-15.6) 12/23/18 17:36 Plt Count 318 K/MM3 (134-434) 12/23/18 17:36 MPV 8.6 fl (7.5-11.1) D 12/23/18 17:36 CMP Sodium 138 mmol/L (136-145) 12/23/18 17:54 Potassium 4.5 mmol/L (3.5-5.1) 12/23/18 17:54 Chloride 109 mmol/L (98-107) H 12/23/18 17:54 Carbon Dioxide 22 mmol/L (21-32) 12/23/18 17:54 Anion Gap 7 MMOL/L (8-16) L 12/23/18 17:54 BUN 13.3 mg/dL (7-18) 12/23/18 17:54 Creatinine 0.7 mg/dL (0.55-1.3) 12/23/18 17:54 Random Glucose 84 mg/dL (74-106) 12/23/18 17:54 Calcium 9.5 mg/dL (8.5-10.1) 12/23/18 17:54 Total Bilirubin 0.2 mg/dL (0.2-1) 12/23/18 17:54 AST 26 U/L (15-37) 12/23/18 17:54 ALT 17 U/L (13-61) 12/23/18 17:54 Alkaline Phosphatase 126 U/L (45-117) H 12/23/18 17:54 Total Protein 7.8 g/dl (6.4-8.2) 12/23/18 17:54 Albumin 3.8 g/dl (3.4-5.0) 12/23/18 17:54 CARDIAC ENZYMES Creatine Kinase 60 U/L (26-192) 12/24/18 06:00 Troponin I < 0.02 ng/ml (0.00-0.05) 12/24/18 06:00 ASSESSMENT/PLAN: This is a 48 year old female with PMH significant for asthma and migraines. She is responsive, but can only respond to questions with single word sentences. As per chart review, she was at her PCP's office around 3PM on day of admission (), when she started complaining of difficulty breathing, and subsequently developed projectile vomiting and left sided weakness. She was brought to the ER by EMS. Her left sided weakness resolved in the ER, before re-appearing, and she was noted to be speaking clearly. She continued to display relapsing and resolving left sided weakness, with episodes of brief slurring. Head CT completed on 12/23 - 2cm pituitary enlargement noted, mild to moderate bilateral ethmoid, left frontal and left maxillary sinus mucosal thickening. Head CTA completed, pituitary adenoma with resultant optic chiasm impingement noted but no large vessel occlusion or critical stenosis . LDL cholesterol 127, patient started on atorvastatin 40mg daily. This AM, awake and alert, having echo completed at bedside and is speaking but with hesitation. Indicates inability to raise left upper and lower extremities, ordered MRI of the brain with and without contrast to evaluate both pituitary adenoma as well as possible CVA, awaiting completion. Neurosurgery, Dr. Suazo, consulted for neurosurgical evaluation. patient aware of pituitary adenoma. If no contraindications, patient should be on aspirin 81 mg daily for now. Monitor telemetry, follow-up results of echo and carotid Dopplers. Monitor blood pressure, can allowpermissive hypertension up until 3 PM up to 180's systolic, thereafter goal < 160/100 for 24 hrs. Physical therapy, speech evaluation recommended, DVT prophylaxis.
[2018-12-24] MEDS: SODIUM CHLORIDE 1,000 ML IV SCH (10:22)
[2018-12-24] MEDS: ACETAMINOPHEN 1000 MG/100 ML VIAL (NON FORMULARY) IVPB PRN ×3 (10:22→23:06)
--- NOTE | 2018-12-24 10:56 | ECHO ---
Name: ANDI WYATT Exam:Adult Echocardiogram Study Date: 12/24/2018 08:31 AM Age: 48 yrs Reason For Study: SOB Height: 69 in Weight: 250 lb BSA: 2.3 m2 MMode/2D Measurements & Calculations IVSd: 0.99 cm Ao root diam: 2.5 cm LVIDd: 4.4 cm LA dimension: 2.8 cm LVIDs: 2.6 cm LVPWd: 0.91 cm EDV(Teich): 86.3 ml LVOT diam: 2.0 cm ESV(Teich): 23.6 ml LAV (MOD-bp): 32.1 ml Doppler Measurements & Calculations MV E max christian: 73.3 cm/sec Ao V2 max: 171.0 cm/sec MV A max christian: 71.3 cm/sec Ao max P.7 mmHg MV E/A: 1.0 MV dec time: 0.23 sec SHERLEY(V,D): 2.0 cm2 LV V1 max P.6 mmHg TR max christian: 201.6 cm/sec LV V1 max: 107.2 cm/sec TR max P.4 mmHg PA V2 max: 133.0 cm/sec Med Peak E' Christain: 16.0 cm/sec PA max P.1 mmHg Med E/e': 4.6 Lat Peak E' Christian: 13.7 cm/sec Lat E/e': 5.3 PI Vmax: 179.2 cm/sec Procedure The study was technically difficult with many images being suboptimal in quality. Left Ventricle Left ventricular systolic function is grossly normal. Ejection Fraction = 55-60%. The transmitral spe ctral Doppler flow pattern is suggestive of impaired LV relaxation. Regional wall motion abnormalities raza ot be excluded due to limited visualization. Right Ventricle The right ventricle is grossly normal size. The right ventricular systolic function is grossly normal . Atria Normal left and right atrial size and function. Mitral Valve The mitral valve is normal in structure and function. There is no mitral valve stenosis. There is tra ce to mild mitral regurgitation. Tricuspid Valve The tricuspid valve is not well visualized, but is grossly normal. There is mild tricuspid regurgitat ion. Aortic Valve No hemodynamically significant valvular aortic stenosis. No aortic regurgitation is present. Pulmonic Valve The pulmonic valve is not well seen, but is grossly normal. There is no pulmonic valvular stenosis. Great Vessels The aortic root is normal size. Pericardium/Pleura There is no pericardial effusion. Interpretation Summary The study was technically difficult with many images being suboptimal in quality. Regional wall motion abnormalities cannot be excluded due to limited visualization. Left ventricular systolic function is grossly normal. Ejection Fraction = 55-60%. The transmitral spectral Doppler flow pattern is suggestive of impaired LV relaxation. There is trace to mild mitral regurgitation. There is mild tricuspid regurgitation. There is no pericardial effusion. MD Hassan *Zac 12/24/2018 10:56 AM
[2018-12-24] MEDS: ALBUTEROL SO4 2.5/IPRATROPIUM 0.5 INH SOL 3 ML VIAL.NEB. NEB PRN ×2 (11:25→15:10)
--- NOTE | 2018-12-24 11:26 | RAPID ---
<Amauri Hobbs - Last Filed: 12/24/18 11:19> Physical Examination Vital Signs: Vital Signs Temperature 97.8 F 12/24/18 02:00 Pulse Rate 80 12/24/18 06:00 Respiratory Rate 15 12/24/18 06:00 Blood Pressure 102/62 12/24/18 06:00 O2 Sat by Pulse Oximetry (%) 100 12/24/18 00:15 HR: 112, BP 142/82, 98% on 4L duoneb nebulizer Findings/Remarks: Ferny Ferreira called dt concern for lethargy for ~1min after coughing, HR >140, SBP > 160 Constitutional: Yes: Well Nourished, Other (lethargic appearing) Eyes: Yes: PERRL HENT: Yes: Atraumatic, Normocephalic Neck: Yes: Supple, Trachea Midline Cardiovascular: Yes: Tachycardia (low 100s, sinus tachy) Respiratory: Yes: CTA Bilaterally. No: Accessory Muscle Use, Rales, Rhonchi Gastrointestinal: Yes: Soft Edema: No Peripheral Pulses: Left Doralis Pedis: 1+, Right Dorsalis Pedis: 1+ Neurological: Yes: Other (lethargic-appearing. A&O x2(self, place). Following commands. Slowed-slurred speech. Weak repairer finished metal of Left hand. Delayed movement of Left toes.) Labs: CBC, BMP 12/23/18 17:36 12/23/18 17:54 Rapid Response - Rapid Response Assessment: Ferny Ferreira called dt concern for lethargy for ~1min after coughing, w/ reported HR >140, SBP > 160. Patient displaying deficits of Left-sided LUE and LLE, unchanged from admission. Waxing and waning according to chart review. CTH from admission showing 2cm pituitary adenoma. Admitted for CVA vs stroke. Had rapid- response yesterday dt concern for seizure-like activity. Was transferred to ICU for possible intubation but patient mental status improved. - vitals improved - communication w/ Dr Berumen, rec continuing with MRI brain as exam has not changed <Anne Marie Tee - Last Filed: 12/25/18 15:30> Critical Care Total Critical Care Time (in minutes): 25
--- NOTE | 2018-12-24 11:54 | PN ---
Progress Note (short form) - Note Progress Note: Lethargic. Code olguin called due to mental status change. Seen by Neuro this AM. Breathing is non-labored. Intake & Output 12/21/18 12/22/18 12/23/18 12/24/18 23:59 23:59 23:59 23:59 Intake Total 650 Balance 650 Weight 250 lb Last Vital Signs Temp Pulse Resp BP Pulse Ox 97.8 F 80 15 102/62 100 12/24/18 02:00 12/24/18 06:00 12/24/18 06:00 12/24/18 06:00 12/24/18 00:15 Active Medications Acetaminophen (Ofirmev Injection -) 1,000 mg IVPB Q6H PRN PRN Reason: PAIN LEVEL 6-10 Last Admin: 12/24/18 10:22 Dose: 1,000 mg Albuterol/Ipratropium (Duoneb -) 1 amp NEB Q6H PRN PRN Reason: SHORTNESS OF BREATH Last Admin: 12/24/18 11:25 Dose: 1 amp Atorvastatin Calcium (Lipitor -) 40 mg PO HS ANKIT Sodium Chloride (Normal Saline -) 1,000 mls @ 100 mls/hr IV ASDIR ANKIT Last Admin: 12/24/18 10:22 Dose: 100 mls/hr Ondansetron HCl (Zofran Injection) 4 mg IVPUSH Q6H PRN PRN Reason: NAUSEA AND/OR VOMITING GENERAL: Lethargic HEAD: Normal with no signs of trauma. EYES: FRANCISCO, EOMI, complains of intermittent blurry vision in the left eye, no nystagmus EARS, NOSE, THROAT: Ears normal, nares patent, oropharynx clear without exudates. Moist mucous membranes. LUNGS: Clear B/L HEART: RRR, no murmurs ABDOMEN: Soft, nontender, not distended LOWER EXTREMITIES: 2+ pulses, warm, no edema NEUROLOGICAL: Lethargic, intermittent slurred speech, non-focal SKIN: Warm, dry, normal turgor, no rashes or lesions noted. Laboratory Results - last 24 hr 12/23/18 12/23/18 12/23/18 17:36 17:36 17:36 WBC 9.5 RBC 4.53 Hgb 13.1 Hct 39.2 MCV 86.4 MCH 28.8 MCHC 33.3 RDW 13.5 Plt Count 318 MPV 8.6 D Absolute Neuts (auto) 4.5 Neutrophils % 47.0 D Lymphocytes % 39.2 D Monocytes % 7.5 D Eosinophils % 5.8 H D Basophils % 0.5 Nucleated RBC % 0 PT with INR 11.40 INR 0.97 PTT (Actin FS) 39.7 H VBG pH POC VBG pCO2 POC VBG pO2 VBG HCO3 VBG O2 Sat (Jed) VBG Base Excess Sodium Potassium Chloride Carbon Dioxide Anion Gap BUN Creatinine Est GFR (CKD-EPI)AfAm Est GFR (CKD-EPI)NonAf POC Glucometer Random Glucose Lactic Acid Calcium Total Bilirubin AST ALT Alkaline Phosphatase Creatine Kinase 82 Troponin I < 0.02 Total Protein Albumin Triglycerides Cholesterol 198 Total LDL Cholesterol HDL Cholesterol Urine Color Urine Appearance Urine pH Ur Specific [place] Urine Protein Urine Glucose (UA) Urine Ketones Urine Blood Urine Nitrite Urine Bilirubin Urine Urobilinogen Ur Leukocyte Esterase Urine HCG, Qual Opiates Screen Methadone Screen Barbiturate Screen Phencyclidine Screen Ur Amphetamines Screen MDMA (Ecstasy) Screen Benzodiazepines Screen Cocaine Screen U Marijuana (THC) Screen Blood Type Antibody Screen 12/23/18 12/23/18 12/23/18 17:36 17:45 17:45 WBC RBC Hgb Hct MCV MCH MCHC RDW Plt Count MPV Absolute Neuts (auto) Neutrophils % Lymphocytes % Monocytes % Eosinophils % Basophils % Nucleated RBC % PT with INR INR PTT (Actin FS) VBG pH 7.33 POC VBG pCO2 45.0 POC VBG pO2 < 49 H VBG HCO3 23.0 VBG O2 Sat (Jed) 68.5 L VBG Base Excess -2.5 L Sodium Potassium Chloride Carbon Dioxide Anion Gap BUN Creatinine Est GFR (CKD-EPI)AfAm Est GFR (CKD-EPI)NonAf POC Glucometer Random Glucose Lactic Acid Calcium Total Bilirubin AST ALT Alkaline Phosphatase Creatine Kinase Troponin I Total Protein Albumin Triglycerides Cholesterol Total LDL Cholesterol HDL Cholesterol Urine Color Yellow Urine Appearance Clear Urine pH 7.0 Ur Specific [place] 1.023 Urine Protein Negative Urine Glucose (UA) Negative Urine Ketones Negative Urine Blood Negative Urine Nitrite Negative Urine Bilirubin Negative Urine Urobilinogen 0.2 Ur Leukocyte Esterase Negative Urine HCG, Qual Opiates Screen Methadone Screen Barbiturate Screen Phencyclidine Screen Ur Amphetamines Screen MDMA (Ecstasy) Screen Benzodiazepines Screen Cocaine Screen U Marijuana (THC) Screen Blood Type O NEGATIVE Antibody Screen Negative 12/23/18 12/23/18 12/23/18 17:54 18:06 18:06 WBC RBC Hgb Hct MCV MCH MCHC RDW Plt Count MPV Absolute Neuts (auto) Neutrophils % Lymphocytes % Monocytes % Eosinophils % Basophils % Nucleated RBC % PT with INR INR PTT (Actin FS) VBG pH POC VBG pCO2 POC VBG pO2 VBG HCO3 VBG O2 Sat (Jed) VBG Base Excess Sodium 138 Potassium 4.5 Chloride 109 H Carbon Dioxide 22 Anion Gap 7 L BUN 13.3 Creatinine 0.7 Est GFR (CKD-EPI)AfAm 120.43 Est GFR (CKD-EPI)NonAf 103.90 POC Glucometer Random Glucose 84 Lactic Acid Calcium 9.5 Total Bilirubin 0.2 AST 26 ALT 17 Alkaline Phosphatase 126 H Creatine Kinase Troponin I Total Protein 7.8 Albumin 3.8 Triglycerides 106 Cholesterol Total LDL Cholesterol 127 H HDL Cholesterol 46 Urine Color Urine Appearance Urine pH Ur Specific [place] Urine Protein Urine Glucose (UA) Urine Ketones Urine Blood Urine Nitrite Urine Bilirubin Urine Urobilinogen Ur Leukocyte Esterase Urine HCG, Qual Negative Opiates Screen Negative Methadone Screen Negative Barbiturate Screen Negative Phencyclidine Screen Negative Ur Amphetamines Screen Negative MDMA (Ecstasy) Screen Negative Benzodiazepines Screen Negative Cocaine Screen Negative U Marijuana (THC) Screen Negative Blood Type Antibody Screen 12/23/18 12/23/18 12/23/18 19:18 23:52 23:52 WBC RBC Hgb Hct MCV MCH MCHC RDW Plt Count MPV Absolute Neuts (auto) Neutrophils % Lymphocytes % Monocytes % Eosinophils % Basophils % Nucleated RBC % PT with INR INR PTT (Actin FS) VBG pH POC VBG pCO2 POC VBG pO2 VBG HCO3 VBG O2 Sat (Jed) VBG Base Excess Sodium Potassium Chloride Carbon Dioxide Anion Gap BUN Creatinine Est GFR (CKD-EPI)AfAm Est GFR (CKD-EPI)NonAf POC Glucometer 167 171 Random Glucose Lactic Acid 1.7 Calcium Total Bilirubin AST ALT Alkaline Phosphatase Creatine Kinase Troponin I Total Protein Albumin Triglycerides Cholesterol Total LDL Cholesterol HDL Cholesterol Urine Color Urine Appearance Urine pH Ur Specific [place] Urine Protein Urine Glucose (UA) Urine Ketones Urine Blood Urine Nitrite Urine Bilirubin Urine Urobilinogen Ur Leukocyte Esterase Urine HCG, Qual Opiates Screen Methadone Screen Barbiturate Screen Phencyclidine Screen Ur Amphetamines Screen MDMA (Ecstasy) Screen Benzodiazepines Screen Cocaine Screen U Marijuana (THC) Screen Blood Type Antibody Screen 12/24/18 06:00 WBC RBC Hgb Hct MCV MCH MCHC RDW Plt Count MPV Absolute Neuts (auto) Neutrophils % Lymphocytes % Monocytes % Eosinophils % Basophils % Nucleated RBC % PT with INR INR PTT (Actin FS) VBG pH POC VBG pCO2 POC VBG pO2 VBG HCO3 VBG O2 Sat (Jed) VBG Base Excess Sodium Potassium Chloride Carbon Dioxide Anion Gap BUN Creatinine Est GFR (CKD-EPI)AfAm Est GFR (CKD-EPI)NonAf POC Glucometer Random Glucose Lactic Acid Calcium Total Bilirubin AST ALT Alkaline Phosphatase Creatine Kinase 60 Troponin I < 0.02 Total Protein Albumin Triglycerides Cholesterol Total LDL Cholesterol HDL Cholesterol Urine Color Urine Appearance Urine pH Ur Specific [place] Urine Protein Urine Glucose (UA) Urine Ketones Urine Blood Urine Nitrite Urine Bilirubin Urine Urobilinogen Ur Leukocyte Esterase Urine HCG, Qual Opiates Screen Methadone Screen Barbiturate Screen Phencyclidine Screen Ur Amphetamines Screen MDMA (Ecstasy) Screen Benzodiazepines Screen Cocaine Screen U Marijuana (THC) Screen Blood Type Antibody Screen ASSESSMENT/PLAN: R/O Stroke (?) Complicated Migraines R/O Seizure History of Asthma: currently stable Patient seen by Neurology this AM and MRI has been ordered BD [place] PRN No indication for systemic steroids Neuro checks Cardiology consulted Supplemental O2 as needed IVF Dr Singh
--- NOTE | 2018-12-24 13:22 | EKG ---
Test Reason : Blood Pressure : / mmHG Vent. Rate : 076 BPM Atrial Rate : 076 BPM P-R Int : 168 ms QRS Dur : 074 ms QT Int : 398 ms P-R-T Axes : 067 034 018 degrees QTc Int : 447 ms NORMAL SINUS RHYTHM LOW VOLTAGE QRS SEPTAL INFARCT , AGE UNDETERMINED ABNORMAL ECG Confirmed by RENITA CAMACHO MD ([id number]) on 12/24/2018 1:22:10 PM Referred By: SHIRA LEE DR Confirmed By:RENITA CAMACHO MD
--- NOTE | 2018-12-24 13:48 | EKG ---
Test Reason : Blood Pressure : / mmHG Vent. Rate : 130 BPM Atrial Rate : 130 BPM P-R Int : 150 ms QRS Dur : 068 ms QT Int : 280 ms P-R-T Axes : 070 038 024 degrees QTc Int : 412 ms SINUS TACHYCARDIA Confirmed by RENITA CAMACHO MD ([id number]) on 12/24/2018 1:48:19 PM Referred By: Confirmed By:RENITA CAMACHO MD
[2018-12-24] MEDS: HEPARIN NA (PORCINE) 5,000 UNITS/ML 1ML VIAL SQ SCH (22:00)
[2018-12-24] MEDS ORDERED: MORPHINE SULFATE 2 MG/ML VIAL IVPUSH STA (22:16)
[2018-12-24] MEDS: ATORVASTATIN CA 40 MG TABLET (FP) PO SCH (23:07)
[2018-12-24] MEDS: DEXTROSE 5%-0.45% SALINE 1,000 ML IV SCH (23:07)
[2018-12-25] MEDS: ALBUTEROL SO4 2.5/IPRATROPIUM 0.5 INH SOL 3 ML VIAL.NEB. NEB PRN (06:41)
[2018-12-25 09:28] LABS: BASO % 0.6 % (0-2.0); EOS % 0.2 % (0-4.5); HEMATOCRIT 31.5 % (32.4-45.2); HEMOGLOBIN 10.5 GM/dL (10.7-15.3); LYMPH % 30.8 % (8-40); MCH 29.2 pg (25.7-33.7); MCHC 33.5 g/dl (32.0-36.0); MEAN CELL VOLUME 87.2 fl (80-96); MEAN PLT VOLUME 8.6 fl (7.5-11.1); MONO % 4.8 % (3.8-10.2); NEUT % 63.6 % (42.8-82.8); PLATELET COUNT 243 K/MM3 (134-434); RBC 3.61 M/mm3 (3.60-5.2); RDW 13.7 % (11.6-15.6); WHITE BLOOD COUNT 9.2 K/mm3 (4.0-10.0)
[2018-12-25 09:40] LABS: ALK PHOS 87 U/L (45-117); ANION GAP 6 MMOL/L (8-16); BILIRUBIN,TOTAL 0.2 mg/dL (0.2-1); BLOOD UREA NITROGEN 17.8 mg/dL (7-18); CHLORIDE 112 mmol/L (98-107); CO2 22 mmol/L (21-32); CREATININE 0.6 mg/dL (0.55-1.3); GLUCOSE,RANDOM 87 mg/dL (74-106); POTASSIUM 3.8 mmol/L (3.5-5.1); SGOT/AST 9 U/L (15-37); SGPT/ALT 11 U/L (13-61); SODIUM 140 mmol/L (136-145); TOT PROT 5.9 g/dl (6.4-8.2)
[2018-12-25] MEDS ORDERED: PT OWN MED DRAWER 7, Y5N ONE (10:15)
[2018-12-25] MEDS: HEPARIN NA (PORCINE) 5,000 UNITS/ML 1ML VIAL SQ SCH ×2 (10:16→21:06)
[2018-12-25] MEDS: ASPIRIN COATED 81 MG TABLET.EC PO SCH (10:16)
--- NOTE | 2018-12-25 11:10 | PN ---
Progress Note (short form) - Note Progress Note: Neurology HISTORY OF PRESENT ILLNESS: This is a 48 year old female with PMH significant for asthma and migraines. She is responsive, but can only respond to questions with single word sentences. As per chart review, she was at her PCP's office around 3PM on day of admission (), when she started complaining of difficulty breathing, and subsequently developed projectile vomiting and left sided weakness. She was brought to the ER by EMS. Her left sided weakness resolved in the ER, before re-appearing, and she was noted to be speaking clearly. She continued to display relapsing and resolving left sided weakness, with episodes of brief slurring. Head CT completed on 12/23 - 2cm pituitary enlargement noted, mild to moderate bilateral ethmoid, left frontal and left maxillary sinus mucosal thickening. Head CTA completed, pituitary adenoma with resultant optic chiasm impingement noted but no large vessel occlusion or critical stenosis . LDL cholesterol 127, patient started on atorvastatin 40mg daily. This AM, awake and alert, having echo completed at bedside and is speaking but with hesitation. Indicates inability to raise left upper and lower extremities, ordered MRI of the brain with and without contrast to evaluate both pituitary adenoma as well as possible CVA. Brain MRI not completed, repeat Head CT ordered, not yet completed. Neurosurgery, Dr. Suazo, consulted for neurosurgical evaluation, had twenty minute conversation with him this AM regarding case and discussed his thought. Does not feel pit adenoma is etiology, is concerned for edema and need for hemicraniectomy. Patient CTA negative for large vessel occulusion, would not be appropriate for endovascular. Pulmonary consulted for optimization of respiratory. Discussed with nurse and will try to obtain CT head, MRI not completed due to patient emesis and concern for aspiration while being in machine prolonged. She is awake, alert, stable without respiratory distress with normal pulse ox and conversive during my evaluation. Neurologically remains stable with slight improvement in LUE movement. May benefit from PT. Allergies Allergy/AdvReac Type Severity Reaction Status Date / Time prednisone Allergy Verified 12/23/18 17:44 Active Medications Acetaminophen (Ofirmev Injection -) 1,000 mg IVPB Q6H PRN PRN Reason: PAIN LEVEL 6-10 Last Admin: 12/24/18 23:06 Dose: 1,000 mg Albuterol/Ipratropium (Duoneb -) 1 amp NEB Q6H PRN PRN Reason: SHORTNESS OF BREATH Last Admin: 12/25/18 06:41 Dose: 1 amp Aspirin (Ecotrin -) 81 mg PO DAILY [facility] Last Admin: 12/25/18 10:16 Dose: 81 mg Atorvastatin Calcium (Lipitor -) 40 mg PO HS ANKIT Last Admin: 12/24/18 23:07 Dose: Not Given Heparin Sodium (Porcine) (Heparin -) 5,000 unit SQ BID ANKIT Last Admin: 12/25/18 10:16 Dose: 5,000 unit Dextrose/Sodium Chloride (D5-1/2ns -) 1,000 mls @ 75 mls/hr IV ASDIR ANKIT Last Admin: 12/24/18 23:07 Dose: Not Given Ondansetron HCl (Zofran Injection) 4 mg IVPUSH Q6H PRN PRN Reason: NAUSEA AND/OR VOMITING PHYSICAL EXAMINATION Vital Signs Period Temp Pulse Resp BP Sys/Krishnamurthy Pulse Ox Last 24 Hr 98.4 F-98.8 F 69-99 12-18 99-123/58-74 98-100 GENERAL: AOx3, responds in single word sentences, drowsy but arousable HEAD: Normal with no signs of trauma. EYES: FRANCISCO, EOMI, complains of intermittent blurry vision in the left eye, no nystagmus EARS, NOSE, THROAT: Ears normal, nares patent, oropharynx clear without exudates. Moist mucous membranes. LUNGS: Clear B/L HEART: RRR, no murmurs ABDOMEN: Soft, nontender, not distended LOWER EXTREMITIES: 2+ pulses, warm, no edema NEUROLOGICAL: Motor 5/5 on right, left varies between 4/5 and 2/5 Sensations on the Rt are intact, vary from intact to diminished on the Lt Lifts eyebrows equally B/L, no flattening of nasolabial fold, is able to smile with no signs of facial droop Intermittent slurred speech SKIN: Warm, dry, normal turgor, no rashes or lesions noted. CBCD WBC 9.2 K/mm3 (4.0-10.0) 12/25/18 08:45 RBC 3.61 M/mm3 (3.60-5.2) 12/25/18 08:45 Hgb 10.5 GM/dL (10.7-15.3) L 12/25/18 08:45 Hct 31.5 % (32.4-45.2) L D 12/25/18 08:45 MCV 87.2 fl (80-96) 12/25/18 08:45 MCHC 33.5 g/dl (32.0-36.0) 12/25/18 08:45 RDW 13.7 % (11.6-15.6) 12/25/18 08:45 Plt Count 243 K/MM3 (134-434) D 12/25/18 08:45 MPV 8.6 fl (7.5-11.1) 12/25/18 08:45 CMP Sodium 140 mmol/L (136-145) 12/25/18 05:20 Potassium 3.8 mmol/L (3.5-5.1) 12/25/18 05:20 Chloride 112 mmol/L (98-107) H 12/25/18 05:20 Carbon Dioxide 22 mmol/L (21-32) 12/25/18 05:20 Anion Gap 6 MMOL/L (8-16) L 12/25/18 05:20 BUN 17.8 mg/dL (7-18) 12/25/18 05:20 Creatinine 0.6 mg/dL (0.55-1.3) 12/25/18 05:20 Random Glucose 87 mg/dL (74-106) 12/25/18 05:20 Calcium 8.0 mg/dL (8.5-10.1) L 12/25/18 05:20 Total Bilirubin 0.2 mg/dL (0.2-1) 12/25/18 05:20 AST 9 U/L (15-37) L 12/25/18 05:20 ALT 11 U/L (13-61) L 12/25/18 05:20 Alkaline Phosphatase 87 U/L (45-117) 12/25/18 05:20 Total Protein 5.9 g/dl (6.4-8.2) L 12/25/18 05:20 Albumin 3.0 g/dl (3.4-5.0) L 12/25/18 05:20 CARDIAC ENZYMES Creatine Kinase 45 U/L (26-192) 12/25/18 05:20 Troponin I < 0.02 ng/ml (0.00-0.05) 12/25/18 05:20 ASSESSMENT/PLAN: This is a 48 year old female with PMH significant for asthma and migraines. She is responsive, but can only respond to questions with single word sentences. As per chart review, she was at her PCP's office around 3PM on day of admission (), when she started complaining of difficulty breathing, and subsequently developed projectile vomiting and left sided weakness. She was brought to the ER by EMS. Her left sided weakness resolved in the ER, before re-appearing, and she was noted to be speaking clearly. She continued to display relapsing and resolving left sided weakness, with episodes of brief slurring. Head CT completed on 12/23 - 2cm pituitary enlargement noted, mild to moderate bilateral ethmoid, left frontal and left maxillary sinus mucosal thickening. Head CTA completed, pituitary adenoma with resultant optic chiasm impingement noted but no large vessel occlusion or critical stenosis . LDL cholesterol 127, patient started on atorvastatin 40mg daily. This AM, awake and alert, having echo completed at bedside and is speaking but with hesitation. Indicates inability to raise left upper and lower extremities, ordered MRI of the brain with and without contrast to evaluate both pituitary adenoma as well as possible CVA, awaiting completion. Repeat Head CT ordered, not yet completed. Neurosurgery, Dr. Suazo, consulted for neurosurgical evaluation, had twenty minute conversation with him this AM regarding case and discussed his thought. Does not feel pit adenoma is etiology, is concerned for edema and need for hemicraniectomy. Patient CTA negative for large vessel occulusion, would not be appropriate for endovascular. Pulmonary consulted for optimization of respiratory. Discussed with nurse and will try to obtain CT head, MRI not completed due to patient emesis and concern for aspiration while being in machine prolonged. She is awake, alert, stable without respiratory distress with normal pulse ox and conversive during my evaluation. Neurologically remains stable with slight improvement in LUE movement. May benefit from PT. Monitor telemetry, follow-up results of echo and carotid Dopplers. Monitor blood pressure, goal < 160/100 for 24 hrs. Physical therapy, speech evaluation recommended, DVT prophylaxis. Pulmonary follow up, optimize airway, intubation if needed. Continue to monitor mental status, neurologic function. Discussed with nurse at bedside as well.
--- NOTE | 2018-12-25 11:18 | CONSULT ---
Consult - text type - Consultation Consultation Note: NEUROSURGERY CONSULTATION Ana Maria Friedman is a 48 year old female who has a known history of pituitary adenoma. She relates that she has known about it for a "long time" and that she has previously undergone visual field testing and Endocrine evaluation. She states that the tumor was "1-2 cm." She also has a history of migraines and asthma. She developed difficulty breathing and projectile vomiting in the office of her PCP and was directed to the [facility] ER. The patient arrived by EMS and was noted to have Left sided weakness. This resolved in the ER and CTA was negative by report. CT demonstrated 2cm pituitary adenoma with elevation of the chiasm. CT also suggestive of possible sinusitus. Patient was admitted on December. Patient was having some speech difficulties and return of Left sided weakness yesterday and MRI was ordered to evaluate pituitary and potential CVA. Patient could not tolerate imaging and has been having some difficulties controlling her secretions. Today, patient has Left sided weakness and expressive dysarthria. She seems to have intact speech comprehension. Her tongue deviates to the Left initially upon protrusion, however, with effort, she can bring it to the midline. She is aware of her expressive speech difficulties. She has a dense Left visual field cut (no suggestion of bitemporal hemianopsia) on confrontation testing. Case discussed in detail with Dr. Berumen. We are in agreement that her pituitary lesion warrants further evaluation (MRI with pituitary protocol, full endocrine evaluation and formal visual field testing), however, this can be done semi-electively as an outpatient. The current concern is potential CVA. I discussed the possibility of transfer to a higher level of care, however, the patient is now out of the window for most endovascular interventions. She has a headache, which is difficult to distinguish from her longstanding migraines versus elevated ICP. If she has a large MCA infaract, she may ultimately require /benefit from hemicraniectomy. I explained that I will be out of town next week and although I could perform such a procedure prior to leaving, there are concerns about what would be safer for the patient during this time, caring for her after a hemicraniectomy or in potential need for hemicraniectomy. I also expressed concern about her airway since she is on telemetry and not in the ICU, however, Dr. Berumen has informed me of the stroke protocol in place which has been working well in the past. At this point, there is no acute neurosurgical intervention which is planned, however, I agree that if we cannot get the MRI quickly, non-contrast head CT should allow us to evaluate extent of infarct and further care planning.
[2018-12-25] MEDS: ACETAMINOPHEN 1000 MG/100 ML VIAL (NON FORMULARY) IVPB PRN (16:36)
--- NOTE | 2018-12-25 16:37 | PN ---
Progress Note, Physician History of Present Illness: PULMOMARY ALERT, DEVELOPES COUGH WHEN CHEWIING ICE CHIPS , + CHANGE IN VOICE - Current Medication List Current Medications: Active Medications Acetaminophen (Ofirmev Injection -) 1,000 mg IVPB Q6H PRN PRN Reason: PAIN LEVEL 6-10 Last Admin: 12/24/18 23:06 Dose: 1,000 mg Albuterol/Ipratropium (Duoneb -) 1 amp NEB Q6H PRN PRN Reason: SHORTNESS OF BREATH Last Admin: 12/25/18 06:41 Dose: 1 amp Aspirin (Ecotrin -) 81 mg PO DAILY [facility] Last Admin: 12/25/18 10:16 Dose: 81 mg Atorvastatin Calcium (Lipitor -) 40 mg PO HS [facility] Last Admin: 12/24/18 23:07 Dose: Not Given Heparin Sodium (Porcine) (Heparin -) 5,000 unit SQ BID [facility] Last Admin: 12/25/18 10:16 Dose: 5,000 unit Dextrose/Sodium Chloride (D5-1/2ns -) 1,000 mls @ 75 mls/hr IV ASDIR [facility] Last Admin: 12/24/18 23:07 Dose: Not Given Ondansetron HCl (Zofran Injection) 4 mg IVPUSH Q6H PRN PRN Reason: NAUSEA AND/OR VOMITING - Objective Vital Signs: Vital Signs Temperature 98.6 F 12/25/18 10:30 Pulse Rate 66 12/25/18 12:00 Respiratory Rate 14 12/25/18 12:00 Blood Pressure 108/62 12/25/18 12:00 O2 Sat by Pulse Oximetry (%) 98 12/25/18 10:09 Constitutional: Yes: Well Nourished, Calm Eyes: Yes: WNL HENT: Yes: WNL Neck: Yes: WNL, Other (+ UPPER AIRAWY BS,NO STRIDOR) Cardiovascular: Yes: Regular Rate and Rhythm, S1, S2 Respiratory: Yes: CTA Bilaterally Gastrointestinal: Yes: Normal Bowel Sounds, Soft Extremities: Yes: WNL Edema: No Labs: CBC, BMP 12/25/18 08:45 12/25/18 05:20 INR, PTT INR 0.97 (0.83-1.09) 12/23/18 17:36 Problem List - Problems (1) Bronchospasm Code(s): J98.01 - ACUTE BRONCHOSPASM (2) Dysarthria Code(s): R47.1 - DYSARTHRIA AND ANARTHRIA (3) Headache Code(s): R51 - HEADACHE (4) Pituitary adenoma Code(s): D35.2 - BENIGN NEOPLASM OF PITUITARY GLAND Assessment/Plan ASSESSMENT/PLAN: R/O Stroke (?) Complicated Migraines R/O Seizure History of Asthma: currently stable R/O upper airway inflammation plan MRI has been ordered BD TX PRN Medrol Neuro checks Supplemental O2 as needed IVF ENT evaluation DR FOLEY
[2018-12-25] MEDS: methylPREDNISolone NA SUCC 40 MG/1 ML VIAL IVPUSH SCH ×2 (17:08→21:06)
[2018-12-25] MEDS ORDERED: MORPHINE SULFATE 2 MG/ML VIAL IVPUSH ONE (20:45)
[2018-12-25] MEDS: ATORVASTATIN CA 40 MG TABLET (FP) PO SCH (21:06)
[2018-12-25] MEDS: DEXTROSE 5%-0.45% SALINE 1,000 ML IV SCH (21:08)
--- NOTE | 2018-12-25 21:52 | PN ---
Progress Note, Physician - Current Medication List Current Medications: Active Medications Acetaminophen (Ofirmev Injection -) 1,000 mg IVPB Q6H PRN PRN Reason: PAIN LEVEL 6-10 Last Admin: 12/25/18 16:36 Dose: 1,000 mg Albuterol/Ipratropium (Duoneb -) 1 amp NEB Q6H PRN PRN Reason: SHORTNESS OF BREATH Last Admin: 12/25/18 06:41 Dose: 1 amp Aspirin (Ecotrin -) 81 mg PO DAILY [facility] Last Admin: 12/25/18 10:16 Dose: 81 mg Atorvastatin Calcium (Lipitor -) 40 mg PO HS ANKIT Last Admin: 12/25/18 21:06 Dose: 40 mg Heparin Sodium (Porcine) (Heparin -) 5,000 unit SQ BID [facility] Last Admin: 12/25/18 21:06 Dose: 5,000 unit Dextrose/Sodium Chloride (D5-1/2ns -) 1,000 mls @ 75 mls/hr IV ASDIR [facility] Last Admin: 12/25/18 21:08 Dose: Not Given Methylprednisolone Sodium Succinate (Solu-Medrol -) 40 mg IVPUSH Q6H-IV ANKIT Last Admin: 12/25/18 21:06 Dose: 40 mg Ondansetron HCl (Zofran Injection) 4 mg IVPUSH Q6H PRN PRN Reason: NAUSEA AND/OR VOMITING - Objective Vital Signs: Vital Signs Temperature 97.1 F L 12/25/18 17:15 Pulse Rate 71 12/25/18 19:58 Respiratory Rate 15 12/25/18 19:58 Blood Pressure 108/63 12/25/18 19:58 O2 Sat by Pulse Oximetry (%) 99 12/25/18 20:05 Labs: CBC, BMP 12/25/18 08:45 12/25/18 05:20 INR, PTT INR 0.97 (0.83-1.09) 12/23/18 17:36
[2018-12-26] MEDS: methylPREDNISolone NA SUCC 40 MG/1 ML VIAL IVPUSH SCH ×4 (02:10→21:58)
[2018-12-26] MEDS: ASPIRIN COATED 81 MG TABLET.EC PO SCH (09:40)
[2018-12-26] MEDS: HEPARIN NA (PORCINE) 5,000 UNITS/ML 1ML VIAL SQ SCH ×2 (09:43→22:00)
[2018-12-26] MEDS ORDERED: PT OWN MED DRAWER 7, Y5N ONE (09:46)
[2018-12-26] MEDS: ACETAMINOPHEN 1000 MG/100 ML VIAL (NON FORMULARY) IVPB PRN ×2 (09:47→21:58)
--- NOTE | 2018-12-26 12:01 | PN ---
Progress Note (short form) - Note Progress Note: Neurology HISTORY OF PRESENT ILLNESS: This is a 48 year old female with PMH significant for asthma and migraines. She is responsive, but can only respond to questions with single word sentences. As per chart review, she was at her PCP's office around 3PM on day of admission (), when she started complaining of difficulty breathing, and subsequently developed projectile vomiting and left sided weakness. She was brought to the ER by EMS. Her left sided weakness resolved in the ER, before re-appearing, and she was noted to be speaking clearly. She continued to display relapsing and resolving left sided weakness, with episodes of brief slurring. Head CT completed on 12/23 - 2cm pituitary enlargement noted, mild to moderate bilateral ethmoid, left frontal and left maxillary sinus mucosal thickening. Head CTA completed, pituitary adenoma with resultant optic chiasm impingement noted but no large vessel occlusion or critical stenosis . LDL cholesterol 127, patient started on atorvastatin 40mg daily. Ordered MRI of the brain with and without contrast to evaluate both pituitary adenoma as well as possible CVA. Brain MRI not completed due to prior concern for aspiration as patient was having projective vomiting. Repeat Head CT 12/25, completed and no acute changes. Neurosurgery, Dr. Suazo, consulted for neurosurgical evaluation, had conversation with 12/25 as noted. Pulmonary consulted for optimization of respiratory status and discused with Dr Hennessy this AM. Noted hypoxia and hypercapnia improved on labs and breathing comfortably. Much improved this AM, no respiratory distress and even morving L side near baseline (LUe maybe 5- at this point), speech improved. Discussed with nurse and will try to obtain MRI for more definitive imaging. May benefit from PT. Allergies Allergy/AdvReac Type Severity Reaction Status Date / Time prednisone Allergy Verified 12/23/18 17:44 Active Medications Acetaminophen (Ofirmev Injection -) 1,000 mg IVPB Q6H PRN PRN Reason: PAIN LEVEL 6-10 Last Admin: 12/26/18 09:47 Dose: 1,000 mg Albuterol/Ipratropium (Duoneb -) 1 amp NEB Q6H PRN PRN Reason: SHORTNESS OF BREATH Last Admin: 12/25/18 06:41 Dose: 1 amp Aspirin (Ecotrin -) 81 mg PO DAILY [facility] Last Admin: 12/26/18 09:40 Dose: 81 mg Atorvastatin Calcium (Lipitor -) 40 mg PO HS [facility] Last Admin: 12/25/18 21:06 Dose: 40 mg Heparin Sodium (Porcine) (Heparin -) 5,000 unit SQ BID [facility] Last Admin: 12/26/18 09:43 Dose: Not Given Dextrose/Sodium Chloride (D5-1/2ns -) 1,000 mls @ 75 mls/hr IV ASDIR [facility] Last Admin: 12/25/18 21:08 Dose: Not Given Methylprednisolone Sodium Succinate (Solu-Medrol -) 40 mg IVPUSH Q6H-IV [facility] Last Admin: 12/26/18 09:40 Dose: 40 mg Ondansetron HCl (Zofran Injection) 4 mg IVPUSH Q6H PRN PRN Reason: NAUSEA AND/OR VOMITING PHYSICAL EXAMINATION Vital Signs Period Temp Pulse Resp BP Sys/Krishnamurthy Pulse Ox Last 24 Hr 97.1 F-98.1 F 59-71 12-18 91-114/49-66 99-99 GENERAL: AOx3, responds in single word sentences, drowsy but arousable HEAD: Normal with no signs of trauma. EYES: FRANCISCO, EOMI, complains of intermittent blurry vision in the left eye, no nystagmus EARS, NOSE, THROAT: Ears normal, nares patent, oropharynx clear without exudates. Moist mucous membranes. LUNGS: Clear B/L HEART: RRR, no murmurs ABDOMEN: Soft, nontender, not distended LOWER EXTREMITIES: 2+ pulses, warm, no edema NEUROLOGICAL: Motor 5/5 on right, left upper and lower 5-/5 Sensations on the Rt are intact, Lt also intact Lifts eyebrows equally B/L, no flattening of nasolabial fold, is able to smile with no signs of facial droop No slurred speech SKIN: Warm, dry, normal turgor, no rashes or lesions noted. CBCD WBC 9.2 K/mm3 (4.0-10.0) 12/25/18 08:45 RBC 3.61 M/mm3 (3.60-5.2) 12/25/18 08:45 Hgb 10.5 GM/dL (10.7-15.3) L 12/25/18 08:45 Hct 31.5 % (32.4-45.2) L D 12/25/18 08:45 MCV 87.2 fl (80-96) 12/25/18 08:45 MCHC 33.5 g/dl (32.0-36.0) 12/25/18 08:45 RDW 13.7 % (11.6-15.6) 12/25/18 08:45 Plt Count 243 K/MM3 (134-434) D 12/25/18 08:45 MPV 8.6 fl (7.5-11.1) 12/25/18 08:45 CMP Sodium 140 mmol/L (136-145) 12/25/18 05:20 Potassium 3.8 mmol/L (3.5-5.1) 12/25/18 05:20 Chloride 112 mmol/L (98-107) H 12/25/18 05:20 Carbon Dioxide 22 mmol/L (21-32) 12/25/18 05:20 Anion Gap 6 MMOL/L (8-16) L 12/25/18 05:20 BUN 17.8 mg/dL (7-18) 12/25/18 05:20 Creatinine 0.6 mg/dL (0.55-1.3) 12/25/18 05:20 Random Glucose 87 mg/dL (74-106) 12/25/18 05:20 Calcium 8.0 mg/dL (8.5-10.1) L 12/25/18 05:20 Total Bilirubin 0.2 mg/dL (0.2-1) 12/25/18 05:20 AST 9 U/L (15-37) L 12/25/18 05:20 ALT 11 U/L (13-61) L 12/25/18 05:20 Alkaline Phosphatase 87 U/L (45-117) 12/25/18 05:20 Total Protein 5.9 g/dl (6.4-8.2) L 12/25/18 05:20 Albumin 3.0 g/dl (3.4-5.0) L 12/25/18 05:20 CARDIAC ENZYMES Creatine Kinase 52 U/L (26-192) 12/26/18 05:25 Troponin I < 0.02 ng/ml (0.00-0.05) 12/26/18 05:25 ASSESSMENT/PLAN: This is a 48 year old female with PMH significant for asthma and migraines. She is responsive, but can only respond to questions with single word sentences. As per chart review, she was at her PCP's office around 3PM on day of admission (), when she started complaining of difficulty breathing, and subsequently developed projectile vomiting and left sided weakness. She was brought to the ER by EMS. Her left sided weakness resolved in the ER, before re-appearing, and she was noted to be speaking clearly. She continued to display relapsing and resolving left sided weakness, with episodes of brief slurring. Head CT completed on 12/23 - 2cm pituitary enlargement noted, mild to moderate bilateral ethmoid, left frontal and left maxillary sinus mucosal thickening. Head CTA completed, pituitary adenoma with resultant optic chiasm impingement noted but no large vessel occlusion or critical stenosis . LDL cholesterol 127, patient started on atorvastatin 40mg daily. Ordered MRI of the brain with and without contrast to evaluate both pituitary adenoma as well as possible CVA. Brain MRI not completed due to prior concern for aspiration as patient was having projective vomiting. Repeat Head CT 12/25, completed and no acute changes. Neurosurgery, Dr. Suazo, consulted for neurosurgical evaluation, had conversation with 12/25 as noted. Pulmonary consulted for optimization of respiratory status and discused with Dr Hennessy this AM. Noted hypoxia and hypercapnia improved on labs and breathing comfortably. Much improved this AM, no respiratory distress and even morving L side near baseline (LUe maybe 5- at this point), speech improved. Discussed with nurse and will try to obtain MRI for more definitive imaging. May benefit from PT. Monitor telemetry, follow-up results of echo and carotid Dopplers. Monitor blood pressure, goal < 140/90. Physical therapy, speech improved, DVT prophylaxis. Pulmonary follow up, optimize airway, intubation not needed at this time. Continue to monitor mental status, neurologic function, both much improved. Discussed with nurse as well, would like to see MRI brain. Follow up pituatary adenoma with Dr. Downing as outpatient, no inpatient acute surgery indicated. No concern or need for hemicrani based on clinical improvements and imaging results as noted.
--- NOTE | 2018-12-26 13:54 | PN ---
Progress Note, Physician History of Present Illness: pulmonary alert,comfortable,feeling better,less sob - Current Medication List Current Medications: Active Medications Acetaminophen (Ofirmev Injection -) 1,000 mg IVPB Q6H PRN PRN Reason: PAIN LEVEL 6-10 Last Admin: 12/26/18 09:47 Dose: 1,000 mg Albuterol/Ipratropium (Duoneb -) 1 amp NEB Q6H PRN PRN Reason: SHORTNESS OF BREATH Last Admin: 12/25/18 06:41 Dose: 1 amp Aspirin (Ecotrin -) 81 mg PO DAILY [facility] Last Admin: 12/26/18 09:40 Dose: 81 mg Atorvastatin Calcium (Lipitor -) 40 mg PO HS [facility] Last Admin: 12/25/18 21:06 Dose: 40 mg Heparin Sodium (Porcine) (Heparin -) 5,000 unit SQ BID [facility] Last Admin: 12/26/18 09:43 Dose: Not Given Dextrose/Sodium Chloride (D5-1/2ns -) 1,000 mls @ 75 mls/hr IV ASDIR [facility] Last Admin: 12/25/18 21:08 Dose: Not Given Methylprednisolone Sodium Succinate (Solu-Medrol -) 40 mg IVPUSH Q6H-IV [facility] Last Admin: 12/26/18 09:40 Dose: 40 mg Ondansetron HCl (Zofran Injection) 4 mg IVPUSH Q6H PRN PRN Reason: NAUSEA AND/OR VOMITING - Objective Vital Signs: Vital Signs Temperature 98 F 12/26/18 10:00 Pulse Rate 67 12/26/18 10:00 Respiratory Rate 14 12/26/18 10:00 Blood Pressure 114/62 12/26/18 10:00 O2 Sat by Pulse Oximetry (%) 99 12/26/18 10:00 Constitutional: Yes: Well Nourished, Calm Eyes: Yes: WNL HENT: Yes: WNL Neck: Yes: WNL, Other (less upper airway bs,-stridor) Cardiovascular: Yes: Regular Rate and Rhythm, S1, S2 Respiratory: Yes: Diminished Gastrointestinal: Yes: Normal Bowel Sounds, Soft Extremities: Yes: WNL Edema: No Labs: CBC, BMP Problem List - Problems (1) Bronchospasm Code(s): J98.01 - ACUTE BRONCHOSPASM (2) Dysarthria Code(s): R47.1 - DYSARTHRIA AND ANARTHRIA (3) Headache Code(s): R51 - HEADACHE (4) Pituitary adenoma Code(s): D35.2 - BENIGN NEOPLASM OF PITUITARY GLAND Assessment/Plan ASSESSMENT/PLAN: R/O Stroke (?) Complicated Migraines R/O Seizure History of Asthma: currently stable R/O upper airway inflammation plan MRI has been ordered BD [place] PRN Medrol Neuro checks Supplemental O2 as needed IVF ENT evaluation DR FOLEY
[2018-12-26] MEDS: DEXTROSE 5%-0.45% SALINE 1,000 ML IV SCH (21:58)
[2018-12-26] MEDS: ATORVASTATIN CA 40 MG TABLET (FP) PO SCH (21:58)
--- NOTE | 2018-12-26 23:14 | PN ---
Progress Note, Physician History of Present Illness: No new complaints - Current Medication List Current Medications: Active Medications Acetaminophen (Ofirmev Injection -) 1,000 mg IVPB Q6H PRN PRN Reason: PAIN LEVEL 6-10 Last Admin: 12/26/18 21:58 Dose: 1,000 mg Albuterol/Ipratropium (Duoneb -) 1 amp NEB Q6H PRN PRN Reason: SHORTNESS OF BREATH Last Admin: 12/25/18 06:41 Dose: 1 amp Aspirin (Ecotrin -) 81 mg PO DAILY [facility] Last Admin: 12/26/18 09:40 Dose: 81 mg Atorvastatin Calcium (Lipitor -) 40 mg PO HS [facility] Last Admin: 12/26/18 21:58 Dose: 40 mg Heparin Sodium (Porcine) (Heparin -) 5,000 unit SQ BID [facility] Last Admin: 12/26/18 09:43 Dose: Not Given Dextrose/Sodium Chloride (D5-1/2ns -) 1,000 mls @ 75 mls/hr IV ASDIR [facility] Last Admin: 12/26/18 21:58 Dose: 75 mls/hr Methylprednisolone Sodium Succinate (Solu-Medrol -) 40 mg IVPUSH Q6H-IV [facility] Last Admin: 12/26/18 21:58 Dose: 40 mg Ondansetron HCl (Zofran Injection) 4 mg IVPUSH Q6H PRN PRN Reason: NAUSEA AND/OR VOMITING - Objective Vital Signs: Vital Signs Temperature 98.8 F 12/26/18 18:00 Pulse Rate 81 12/26/18 19:45 Respiratory Rate 18 12/26/18 19:45 Blood Pressure 116/61 12/26/18 18:00 O2 Sat by Pulse Oximetry (%) 99 12/26/18 19:45 Neck: Yes: WNL, Supple Cardiovascular: Yes: WNL, Regular Rate and Rhythm Respiratory: Yes: WNL, Regular, CTA Bilaterally Gastrointestinal: Yes: WNL, Normal Bowel Sounds, Soft Edema: No Neurological: Yes: WNL, Alert, Oriented ...Motor Strength: WNL Labs: CBC, BMP 12/25/18 08:45 12/25/18 05:20 INR, PTT INR 0.97 (0.83-1.09) 12/23/18 17:36 Problem List - Problems (1) Altered mental status Assessment/Plan: Pt has been having waxing/waning LT sided weakness and ?dysarthria Repeated ct scans have not shown any acute CVA PT eval ?Psych vs complicated migraines Pt encouraged to eat sitting up in chair MRI brain Neuro/NSG consults noted Code(s): R41.82 - ALTERED MENTAL STATUS, UNSPECIFIED (2) Pituitary adenoma Assessment/Plan: NSG consult noted Endo consult No acute intervention at this time Code(s): D35.2 - BENIGN NEOPLASM OF PITUITARY GLAND (3) Asthma Assessment/Plan: Cont nebulizers Code(s): J45.909 - UNSPECIFIED ASTHMA, UNCOMPLICATED (4) Bronchospasm Assessment/Plan: Cont methylprednisone as per pulmonary Cont neulizers Code(s): J98.01 - ACUTE BRONCHOSPASM (5) Headache Code(s): R51 - HEADACHE (6) Obesity Code(s): E66.9 - OBESITY, UNSPECIFIED
--- NOTE | 2018-12-26 23:54 | CONSULT ---
Consult Consult Specialty:: endocrine Referred by:: dr.rocco wyman Reason for Consultation:: pituitary adenoma - History of Present Illness Chief Complaint: headache/visual field deficet History of Present Illness: 48 yo F with a hx of pituitary adenoma,previously noted under 2cm,has h o, migraines presents to the emergency department with headache, N/V, and left sided weakness. Per the patient, she had a sudden onset of headache on the left side with concurrent left sided weakness , she felt acutely anxious and short of breath.she denies galactorhea,hypotension,vetigo,fever or chills. 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, Other (Meningioma) Cardio/Vascular: Yes: HTN Pulmonary: Yes: Bronchitis ...LMP: 06/15/18 ...: No Psych: Yes: Anxiety - Past Surgical History Past Surgical History: Yes: None - Alcohol/Substance Use Hx Alcohol Use: No - Smoking History Smoking history: Never smoked Have you smoked in the past 12 months: No Home Medications - Allergies Allergies/Adverse Reactions: Allergies Allergy/AdvReac Type Severity Reaction Status Date / Time prednisone Allergy Verified 12/23/18 17:44 - Home Medications Home Medications: Ambulatory Orders Acetaminophen [Tylenol .Regular Strength -] 650 mg PO Q6H PRN #100 tablet Albuterol 0.083% Nebulizer Amaya [Ventolin 0.083% Nebulizer Soln -] 1 amp NEB RQID #120 amp 07/19/18 Budesonide/Formeterol Fumarate [SYMBICORT 160/4.5mcg -] 2 puff IH BID #1 inhaler 07/19/18 Docusate Sodium [Colace -] 100 mg PO TID #90 capsule 07/19/18 Doxycycline Hyclate [Vibramycin -] 100 mg PO BID@1000,1800 #20 capsule 07/19/18 Guaifenesin AC [Robitussin AC -] 10 ml PO Q8H PRN #1 bottle MDD 30 07/19/18 Melatonin 10 mg PO HS #30 tab 07/19/18 Methylprednisolone [Medrol Dose Gaetano] 4 mg PO ASDIR #21 tablet 07/19/18 Polyethylene Glycol 3350 [Miralax 119 gm Btl -] 17 gm PO DAILY #1 bottle Tiotropium [place] [Spiriva Respimat] 2 puff IH DAILY #1 inhaler 07/19/18 Review of Systems - Review of Systems Constitutional: reports: Weakness Eyes: reports: Blind Spots HENT: reports: No Symptoms Neck: reports: No Symptoms Cardiovascular: reports: Shortness of Breath Respiratory: reports: Exercise Intolerance Gastrointestinal: reports: No Symptoms Genitourinary: reports: No Symptoms Breasts: reports: No Symptoms Reported Musculoskeletal: reports: No Symptoms Integumentary: reports: No Symptoms Neurological: reports: Weakness Endocrine: reports: Unexplained Weight Gain Physical Exam Vital Signs: Vital Signs Temperature 98.8 F 12/26/18 18:00 Pulse Rate 81 12/26/18 19:45 Respiratory Rate 18 12/26/18 19:45 Blood Pressure 116/61 12/26/18 18:00 O2 Sat by Pulse Oximetry (%) 99 12/26/18 19:45 Constitutional: Yes: Anxious Eyes: Yes: EOM Intact HENT: Yes: Normocephalic Neck: Yes: Trachea Midline Cardiovascular: Yes: Regular Rate and Rhythm Respiratory: Yes: CTA Bilaterally Gastrointestinal: Yes: Normal Bowel Sounds ...Rectal Exam: Yes: Deferred Renal/: Yes: WNL Musculoskeletal: Yes: WNL Extremities: Yes: WNL Edema: No Neurological: Yes: Alert, Oriented Labs: CBC, BMP 12/25/18 08:45 12/25/18 05:20 Problem List - Problems (1) Pituitary adenoma with extrasellar extension Problems reviewed: Yes Code(s): D35.2 - BENIGN NEOPLASM OF PITUITARY GLAND (2) Asthma Problems reviewed: Yes Code(s): J45.909 - UNSPECIFIED ASTHMA, UNCOMPLICATED (3) Bronchospasm Problems reviewed: Yes Code(s): J98.01 - ACUTE BRONCHOSPASM (4) Dysarthria Problems reviewed: Yes Code(s): R47.1 - DYSARTHRIA AND ANARTHRIA (5) Headache Code(s): R51 - HEADACHE (6) Hyperlipidemia Code(s): E78.5 - HYPERLIPIDEMIA, UNSPECIFIED Assessment/Plan Current Active Problems Acute asthma (Acute) Altered mental status (Acute) Asthma (Acute) Bronchospasm (Acute) Dysarthria (Acute) Headache (Acute) Hyperlipidemia (Acute) Palpitation (Acute) Pituitary adenoma (Acute) Laboratory Results - last 24 hr 12/26/18 05:25 Creatine Kinase 52 Troponin I < 0.02 Laboratory Tests 12/23/18 12/23/18 12/24/18 17:54 23:52 06:00 Sodium 138 Potassium 4.5 Chloride 109 H Carbon Dioxide 22 Anion Gap 7 L BUN 13.3 Creatinine 0.7 Est GFR (CKD-EPI)NonAf 103.90 POC Glucometer 167 Total T3 91.00 plan: mri pituitary gland ck acth cortisol prolactin tsh lh fsh, gh igf1
[2018-12-27] MEDS: methylPREDNISolone NA SUCC 40 MG/1 ML VIAL IVPUSH SCH ×4 (02:22→22:33)
--- NOTE | 2018-12-27 08:57 | PN ---
Progress Note (short form) - Note Progress Note: Neurology HISTORY OF PRESENT ILLNESS: This is a 48 year old female with PMH significant for asthma and migraines. She is responsive, but can only respond to questions with single word sentences. As per chart review, she was at her PCP's office around 3PM on day of admission (), when she started complaining of difficulty breathing, and subsequently developed projectile vomiting and left sided weakness. She was brought to the ER by EMS. Her left sided weakness resolved in the ER, before re-appearing, and she was noted to be speaking clearly. She continued to display relapsing and resolving left sided weakness, with episodes of brief slurring. Head CT completed on 12/23 - 2cm pituitary enlargement noted, mild to moderate bilateral ethmoid, left frontal and left maxillary sinus mucosal thickening. Head CTA completed, pituitary adenoma with resultant optic chiasm impingement noted but no large vessel occlusion or critical stenosis . LDL cholesterol 127, patient started on atorvastatin 40mg daily. Ordered MRI of the brain with and without contrast to evaluate both pituitary adenoma as well as possible CVA. Brain MRI not completed due to prior concern for aspiration as patient was having projective vomiting. Repeat Head CT 12/25, completed and no acute changes. Neurosurgery, Dr. Suazo, consulted for neurosurgical evaluation, had conversation with 12/25 as noted. Pulmonary consulted for optimization of respiratory status and discused with Dr Hennessy this AM. Noted hypoxia and hypercapnia improved on labs and breathing comfortably. Much improved this AM, no respiratory distress and even morving L side near baseline (LUe maybe 5- at this point), speech improved. Managed to move from bed to chair. Discussed with nurse and will try to obtain MRI for more definitive imaging. May benefit from PT. Patient anxious to complete work up. Allergies Allergy/AdvReac Type Severity Reaction Status Date / Time prednisone Allergy Verified 12/23/18 17:44 Active Medications Acetaminophen (Ofirmev Injection -) 1,000 mg IVPB Q6H PRN PRN Reason: PAIN LEVEL 6-10 Last Admin: 12/26/18 21:58 Dose: 1,000 mg Albuterol/Ipratropium (Duoneb -) 1 amp NEB Q6H PRN PRN Reason: SHORTNESS OF BREATH Last Admin: 12/25/18 06:41 Dose: 1 amp Aspirin (Ecotrin -) 81 mg PO DAILY [facility] Last Admin: 12/26/18 09:40 Dose: 81 mg Atorvastatin Calcium (Lipitor -) 40 mg PO HS [facility] Last Admin: 12/26/18 21:58 Dose: 40 mg Heparin Sodium (Porcine) (Heparin -) 5,000 unit SQ BID [facility] Last Admin: 12/26/18 22:00 Dose: Not Given Dextrose/Sodium Chloride (D5-1/2ns -) 1,000 mls @ 75 mls/hr IV ASDIR [facility] Last Admin: 12/26/18 21:58 Dose: 75 mls/hr Methylprednisolone Sodium Succinate (Solu-Medrol -) 40 mg IVPUSH Q6H-IV [facility] Last Admin: 12/27/18 02:22 Dose: 40 mg Ondansetron HCl (Zofran Injection) 4 mg IVPUSH Q6H PRN PRN Reason: NAUSEA AND/OR VOMITING PHYSICAL EXAMINATION Vital Signs Period Temp Pulse Resp BP Sys/Krishnamurthy Pulse Ox Last 24 Hr 98 F-98.8 F 67-86 14-18 112-116/61-65 99-100 GENERAL: AOx3, responds in single word sentences, drowsy but arousable HEAD: Normal with no signs of trauma. EYES: FRANCISCO, EOMI, complains of intermittent blurry vision in the left eye, no nystagmus EARS, NOSE, THROAT: Ears normal, nares patent, oropharynx clear without exudates. Moist mucous membranes. LUNGS: Clear B/L HEART: RRR, no murmurs ABDOMEN: Soft, nontender, not distended LOWER EXTREMITIES: 2+ pulses, warm, no edema NEUROLOGICAL: Motor 5/5 on right, left upper and lower 5-/5 Sensations on the Rt are intact, Lt also intact Lifts eyebrows equally B/L, no flattening of nasolabial fold, is able to smile with no signs of facial droop No slurred speech SKIN: Warm, dry, normal turgor, no rashes or lesions noted. CBCD WBC 9.2 K/mm3 (4.0-10.0) 12/25/18 08:45 RBC 3.61 M/mm3 (3.60-5.2) 12/25/18 08:45 Hgb 10.5 GM/dL (10.7-15.3) L 12/25/18 08:45 Hct 31.5 % (32.4-45.2) L D 12/25/18 08:45 MCV 87.2 fl (80-96) 12/25/18 08:45 MCHC 33.5 g/dl (32.0-36.0) 12/25/18 08:45 RDW 13.7 % (11.6-15.6) 12/25/18 08:45 Plt Count 243 K/MM3 (134-434) D 12/25/18 08:45 MPV 8.6 fl (7.5-11.1) 12/25/18 08:45 CMP Sodium 140 mmol/L (136-145) 12/25/18 05:20 Potassium 3.8 mmol/L (3.5-5.1) 12/25/18 05:20 Chloride 112 mmol/L (98-107) H 12/25/18 05:20 Carbon Dioxide 22 mmol/L (21-32) 12/25/18 05:20 Anion Gap 6 MMOL/L (8-16) L 12/25/18 05:20 BUN 17.8 mg/dL (7-18) 12/25/18 05:20 Creatinine 0.6 mg/dL (0.55-1.3) 12/25/18 05:20 Random Glucose 87 mg/dL (74-106) 12/25/18 05:20 Calcium 8.0 mg/dL (8.5-10.1) L 12/25/18 05:20 Total Bilirubin 0.2 mg/dL (0.2-1) 12/25/18 05:20 AST 9 U/L (15-37) L 12/25/18 05:20 ALT 11 U/L (13-61) L 12/25/18 05:20 Alkaline Phosphatase 87 U/L (45-117) 12/25/18 05:20 Total Protein 5.9 g/dl (6.4-8.2) L 12/25/18 05:20 Albumin 3.0 g/dl (3.4-5.0) L 12/25/18 05:20 CARDIAC ENZYMES Creatine Kinase 52 U/L (26-192) 12/26/18 05:25 Troponin I < 0.02 ng/ml (0.00-0.05) 12/26/18 05:25 ASSESSMENT/PLAN: This is a 48 year old female with PMH significant for asthma and migraines. She is responsive, but can only respond to questions with single word sentences. As per chart review, she was at her PCP's office around 3PM on day of admission (), when she started complaining of difficulty breathing, and subsequently developed projectile vomiting and left sided weakness. She was brought to the ER by EMS. Her left sided weakness resolved in the ER, before re-appearing, and she was noted to be speaking clearly. She continued to display relapsing and resolving left sided weakness, with episodes of brief slurring. Head CT completed on 12/23 - 2cm pituitary enlargement noted, mild to moderate bilateral ethmoid, left frontal and left maxillary sinus mucosal thickening. Head CTA completed, pituitary adenoma with resultant optic chiasm impingement noted but no large vessel occlusion or critical stenosis . LDL cholesterol 127, patient started on atorvastatin 40mg daily. Ordered MRI of the brain with and without contrast to evaluate both pituitary adenoma as well as possible CVA. Brain MRI not completed due to prior concern for aspiration as patient was having projective vomiting. Repeat Head CT 12/25, completed and no acute changes. Neurosurgery, Dr. Suazo, consulted for neurosurgical evaluation, had conversation with 12/25 as noted. Pulmonary consulted for optimization of respiratory status and discused with Dr Hennessy this AM. Noted hypoxia and hypercapnia improved on labs and breathing comfortably. Much improved this AM, no respiratory distress and even morving L side near baseline (LUe maybe 5- at this point), speech improved. Discussed with nurse and will try to obtain MRI for more definitive imaging. May benefit from PT. Monitor telemetry, follow-up results of echo and carotid Dopplers. Monitor blood pressure, goal < 140/90. Physical therapy, speech improved, DVT prophylaxis. Pulmonary follow up, optimize airway, intubation not needed at this time. Continue to monitor mental status, neurologic function, both much improved. Discussed with nurse as well, would like to see MRI brain. Follow up pituatary adenoma with Dr. Downing as outpatient, no inpatient acute surgery indicated. No concern or need for hemicrani based on clinical improvements and imaging results as noted. Need MRI to be done. Patient moved from bed to chair. Much improved.
[2018-12-27] MEDS: HEPARIN NA (PORCINE) 5,000 UNITS/ML 1ML VIAL SQ SCH ×2 (09:15→22:34)
[2018-12-27] MEDS: ASPIRIN COATED 81 MG TABLET.EC PO SCH (09:15)
--- NOTE | 2018-12-27 13:26 | PN ---
Progress Note (short form) - Note Progress Note: OOB to chair. Breathing feels better. Some dry cough. Intake & Output 12/24/18 12/25/18 12/26/18 12/27/18 23:59 23:59 23:59 23:59 Intake Total 650 1000 2620 1300 Output Total 1100 800 900 Balance 650 -100 1820 400 Weight 250 lb Last Vital Signs Temp Pulse Resp BP Pulse Ox 98.8 F 78 18 115/65 100 12/26/18 18:00 12/27/18 07:00 12/27/18 08:21 12/27/18 07:00 12/27/18 08:21 Active Medications Acetaminophen (Ofirmev Injection -) 1,000 mg IVPB Q6H PRN PRN Reason: PAIN LEVEL 6-10 Last Admin: 12/26/18 21:58 Dose: 1,000 mg Albuterol/Ipratropium (Duoneb -) 1 amp NEB Q6H PRN PRN Reason: SHORTNESS OF BREATH Last Admin: 12/25/18 06:41 Dose: 1 amp Aspirin (Ecotrin -) 81 mg PO DAILY [facility] Last Admin: 12/27/18 09:15 Dose: 81 mg Atorvastatin Calcium (Lipitor -) 40 mg PO HS ANKIT Last Admin: 12/26/18 21:58 Dose: 40 mg Heparin Sodium (Porcine) (Heparin -) 5,000 unit SQ BID [facility] Last Admin: 12/27/18 09:15 Dose: 5,000 unit Dextrose/Sodium Chloride (D5-1/2ns -) 1,000 mls @ 75 mls/hr IV ASDIR [facility] Last Admin: 12/26/18 21:58 Dose: 75 mls/hr Methylprednisolone Sodium Succinate (Solu-Medrol -) 40 mg IVPUSH Q6H-IV ANKIT Last Admin: 12/27/18 09:15 Dose: 40 mg Ondansetron HCl (Zofran Injection) 4 mg IVPUSH Q6H PRN PRN Reason: NAUSEA AND/OR VOMITING Constitutional: Yes: NAD Eyes: Yes: WNL HENT: Yes: WNL Neck: Yes: No stridor noted Cardiovascular: Yes: Regular Rate and Rhythm, S1, S2 Respiratory: Yes: Diminished, no wheeze Gastrointestinal: Yes: Normal Bowel Sounds, Soft Extremities: Yes: WNL Edema: No Labs: Problem List - Problems (1) Bronchospasm Code(s): J98.01 - ACUTE BRONCHOSPASM (2) Dysarthria Code(s): R47.1 - DYSARTHRIA AND ANARTHRIA (3) Headache Code(s): R51 - HEADACHE (4) Pituitary adenoma Code(s): D35.2 - BENIGN NEOPLASM OF PITUITARY GLAND Assessment/Plan ASSESSMENT/PLAN: Migraines (?) Seizure History of Asthma: currently stable R/O upper airway inflammation BD TX PRN Medrol Neuro checks Supplemental O2 as needed Check report of MRI Brain Dr Singh
--- NOTE | 2018-12-27 15:23 | CONSULT ---
Admitting History and Physical - Primary Care Physician PCP: Akilah Chacko - Admission History of Present Illness: 48 yo F with a hx of pituitary adenoma, previously noted under 2cm,has h/o migraines presents to the emergency department with headache, N/V, and left sided weakness. Onset of slurred speech, left facial droop and left sided flaccid, difficulty speaking, coughing on saliva, projectile vomiting. Symptoms have been improving and pt is on a reg diet/thin liquids. Selected Entries 12/25/18 12/25/18 12/26/18 08:27 10:00 01:00 Breakfast NPO NPO Lunch NPO Supper Pulse Rate 70 12/26/18 12/26/18 12/26/18 02:27 04:00 06:00 Breakfast Lunch Supper Pulse Rate 59 L 60 64 12/26/18 12/26/18 12/26/18 09:46 10:00 13:14 Breakfast 75% 25% Lunch 50% Supper Pulse Rate 67 12/26/18 12/26/18 12/26/18 14:00 18:00 19:45 Breakfast Lunch Supper Pulse Rate 86 81 81 12/26/18 12/27/18 12/27/18 22:00 09:42 10:00 Breakfast 50% 50% Lunch Supper 50% Pulse Rate Laboratory Tests 12/23/18 12/25/18 17:36 08:45 WBC 9.5 9.2 This is my first consult with this pt. She was at [facility] in June for PNA. 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 Head CTA completed, pituitary adenoma with resultant optic chiasm impingement noted but no large vessel occlusion or critical stenosis) MRI: Report Reviewed (Supracellar soft tissue lesion. Pituitary-No intrinsic pathology) - General Mental Status: Alert and Oriented, Awake and Alert, Able to Follow Commands Attention: Intact Ability to Follow Directions: Good Head/Neck Control: WFL - Hearing Hearing: Normal Speech Evaluation - Communication Primary Language: [place] Communication: Yes: Within Normal Limits Oral Expression Ability: Yes: No Impairment - Speech Production Able to Make Needs Known: Yes: WNL Intelligibility: Yes: WNL - Speech Characteristics Voice Loudness: Normal Voice Pitch: Yes: Normal Voice Phonatory-based Quality: Yes: Normal (Voice WNL, until she asprated on thin liquid via straw, with responsive cough, then harsh, strain-strangled vocal quality. Laryngospasm. 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 Memory: Yes: WNL Short Term Memory: Yes: WNL - Swallow Evaluation/Bedside Assessment Current Nutritional Intake: Regular, Thin Liquids Oral Secretions: Yes: WFL Dentition: Yes: Adequate Facial Symmetry at Rest: Symmetrical Facial Symmetry on Retraction: Symmetrical Facial Movement: Controlled Sensation: Normal Against Resistance Opening: Normal Against Resistance Closing: Normal Pucker Lips: Normal Smile: Normal Lingual Movement: Normal, Symmetric Lingual Speed of Movement: Normal Lingual Movement Strgth Against Opposition: Normal Lingual Movement Characteristics: Normal Velopharyngeal Movement: Normal Laryngeal Movement: Able to Palpate Rate of Intake: WFL Bolus Size: WFL Labial Seal: WFL Chewing: WFL Oral Prep Time: WFL A-P Transit: WFL Timing of Swallow: Delayed Coughing/Throat Clear: Yes (noted to cough on saliva and thin from straw) Change in Voice: Yes (voice became harsh, laryngospasm, after aspirating on thin liquid) Recommendations - Speech Evaluation, Impression/Plan Impression: I observed pt coughing on saliva and thin liquid from straw. Suspect stasis in pharynx possibly with solids. Suspect aspiration intermittently on thin liquids, improving daily. - Dysphagia Impressions/Plan Swallowing Skills: Impaired Dysphagia Impressions: Mild Impairment, Suspect Aspiration *Silent aspiration: cannot be R/O at bedside Dysphagia Treatment Plan: Small Bites, Chin Tuck/Down, Trial Feedings, Safe Rate , 1/2 tsp. at a time, Elevate HOB during feed, OOB for meals, OOB for 1 h. after meals Recommendations: Modified Barium Swallow, Other (Monitor tolerance/pulmonary status.) - Recommendations Diet Consistency: Dysphagia Whole Medication Administration: Whole with water Liquids: Thin Liquids (single sips, chin down, no straws)
[2018-12-27] MEDS: ACETAMINOPHEN 1000 MG/100 ML VIAL (NON FORMULARY) IVPB PRN ×2 (15:56→22:32)
[2018-12-27] MEDS: DEXTROSE 5%-0.45% SALINE 1,000 ML IV SCH (20:19)
--- NOTE | 2018-12-27 22:07 | PN ---
Progress Note, Physician History of Present Illness: Pt states that she feels mucous/saliva in the back of her throat - Current Medication List Current Medications: Active Medications Acetaminophen (Ofirmev Injection -) 1,000 mg IVPB Q6H PRN PRN Reason: PAIN LEVEL 6-10 Last Admin: 12/27/18 15:56 Dose: 1,000 mg Albuterol/Ipratropium (Duoneb -) 1 amp NEB Q6H PRN PRN Reason: SHORTNESS OF BREATH Last Admin: 12/25/18 06:41 Dose: 1 amp Aspirin (Ecotrin -) 81 mg PO DAILY [facility] Last Admin: 12/27/18 09:15 Dose: 81 mg Atorvastatin Calcium (Lipitor -) 40 mg PO HS [facility] Last Admin: 12/26/18 21:58 Dose: 40 mg Heparin Sodium (Porcine) (Heparin -) 5,000 unit SQ BID [facility] Last Admin: 12/27/18 09:15 Dose: 5,000 unit Dextrose/Sodium Chloride (D5-1/2ns -) 1,000 mls @ 75 mls/hr IV ASDIR [facility] Last Admin: 12/27/18 20:19 Dose: 75 mls/hr Methylprednisolone Sodium Succinate (Solu-Medrol -) 40 mg IVPUSH Q6H-IV [facility] Last Admin: 12/27/18 15:53 Dose: 40 mg Ondansetron HCl (Zofran Injection) 4 mg IVPUSH Q6H PRN PRN Reason: NAUSEA AND/OR VOMITING - Objective Vital Signs: Vital Signs Temperature 94.7 F L 12/27/18 18:00 Pulse Rate 83 12/27/18 18:00 Respiratory Rate 20 12/27/18 18:00 Blood Pressure 110/72 12/27/18 18:00 O2 Sat by Pulse Oximetry (%) 100 12/27/18 08:21 Neck: Yes: WNL, Supple Cardiovascular: Yes: WNL, Regular Rate and Rhythm Respiratory: Yes: WNL, Regular, CTA Bilaterally Gastrointestinal: Yes: WNL, Normal Bowel Sounds, Soft, Abdomen, Obese Neurological: Yes: WNL, Alert, Oriented ...Motor Strength: WNL Labs: CBC, BMP 12/25/18 08:45 12/25/18 05:20 INR, PTT INR 0.97 (0.83-1.09) 12/23/18 17:36 Problem List - Problems (1) Altered mental status Assessment/Plan: LT sided weakness/?dysarthria resolved Repeated ct scans have not shown any acute CVA PT eval ?Psych vs complicated migraines MRI brain showed suprasellar soft tissue lesion(?not in pituitary) w/ optic chiasm impingement Await neuro/NSG recommendations Hormone testing pending as per endo Code(s): R41.82 - ALTERED MENTAL STATUS, UNSPECIFIED (2) Pituitary adenoma Code(s): D35.2 - BENIGN NEOPLASM OF PITUITARY GLAND (3) Asthma Assessment/Plan: Cont nebulizers Cont IV methylprednisolone Code(s): J45.909 - UNSPECIFIED ASTHMA, UNCOMPLICATED (4) Bronchospasm Assessment/Plan: Cont methylprednisone as per pulmonary Cont neulizers Code(s): J98.01 - ACUTE BRONCHOSPASM (5) Headache Code(s): R51 - HEADACHE (6) Obesity Code(s): E66.9 - OBESITY, UNSPECIFIED
[2018-12-27] MEDS: ATORVASTATIN CA 40 MG TABLET (FP) PO SCH (22:33)
--- NOTE | 2018-12-27 23:05 | PN ---
Progress Note, Physician Chief Complaint: feeling better swallowing improved - Current Medication List Current Medications: Active Medications Acetaminophen (Ofirmev Injection -) 1,000 mg IVPB Q6H PRN PRN Reason: PAIN LEVEL 6-10 Last Admin: 12/27/18 22:32 Dose: 1,000 mg Albuterol/Ipratropium (Duoneb -) 1 amp NEB Q6H PRN PRN Reason: SHORTNESS OF BREATH Last Admin: 12/25/18 06:41 Dose: 1 amp Aspirin (Ecotrin -) 81 mg PO DAILY [facility] Last Admin: 12/27/18 09:15 Dose: 81 mg Atorvastatin Calcium (Lipitor -) 40 mg PO HS [facility] Last Admin: 12/27/18 22:33 Dose: 40 mg Heparin Sodium (Porcine) (Heparin -) 5,000 unit SQ BID [facility] Last Admin: 12/27/18 22:34 Dose: Not Given Methylprednisolone Sodium Succinate (Solu-Medrol -) 40 mg IVPUSH Q6H-IV ANK[facility] Last Admin: 12/27/18 22:33 Dose: 40 mg Ondansetron HCl (Zofran Injection) 4 mg IVPUSH Q6H PRN PRN Reason: NAUSEA AND/OR VOMITING - Objective Vital Signs: Vital Signs Temperature 94.7 F L 12/27/18 18:00 Pulse Rate 83 12/27/18 18:00 Respiratory Rate 20 12/27/18 18:00 Blood Pressure 110/72 12/27/18 18:00 O2 Sat by Pulse Oximetry (%) 100 12/27/18 08:21 Constitutional: Yes: Well Nourished Eyes: Yes: EOM Intact HENT: Yes: Normocephalic Neck: Yes: Trachea Midline Cardiovascular: Yes: Regular Rate and Rhythm Respiratory: Yes: CTA Bilaterally Gastrointestinal: Yes: Normal Bowel Sounds ...Rectal Exam: Yes: Deferred Genitourinary: Yes: WNL Breast(s): Yes: WNL Musculoskeletal: Yes: WNL Extremities: Yes: WNL Edema: No Peripheral Pulses WNL: Yes Neurological: Yes: WNL, Alert, Oriented Labs: CBC, BMP 12/25/18 08:45 12/25/18 05:20 INR, PTT INR 0.97 (0.83-1.09) 12/23/18 17:36 Problem List - Problems (1) Pituitary adenoma with extrasellar extension Problems reviewed: Yes Code(s): D35.2 - BENIGN NEOPLASM OF PITUITARY GLAND (2) Asthma Problems reviewed: Yes Code(s): J45.909 - UNSPECIFIED ASTHMA, UNCOMPLICATED (3) Bronchospasm Problems reviewed: Yes Code(s): J98.01 - ACUTE BRONCHOSPASM (4) Dysarthria Code(s): R47.1 - DYSARTHRIA AND ANARTHRIA (5) Headache Code(s): R51 - HEADACHE (6) Hyperlipidemia Code(s): E78.5 - HYPERLIPIDEMIA, UNSPECIFIED (7) Suprasellar mass Problems reviewed: Yes Code(s): R22.0 - LOCALIZED SWELLING, MASS AND LUMP, HEAD Assessment/Plan Current Active Problems Acute asthma (Acute) Altered mental status (Acute) Asthma (Acute) Bronchospasm (Acute) Dysarthria (Acute) Headache (Acute) Hyperlipidemia (Acute) Palpitation (Acute) Pituitary adenoma (Acute) Pituitary adenoma with extrasellar extension (Acute) Laboratory Tests 12/25/18 05:20 Sodium 140 Potassium 3.8 Chloride 112 H Carbon Dioxide 22 Anion Gap 6 L BUN 17.8 Creatinine 0.6 Est GFR (CKD-EPI)AfAm 126.69 Random Glucose 87 plan: endocrine workup for pituitary axis in progress neurosurgical opinion noted lesion suprasellar mass ? etiology
[2018-12-28] MEDS: methylPREDNISolone NA SUCC 40 MG/1 ML VIAL IVPUSH SCH ×4 (04:15→21:43)
--- NOTE | 2018-12-28 08:56 | PN ---
Progress Note (short form) - Note Progress Note: Neurology HISTORY OF PRESENT ILLNESS: This is a 48 year old female with PMH significant for asthma and migraines. She is responsive, but can only respond to questions with single word sentences. As per chart review, she was at her PCP's office around 3PM on day of admission (), when she started complaining of difficulty breathing, and subsequently developed projectile vomiting and left sided weakness. She was brought to the ER by EMS. Her left sided weakness resolved in the ER, before re-appearing, and she was noted to be speaking clearly. She continued to display relapsing and resolving left sided weakness, with episodes of brief slurring. Head CT completed on 12/23 - 2cm pituitary enlargement noted, mild to moderate bilateral ethmoid, left frontal and left maxillary sinus mucosal thickening. Head CTA completed, pituitary adenoma with resultant optic chiasm impingement noted but no large vessel occlusion or critical stenosis . LDL cholesterol 127, patient started on atorvastatin 40mg daily. Ordered MRI of the brain with and without contrast to evaluate both pituitary adenoma as well as possible CVA. Brain MRI not completed due to prior concern for aspiration as patient was having projective vomiting. Repeat Head CT 12/25, completed and no acute changes. Neurosurgery, Dr. Suazo, consulted for neurosurgical evaluation, had conversation with 12/25 as noted. Pulmonary consulted for optimization of respiratory status and discused with Dr Hennsesy this AM. Noted hypoxia and hypercapnia improved on labs and breathing comfortably. Remains improved this AM, no respiratory distress and even moving L side at baseline, speech improved. Brain MRI completed,1.7 x 1.4 x 1.2 cm solitary, nonspecific, noncalcified soft tissue lesion noted along midline of suprasellar cistern with resultant optic chiasm impingement, no acute infarct noted. Discussed with patient in detail who verbalized understanding and would require further outpatient management Allergies Allergy/AdvReac Type Severity Reaction Status Date / Time prednisone Allergy Verified 12/23/18 17:44 Active Medications Acetaminophen (Ofirmev Injection -) 1,000 mg IVPB Q6H PRN PRN Reason: PAIN LEVEL 6-10 Last Admin: 12/27/18 22:32 Dose: 1,000 mg Albuterol/Ipratropium (Duoneb -) 1 amp NEB Q6H PRN PRN Reason: SHORTNESS OF BREATH Last Admin: 12/25/18 06:41 Dose: 1 amp Aspirin (Ecotrin -) 81 mg PO DAILY [facility] Last Admin: 12/27/18 09:15 Dose: 81 mg Atorvastatin Calcium (Lipitor -) 40 mg PO HS [facility] Last Admin: 12/27/18 22:33 Dose: 40 mg Heparin Sodium (Porcine) (Heparin -) 5,000 unit SQ BID [facility] Last Admin: 12/27/18 22:34 Dose: Not Given Methylprednisolone Sodium Succinate (Solu-Medrol -) 40 mg IVPUSH Q6H-IV [facility] Last Admin: 12/28/18 04:15 Dose: 40 mg Ondansetron HCl (Zofran Injection) 4 mg IVPUSH Q6H PRN PRN Reason: NAUSEA AND/OR VOMITING PHYSICAL EXAMINATION Vital Signs Period Temp Pulse Resp BP Sys/Krishnamurthy Pulse Ox Last 24 Hr 94.7 F-97.7 F 63-83 15-20 110-119/64-92 98 GENERAL: AOx3, responds in single word sentences, drowsy but arousable HEAD: Normal with no signs of trauma. EYES: FRANCISCO, EOMI, complains of intermittent blurry vision in the left eye, no nystagmus EARS, NOSE, THROAT: Ears normal, nares patent, oropharynx clear without exudates. Moist mucous membranes. LUNGS: Clear B/L HEART: RRR, no murmurs ABDOMEN: Soft, nontender, not distended LOWER EXTREMITIES: 2+ pulses, warm, no edema NEUROLOGICAL: Motor 5/5 on right, left upper and lower 5-/5 Sensations on the Rt are intact, Lt also intact Lifts eyebrows equally B/L, no flattening of nasolabial fold, is able to smile with no signs of facial droop No slurred speech SKIN: Warm, dry, normal turgor, no rashes or lesions noted. CBCD WBC 9.2 K/mm3 (4.0-10.0) 12/25/18 08:45 RBC 3.61 M/mm3 (3.60-5.2) 12/25/18 08:45 Hgb 10.5 GM/dL (10.7-15.3) L 12/25/18 08:45 Hct 31.5 % (32.4-45.2) L D 12/25/18 08:45 MCV 87.2 fl (80-96) 12/25/18 08:45 MCHC 33.5 g/dl (32.0-36.0) 12/25/18 08:45 RDW 13.7 % (11.6-15.6) 12/25/18 08:45 Plt Count 243 K/MM3 (134-434) D 12/25/18 08:45 MPV 8.6 fl (7.5-11.1) 12/25/18 08:45 CMP Sodium 140 mmol/L (136-145) 12/25/18 05:20 Potassium 3.8 mmol/L (3.5-5.1) 12/25/18 05:20 Chloride 112 mmol/L (98-107) H 12/25/18 05:20 Carbon Dioxide 22 mmol/L (21-32) 12/25/18 05:20 Anion Gap 6 MMOL/L (8-16) L 12/25/18 05:20 BUN 17.8 mg/dL (7-18) 12/25/18 05:20 Creatinine 0.6 mg/dL (0.55-1.3) 12/25/18 05:20 Random Glucose 87 mg/dL (74-106) 12/25/18 05:20 Calcium 8.0 mg/dL (8.5-10.1) L 12/25/18 05:20 Total Bilirubin 0.2 mg/dL (0.2-1) 12/25/18 05:20 AST 9 U/L (15-37) L 12/25/18 05:20 ALT 11 U/L (13-61) L 12/25/18 05:20 Alkaline Phosphatase 87 U/L (45-117) 12/25/18 05:20 Total Protein 5.9 g/dl (6.4-8.2) L 12/25/18 05:20 Albumin 3.0 g/dl (3.4-5.0) L 12/25/18 05:20 CARDIAC ENZYMES Creatine Kinase 52 U/L (26-192) 12/26/18 05:25 Troponin I < 0.02 ng/ml (0.00-0.05) 12/26/18 05:25 ASSESSMENT/PLAN: This is a 48 year old female with PMH significant for asthma and migraines. She is responsive, but can only respond to questions with single word sentences. As per chart review, she was at her PCP's office around 3PM on day of admission (), when she started complaining of difficulty breathing, and subsequently developed projectile vomiting and left sided weakness. She was brought to the ER by EMS. Her left sided weakness resolved in the ER, before re-appearing, and she was noted to be speaking clearly. She continued to display relapsing and resolving left sided weakness, with episodes of brief slurring. Head CT completed on 12/23 - 2cm pituitary enlargement noted, mild to moderate bilateral ethmoid, left frontal and left maxillary sinus mucosal thickening. Head CTA completed, pituitary adenoma with resultant optic chiasm impingement noted but no large vessel occlusion or critical stenosis . LDL cholesterol 127, patient started on atorvastatin 40mg daily. Ordered MRI of the brain with and without contrast to evaluate both pituitary adenoma as well as possible CVA. Brain MRI not completed due to prior concern for aspiration as patient was having projective vomiting. Repeat Head CT 12/25, completed and no acute changes. Neurosurgery, Dr. Suazo, consulted for neurosurgical evaluation, had conversation with 12/25 as noted. Pulmonary consulted for optimization of respiratory status and discused with Dr Hennessy this AM. Noted hypoxia and hypercapnia improved on labs and breathing comfortably. Much improved this AM, no respiratory distress and even morving L side near baseline (LUe maybe 5- at this point), speech improved. Discussed with nurse and will try to obtain MRI for more definitive imaging. May benefit from PT. Monitor telemetry, follow-up results of echo and carotid Dopplers. Monitor blood pressure, goal < 140/90. Physical therapy, speech improved, DVT prophylaxis. Pulmonary follow up, Remains improved this AM, no respiratory distress and even moving L side at baseline, speech improved. Brain MRI completed,1.7 x 1.4 x 1.2 cm solitary, nonspecific, noncalcified soft tissue lesion noted along midline of suprasellar cistern with resultant optic chiasm impingement, no acute infarct noted. Discussed with patient in detail who verbalized understanding and would require further outpatient management. Follow up pituatary adenoma with Dr. Downing as outpatient, no inpatient acute surgery indicated. Discharge planning per primary team.
[2018-12-28] MEDS: ACETAMINOPHEN 1000 MG/100 ML VIAL (NON FORMULARY) IVPB PRN ×2 (09:37→21:43)
[2018-12-28] MEDS: ASPIRIN COATED 81 MG TABLET.EC PO SCH (09:37)
[2018-12-28] MEDS: HEPARIN NA (PORCINE) 5,000 UNITS/ML 1ML VIAL SQ SCH ×2 (09:39→21:42)
--- NOTE | 2018-12-28 11:21 | PN ---
Progress Note, CHARACTER ACTRESS - Note Progress Note: Selected Entries 12/27/18 12/27/18 12/27/18 09:42 10:00 15:00 Breakfast 50% 50% Lunch 100% Temperature 12/27/18 12/27/18 12/27/18 15:43 18:00 22:30 Breakfast Lunch Temperature 97.7 F 94.7 F L 97.4 F L 12/28/18 06:00 Breakfast Lunch Temperature 97.2 F L Laboratory Tests 12/25/18 08:45 WBC 9.2 Swallowing has improved to baseline. Pt denies difficulty with bagel and tghin liquids via cup. Reassessed with straw drinking with good tolerance, without overt signs of aspiration/laryngeal symptoms noted yesterday.
--- NOTE | 2018-12-28 15:33 | PN ---
Progress Note (short form) - Note Progress Note: Breathing feels better. Feels close to baseline. Intake & Output 12/25/18 12/26/18 12/27/18 12/28/18 23:59 23:59 23:59 23:59 Intake Total 1000 2620 1925 100 Output Total 8501 736 5309 Balance -100 1820 525 100 Weight 250 lb Last Vital Signs Temp Pulse Resp BP Pulse Ox 97.2 F L 64 20 105/66 96 12/28/18 06:00 12/28/18 15:21 12/28/18 15:21 12/28/18 15:21 12/28/18 12:10 Active Medications Acetaminophen (Ofirmev Injection -) 1,000 mg IVPB Q6H PRN PRN Reason: PAIN LEVEL 6-10 Last Admin: 12/28/18 09:37 Dose: 1,000 mg Albuterol/Ipratropium (Duoneb -) 1 amp NEB Q6H PRN PRN Reason: SHORTNESS OF BREATH Last Admin: 12/25/18 06:41 Dose: 1 amp Aspirin (Ecotrin -) 81 mg PO DAILY [facility] Last Admin: 12/28/18 09:37 Dose: 81 mg Atorvastatin Calcium (Lipitor -) 40 mg PO HS [facility] Last Admin: 12/27/18 22:33 Dose: 40 mg Heparin Sodium (Porcine) (Heparin -) 5,000 unit SQ BID [facility] Last Admin: 12/28/18 09:39 Dose: Not Given Methylprednisolone Sodium Succinate (Solu-Medrol -) 40 mg IVPUSH Q6H-IV [facility] Last Admin: 12/28/18 14:01 Dose: 40 mg Ondansetron HCl (Zofran Injection) 4 mg IVPUSH Q6H PRN PRN Reason: NAUSEA AND/OR VOMITING Constitutional: Yes: NAD Eyes: Yes: WNL HENT: Yes: WNL Neck: Yes: No stridor noted Cardiovascular: Yes: Regular Rate and Rhythm, S1, S2 Respiratory: Yes: Diminished, no wheeze Gastrointestinal: Yes: Normal Bowel Sounds, Soft Extremities: Yes: WNL Edema: No Labs: Laboratory Results - last 24 hr 12/28/18 06:00 TSH 0.28 L Problem List - Problems (1) Bronchospasm Code(s): J98.01 - ACUTE BRONCHOSPASM (2) Dysarthria Code(s): R47.1 - DYSARTHRIA AND ANARTHRIA (3) Headache Code(s): R51 - HEADACHE (4) Pituitary adenoma Code(s): D35.2 - BENIGN NEOPLASM OF PITUITARY GLAND Assessment/Plan ASSESSMENT/PLAN: Supracellar soft tissue lesion with impingement of the optic chiasm Migraines (?) Seizure History of Asthma: currently stable R/O upper airway inflammation BD TX PRN Wean Medrol Neuro checks Supplemental O2 as needed Dr Singh
--- NOTE | 2018-12-28 21:23 | PN ---
Progress Note, Physician History of Present Illness: No new complaints Pt tolerating diet w/out problems - Current Medication List Current Medications: Active Medications Acetaminophen (Ofirmev Injection -) 1,000 mg IVPB Q6H PRN PRN Reason: PAIN LEVEL 6-10 Last Admin: 12/28/18 09:37 Dose: 1,000 mg Albuterol/Ipratropium (Duoneb -) 1 amp NEB Q6H PRN PRN Reason: SHORTNESS OF BREATH Last Admin: 12/25/18 06:41 Dose: 1 amp Aspirin (Ecotrin -) 81 mg PO DAILY [facility] Last Admin: 12/28/18 09:37 Dose: 81 mg Atorvastatin Calcium (Lipitor -) 40 mg PO HS [facility] Last Admin: 12/27/18 22:33 Dose: 40 mg Heparin Sodium (Porcine) (Heparin -) 5,000 unit SQ BID [facility] Last Admin: 12/28/18 09:39 Dose: Not Given Methylprednisolone Sodium Succinate (Solu-Medrol -) 40 mg IVPUSH BID [facility] Ondansetron HCl (Zofran Injection) 4 mg IVPUSH Q6H PRN PRN Reason: NAUSEA AND/OR VOMITING - Objective Vital Signs: Vital Signs Temperature 98.2 F 12/28/18 20:44 Pulse Rate 83 12/28/18 20:44 Respiratory Rate 20 12/28/18 20:44 Blood Pressure 129/74 12/28/18 20:44 O2 Sat by Pulse Oximetry (%) 100 12/28/18 20:44 Neck: Yes: WNL, Supple Cardiovascular: Yes: WNL, Regular Rate and Rhythm Respiratory: Yes: WNL, Regular, CTA Bilaterally Gastrointestinal: Yes: WNL, Normal Bowel Sounds, Soft, Abdomen, Obese Edema: No Labs: CBC, BMP 12/25/18 08:45 12/25/18 05:20 INR, PTT INR 0.97 (0.83-1.09) 12/23/18 17:36 Problem List - Problems (1) Altered mental status Assessment/Plan: LT sided weakness/?dysarthria resolved Repeated ct scans have not shown any acute CVA MRI brain showed suprasellar soft tissue lesion(?not in pituitary) w/ optic chiasm impingement Pt will need f/u as outpt: NSG/neurophthalmology Code(s): R41.82 - ALTERED MENTAL STATUS, UNSPECIFIED (2) Pituitary adenoma Assessment/Plan: NSG consult noted Endo consult noted No acute intervention at this time Code(s): D35.2 - BENIGN NEOPLASM OF PITUITARY GLAND (3) Asthma Assessment/Plan: Cont nebulizers Cont IV methylprednisolone dose decreased Code(s): J45.909 - UNSPECIFIED ASTHMA, UNCOMPLICATED (4) Bronchospasm Assessment/Plan: Cont methylprednisone as per pulmonary Cont neulizers Code(s): J98.01 - ACUTE BRONCHOSPASM (5) Headache Code(s): R51 - HEADACHE (6) Obesity Code(s): E66.9 - OBESITY, UNSPECIFIED
[2018-12-28] MEDS: ATORVASTATIN CA 40 MG TABLET (FP) PO SCH (21:43)
[2018-12-28] MEDS: diphenhydrAMINE HCL 25 MG CAPSULE (FP) PO PRN (21:43)
--- NOTE | 2018-12-29 00:25 | PN ---
Progress Note, Physician Chief Complaint: SITTING IN CHAIR FEELS LESS DISCOMFORT - Current Medication List Current Medications: Active Medications Acetaminophen (Ofirmev Injection -) 1,000 mg IVPB Q6H PRN PRN Reason: PAIN LEVEL 6-10 Last Admin: 12/28/18 21:43 Dose: 1,000 mg Albuterol/Ipratropium (Duoneb -) 1 amp NEB Q6H PRN PRN Reason: SHORTNESS OF BREATH Last Admin: 12/25/18 06:41 Dose: 1 amp Aspirin (Ecotrin -) 81 mg PO DAILY [facility] Last Admin: 12/28/18 09:37 Dose: 81 mg Atorvastatin Calcium (Lipitor -) 40 mg PO HS [facility] Last Admin: 12/28/18 21:43 Dose: 40 mg Diphenhydramine HCl (Benadryl -) 25 mg PO HS PRN PRN Reason: INSOMNIA Last Admin: 12/28/18 21:43 Dose: 25 mg Heparin Sodium (Porcine) (Heparin -) 5,000 unit SQ BID [facility] Last Admin: 12/28/18 21:42 Dose: Not Given Methylprednisolone Sodium Succinate (Solu-Medrol -) 40 mg IVPUSH BID [facility] Last Admin: 12/28/18 21:43 Dose: 40 mg Ondansetron HCl (Zofran Injection) 4 mg IVPUSH Q6H PRN PRN Reason: NAUSEA AND/OR VOMITING - Objective Vital Signs: Vital Signs Temperature 98.2 F 12/28/18 20:44 Pulse Rate 83 12/28/18 20:44 Respiratory Rate 20 12/28/18 20:44 Blood Pressure 129/74 12/28/18 20:44 O2 Sat by Pulse Oximetry (%) 100 12/28/18 20:44 Constitutional: Yes: Calm Eyes: Yes: EOM Intact HENT: Yes: Normocephalic Neck: Yes: Trachea Midline Cardiovascular: Yes: Regular Rate and Rhythm Respiratory: Yes: CTA Bilaterally Gastrointestinal: Yes: Normal Bowel Sounds ...Rectal Exam: Yes: Deferred Musculoskeletal: Yes: WNL Extremities: Yes: WNL Neurological: Yes: Alert, Oriented Labs: CBC, BMP 12/25/18 08:45 12/25/18 05:20 INR, PTT INR 0.97 (0.83-1.09) 12/23/18 17:36 Problem List - Problems (1) Pituitary adenoma with extrasellar extension Code(s): D35.2 - BENIGN NEOPLASM OF PITUITARY GLAND (2) Asthma Code(s): J45.909 - UNSPECIFIED ASTHMA, UNCOMPLICATED (3) Bronchospasm Code(s): J98.01 - ACUTE BRONCHOSPASM (4) Dysarthria Code(s): R47.1 - DYSARTHRIA AND ANARTHRIA (5) Headache Code(s): R51 - HEADACHE (6) Hyperlipidemia Code(s): E78.5 - HYPERLIPIDEMIA, UNSPECIFIED (7) Suprasellar mass Code(s): R22.0 - LOCALIZED SWELLING, MASS AND LUMP, HEAD Assessment/Plan Current Active Problems Acute asthma (Acute) Altered mental status (Acute) Asthma (Acute) Bronchospasm (Acute) Dysarthria (Acute) Headache (Acute) Hyperlipidemia (Acute) Palpitation (Acute) Pituitary adenoma (Acute) Pituitary adenoma with extrasellar extension (Acute) Suprasellar mass (Acute) PLAN: ENDOCRINE TESTING TO FOLLOW WILL NEED NEUROSURGERY FOLLOW UP \NEURO OPTHOMOLOGY EXAM VISUAL FIELD EXAM \
[2018-12-29] MEDS: ALBUTEROL SO4 2.5/IPRATROPIUM 0.5 INH SOL 3 ML VIAL.NEB. NEB SCH ×2 (05:14→16:11)
[2018-12-29 07:06] LABS: BASO % 0.2 % (0-2.0); HEMATOCRIT 37.6 % (32.4-45.2); HEMOGLOBIN 12.2 GM/dL (10.7-15.3); LYMPH % 9.4 % (8-40); MCH 28.3 pg (25.7-33.7); MCHC 32.5 g/dl (32.0-36.0); MEAN PLT VOLUME 8.6 fl (7.5-11.1); MONO % 4.3 % (3.8-10.2); NEUT % 86.1 % (42.8-82.8); PLATELET COUNT 295 K/MM3 (134-434); RBC 4.32 M/mm3 (3.60-5.2); RDW 13.5 % (11.6-15.6); WHITE BLOOD COUNT 14.7 K/mm3 (4.0-10.0)
[2018-12-29 07:07] LABS: FOLLICLE STIMULATING HORMONE 5.2 mIU/mL (.); LUTEINIZING HORMONE 5.3 mIU/mL (.)
[2018-12-29 07:51] LABS: ALBUMIN 3.1 g/dl (3.4-5.0); BILIRUBIN,TOTAL 0.2 mg/dL (0.2-1); CALCIUM 8.6 mg/dL (8.5-10.1); CREATININE 0.6 mg/dL (0.55-1.3); POTASSIUM 4.2 mmol/L (3.5-5.1); TOT PROT 6.3 g/dl (6.4-8.2)
--- NOTE | 2018-12-29 09:02 | PN ---
Progress Note (short form) - Note Progress Note: Neurology HISTORY OF PRESENT ILLNESS: This is a 48 year old female with PMH significant for asthma and migraines. She is responsive, but can only respond to questions with single word sentences. As per chart review, she was at her PCP's office around 3PM on day of admission (), when she started complaining of difficulty breathing, and subsequently developed projectile vomiting and left sided weakness. She was brought to the ER by EMS. Her left sided weakness resolved in the ER, before re-appearing, and she was noted to be speaking clearly. She continued to display relapsing and resolving left sided weakness, with episodes of brief slurring. Head CT completed on 12/23 - 2cm pituitary enlargement noted, mild to moderate bilateral ethmoid, left frontal and left maxillary sinus mucosal thickening. Head CTA completed, pituitary adenoma with resultant optic chiasm impingement noted but no large vessel occlusion or critical stenosis . LDL cholesterol 127, patient started on atorvastatin 40mg daily. Ordered MRI of the brain with and without contrast to evaluate both pituitary adenoma as well as possible CVA. Brain MRI not completed due to prior concern for aspiration as patient was having projective vomiting. Repeat Head CT 12/25, completed and no acute changes. Neurosurgery, Dr. Suazo, consulted for neurosurgical evaluation, had conversation with 12/25 as noted. Pulmonary consulted for optimization of respiratory status and discused with Dr Hennessy this AM. Noted hypoxia and hypercapnia improved on labs and breathing comfortably. Remains improved this AM, no respiratory distress and even moving L side at baseline, speech improved. Brain MRI completed,1.7 x 1.4 x 1.2 cm solitary, nonspecific, noncalcified soft tissue lesion noted along midline of suprasellar cistern with resultant optic chiasm impingement, no acute infarct noted. Discussed with patient in detail who verbalized understanding and would require further outpatient management. Neurologically stable, getting further endocrine management and respiratory optimization. Reports ambulating and being able to go to the restroom on her own. Allergies Allergy/AdvReac Type Severity Reaction Status Date / Time prednisone Allergy Verified 12/23/18 17:44 Active Medications Acetaminophen (Ofirmev Injection -) 1,000 mg IVPB Q6H PRN PRN Reason: PAIN LEVEL 6-10 Last Admin: 12/28/18 21:43 Dose: 1,000 mg Albuterol/Ipratropium (Duoneb -) 1 amp NEB Q6H PRN PRN Reason: SHORTNESS OF BREATH Last Admin: 12/25/18 06:41 Dose: 1 amp Aspirin (Ecotrin -) 81 mg PO DAILY [facility] Last Admin: 12/28/18 09:37 Dose: 81 mg Atorvastatin Calcium (Lipitor -) 40 mg PO HS [facility] Last Admin: 12/28/18 21:43 Dose: 40 mg Diphenhydramine HCl (Benadryl -) 25 mg PO HS PRN PRN Reason: INSOMNIA Last Admin: 12/28/18 21:43 Dose: 25 mg Heparin Sodium (Porcine) (Heparin -) 5,000 unit SQ BID [facility] Last Admin: 12/28/18 21:42 Dose: Not Given Methylprednisolone Sodium Succinate (Solu-Medrol -) 40 mg IVPUSH BID [facility] Last Admin: 12/28/18 21:43 Dose: 40 mg Ondansetron HCl (Zofran Injection) 4 mg IVPUSH Q6H PRN PRN Reason: NAUSEA AND/OR VOMITING PHYSICAL EXAMINATION Vital Signs Period Temp Pulse Resp BP Sys/Krishnamurthy Pulse Ox Last 24 Hr 98.2 F-98.8 F 59-83 14-20 105-129/44-74 96-100 GENERAL: AOx3, responds in single word sentences, drowsy but arousable HEAD: Normal with no signs of trauma. EYES: FRANCISCO, EOMI, complains of intermittent blurry vision in the left eye, no nystagmus EARS, NOSE, THROAT: Ears normal, nares patent, oropharynx clear without exudates. Moist mucous membranes. LUNGS: Clear B/L HEART: RRR, no murmurs ABDOMEN: Soft, nontender, not distended LOWER EXTREMITIES: 2+ pulses, warm, no edema NEUROLOGICAL: Motor 5/5 on right, left upper and lower 5-/5 Sensations on the Rt are intact, Lt also intact Lifts eyebrows equally B/L, no flattening of nasolabial fold, is able to smile with no signs of facial droop No slurred speech SKIN: Warm, dry, normal turgor, no rashes or lesions noted. CBCD WBC 14.7 K/mm3 (4.0-10.0) H 12/29/18 06:10 RBC 4.32 M/mm3 (3.60-5.2) 11/20/19 06:10 Hgb 12.2 GM/dL (10.7-15.3) 12/29/18 06:10 Hct 37.6 % (32.4-45.2) D 12/29/18 06:10 MCV 87.0 fl (80-96) 12/29/18 06:10 MCHC 32.5 g/dl (32.0-36.0) 12/29/18 06:10 RDW 13.5 % (11.6-15.6) 12/29/18 06:10 Plt Count 295 K/MM3 (134-434) D 12/29/18 06:10 MPV 8.6 fl (7.5-11.1) 12/29/18 06:10 CMP Sodium 139 mmol/L (136-145) 12/29/18 06:10 Potassium 4.2 mmol/L (3.5-5.1) 12/29/18 06:10 Chloride 107 mmol/L (98-107) 12/29/18 06:10 Carbon Dioxide 26 mmol/L (21-32) 12/29/18 06:10 Anion Gap 7 MMOL/L (8-16) L 12/29/18 06:10 BUN 12.0 mg/dL (7-18) 12/29/18 06:10 Creatinine 0.6 mg/dL (0.55-1.3) 12/29/18 06:10 Random Glucose 116 mg/dL (74-106) H 12/29/18 06:10 Calcium 8.6 mg/dL (8.5-10.1) 12/29/18 06:10 Total Bilirubin 0.2 mg/dL (0.2-1) 12/29/18 06:10 AST 20 U/L (15-37) 12/29/18 06:10 ALT 75 U/L (13-61) H 12/29/18 06:10 Alkaline Phosphatase 105 U/L (45-117) 12/29/18 06:10 Total Protein 6.3 g/dl (6.4-8.2) L 12/29/18 06:10 Albumin 3.1 g/dl (3.4-5.0) L 12/29/18 06:10 CARDIAC ENZYMES Creatine Kinase 52 U/L (26-192) 12/26/18 05:25 Troponin I < 0.02 ng/ml (0.00-0.05) 12/26/18 05:25 ASSESSMENT/PLAN: This is a 48 year old female with PMH significant for asthma and migraines. She is responsive, but can only respond to questions with single word sentences. As per chart review, she was at her PCP's office around 3PM on day of admission (), when she started complaining of difficulty breathing, and subsequently developed projectile vomiting and left sided weakness. She was brought to the ER by EMS. Her left sided weakness resolved in the ER, before re-appearing, and she was noted to be speaking clearly. She continued to display relapsing and resolving left sided weakness, with episodes of brief slurring. Head CT completed on 12/23 - 2cm pituitary enlargement noted, mild to moderate bilateral ethmoid, left frontal and left maxillary sinus mucosal thickening. Head CTA completed, pituitary adenoma with resultant optic chiasm impingement noted but no large vessel occlusion or critical stenosis . LDL cholesterol 127, patient started on atorvastatin 40mg daily. Ordered MRI of the brain with and without contrast to evaluate both pituitary adenoma as well as possible CVA. Brain MRI not completed due to prior concern for aspiration as patient was having projective vomiting. Repeat Head CT 12/25, completed and no acute changes. Neurosurgery, Dr. Suazo, consulted for neurosurgical evaluation, had conversation with 12/25 as noted. Pulmonary consulted for optimization of respiratory status and discused with Dr Hennessy this AM. Noted hypoxia and hypercapnia improved on labs and breathing comfortably. Much improved this AM, no respiratory distress and even morving L side near baseline (LUe maybe 5- at this point), speech improved. Discussed with nurse and will try to obtain MRI for more definitive imaging. May benefit from PT. Monitor telemetry, follow-up results of echo and carotid Dopplers. Monitor blood pressure, goal < 140/90. Physical therapy, speech improved, DVT prophylaxis. Pulmonary follow up, Remains improved this AM, no respiratory distress and even moving L side at baseline, speech improved. Brain MRI completed,1.7 x 1.4 x 1.2 cm solitary, nonspecific, noncalcified soft tissue lesion noted along midline of suprasellar cistern with resultant optic chiasm impingement, no acute infarct noted. Discussed with patient in detail who verbalized understanding and would require further outpatient management. Follow up pituatary adenoma with Dr. Downing as outpatient, no inpatient acute surgery indicated. Neurologically stable, getting further endocrine management and respiratory optimization. Reports ambulating and being able to go to the restroom on her own. Discharge planning per primary team.
[2018-12-29] MEDS: ASPIRIN COATED 81 MG TABLET.EC PO SCH (10:04)
[2018-12-29] MEDS: methylPREDNISolone NA SUCC 40 MG/1 ML VIAL IVPUSH SCH ×2 (10:05→21:18)
[2018-12-29] MEDS: HEPARIN NA (PORCINE) 5,000 UNITS/ML 1ML VIAL SQ SCH ×2 (10:05→21:19)
[2018-12-29] MEDS ORDERED: ALBUTEROL SO4 0.083% IH SOL 2.5 MG/3 ML VIAL.NEB. NEB PRN (13:19)
--- NOTE | 2018-12-29 13:22 | PN ---
Progress Note (short form) - Note Progress Note: PULMONARY Still some intermittent shortness of breath. Cough with brown sputum. No fevers or chills. Vital Signs Period Temp Pulse Resp BP Sys/Krishnamurthy Pulse Ox Last 24 Hr 98.2 F-98.8 F 59-83 14-20 97-129/44-74 100-100 Gen: NAD at rest Heart: RRR Lung: decreased breath sounds at the bases Abd: soft, nontender Ext: no edema CBC, BMP 12/29/18 06:10 12/29/18 06:10 Active Medications Acetaminophen (Ofirmev Injection -) 1,000 mg IVPB Q6H PRN PRN Reason: PAIN LEVEL 6-10 Last Admin: 12/28/18 21:43 Dose: 1,000 mg Albuterol Sulfate (Ventolin 0.083% Nebulizer Soln -) 1 amp NEB Q4H PRN PRN Reason: SHORT OF BREATH/WHEEZING Albuterol/Ipratropium (Duoneb -) 1 amp NEB RQID [facility] Aspirin (Ecotrin -) 81 mg PO DAILY [facility] Last Admin: 12/29/18 10:04 Dose: 81 mg Atorvastatin Calcium (Lipitor -) 40 mg PO HS [facility] Last Admin: 12/28/18 21:43 Dose: 40 mg Diphenhydramine HCl (Benadryl -) 25 mg PO HS PRN PRN Reason: INSOMNIA Last Admin: 12/28/18 21:43 Dose: 25 mg Heparin Sodium (Porcine) (Heparin -) 5,000 unit SQ BID [facility] Last Admin: 12/29/18 10:05 Dose: Not Given Methylprednisolone Sodium Succinate (Solu-Medrol -) 40 mg IVPUSH BID [facility] Last Admin: 12/29/18 10:05 Dose: 40 mg Montelukast Sodium (Singulair -) 10 mg PO HS [facility] Ondansetron HCl (Zofran Injection) 4 mg IVPUSH Q6H PRN PRN Reason: NAUSEA AND/OR VOMITING A/P Pituitary Adenoma r/o Acute CVA Acute Asthma Exacerbation Hyperlipidemia - inhaled bronchodilators - can change steroids to PO prednisone 40mg daily - start singulair - DVT prophylaxis
--- NOTE | 2018-12-29 20:29 | PN ---
Progress Note, Physician - Current Medication List Current Medications: Active Medications Acetaminophen (Ofirmev Injection -) 1,000 mg IVPB Q6H PRN PRN Reason: PAIN LEVEL 6-10 Last Admin: 12/28/18 21:43 Dose: 1,000 mg Albuterol Sulfate (Ventolin 0.083% Nebulizer Soln -) 1 amp NEB Q4H PRN PRN Reason: SHORT OF BREATH/WHEEZING Last Admin: 12/29/18 14:12 Dose: 1 amp Albuterol/Ipratropium (Duoneb -) 1 amp NEB RQID [facility] Last Admin: 12/29/18 16:11 Dose: Not Given Aspirin (Ecotrin -) 81 mg PO DAILY [facility] Last Admin: 12/29/18 10:04 Dose: 81 mg Atorvastatin Calcium (Lipitor -) 40 mg PO HS [facility] Last Admin: 12/28/18 21:43 Dose: 40 mg Diphenhydramine HCl (Benadryl -) 25 mg PO HS PRN PRN Reason: INSOMNIA Last Admin: 12/28/18 21:43 Dose: 25 mg Heparin Sodium (Porcine) (Heparin -) 5,000 unit SQ BID [facility] Last Admin: 12/29/18 10:05 Dose: Not Given Methylprednisolone Sodium Succinate (Solu-Medrol -) 40 mg IVPUSH BID [facility] Last Admin: 12/29/18 10:05 Dose: 40 mg Montelukast Sodium (Singulair -) 10 mg PO HS [facility] Ondansetron HCl (Zofran Injection) 4 mg IVPUSH Q6H PRN PRN Reason: NAUSEA AND/OR VOMITING - Objective Vital Signs: Vital Signs Temperature 98.5 F 12/29/18 19:03 Pulse Rate 81 12/29/18 19:03 Respiratory Rate 20 12/29/18 19:55 Blood Pressure 108/70 12/29/18 19:03 O2 Sat by Pulse Oximetry (%) 100 12/29/18 19:55 Labs: CBC, BMP 12/29/18 06:10 12/29/18 06:10 INR, PTT INR 0.97 (0.83-1.09) 12/23/18 17:36 Problem List - Problems (1) Altered mental status Code(s): R41.82 - ALTERED MENTAL STATUS, UNSPECIFIED (2) Pituitary adenoma Code(s): D35.2 - BENIGN NEOPLASM OF PITUITARY GLAND (3) Asthma Code(s): J45.909 - UNSPECIFIED ASTHMA, UNCOMPLICATED (4) Bronchospasm Code(s): J98.01 - ACUTE BRONCHOSPASM (5) Headache Code(s): R51 - HEADACHE (6) Obesity Code(s): E66.9 - OBESITY, UNSPECIFIED
[2018-12-29] MEDS: ATORVASTATIN CA 40 MG TABLET (FP) PO SCH (21:17)
[2018-12-29] MEDS: diphenhydrAMINE HCL 25 MG CAPSULE (FP) PO PRN (21:18)
[2018-12-29] MEDS: ACETAMINOPHEN 1000 MG/100 ML VIAL (NON FORMULARY) IVPB PRN (21:24)
[2018-12-29] MEDS ORDERED: MONTELUKAST NA 10 MG TABLET PO SCH (22:00)
[2018-12-30] MEDS: ALBUTEROL SO4 2.5/IPRATROPIUM 0.5 INH SOL 3 ML VIAL.NEB. NEB SCH ×3 (08:00→15:53)
[2018-12-30] MEDS ORDERED: FLU VACCINE QUAD 60 MCG/0.5 ML (MDV 19-20) IM ONE (09:00)
--- NOTE | 2018-12-30 09:07 | PN ---
Progress Note (short form) - Note Progress Note: Neurology HISTORY OF PRESENT ILLNESS: This is a 48 year old female with PMH significant for asthma and migraines. She is responsive, but can only respond to questions with single word sentences. As per chart review, she was at her PCP's office around 3PM on day of admission (), when she started complaining of difficulty breathing, and subsequently developed projectile vomiting and left sided weakness. She was brought to the ER by EMS. Her left sided weakness resolved in the ER, before re-appearing, and she was noted to be speaking clearly. She continued to display relapsing and resolving left sided weakness, with episodes of brief slurring. Head CT completed on 12/23 - 2cm pituitary enlargement noted, mild to moderate bilateral ethmoid, left frontal and left maxillary sinus mucosal thickening. Head CTA completed, pituitary adenoma with resultant optic chiasm impingement noted but no large vessel occlusion or critical stenosis . LDL cholesterol 127, patient started on atorvastatin 40mg daily. Ordered MRI of the brain with and without contrast to evaluate both pituitary adenoma as well as possible CVA. Brain MRI not completed due to prior concern for aspiration as patient was having projective vomiting. Repeat Head CT 12/25, completed and no acute changes. Neurosurgery, Dr. Suazo, consulted for neurosurgical evaluation, had conversation with 12/25 as noted. Pulmonary consulted for optimization of respiratory status and discused with Dr Hennessy this AM. Noted hypoxia and hypercapnia improved on labs and breathing comfortably. Remains improved this AM, no respiratory distress and even moving L side at baseline, speech improved. Brain MRI completed,1.7 x 1.4 x 1.2 cm solitary, nonspecific, noncalcified soft tissue lesion noted along midline of suprasellar cistern with resultant optic chiasm impingement, no acute infarct noted. Discussed with patient in detail who verbalized understanding and would require further outpatient management. Neurologically stable, getting further endocrine management and respiratory optimization. Reports ambulating and being able to go to the restroom on her own. Endocrine note reviewed, for neuro-optho eval and pending lab results. Per patient, expecting discharge today, defer to her primary team Allergies Allergy/AdvReac Type Severity Reaction Status Date / Time prednisone Allergy Verified 12/23/18 17:44 Active Medications Acetaminophen (Ofirmev Injection -) 1,000 mg IVPB Q6H PRN PRN Reason: PAIN LEVEL 6-10 Last Admin: 12/29/18 21:24 Dose: 1,000 mg Albuterol Sulfate (Ventolin 0.083% Nebulizer Soln -) 1 amp NEB Q4H PRN PRN Reason: SHORT OF BREATH/WHEEZING Last Admin: 12/29/18 14:12 Dose: 1 amp Albuterol/Ipratropium (Duoneb -) 1 amp NEB RQID [facility] Last Admin: 12/29/18 16:11 Dose: Not Given Aspirin (Ecotrin -) 81 mg PO DAILY [facility] Last Admin: 12/29/18 10:04 Dose: 81 mg Atorvastatin Calcium (Lipitor -) 40 mg PO HS [facility] Last Admin: 12/29/18 21:17 Dose: 40 mg Diphenhydramine HCl (Benadryl -) 25 mg PO HS PRN PRN Reason: INSOMNIA Last Admin: 12/29/18 21:18 Dose: 25 mg Heparin Sodium (Porcine) (Heparin -) 5,000 unit SQ BID [facility] Last Admin: 12/29/18 21:19 Dose: Not Given Methylprednisolone Sodium Succinate (Solu-Medrol -) 40 mg IVPUSH BID [facility] Last Admin: 12/29/18 21:18 Dose: 40 mg Montelukast Sodium (Singulair -) 10 mg PO HS [facility] Last Admin: 12/29/18 21:18 Dose: 10 mg Ondansetron HCl (Zofran Injection) 4 mg IVPUSH Q6H PRN PRN Reason: NAUSEA AND/OR VOMITING PHYSICAL EXAMINATION Vital Signs Period Temp Pulse Resp BP Sys/Krishnamurthy Pulse Ox Last 24 Hr 97.9 F-98.8 F 68-81 16-20 97-133/64-74 100 GENERAL: AOx3, responds in single word sentences, drowsy but arousable HEAD: Normal with no signs of trauma. EYES: FRANCISCO, EOMI, complains of intermittent blurry vision in the left eye, no nystagmus EARS, NOSE, THROAT: Ears normal, nares patent, oropharynx clear without exudates. Moist mucous membranes. LUNGS: Clear B/L HEART: RRR, no murmurs ABDOMEN: Soft, nontender, not distended LOWER EXTREMITIES: 2+ pulses, warm, no edema NEUROLOGICAL: Motor 5/5 on right, left upper and lower 5-/5 Sensations on the Rt are intact, Lt also intact Lifts eyebrows equally B/L, no flattening of nasolabial fold, is able to smile with no signs of facial droop No slurred speech SKIN: Warm, dry, normal turgor, no rashes or lesions noted. CBCD WBC 14.7 K/mm3 (4.0-10.0) H 12/29/18 06:10 RBC 4.32 M/mm3 (3.60-5.2) 12/29/18 06:10 Hgb 12.2 GM/dL (10.7-15.3) 12/29/18 06:10 Hct 37.6 % (32.4-45.2) D 12/29/18 06:10 MCV 87.0 fl (80-96) 12/29/18 06:10 MCHC 32.5 g/dl (32.0-36.0) 12/29/18 06:10 RDW 13.5 % (11.6-15.6) 12/29/18 06:10 Plt Count 295 K/MM3 (134-434) D 12/29/18 06:10 MPV 8.6 fl (7.5-11.1) 12/29/18 06:10 CMP Sodium 139 mmol/L (136-145) 12/29/18 06:10 Potassium 4.2 mmol/L (3.5-5.1) 12/29/18 06:10 Chloride 107 mmol/L (98-107) 12/29/18 06:10 Carbon Dioxide 26 mmol/L (21-32) 12/29/18 06:10 Anion Gap 7 MMOL/L (8-16) L 12/29/18 06:10 BUN 12.0 mg/dL (7-18) 12/29/18 06:10 Creatinine 0.6 mg/dL (0.55-1.3) 12/29/18 06:10 Random Glucose 116 mg/dL (74-106) H 12/29/18 06:10 Calcium 8.6 mg/dL (8.5-10.1) 12/29/18 06:10 Total Bilirubin 0.2 mg/dL (0.2-1) 12/29/18 06:10 AST 20 U/L (15-37) 12/29/18 06:10 ALT 75 U/L (13-61) H 12/29/18 06:10 Alkaline Phosphatase 105 U/L (45-117) 12/29/18 06:10 Total Protein 6.3 g/dl (6.4-8.2) L 12/29/18 06:10 Albumin 3.1 g/dl (3.4-5.0) L 12/29/18 06:10 CARDIAC ENZYMES Creatine Kinase 52 U/L (26-192) 12/26/18 05:25 Troponin I < 0.02 ng/ml (0.00-0.05) 12/26/18 05:25 ASSESSMENT/PLAN: This is a 48 year old female with PMH significant for asthma and migraines. She is responsive, but can only respond to questions with single word sentences. As per chart review, she was at her PCP's office around 3PM on day of admission (), when she started complaining of difficulty breathing, and subsequently developed projectile vomiting and left sided weakness. She was brought to the ER by EMS. Her left sided weakness resolved in the ER, before re-appearing, and she was noted to be speaking clearly. She continued to display relapsing and resolving left sided weakness, with episodes of brief slurring. Head CT completed on 12/23 - 2cm pituitary enlargement noted, mild to moderate bilateral ethmoid, left frontal and left maxillary sinus mucosal thickening. Head CTA completed, pituitary adenoma with resultant optic chiasm impingement noted but no large vessel occlusion or critical stenosis . LDL cholesterol 127, patient started on atorvastatin 40mg daily. Ordered MRI of the brain with and without contrast to evaluate both pituitary adenoma as well as possible CVA. Brain MRI not completed due to prior concern for aspiration as patient was having projective vomiting. Repeat Head CT 12/25, completed and no acute changes. Neurosurgery, Dr. Suazo, consulted for neurosurgical evaluation, had conversation with 12/25 as noted. Pulmonary consulted for optimization of respiratory status and discused with Dr Hennessy this AM. Noted hypoxia and hypercapnia improved on labs and breathing comfortably. Much improved this AM, no respiratory distress and even morving L side near baseline (LUe maybe 5- at this point), speech improved. Discussed with nurse and will try to obtain MRI for more definitive imaging. May benefit from PT. Monitor telemetry, follow-up results of echo and carotid Dopplers. Monitor blood pressure, goal < 140/90. Physical therapy, speech improved, DVT prophylaxis. Pulmonary follow up, Remains improved this AM, no respiratory distress and even moving L side at baseline, speech improved. Brain MRI completed,1.7 x 1.4 x 1.2 cm solitary, nonspecific, noncalcified soft tissue lesion noted along midline of suprasellar cistern with resultant optic chiasm impingement, no acute infarct noted. Discussed with patient in detail who verbalized understanding and would require further outpatient management. Follow up pituatary adenoma with Dr. Downing as outpatient, no inpatient acute surgery indicated. Endocrine note reviewed, for neuro-optho eval and pending lab results. Per patient, expecting discharge today, defer to her primary team.
[2018-12-30] MEDS: ACETAMINOPHEN 1000 MG/100 ML VIAL (NON FORMULARY) IVPB PRN ×2 (09:56→18:23)
[2018-12-30] MEDS: methylPREDNISolone NA SUCC 40 MG/1 ML VIAL IVPUSH SCH (09:57)
[2018-12-30] MEDS: HEPARIN NA (PORCINE) 5,000 UNITS/ML 1ML VIAL SQ SCH (09:57)
[2018-12-30] MEDS: ASPIRIN COATED 81 MG TABLET.EC PO SCH (09:57)
[2018-12-30] MEDS ORDERED: BENZOCAINE/MENTH/CETYLPYRD CL 1 EACH LOZENGE MM PRN (12:03)
[2018-12-30 14:36] VITALS: TEMP 98
--- NOTE | 2018-12-30 15:41 | PN ---
Progress Note (short form) - Note Progress Note: Breathing feels overall better. Some sore throat. NAD on RA. Intake & Output 12/27/18 12/28/18 12/29/18 12/30/18 23:59 23:59 23:59 23:59 Intake Total 1925 220 480 100 Output Total 1400 Balance 525 220 480 100 Last Vital Signs Temp Pulse Resp BP Pulse Ox 98 F 110 H 16 109/74 100 12/30/18 14:35 12/30/18 14:35 12/30/18 14:35 12/30/18 14:35 12/30/18 09:00 Active Medications Acetaminophen (Ofirmev Injection -) 1,000 mg IVPB Q6H PRN PRN Reason: PAIN LEVEL 6-10 Last Admin: 12/30/18 09:56 Dose: 1,000 mg Albuterol Sulfate (Ventolin 0.083% Nebulizer Soln -) 1 amp NEB Q4H PRN PRN Reason: SHORT OF BREATH/WHEEZING Last Admin: 12/29/18 14:12 Dose: 1 amp Albuterol/Ipratropium (Duoneb -) 1 amp NEB RQID [facility] Last Admin: 12/30/18 11:36 Dose: 1 amp Aspirin (Ecotrin -) 81 mg PO DAILY [facility] Last Admin: 12/30/18 09:57 Dose: 81 mg Atorvastatin Calcium (Lipitor -) 40 mg PO HS [facility] Last Admin: 12/29/18 21:17 Dose: 40 mg Benzocaine/Menthol (Cepacol Lozenge -) 1 each MM Q4H PRN PRN Reason: SORE THROAT Diphenhydramine HCl (Benadryl -) 25 mg PO HS PRN PRN Reason: INSOMNIA Last Admin: 12/29/18 21:18 Dose: 25 mg Heparin Sodium (Porcine) (Heparin -) 5,000 unit SQ BID [facility] Last Admin: 12/30/18 09:57 Dose: 5,000 unit Methylprednisolone Sodium Succinate (Solu-Medrol -) 40 mg IVPUSH BID [facility] Last Admin: 12/30/18 09:57 Dose: 40 mg Montelukast Sodium (Singulair -) 10 mg PO HS [facility] Last Admin: 12/29/18 21:18 Dose: 10 mg Ondansetron HCl (Zofran Injection) 4 mg IVPUSH Q6H PRN PRN Reason: NAUSEA AND/OR VOMITING Constitutional: Yes: NAD Eyes: Yes: WNL HENT: Yes: WNL Neck: Yes: No stridor noted Cardiovascular: Yes: Regular Rate and Rhythm, S1, S2 Respiratory: Yes: Diminished, no wheeze Gastrointestinal: Yes: Normal Bowel Sounds, Soft Extremities: Yes: WNL Edema: No Labs: Laboratory Results - last 24 hr 12/27/18 12/28/18 14:40 06:00 Human Growth Hormone 0.6 Cortisol AM Sample 5.1 L Problem List - Problems (1) Bronchospasm Code(s): J98.01 - ACUTE BRONCHOSPASM (2) Dysarthria Code(s): R47.1 - DYSARTHRIA AND ANARTHRIA (3) Headache Code(s): R51 - HEADACHE (4) Pituitary adenoma Code(s): D35.2 - BENIGN NEOPLASM OF PITUITARY GLAND Assessment/Plan ASSESSMENT/PLAN: Supracellar soft tissue lesion with impingement of the optic chiasm Migraines (?) Seizure History of Asthma: currently stable Low suspicion of upper airway inflammation There is no Pulmonary contraindication for DC Home Meds: Medrol dose pack Singulair 10mg QHS Can continue Symbicort 160/4.5, 2 inhalations BID Do not need to prescribe Spiriva Dr Singh
[2018-12-30 19:03] VITALS: BP 120/75; PULSE 92
== END 2018-12-30 19:56 | disposition home or self-care (01) | DRG 644 ==
LOC: JER 17:20 → JERBED 19:36 → J4W 23:50 → JICU 12-24 00:25 → J2W 12-24 01:14
PROVIDERS: ADMIT Internal Medicine; ATTEND Internal Medicine
DX: D35.2 Benign neoplasm of pituitary gland (principal); J45.901 Unspecified asthma with (acute) exacerbation; G43.909 Migraine, unspecified, not intractable, without status migrainosus; R00.0 Tachycardia, unspecified; D32.9 Benign neoplasm of meninges, unspecified; F41.9 Anxiety disorder, unspecified; I10 Essential (primary) hypertension; R47.1 Dysarthria and anarthria; E78.5 Hyperlipidemia, unspecified; E66.9 Obesity, unspecified; Z68.36 Body mass index [BMI] 36.0-36.9, adult; R22.0 Localized swelling, mass and lump, head
CPT/HCPCS: 36415; 70450-TC; 70496-TC; 70553-TC; 71045-TC-FY; 80053; 80307; 81003; 82024; 82465; 82533; 82550; 82670; 82803; 82962; 83001; 83002; 83003; 83519; 83605; 83718; 83721; 84146; 84443; 84478; 84480; 84484; 84703; 85025; 85610; 85730; 86850; 86900; 86901; 87040; 93005; 93010; 93306-TC; 94640; 97116-GP; 97162-GP; 99284-25; C1887; J0131; J1644; J7030; Q2036

== ENCOUNTER 2021-06-24 13:34 | Inpatient (IN) | payer OTHER ==
[2021-06-24] MEDS ORDERED: LORazepam 2 MG/ML SDV VIAL IVPUSH ONE (14:01)
[2021-06-24] MEDS: SODIUM CHLORIDE 1,000 ML IV SCH (14:42)
[2021-06-24 14:54] LABS: EPI CELLS >36 /uL (0-25.1); HYALINE CASTS 14 /uL (0-3.1); URINE APPEARANCE CLOUDY; URINE BACTERIA 1784 /uL (0-1359); URINE BILIRUBIN NEGATIVE (NEGATIVE); URINE COLOR YELLOW; URINE GLUCOSE (UA) NEGATIVE (NEGATIVE); URINE KETONE TRACE (NEGATIVE); URINE LEUK ESTERASE NEGATIVE (NEGATIVE); URINE NITRITE NEGATIVE (NEGATIVE); URINE PROTEIN 1+ (NEGATIVE); URINE UROBILINOGEN 0.2 mg/dL (0.2-1.0)
[2021-06-24 14:55] LABS: VENOUS BASE EXCESS -1.3 mmol/L (-2-2); VENOUS O2 SATURATION 26.7 % (70-80); VENOUS PCO2 46.7 mmHg (38-52); VENOUS PH 7.343 (7.310-7.410)
[2021-06-24 14:58] LABS: BASO % 0.2 % (0-2.0); EOS % 0.9 % (0-4.5); LYMPH % 27.6 % (8-40); MCH 27.3 pg (25.7-33.7); MCHC 32.5 g/dl (32.0-36.0); MEAN CELL VOLUME 84.1 fl (80-96); MEAN PLT VOLUME 8.1 fl (7.5-11.1); NEUT % 65.3 % (42.8-82.8); PLATELET COUNT 307 10^3/uL (134-434); RBC 4.75 M/mm3 (3.60-5.2); RDW 14.4 % (11.6-15.6); WHITE BLOOD COUNT 10.4 K/mm3 (4.0-10.0)
[2021-06-24 15:04] LABS: INR 0.97 (0.83-1.09); PROTHROMBIN TIME (PATIENT) 11.1 SEC (9.7-13.0)
[2021-06-24 15:07] LABS: ACTIVATED PTT 18.8 SECONDS (25.2-36.5)
[2021-06-24 15:11] LABS: URINE CRYSTALS CA OXALATE FEW /hpf; URINE RBC 14.1 /uL (0-23.9); URINE WBC 96.6 /uL (0-25.8)
[2021-06-24 15:23] LABS: COCAINE, UR NEGATIVE (NEGATIVE); METHADONE, UR NEGATIVE (NEGATIVE); OPIATES, URI NEGATIVE (NEGATIVE); PHENCYCLIDINE,URINE NEGATIVE (NEGATIVE); URINE AMPHETAMINES NEGATIVE (NEGATIVE); URINE BARBITURATES NEGATIVE (NEGATIVE); URINE BENZODIAZEPINES NEGATIVE (NEGATIVE)
[2021-06-24 15:24] LABS: CALCIUM 8.8 mg/dL (8.5-10.1)
[2021-06-24 15:26] LABS: ALBUMIN 3.7 g/dl (3.4-5.0); BLOOD UREA NITROGEN 18.8 mg/dL (7-18)
[2021-06-24 15:28] LABS: CREATININE 0.8 mg/dL (0.55-1.3)
[2021-06-24 15:30] LABS: BILIRUBIN,TOTAL 0.4 mg/dL (0.2-1); TOT PROT 8.1 g/dl (6.4-8.2)
[2021-06-24] MEDS ORDERED: ACETAMINOPHEN 325 MG TABLET (FP) PO ONE (21:51)
[2021-06-25 00:44] VITALS: BMI 34.2
[2021-06-25] MEDS: HEPARIN NA (PORCINE) 5,000 UNITS/ML 1ML VIAL SQ SCH ×3 (01:56→21:41)
[2021-06-25] MEDS: DOCUSATE SODIUM 100 MG CAPSULE (FP) PO SCH ×4 (01:56→21:41)
[2021-06-25] MEDS: MONTELUKAST NA 10 MG TABLET PO SCH ×2 (01:57→21:41)
[2021-06-25] MEDS: BUDESONIDE/FORMETEROL FUMARATE 160/4.5 mcg INHALER IH SCH ×3 (01:57→21:33)
[2021-06-25] MEDS ORDERED: ACETAMINOPHEN 325 MG TABLET (FP) PO ONE (09:45)
[2021-06-25] MEDS ORDERED: ACETAMINOPHEN 325 MG TABLET (FP) ONE (09:48)
[2021-06-25 10:03] LABS: BASO % 0.3 % (0-2.0); EOS % 1.7 % (0-4.5); HEMATOCRIT 34.6 % (32.4-45.2); HEMOGLOBIN 11.2 GM/dL (10.7-15.3); LYMPH % 32.5 % (8-40); MCH 27.1 pg (25.7-33.7); MCHC 32.4 g/dl (32.0-36.0); MEAN CELL VOLUME 83.7 fl (80-96); MEAN PLT VOLUME 8.1 fl (7.5-11.1); MONO % 5.9 % (3.8-10.2); NEUT % 59.6 % (42.8-82.8); PLATELET COUNT 274 10^3/uL (134-434); RBC 4.14 M/mm3 (3.60-5.2); RDW 14.2 % (11.6-15.6); WHITE BLOOD COUNT 8.5 K/mm3 (4.0-10.0)
[2021-06-25] MEDS: ALBUTEROL SO4 HFA INHALER IH SCH ×4 (10:16→21:33)
[2021-06-25 10:51] LABS: CALCIUM 8.3 mg/dL (8.5-10.1)
[2021-06-25 10:53] LABS: ALBUMIN 2.9 g/dl (3.4-5.0)
[2021-06-25 10:56] LABS: BILIRUBIN,TOTAL 0.5 mg/dL (0.2-1); BLOOD UREA NITROGEN 14.4 mg/dL (7-18); CREATININE 0.5 mg/dL (0.55-1.3)
[2021-06-25] MEDS: SODIUM CHLORIDE 1,000 ML IV SCH ×2 (11:01→14:56)
[2021-06-25] MEDS: POLYETHYLENE GLYCOL (HEALTHYLAX) 3350 17 GM PACKET PO SCH (12:36)
[2021-06-25] MEDS: TIOTROPIUM BROMIDE 2.5 MCG (SPIRIVA) RESPIMAT INHALER IH SCH (16:20)
[2021-06-25] MEDS ORDERED: COSYNTROPIN 0.25 MG VIAL IVPUSH ONE (16:45)
[2021-06-25] MEDS ORDERED: diphenhydrAMINE HCL 25 MG CAPSULE (FP) PO PRN (20:00)
[2021-06-25] MEDS: IBUPROFEN 600 MG TABLET (FP) PO PRN (21:35)
[2021-06-25] MEDS ORDERED: DEXAMETHASONE SOD PHOSPHATE 20 MG/5 ML VIAL IVPB ONE (22:08)
[2021-06-25] MEDS ORDERED: DEXAMETHASONE SOD PHOSPHATE 4 MG/1 ML VIAL IVPB ONE (22:30)
[2021-06-26] MEDS ORDERED: DEXAMETHASONE SOD PHOSPHATE 10 MG/1 ML VIAL ONE (02:33)
[2021-06-26] MEDS: DOCUSATE SODIUM 100 MG CAPSULE (FP) PO SCH ×2 (06:06→13:35)
[2021-06-26] MEDS: DEXAMETHASONE SOD PHOSPHATE 4 MG/1 ML VIAL IVPB SCH ×2 (06:12→11:40)
[2021-06-26] MEDS ORDERED: FLUDROCORTISONE ACETATE 0.1 MG TABLET (FP) PO SCH (10:00)
[2021-06-26] MEDS: ALBUTEROL SO4 HFA INHALER IH SCH ×2 (10:04→11:41)
[2021-06-26] MEDS: POLYETHYLENE GLYCOL (HEALTHYLAX) 3350 17 GM PACKET PO SCH (10:04)
[2021-06-26] MEDS: TIOTROPIUM BROMIDE 2.5 MCG (SPIRIVA) RESPIMAT INHALER IH SCH (10:05)
[2021-06-26] MEDS: BUDESONIDE/FORMETEROL FUMARATE 160/4.5 mcg INHALER IH SCH (10:05)
[2021-06-26] MEDS: HEPARIN NA (PORCINE) 5,000 UNITS/ML 1ML VIAL SQ SCH (10:06)
[2021-06-26] MEDS: IBUPROFEN 600 MG TABLET (FP) PO PRN (10:16)
[2021-06-26 16:12] VITALS: BP 116/57; PULSE 113; TEMP 98.5
== END 2021-06-26 17:01 | disposition short-term general hospital (02) | DRG 424 ==
LOC: JER 13:34 → JERBED 17:49 → J8W 23:11
PROVIDERS: ADMIT Internal Medicine; ATTEND Internal Medicine
DX: D35.2 Benign neoplasm of pituitary gland (principal); R56.9 Unspecified convulsions; J45.909 Unspecified asthma, uncomplicated; E78.5 Hyperlipidemia, unspecified; E03.9 Hypothyroidism, unspecified; I10 Essential (primary) hypertension
CPT/HCPCS: 36415; 70450-TC; 71045-TC-FY; 80053; 80061; 80307; 81003; 82533; 82803; 82962; 83605; 84146; 84439; 84443; 84479; 84481; 84484; 85025; 85610; 85730; 87040; 87081; 87086; 93005; 93010; 99285-25; C9803-CS; J0834; J1100; U0003; U0005